=== PATIENT | male | born 1940 | race Caucasian/White ===

== ENCOUNTER → 2016-10-22 | Outpatient (CLI) | payer MEDICARE ==
[~2016-10-22] MED LIST: ACHD5005 PO; ALB0.5V IH; AMLO10TA4 PO; ASP81TEC PO; ASPI-983 PO; ASPI1TAB PO; ATOR40TA PO; ATR20T PO; CETI10TA20 PO; CHOL10003 PO; CLOP75TA PO; DRON400T2 PO; FLUT16SP22 NS; HCT25T PO; LEVE1U SQ; METF-380 PO; MUPI1OIN5 NS; NEBI20TA2 PO; NEBI5TAB8 PO; OLME1TAB25 PO; OMG1KC PO; POTA10TA21 PO; RIVA20TA PO; ROSU10TA12 PO; RT-ALBUINH IH; SITA1TBM7 PO; SITA50TA PO; TELM80TA3 PO; UMEC1BLS IH
--- NOTE | 2016-10-22 15:16 | Diagnostic Imaging Report ---
PROCEDURE: CT chest without contrast. TECHNIQUE: Multiple contiguous axial images were obtained through the chest without the use of intravenous contrast. INDICATION: Followup of bibasilar densities noted on previous CT angiography of 10/31/2015. FINDINGS: There is mild apical pleural scarring noted bilaterally. The lungs are well aerated. No parenchymal masses have developed. Densities noted within the lingula and right middle lobe anteriorly are unchanged, consistent with chronic scarring. There are no infiltrates. The mediastinum and hilum appear unchanged. The right paratracheal lymph node remains stable measuring 12 mm. No adenopathy has developed. Median sternotomy changes are noted with dense coronary calcification. No pleural effusions or pericardial effusions. The questionable fatty adrenal lesion on the left is again noted and is felt to most likely represent volume averaging. This has not changed in appearance. IMPRESSION: 1. Stable CT scan of the chest without contrast. Densities in the right middle lobe and lingula are unchanged and likely represent scarring. 2. Median sternotomy changes with dense coronary artery calcification again noted. 3. The questionable fatty lesion in the adrenal gland is stable. This is felt on today's exam to most likely represent volume averaging along the adrenal hilum. Dictated by: Dictated on workstation # [id number]
== END ==
LOC: RAD 11:11
PROVIDERS: ATTEND Internal Medicine Critical Care Medicine
DX: R06.00 Dyspnea, unspecified (principal); R05 Cough; R91.1 Solitary pulmonary nodule; I25.10 Atherosclerotic heart disease of native coronary artery without angina pectoris
CPT/HCPCS: 71250

== ENCOUNTER → 2017-11-15 | Outpatient (CLI) | payer MEDICARE ==
--- NOTE | 2017-11-15 16:41 | Diagnostic Imaging Report ---
INDICATION: Lung nodule. CT chest obtained without IV contrast. COMPARISON: 10/22/16 FINDINGS: Patient has had prior sternotomy. There are coronary artery calcifications with evidence of coronary bypass. The heart is enlarged. There are no enlarged mediastinal or hilar nodes. There are no enlarged axillary nodes or chest wall masses. There is no pleural or pericardial fluid. Visualized portions of the upper abdomen are stable. Lung parenchymal windows demonstrate some parenchymal scarring in the lingula of the left lung. There is some linear scarring in the right middle lobe as well. There is no discrete nodular lesion. IMPRESSION: Stable areas of likely scarring in the lingula and right middle lobe. Cardiomegaly and post sternotomy change with coronary artery calcifications. No new abnormality compared to the previous study. Dictated by: Dictated on workstation # [id number]
== END ==
LOC: RAD 15:36
PROVIDERS: ATTEND Nurse Practitioner Family
DX: R91.1 Solitary pulmonary nodule (principal); I51.7 Cardiomegaly; I25.10 Atherosclerotic heart disease of native coronary artery without angina pectoris; Z98.890 Other specified postprocedural states
CPT/HCPCS: 71250

== ENCOUNTER → 2018-07-17 | Outpatient (CLI) | payer MEDICARE | LOC: CARD 10:51 | PROVIDERS: ATTEND Internal Medicine Cardiovascular Disease | DX: I25.10 Atherosclerotic heart disease of native coronary artery without angina pectoris (principal); I77.9 Disorder of arteries and arterioles, unspecified; E11.9 Type 2 diabetes mellitus without complications; I10 Essential (primary) hypertension; I48.2 Chronic atrial fibrillation | CPT/HCPCS: 93306 ==

== ENCOUNTER → 2019-03-10 | Day surgery (SDC) | payer MEDICARE ==
[2019-03-10] VITALS (11 sets, daily range): BP systolic 154–190; BP diastolic 91–117
[~2019-03-10] VITALS: Ht 172.7 cm; Wt 92.3 kg
[~2019-03-10] MED LIST changes: +INSU100V6 SQ; +METF-398 PO; +MIDAZOLAM 2 MG/2 ML (VERSED) VIAL ONE; +NS IV 1000 ML 1,000 ML IV SCH; +NS IV 1000 ML 1,000 ML ONE; -RIVA20TA PO; +RIVA20TA2 PO; +proPOfol 200 MG/20 ML (DIPRIVAN) VIAL IV ONE
[2019-03-10 07:55] LABS: HEMOGLOBIN 15.2 G/DL (13.3-17.7); MEAN PLATELET VOLUME 10.8 FL (7.4-10.4); RED CELL DISTRIBUTION WIDTH 13.6 % (10.0-14.5); WHITE BLOOD COUNT 6.1 10^3/uL (4.3-11.0)
[2019-03-10 08:11] LABS: INR 2.5 (0.8-1.4); PROTHROMBIN TIME PATIENT 28.4 SEC (12.2-14.7)
[2019-03-10 08:16] LABS: ALBUMIN 3.9 GM/DL (3.2-4.5); BILIRUBIN,TOTAL 0.9 MG/DL (0.1-1.0); CALCIUM 8.8 MG/DL (8.5-10.1); CREATININE SERUM 1.22 MG/DL (0.60-1.30); POTASSIUM 3.6 MMOL/L (3.6-5.0); TOTAL PROTEIN 6.4 GM/DL (6.4-8.2)
--- NOTE | 2019-03-10 09:51 | NUR ---
Clare asked me to look at patients medications after she done the medication history. Called [facility] pharmacy and received a recently filled list. Xarelto 20mg HS 03/06/19 (QTY 90) Multaq 400mg BID 03/05/19 (QTY 90) Anora Ellipta 62.5-25mg Daily 02/27/19 Finasteride 5mg Daily 02/26/19 (QTY 90) Lantus 100units/ml 24 units Daily 01/30/19 Valsartan 40mg Daily 01/30/19 (QTY 90) Aspirin EC 81mg Daily 01/28/19 (QTY 90) Metoprolol Succ ER 50mg Daily 01/21/19 (QTY 90) Metformin HCL 850mg BID 12/08/18 (QTY 180) Atorvastatin 40mg Daily 10/06/18 (QTY 90)
--- NOTE | 2019-03-10 10:06 | Cardiac Procedure Note-CS/ASA ---
Pre-Procedure Note Pre-Op Procedure Note H&P Reviewed The H&P was reviewed, patient examined and no changes noted. Date H&P Reviewed: Mar 10, 2019 Time H&P Reviewed: 09:50 Conscious Sedation Pre-Proced Time 09:50 ASA Score 3 For ASA 3 and 4: Consider anesthesia and medical clearance. Also, for patients with a history of failed moderate sedation consider anesthesia. Airway Lungs Heart ASA score ASA 1: a normal healthy patient ASA 2: a patient with a mild systemic disease (mid diabetes, controlled hypertension, obesity ASA 3: a patient with a severe systemic disease that limits activity (angina, COPD, prior Myocardial infarction) ASA 4: a patient with an incapacitating disease that is a constant threat to life (CHF, renal failure) ASA 5: a moribund patient not expected to survive 24 hrs. (ruptured aneurysm) ASA 6: a declared brain- patient whose organs are being harvested. For emergent operations, add the letter E after the classification Mallampati Classification Grade 2 Sedation Plan Analgesia, Amnesia, Plan communicated to team members, Discussed options with patient/fam, Discussed risks with patient/fam The patient is an appropriate candidate to undergo the planned procedure, sedation, and anesthesia. The patient immediately re-assessed prior to indication. ROBERTO CARLSON MD FACP FAC CCDS Mar 10, 2019 10:06
--- NOTE | 2019-03-10 10:12 | Progress Note ---
Standard Progress Note Progress Notes/Assess & Plan Date Seen by a Provider: Mar 10, 2019 Time Seen by a Provider: 10:00 Progress/Assessment & Plan sedation for cardioversion. start time 1000 end [id number]. asa 3. 30mg propfol, and 2mg versed iv given. tolerated procedure well. SHENA SHARP CRNA Mar 10, 2019 10:12
--- NOTE | 2019-03-10 15:11 | OPERATIVE REPORT ---
DATE OF SERVICE: 03/10/2019 EXTERNAL ELECTRICAL CARDIOVERSION PREOPERATIVE DIAGNOSIS: Atrial fibrillation. POSTOPERATIVE DIAGNOSIS: Sinus rhythm. PROCEDURE PERFORMED: External electrical cardioversion. DESCRIPTION OF PROCEDURE: Informed consent was obtained prior to the procedure. He has been anticoagulated with rivaroxaban for several months without any interruption prior to today's electrical cardioversion. The nurse concession manager provided short acting anesthesia under which synchronized external biphasic shock was delivered through patches. We first used 120 joules, which converted atrial fibrillation to sinus rhythm only for a few seconds and he went back into atrial fibrillation. We then used 200 joules of synchronized biphasic shock, which restored sinus rhythm that he was maintaining until the time of this dictation. He tolerated the procedure well. Job ID: [id number] DocumentID: [id number] Dictated Date: 03/10/2019 10:26:37 Pasteurizer Helper Date: 03/10/2019 15:10:06 Dictated By: ROBERTO CARLSON MD, MA, FACP, FACC,
== END ==
LOC: SDC 07:01
PROVIDERS: ATTEND Internal Medicine Cardiovascular Disease
DX: I48.20 Chronic atrial fibrillation, unspecified (principal); I25.10 Atherosclerotic heart disease of native coronary artery without angina pectoris; E11.9 Type 2 diabetes mellitus without complications; E78.5 Hyperlipidemia, unspecified; G47.33 Obstructive sleep apnea (adult) (pediatric); I10 Essential (primary) hypertension; E66.9 Obesity, unspecified; Z68.30 Body mass index [BMI] 30.0-30.9, adult; Z79.4 Long term (current) use of insulin; Z79.899 Other long term (current) drug therapy; Z79.01 Long term (current) use of anticoagulants; Z79.82 Long term (current) use of aspirin; Z80.9 Family history of malignant neoplasm, unspecified
CPT/HCPCS: 36415; 80053; 80061; 85027; 85610; 85730; 87081; 92960; 93005

== ENCOUNTER → 2019-04-13 | Outpatient (CLI) | payer MEDICARE ==
[~2019-04-13] MED LIST changes: -MIDAZOLAM 2 MG/2 ML (VERSED) VIAL ONE; -NS IV 1000 ML 1,000 ML IV SCH; -NS IV 1000 ML 1,000 ML ONE; -proPOfol 200 MG/20 ML (DIPRIVAN) VIAL IV ONE
--- NOTE | 2019-04-13 14:37 | Diagnostic Imaging Report ---
INDICATION: Chronic cough. COMPARISON: 07/26/2015. FINDINGS: There is cardiomegaly. There has been previous median sternotomy and coronary artery bypass graft. There is no pleural effusion, pneumothorax, or pneumonia. The mediastinum is unremarkable. IMPRESSION: No acute cardiopulmonary abnormality. Cardiomegaly. Dictated by: Dictated on workstation # [id number]
== END ==
LOC: RAD 13:48
PROVIDERS: ATTEND Internal Medicine Critical Care Medicine
DX: I51.7 Cardiomegaly (principal); R05 Cough
CPT/HCPCS: 71046

== ENCOUNTER 2019-12-02 16:53 | Observation (INO) | payer MEDICARE ==
[~2019-12-02] VITALS: Ht 172.7 cm; Wt 96.2 kg
[~2019-12-02 16:53] MED LIST changes: -CETI10TA20 PO; +CETI10TA21 PO
[2019-12-02 17:27] LABS: BASOPHILS % (AUTO) 0 % (0-10); EOSINOPHILS # (AUTO) 0.1 10^3/uL (0.0-0.3); EOSINOPHILS % (AUTO) 2 % (0-10); HEMATOCRIT 45 % (40-54); HEMOGLOBIN 15.5 G/DL (13.3-17.7); LYMPHOCYTES # (AUTO) 2.4 X 10^3 (1.0-4.0); LYMPHOCYTES % (AUTO) 33 % (12-44); MEAN CORPUSCULAR HEMOGLOBIN 31 PG (25-34); MEAN CORPUSCULAR HGB CONC 34 G/DL (32-36); MEAN CORPUSCULAR VOLUME 90 FL (80-99); MEAN PLATELET VOLUME 11.3 FL (7.4-10.4); MONOCYTES # (AUTO) 0.8 X 10^3 (0.0-1.0); MONOCYTES % (AUTO) 10 % (0-12); NEUTROPHILS # (AUTO) 4.1 X 10^3 (1.8-7.8); NEUTROPHILS % (AUTO) 55 % (42-75); PLATELET COUNT 230 10^3/uL (130-400); RED CELL DISTRIBUTION WIDTH 13.5 % (10.0-14.5); WHITE BLOOD COUNT 7.5 10^3/uL (4.3-11.0)
--- NOTE | 2019-12-02 17:28 | ED Neurological Problem ---
General Chief Complaint: Neurological Problems Stated Complaint: DIZZY,WEAKNESS Source: patient Exam Limitations: no limitations (LAMONT SANCHES,) History of Present Illness Date Seen by Provider: Dec 02, 2019 Time Seen by Provider: 16:[address] Dorantes presents to the emergency department this afternoon with complaints of dizziness. He states the symptoms began 2 days ago. He describes the dizziness as unbalanced and unsteady on his feet. In addition to the dizziness Dr. Dorantes describes generalized weakness. He denies nausea, fever, blurred vision, headache, confusion, or other neurological symptoms. He is currently taking xarelto for a history of atrial fibrillation. He states his last blood pressure at home was 140s/80s but then his machine was unable to get a reading. Associated Symptoms: No confusion, No fever/chills, No nausea/vomiting, No slurred speech; trouble walking; No vision changes; weakness (generalized) (LAMONT SANCHES,) Allergies and Home Medications Allergies Coded Allergies: No Known Drug Allergies (Unverified , 01/12/11) Home Medications Albuterol Sulfate 18 Gm Hfa.aer.ad, 2 PUFF IH QID PRN for SHORTNESS OF BREATH, (Reported) Albuterol Sulfate 2.5 Mg/0.5 Ml Vial.neb, 2.5 MG IH Q6H PRN for SHORTNESS OF BREATH, (Reported) Aspirin 81 Mg Tablet.dr, 81 MG PO DAILY, (Reported) Atorvastatin Calcium 40 Mg Tablet, 40 MG PO HS, (Reported) Dronedarone HCl 400 Mg Tablet, 400 MG PO BID, (Reported) Fluticasone Propionate 16 Gm [place].susp, 1 SPRAY NS BID PRN for ALLERGIES, (Reported) Insulin Glargine,Hum.rec.anlog 100 Unit/1 Ml Vial, 30 UNIT SQ HS, (Reported) Metformin HCl 850 Mg Tablet, 850 MG PO DAILY, (Reported) Nebivolol HCl 5 Mg Tablet, 5 MG PO DAILY, (Reported) Rivaroxaban 20 Mg Tablet, 20 MG PO 1700, (Reported) Umeclidinium Brm/Vilanterol Tr 1 Each Blst.w.dev, 1 PUFF IH DAILY, (Reported) Patient Home Medication List Home Medication List Reviewed: Yes (LAMONT SANCHES,) Review of Systems Review of Systems Constitutional: dizziness; No fever; weakness Eyes: No Symptoms Reported Ears, Nose, Mouth, Throat: no symptoms reported Respiratory: no symptoms reported Cardiovascular: no symptoms reported Gastrointestinal: no symptoms reported Genitourinary: no symptoms reported Musculoskeletal: no symptoms reported Skin: no symptoms reported Psychiatric/Neurological: No Symptoms Reported (LAMONT SANCHES,) Past Tbhvfpz-Cvesoe-Zsdvzv Hx Past Med/Social Hx: Reviewed Nursing Past Med/Soc Hx (DARCIE IBARRA MD) Patient Social History Smoking Status: Former Smoker (40 Pack/year history. Quit nearly 30 years ago) Type Used: Cigarettes Former Smoker, Quit: May 15, 1995 2nd Hand Smoke Exposure: No Recent Foreign Travel: No Contact w/Someone Who Travel: No Recent Hopitalizations: Yes (HERNIA SURGERY, CARDIAC SURGERY) (LAMONT SANCHES,) Immunizations Up To Date Date of Pneumonia Vaccine: Apr 10, 2011 Date of Influenza Vaccine: Apr 25, 2016 (LAMONT SANCHES,) Past Medical History Surgeries: Yes Cardiac, Coronary Stent Respiratory: Yes Sleep Apnea, COPD Currently Using CPAP: No Currently Using BIPAP: No Cardiac: Yes Atrial Fibrillation, Coronary Artery Disease, Hypertension Neurological: No Genitourinary: No Prostate Problems Gastrointestinal: No Endocrine: Yes Diabetes, Insulin dep Cancer: Yes Skin Did You Recieve Any Treatments: No Blood Disorders: No Adverse Reaction/Blood Tranf: No (LAMONT SANCHES,) CABG Gastrointestinal: No Musculoskeletal: No (DARCIE IBARRA MD) Physical Exam Vital Signs Vital Signs - First Documented 12/02/19 16:55 Temp 37.1 Pulse 65 Resp 18 B/P (MAP) 214/101 (138) Pulse Ox 96 O2 Delivery Room Air (DARCIE IBARRA MD) Vital Signs Capillary Refill : (LAMONT SANCHES,) Height, Weight, BMI Height: 5'8.00" Weight: 215lbs. 0.0oz. 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 Heel to melgar and finger to nose were normal) Crainal Nerves: normal hearing, normal speech, PERRL Coordination/Gait: normal finger to nose Motor/Sensory: no motor deficit, no sensory deficit Skin: normal color, warm/dry (DARCIE IBARRA MD) Progress/Results/Core Measures Results/Orders Lab Results Laboratory Tests Test 12/02/19 17:14 12/02/19 17:20 12/02/19 18:41 Range/Units White Blood Count 7.5 4.3-11.0 10^3/uL Red Blood Count 5.03 4.35-5.85 10^6/uL Hemoglobin 15.5 13.3-17.7 G/DL Hematocrit 45 40-54 % Mean Corpuscular Volume 90 80-99 FL Mean Corpuscular Hemoglobin 31 25-34 PG Mean Corpuscular Hemoglobin Concent 34 32-36 G/DL Red Cell Distribution Width 13.5 10.0-14.5 % Platelet Count 230 130-400 10^3/uL Mean Platelet Volume 11.3 H 7.4-10.4 FL Neutrophils (%) (Auto) 55 42-75 % Lymphocytes (%) (Auto) 33 12-44 % Monocytes (%) (Auto) 10 0-12 % Eosinophils (%) (Auto) 2 0-10 % Basophils (%) (Auto) 0 0-10 % Neutrophils # (Auto) 4.1 1.8-7.8 X 10^3 Lymphocytes # (Auto) 2.4 1.0-4.0 X 10^3 Monocytes # (Auto) 0.8 0.0-1.0 X 10^3 Eosinophils # (Auto) 0.1 0.0-0.3 10^3/uL Basophils # (Auto) 0.0 0.0-0.1 10^3/uL Prothrombin Time 14.1 12.2-14.7 SEC INR Comment 1.0 0.8-1.4 Activated Partial Thromboplast Time 31 24-35 SEC Sodium Level 139 135-145 MMOL/L Potassium Level 3.9 3.6-5.0 MMOL/L Chloride Level 102 98-107 MMOL/L Carbon Dioxide Level 28 21-32 MMOL/L Anion Gap 9 5-14 MMOL/L Blood Urea Nitrogen 19 H 7-18 MG/DL Creatinine 1.23 0.60-1.30 MG/DL Estimat Glomerular Filtration Rate 57 BUN/Creatinine Ratio 15 Glucose Level 115 H 70-105 MG/DL Calcium Level 9.3 8.5-10.1 MG/DL Corrected Calcium 9.3 8.5-10.1 MG/DL Magnesium Level 2.0 1.6-2.4 MG/DL Total Bilirubin 0.8 0.1-1.0 MG/DL Aspartate Amino Transf (AST/SGOT) 15 5-34 U/L Alanine Aminotransferase (ALT/SGPT) 18 0-55 U/L Alkaline Phosphatase 59 40-136 U/L Myoglobin 50.8 10.0-92.0 NG/ML Troponin I < 0.028 <0.028 NG/ML Total Protein 6.7 6.4-8.2 GM/DL Albumin 4.0 3.2-4.5 GM/DL TSH [place] Testing 1.48 0.35-4.94 UIU/ML Glucometer 112 H 70-110 MG/DL Urine Color YELLOW Urine Clarity CLEAR Urine pH 6.5 5-9 Urine Specific [place] 1.020 1.016-1.022 Urine Protein TRACE H NEGATIVE Urine Glucose (UA) TRACE H NEGATIVE Urine Ketones NEGATIVE NEGATIVE Urine Nitrite NEGATIVE NEGATIVE Urine Bilirubin NEGATIVE NEGATIVE Urine Urobilinogen 1.0 < = 1.0 MG/DL Urine Leukocyte Esterase NEGATIVE NEGATIVE Urine RBC (Auto) NEGATIVE NEGATIVE Urine RBC 0-2 /HPF Urine WBC 0-2 /HPF Urine Crystals PRESENT H /LPF Urine Amorphous Sediment RARE JAISON URATES H /LPF Urine Bacteria TRACE /HPF Urine Casts NONE /LPF Urine Mucus SMALL H /LPF Urine Culture Indicated NO (DARCIE IBARRA MD) My Orders Orders - DARCIE IBARRA MD Cbc With Automated Diff (12/02/19 17:14) Magnesium (12/02/19 17:14) Chest 1 View, Ap/Pa Only (12/02/19 17:14) Ekg Tracing (12/02/19 17:14) Comprehensive Metabolic Panel (12/02/19 17:14) Myoglobin Serum (12/02/19 17:14) Protime With Inr (12/02/19 17:14) Partial Thromboplastin Time (12/02/19 17:14) O2 (12/02/19 17:14) Monitor-Rhythm Ecg Trace Only (12/02/19 17:14) Lipid Panel (12/03/19 06:00) Ed Iv/Invasive Line Start (12/02/19 17:14) Troponin I (12/02/19 17:14) Ct Head Wo-R/O Stroke (12/02/19 17:14) Ua Culture If Indicated (12/02/19 17:15) Accucheck Stat ONCE (12/02/19 17:17) Thyroid Analyzer (12/02/19 17:14) Ed Iv/Invasive Line Start (12/02/19 18:30) Ns Iv 1000 Ml (Sodium Chloride 0.9%) (12/02/19 18:30) Ct Angio Head/Neck (12/02/19 18:30) Iohexol Injection (Omnipaque 350 Mg/Ml 1 (12/02/19 19:45) Received Contrast (Hold Metformin- Contr (12/02/19 19:45) Rivaroxaban Tablet (Xarelto Tablet) (12/02/19 20:15) Valsartan Tablet (Diovan Tablet) (12/02/19 20:15) Metoprolol Succinate (Xl) Tab (Toprol Xl (12/02/19 20:15) (DARCIE IBARRA MD) Medications Given in ED Current Medications Medications Dose Ordered Sig/Rupal Route Start Time Stop Time Status Last Admin Dose Admin Iohexol 100 ml ONCE ONCE IV 12/02/19 19:45 12/02/19 19:46 DC 12/02/19 19:34 85 ML (DARCIE IBARRA MD) Vital Signs/I&O 12/02/19 16:55 Temp 37.1 Pulse 65 Resp 18 B/P (MAP) 214/101 (138) Pulse Ox 96 O2 Delivery Room Air (DARCIE IBARRA MD) Progress Progress Note #1: Time: 18:45 Progress Note Initial workup was unremarkable. CT of the head showed no acute findings. K[place]- Hallpike exam was negative bilaterally. Each [place]-Hallpike test was converted into an Antonina maneuver. It was noted the patient had a bit of disequilibrium or dizziness upon sitting after each maneuver. CT angiogram of the head and neck is pending. He is receiving a liter of IV fluid to prevent contrast nephropathy. Blood pressure has been improving with systolic blood pressures in the 160s without any particular treatment. Progress Note #2: Time: 20:19 Progress Note Workup was ultimately unremarkable. CT angiogram was negative for stenosis or occlusive disease. Patient was still having significant trouble with disequilibrium especially upon sitting from lying and standing from sitting. Orthostatic blood pressures were lying 194/169, sitting 216/119, standing 201/122. Though blood pressure was initially improving, it is now escalating again. Patient was not able to safely stand for prolonged period of time or ambulate on his own. I discussed the case with Dr. Ch. He recommends admitting for observation which I certainly agree with as well as giving an additional Toprol-XL 25 now and his regular evening dose of valsartan. Case was also discussed with Dr. Ch who is agreeable. (DARCIE IBARRA MD) Initial ECG Impression Date: Dec 02, 2019 Initial ECG Impression Time: 17:03 Initial ECG Rate: 62 Comment Sinus rhythm with frequent PVCs, possibly trigeminy. Prolonged MO interval of 224. No ST elevation or depression. (DARCIE IBARRA MD) Diagnostic Imaging Diagonstic Imaging: CT Plain Films/CT/US/NM/MRI: head Comments CT head viewed by me and report reviewed. See report below: NAME: ROBBY DORANTES [facility] REC#: [id number] PT STATUS: REG ER : 1940 PHYSICIAN: DARCIE IBARRA MD ADMIT DATE: 12/02/19/ER Draft Date of Exam:12/02/19 CT HEAD WO-R/O STROKE PROCEDURE: CT head without contrast. TECHNIQUE: Multiple contiguous axial images were obtained through the brain without the use of intravenous contrast. Auto Exposure Controls were utilized during the CT exam to meet ALARA standards for radiation dose reduction. DATE: December 02, 2019. COMPARISON: December 20, 2015. INDICATION: 79-year-old male, dizziness and weakness. Headache. FINDINGS: There is a focal area of CSF attenuation in the left periventricular white matter which may relate to a remote prior infarct. There are mild probable changes of chronic small vessel ischemic disease. The ventricles and cerebral spinal fluid spaces are of normal size and configuration for the patient's age. There is no mass effect or midline shift. There is no acute intracranial hemorrhage. There is no abnormal extra-axial fluid collection. There is a polypoid lesion in the left maxillary sinus most likely relating to a mucous retention cyst. IMPRESSION: 1. No identified acute intracranial abnormality. 2. 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 3. Probable changes of chronic small vessel ischemic disease. Dictated on workstation # [id number] Dict: 12/02/19 1802 Trans: 12/02/19 185 [facility] [id number] Interpreted by: ARTHUR GUZMÁN MD Diagonstic Imaging: Xray Plain Films/CT/US/NM/MRI: chest Comments Chest x-ray viewed by me and report reviewed. See report below: NAME: ROBBY DORANTES [facility] REC#: [id number] PT STATUS: REG ER : 1940 PHYSICIAN: DARCIE IBARRA MD ADMIT DATE: 12/02/19/ER Draft Date of Exam:12/02/19 CHEST 1 VIEW, AP/PA ONLY EXAMINATION: Chest radiograph, portable AP view. DATE: 12/02/2019 6:23 PM hours. INDICATION: 79-year-old male, dizziness and weakness. COMPARISON: April 13, 2019. FINDINGS: There are median sternotomy wires. Stable overall appearance of the cardiomediastinal silhouette. There is no identified pneumothorax. There is no large pleural effusion. There is no identified focal airspace consolidation. IMPRESSION: No identified acute cardiopulmonary abnormality. Dictated on workstation # [id number] Dict: 12/02/19 182 Trans: 12/02/19 183 [facility] [id number] Interpreted by: ARTHUR GUZMÁN MD Diagonstic Imaging: CT Plain Films/CT/US/NM/MRI: other (CT angiogram head and neck) Comments CT angiogram head and neck viewed by me and report reviewed. See report below: NAME: ROBBY DORANTES [facility] REC#: [id number] PT STATUS: REG ER : 1940 PHYSICIAN: DARCIE IBARRA MD ADMIT DATE: 12/02/19/ER Signed Date of Exam:12/02/19 CT ANGIO HEAD/NECK PROCEDURE: CT angiography of the head and CT angiography of the neck with and without contrast. TECHNIQUE: Contiguous noncontrast images were obtained from the skull base through the vertex. After intravenous contrast administration, helical CT angiography of the neck was performed. Source data was reformatted into 3D MIP projections. Delayed post contrast acquisition was also obtained. Auto Exposure Controls were utilized during the CT exam to meet ALARA standards for radiation dose reduction. DATE: December 02, 2019. INDICATION: 79-year-old male, dizziness, weakness, headache. COMPARISON: CT head without contrast December 02, 2019. December 20, 2015. FINDINGS: The left common carotid artery is patent. There is calcified plaque at the proximal aspect of the left internal carotid artery without high-grade stenosis. There is also calcified plaque involving the distal left internal carotid artery as well as at the cavernous segment of the left internal carotid artery. There is no high-grade left internal carotid artery stenosis. The left anterior cerebral artery is patent. The left middle cerebral artery is patent. There is a patent anterior communicating artery. The right anterior cerebral artery is patent. The right middle cerebral artery is patent. The right internal carotid artery is patent. There is mild calcified plaque at the level of the proximal right internal carotid artery. There is no right internal carotid artery stenosis. The right vertebral artery is patent. The basilar artery is patent. The right and left posterior inferior cerebellar arteries are patent. The right and left posterior cerebral arteries are patent. The left vertebral artery is patent and conventional in origin. There is no identified aneurysm or dissection. The visualized portions of the lungs are clear. There is a right superior mediastinal lymph node, measuring 10 mm in short axis of uncertain exact etiology. There are degenerative changes of the cervical spine. There is no abnormal intracranial enhancement. IMPRESSION: Patent arterial head and neck vasculature without high-grade stenosis, occlusion, aneurysm or dissection. Dictated by: Dictated on workstation # [id number] Dict: 12/02/191931 Trans: 12/02/191943 [facility] [id number] Interpreted by: ARTHUR GUZMÁN MD Electronically signed by: ARTHUR GUZMÁN MD 12/02/191943 (DARCIE IBARRA MD) Departure Communication (Admissions) Time/Spoke to Admitting Phy: 20:18 Dr. Deric Ch Time/Spoke to Consulting Phy: 20:06 Dr. Ch (DARCIE IBARRA MD) Impression Primary Impression: Disequilibrium Additional Impression: Severe hypertension Disposition: ADMITTED INPATIENT Condition: Unchanged Admissions Decision to Admit Reason: Admit from ER (General) Decision to Admit/Date: Dec 02, 2019 Time/Decision to Admit Time: 20:06 (DARCIE IBARRA MD) Departure-Patient Inst. Referrals: DERIC CH MD (PCP/Family) Primary Care Physician LAMONT SANCHES, Dec 02, 2019 17:28 DARCIE IBARRA MD Dec 02, 2019 17:47
--- NOTE | 2019-12-02 17:30 | NUR ---
ASSUMED CARE OF THIS PATIENT AT THIS TIME FROM JESSIKA RODRIGUES.
[2019-12-02 17:33] LABS: PROTHROMBIN TIME PATIENT 14.1 SEC (12.2-14.7)
[2019-12-02 17:37] LABS: POTASSIUM 3.9 MMOL/L (3.6-5.0)
[2019-12-02 17:38] LABS: CALCIUM 9.3 MG/DL (8.5-10.1)
[2019-12-02 17:40] LABS: TOTAL PROTEIN 6.7 GM/DL (6.4-8.2)
[2019-12-02 17:41] LABS: BILIRUBIN,TOTAL 0.8 MG/DL (0.1-1.0)
[2019-12-02 17:43] LABS: CREATININE SERUM 1.23 MG/DL (0.60-1.30)
[2019-12-02 18:26] LABS: TSH (THYROID ANALYZER) 1.48 UIU/ML (0.35-4.94)
--- NOTE | 2019-12-02 18:28 | Diagnostic Imaging Report ---
PROCEDURE: CT head without contrast. TECHNIQUE: Multiple contiguous axial images were obtained through the brain without the use of intravenous contrast. Auto Exposure Controls were utilized during the CT exam to meet ALARA standards for radiation dose reduction. DATE: December 02, 2019. COMPARISON: December 20, 2015. INDICATION: 79-year-old male, dizziness and weakness. Headache. FINDINGS: There is a focal area of CSF attenuation in the left periventricular white matter which may relate to a remote prior infarct. There are mild probable changes of chronic small vessel ischemic disease. The ventricles and cerebral spinal fluid spaces are of normal size and configuration for the patient's age. There is no mass effect or midline shift. There is no acute intracranial hemorrhage. There is no abnormal extra-axial fluid collection. There is a polypoid lesion in the left maxillary sinus most likely relating to a mucous retention cyst. IMPRESSION: 1. No identified acute intracranial abnormality. 2. 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 3. Probable changes of chronic small vessel ischemic disease. Dictated by: Dictated on workstation # [id number]
[2019-12-02] MEDS ORDERED: NS IV 1000 ML 1,000 ML IV SCH (18:30)
--- NOTE | 2019-12-02 18:34 | Diagnostic Imaging Report ---
EXAMINATION: Chest radiograph, portable AP view. DATE: 12/02/2019 6:23 PM hours. INDICATION: 79-year-old male, dizziness and weakness. COMPARISON: April 13, 2019. FINDINGS: There are median sternotomy wires. Stable overall appearance of the cardiomediastinal silhouette. There is no identified pneumothorax. There is no large pleural effusion. There is no identified focal airspace consolidation. IMPRESSION: No identified acute cardiopulmonary abnormality. Dictated by: Dictated on workstation # [id number]
[2019-12-02 18:53] LABS: BILIRUBIN,URINE NEGATIVE (NEGATIVE); CLARITY,URINE CLEAR; COLOR,URINE YELLOW; GLUCOSE, URINE (UA) TRACE (NEGATIVE); KETONES,URINE NEGATIVE (NEGATIVE); LEUKOCYTE ESTERASE ,URINE NEGATIVE (NEGATIVE); NITRITE,URINE NEGATIVE (NEGATIVE); PH,URINE 6.5 (5-9); PROTEIN,URINE TRACE (NEGATIVE)
[2019-12-02 19:06] LABS: AMORPHOUS SEDIMENT,UR RARE AMOR URATES /LPF; BACTERIA,URINE TRACE /HPF; RBC,URINE 0-2 /HPF; WBC,URINE 0-2 /HPF
[2019-12-02] MEDS ORDERED: IOHEXOL 350 MG/ML 100 ML (OMNIPAQUE 350) VIAL IV ONE (19:45)
[2019-12-02] MEDS ORDERED: HOLD METFORMIN - RECEIVED CONTRAST 20 ML VIAL IV SCH (19:45)
--- NOTE | 2019-12-02 19:45 | Diagnostic Imaging Report ---
PROCEDURE: CT angiography of the head and CT angiography of the neck with and without contrast. TECHNIQUE: Contiguous noncontrast images were obtained from the skull base through the vertex. After intravenous contrast administration, helical CT angiography of the neck was performed. Source data was reformatted into 3D MIP projections. Delayed post contrast acquisition was also obtained. Auto Exposure Controls were utilized during the CT exam to meet ALARA standards for radiation dose reduction. DATE: December 02, 2019. INDICATION: 79-year-old male, dizziness, weakness, headache. COMPARISON: CT head without contrast December 02, 2019. December 20, 2015. FINDINGS: The left common carotid artery is patent. There is calcified plaque at the proximal aspect of the left internal carotid artery without high-grade stenosis. There is also calcified plaque involving the distal left internal carotid artery as well as at the cavernous segment of the left internal carotid artery. There is no high-grade left internal carotid artery stenosis. The left anterior cerebral artery is patent. The left middle cerebral artery is patent. There is a patent anterior communicating artery. The right anterior cerebral artery is patent. The right middle cerebral artery is patent. The right internal carotid artery is patent. There is mild calcified plaque at the level of the proximal right internal carotid artery. There is no right internal carotid artery stenosis. The right vertebral artery is patent. The basilar artery is patent. The right and left posterior inferior cerebellar arteries are patent. The right and left posterior cerebral arteries are patent. The left vertebral artery is patent and conventional in origin. There is no identified aneurysm or dissection. The visualized portions of the lungs are clear. There is a right superior mediastinal lymph node, measuring 10 mm in short axis of uncertain exact etiology. There are degenerative changes of the cervical spine. There is no abnormal intracranial enhancement. IMPRESSION: Patent arterial head and neck vasculature without high-grade stenosis, occlusion, aneurysm or dissection. Dictated by: Dictated on workstation # [id number]
[2019-12-02] MEDS ORDERED: RIVAROXABAN 20 MG TABLET (XARELTO) PO ONE (20:15)
[2019-12-02] MEDS ORDERED: VALSARTAN 80 MG (DIOVAN) TAB PO ONE ×2 (20:15→22:45)
[2019-12-02 21:00] VITALS: BP 219/115
--- NOTE | 2019-12-02 21:15 | NUR ---
2115: B/P ON ADMIT IS 219/115 WITH A HR OF 63. DR. SETHI NOTIFIED; NEW ORDER RECEIVED FOR 10 MG PO NORVASC. 5: B/P NOW 178/98 WITH A HR OF 63, DR SETHI NOTIFIED. NEW ORDER RECEIVED FOR 80 MG PO VALSARTAN NOW AND 160 MG PO DAILY STARTING TOMORROW.
[2019-12-02] MEDS ORDERED: amLODIPine 10 MG (NORVASC) TAB ONE (21:24)
[2019-12-02 21:30] VITALS: BP 203/109
[2019-12-02] MEDS ORDERED: amLODIPine 10 MG (NORVASC) TAB PO ONE (21:30)
[2019-12-02 22:07] VITALS: BP 180/97
[2019-12-02 22:30] VITALS: BP 178/97
[2019-12-03] VITALS (9 sets, daily range): BP systolic 150–194; BP diastolic 81–102
[2019-12-03 03:34] LABS: BASOPHILS % (AUTO) 0 % (0-10); EOSINOPHILS # (AUTO) 0.2 10^3/uL (0.0-0.3); EOSINOPHILS % (AUTO) 2 % (0-10); HEMATOCRIT 43 % (40-54); HEMOGLOBIN 14.6 G/DL (13.3-17.7); LYMPHOCYTES # (AUTO) 2.6 X 10^3 (1.0-4.0); LYMPHOCYTES % (AUTO) 36 % (12-44); MEAN CORPUSCULAR HEMOGLOBIN 31 PG (25-34); MEAN CORPUSCULAR HGB CONC 34 G/DL (32-36); MEAN CORPUSCULAR VOLUME 90 FL (80-99); MEAN PLATELET VOLUME 11.1 FL (7.4-10.4); MONOCYTES # (AUTO) 0.7 X 10^3 (0.0-1.0); MONOCYTES % (AUTO) 10 % (0-12); NEUTROPHILS # (AUTO) 3.7 X 10^3 (1.8-7.8); NEUTROPHILS % (AUTO) 52 % (42-75); PLATELET COUNT 205 10^3/uL (130-400); RED CELL DISTRIBUTION WIDTH 13.4 % (10.0-14.5); WHITE BLOOD COUNT 7.2 10^3/uL (4.3-11.0)
[2019-12-03 03:45] LABS: CHLORIDE 104 MMOL/L (98-107); POTASSIUM 3.3 MMOL/L (3.6-5.0); SODIUM 139 MMOL/L (135-145)
[2019-12-03 03:47] LABS: GLUCOSE 161 MG/DL (70-105)
[2019-12-03 03:48] LABS: CARBON DIOXIDE 26 MMOL/L (21-32); TRIGLYCERIDES 127 MG/DL (<150); VLDL CHOLESTEROL 25 MG/DL (5-40)
[2019-12-03 03:51] LABS: BUN/CREATININE RATIO 14; CREATININE SERUM 1.13 MG/DL (0.60-1.30); GFR ESTIMATED > 60
[2019-12-03 03:53] LABS: CHOLESTEROL 126 MG/DL (< 200)
[2019-12-03 03:54] LABS: HDL CHOLESTEROL 43 MG/DL (40-60)
--- NOTE | 2019-12-03 07:34 | History & Physical ---
History of Present Illness History of Present Illness Reason for visit/HPI 79 yo M admitted for unsteadiness on feet x 4 days- position change from sitting to standing. Antonina maneuver in ER did not resolve or help. Denies headache, nausea, fever. He is on xarelto for afib. History of bypass for CAD. Also noted to have significantly elevated blood pressure. He also reports weakness. Imaging done in ER-- CT head Remote prior infarct involving the left periventricular white matter, microvascular changes, but no acute abnormalities. CTA head- There is calcified plaque at the proximal aspect of the left internal carotid artery without high-grade stenosis. There is also calcified plaque involving the distal left internal carotid artery as well as at the cavernous segment of the left internal carotid artery. Patent head/neck vasculature patent. Date of Admission Dec 02, 2019 at 20:18 Date Seen by a Provider: Dec 04, 2019 Time Seen by a Provider: 11:50 I consulted on this patient on 12/03/19 07:29 Attending Physician Allan Ch MD Admitting Physician Allan Ch MD Consult Dr. Mckeon Allergies and Home Medications Allergies Coded Allergies: No Known Drug Allergies (Unverified , 01/12/11) Home Medications Acetaminophen 500 Mg Tablet, 1,000 MG PO Q8H PRN for PAIN-MILD (1-4), (Reported) Albuterol Sulfate 1 Puff Puff, 2 PUFF PO Q6H PRN for SHORTNESS OF BREATH, (Reported) Aspirin 81 Mg Tablet.dr, 81 MG PO DAILY, (Reported) Finasteride 5 Mg Tablet, 5 MG PO DAILY, (Reported) FILLED 08-06-2019 #90/90 DAY SUPPLY Fluticasone Propion/Salmeterol 1 Each Blst.w.dev, 1 PUFF PO BID PRN for FAMILIA RTNESS OF BREATH, (Reported) Ibuprofen 200 Mg Tablet, 400 MG PO Q8H PRN for PAIN-MILD (1-4), (Reported) Insulin Glargine,Hum.rec.anlog 100 Unit/1 Ml Vial, 30 UNIT SQ DAILY, (Reported) Metformin HCl 850 Mg Tablet, 850 MG PO DAILY, (Reported) Rivaroxaban 20 Mg Tablet, 20 MG PO 1700, (Reported) Valsartan 40 Mg Tablet, 40 MG PO DAILY, (Reported) Patient Home Medication List Home Medication List Reviewed: Yes Past Pbnxrux-Tvkmma-Qetumb Hx Patient Social History Alcohol Use: Denies Use Recreational Drug Use: No Smoking Status: Former Smoker Former Smoker, Quit: May 15, 1995 Type Used: Cigarettes 2nd Hand Smoke Exposure: No Recent Foreign Travel: No Contact w/other who traveled: No Recent Hopitalizations: Yes (HERNIA SURGERY, CARDIAC SURGERY) Recent Infectious Disease Expo: No Immunizations Up To Date Date of Pneumonia Vaccine: Apr 10, 2019 Date of Influenza Vaccine: Apr 25, 2016 Surgeries Yes CABG Respiratory Yes Currently Using CPAP: No Currently Using BIPAP: No Cardiovascular Yes Atrial Fibrillation, Coronary Artery Disease, Hypertension Neurological No Genitourinary No Prostate Problems Gastrointestinal No Musculoskeletal No Endocrine History of Endocrine Disorders: Yes Endocrine Disorders: Diabetes, Insulin dep Cancer Yes Skin Did You Recieve Any Treatments: No Blood Transfusions History of Blood Disorders: No Adverse Reaction to a Blood Tr: No Review of Systems Review of Systems General: No Chills, No Night Sweats HEENT: No Head Aches Pulmonary: No Dyspnea, No Cough Cardiovascular: Palpitations; No: Chest Pain Gastrointestinal: No: Nausea, Vomiting, Abdominal Pain Genitourinary: No Dysuria Neurological: Weakness, Incoordination Physical Exam Vital Signs Vital Signs - First Documented 12/02/19 16:55 Temp 37.1 Pulse 65 Resp 18 B/P (MAP) 214/101 (138) Pulse Ox 96 O2 Delivery Room Air Capillary Refill : Less Than 3 Seconds Height, Weight, BMI Height: 5'8.00" Weight: 215lbs. 0.0oz. 97.414253rt; 30.47 BMI Method: General Appearance: Mild Distress HEENT: PERRL/EOMI Neck: Non Tender, Supple Respiratory: Chest Non Tender, Lungs Clear, Normal Breath Sounds Cardiovascular: Other (irregular rhythm (atrial fibrillation)) Gastrointestinal: Non Tender, Soft Rectal: Deferred Back: Normal Inspection, No CVA Tenderness Extremity: Non Tender, No Calf Tenderness Neurologic/Psychiatric: Alert, Oriented x3 Skin: Warm/Dry Assessment/Plan Assessment/Plan Admission Dx unsteady on feet dizziness/lightheadedness elevated hypertension Admission Status: Observation Reason for Inpatient Admission: admitted observation as etiology is not clear- he is high risk for falling due to his unsteadiness/weakness- added on to him being on xarelto he is at a higher risk for a brain bleed with a fall. 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 -ordering an MRI of head with/without contrast to further evaluate his unsteadiness on his feet and weakness. -potassium for low potassium -Pt in Afib. valsartan increased. amlodipine added (to start 12/04/19) to help with bringing blood pressure down. Dispo: etiology unclear- could be cardiac related- afib, bradycardic episodes, vs cranial issue (stroke, lesion, mass)- work up as above. Problems: (1) Disequilibrium (2) Severe hypertension (3) DMII (diabetes mellitus, type 2) Qualifiers: Assessment & Plan: Hga1c 8.0 (4) Hypokalemia Assessment & Plan: replacing (5) BPH w/o urinary obs/LUTS (6) CAD (coronary atherosclerotic disease) Clinical Quality Measures DVT/VTE Risk/Contraindication: Risk Factor Score Per Nursin RFS Level Per Nursing on Admit: 2=Moderate ALLAN CH MD Dec 03, 2019 07:34
--- NOTE | 2019-12-03 08:30 | Consultation-Cardiology ---
HPI-Cardiology Cardiology Consultation: Date of Consultation 12/03/19 Time Seen by a Provider: 08:40 Date of Admission 12-02-2019 Attending Physician Allan Magdaleno MD Admitting Physician Allan Magdaleno MD Consulting Physician Kevin Mckeon MD HPI: Chief Complaint: Dizziness Dr. Dorantes is a 79 yr old male admitted to [facility] from Dr. Allan Magdaleno. He reports for the last several days he has had profound dizziness and poor balance resulting in falls. No reported injury to head. He denies any CP or SOB. He reports occ palpitations which only last for a brief period of time and are i nfrequent. He denies any syncope or near syncope. He states he feels his dizziness is something more than vertigo. He has been compliant with his medications. He reports when he came to the hospital yesterday his BP was elevated at greater than 200 systolic. He denies any headache or vision changes. Review of Systems-Cardiology Review of Systems Constitutional: No chills, No fever; lightheadedness Eyes: No vision change Ears/Nose/Throat: No epistaxis, No recent hearing loss Respiratory: As described under HPI Cardiovascular: As described under HPI Gastrointestinal: No constipation, No diarrhea, No vomiting Genitourinary: No dysuria, No hematuria Musculoskeletal: no symptoms reported Skin: No rash on exposed areas, No ulcerations on exposed areas Psychiatric/Neurological: No anxiety, No depression, No seizure, No focal weakness, No syncope Hematologic: No bleeding abnormalities VQG-Ygrexc-Bpsbsd Hx Patient Social History Alcohol Use: Denies Use Recreational Drug Use: No Smoking Status: Former Smoker Type Used: Cigarettes 2nd Hand Smoke Exposure: No Recent Foreign Travel: No Recent Infectious Disease Expo: No Hospitalization with Isolation: Denies Immunizations Up To Date Date of Pneumonia Vaccine: Apr 10, 2019 Date of Influenza Vaccine: Apr 25, 2016 Past Medical History PMH As described under Assessment. Allergies and Home Medications Allergies Coded Allergies: No Known Drug Allergies (Unverified , 01/12/11) Home Medications Acetaminophen 500 Mg Tablet, 1,000 MG PO Q8H PRN for PAIN-MILD (1-4), (Reported) Albuterol Sulfate 1 Puff Puff, 2 PUFF PO Q6H PRN for SHORTNESS OF BREATH, (Reported) Aspirin 81 Mg Tablet.dr, 81 MG PO DAILY, (Reported) Finasteride 5 Mg Tablet, 5 MG PO DAILY, (Reported) FILLED 08-06-2019 #90/90 DAY SUPPLY Fluticasone Propion/Salmeterol 1 Each Blst.w.dev, 1 PUFF PO BID PRN for SHORTNESS OF BREATH, (Reported) Ibuprofen 200 Mg Tablet, 400 MG PO Q8H PRN for PAIN-MILD (1-4), (Reported) Insulin Glargine,Hum.rec.anlog 100 Unit/1 Ml Vial, 30 UNIT SQ DAILY, (Reported) Metformin HCl 850 Mg Tablet, 850 MG PO DAILY, (Reported) Rivaroxaban 20 Mg Tablet, 20 MG PO 1700, (Reported) Valsartan 40 Mg Tablet, 40 MG PO DAILY, (Reported) Physical Exam-Cardiology Physical Exam Vital Signs/I&O 12/03/19 12/03/19 12/03/19 12/03/19 04:00 04:00 04:00 06:47 Temp 37.0 Pulse 59 58 B/P (MAP) 165/91 (115) Pulse Ox 95 O2 Delivery Room Air Room Air 12/03/19 12/03/19 12/03/19 12/03/19 07:17 08:00 09:00 11:19 Temp 36.6 36.7 Pulse 69 63 Resp 18 16 B/P (MAP) 170/99 (122) 150/85 (106) Pulse Ox 95 95 95 O2 Delivery Room Air Room Air Room Air Room Air 12/03/19 12/03/19 12:00 12:37 Pulse 71 Pulse Ox 95 O2 Delivery Room Air 12/03/19 00:00 Intake Total 450 ml Balance 450 ml Capillary Refill : Less Than 3 Seconds Constitutional: AAO x 3, well-developed, well-nourished HEENT: PERRL, hearing is well preserved Neck: No carotid bruit; carotid pulses are 2 + bilaterally Respiratory: No accessory muscle use, No respiratory distress; chest expansion is symmetric, chest is bilaterally symmetric, lungs clear to auscultation Cardiovascular: irregularly irregular; No JVD; S1 and S2 Gastrointestinal: No tender; soft, round, audible bowel sounds Extremities: other (mild pedal edema, bilat) Neurologic/Psychiatric: grossly intact (moves all extremities) Skin: No rash on exposed areas, No ulcerations on exposed areas Data Review Labs Laboratory Tests 12/02/19 17:14: White Blood Count 7.5, Red Blood Count 5.03, Hemoglobin 15.5, Hematocrit 45, Mean Corpuscular Volume 90, Mean Corpuscular Hemoglobin 31, Mean Corpuscular Hemoglobin Concent 34, Red Cell Distribution Width 13.5, Platelet Count 230, Mean Platelet Volume 11.3H, Neutrophils (%) (Auto) 55, Lymphocytes (%) (Auto) 33, Monocytes (%) (Auto) 10, Eosinophils (%) (Auto) 2, Basophils (%) (Auto) 0, Neutrophils # (Auto) 4.1, Lymphocytes # (Auto) 2.4, Monocytes # (Auto) 0.8, Eosinophils # (Auto) 0.1, Basophils # (Auto) 0.0, Prothrombin Time 14.1, INR Comment 1.0, Activated Partial Thromboplast Time 31, Sodium Level 139, Potassium Level 3.9, Chloride Level 102, Carbon Dioxide Level 28, Anion Gap 9, Blood Urea Nitrogen 19H, Creatinine 1.23, Estimat Glomerular Filtration Rate 57, BUN/Creatinine Ratio 15, Glucose Level 115H, Calcium Level 9.3, Corrected C alcium 9.3, Magnesium Level 2.0, Total Bilirubin 0.8, Aspartate Amino Transf (AST/SGOT) 15, Alanine Aminotransferase (ALT/SGPT) 18, Alkaline Phosphatase 59, Myoglobin 50.8, Troponin I < 0.028, Total Protein 6.7, Albumin 4.0, TSH [place] Testing 1.48 12/02/19 17:20: Glucometer 112H 12/02/19 18:41: Urine Color YELLOW, Urine Clarity CLEAR, Urine pH 6.5, Urine Specific Goodman 1.020, Urine Protein TRACEH, Urine Glucose (UA) TRACEH, Urine Ketones NEGATIVE, Urine Nitrite NEGATIVE, Urine Bilirubin NEGATIVE, Urine Urobilinogen 1.0, Urine Leukocyte Esterase NEGATIVE, Urine RBC (Auto) NEGATIVE, Urine RBC 0-2, Urine WBC 0-2, Urine Crystals PRESENTH, Urine Amorphous Sediment RARE JAISON URATESH, Urine Bacteria TRACE, Urine Casts NONE, Urine Mucus SMALLH, Urine Culture Indicated NO 12/03/19 03:24: White Blood Count 7.2, Red Blood Count 4.78, Hemoglobin 14.6, Hematocrit 43, Mean Corpuscular Volume 90, Mean Corpuscular Hemoglobin 31, Mean Corpuscular Hemoglobin Concent 34, Red Cell Distribution Width 13.4, Platelet Count 205, Mean Platelet Volume 11.1H, Neutrophils (%) (Auto) 52, Lymphocytes (%) (Auto) 36, Monocytes (%) (Auto) 10, Eosinophils (%) (Auto) 2, Basophils (%) (Auto) 0, Neutrophils # (Auto) 3.7, Lymphocytes # (Auto) 2.6, Monocytes # (Auto) 0.7, Eosinophils # (Auto) 0.2, Basophils # (Auto) 0.0, Sodium Level 139, Potassium Level 3.3L, Chloride Level 104, Carbon Dioxide Level 26, Anion Gap 9, Blood Urea Nitrogen 16, Creatinine 1.13, Estimat Glomerular Filtration Rate > 60, BUN/Creatinine Ratio 14, Glucose Level 161H, Calcium Level 9.0, Triglycerides Level 127, Cholesterol Level 126, LDL Cholesterol Direct 67, VLDL Cholesterol 25, HDL Cholesterol 43 Radiology NAME: ROBBY DORANTES [facility] REC#: [id number] PT STATUS: REG ER : 1940 PHYSICIAN: DARCIE IBARRA MD ADMIT DATE: 12/02/19/ER Signed Date of Exam:12/02/19 CT HEAD WO-R/O STROKE PROCEDURE: CT head without contrast. TECHNIQUE: Multiple contiguous axial images were obtained through the brain without the use of intravenous contrast. Auto Exposure Controls were utilized during the CT exam to meet ALARA standards for radiation dose reduction. DATE: December 02, 2019. COMPARISON: December 20, 2015. INDICATION: 79-year-old male, dizziness and weakness. Headache. FINDINGS: There is a focal area of CSF attenuation in the left periventricular white matter which may relate to a remote prior infarct. There are mild probable changes of chronic small vessel ischemic disease. The ventricles and cerebral spinal fluid spaces are of normal size and configuration for the patient's age. There is no mass effect or midline shift. There is no acute intracranial hemorrhage. There is no abnormal extra-axial fluid collection. There is a polypoid lesion in the left maxillary sinus most likely relating to a mucous retention cyst. IMPRESSION: 1. No identified acute intracranial abnormality. 2. 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 3. Probable changes of chronic small vessel ischemic disease. Dictated by: Dictated on workstation # [id number] Dict: 12/02/191801 Trans: 12/02/191904 [facility] [id number] Interpreted by: ARTHUR GUZMÁN MD Electronically signed by: ARTHUR GUZMÁN MD 12/02/191904 NAME: ROBBY DORANTES [facility] REC#: [id number] PT STATUS: REG ER : 1940 PHYSICIAN: DARCIE IBARRA MD ADMIT DATE: 12/02/19/ER Signed Date of Exam:12/02/19 CT ANGIO HEAD/NECK PROCEDURE: CT angiography of the head and CT angiography of the neck with and without contrast. TECHNIQUE: Contiguous noncontrast images were obtained from the skull base through the vertex. After intravenous contrast administration, helical CT angiography of the neck was performed. Source data was reformatted into 3D MIP projections. Delayed post contrast acquisition was also obtained. Auto Exposure Controls were utilized during the CT exam to meet ALARA standards for radiation dose reduction. DATE: December 02, 2019. INDICATION: 79-year-old male, dizziness, weakness, headache. COMPARISON: CT head without contrast December 02, 2019. December 20, 2015. FINDINGS: The left common carotid artery is patent. There is calcified plaque at the proximal aspect of the left internal carotid artery without high-grade stenosis. There is also calcified plaque involving the distal left internal carotid artery as well as at the cavernous segment of the left internal carotid artery. There is no high-grade left internal carotid artery stenosis. The left anterior cerebral artery is patent. The left middle cerebral artery is patent. There is a patent anterior communicating artery. The right anterior cerebral artery is patent. The right middle cerebral artery is patent. The right internal carotid artery is patent. There is mild calcified plaque at the level of the proximal right internal carotid artery. There is no right internal carotid artery stenosis. The right vertebral artery is patent. The basilar artery is patent. The right and left posterior inferior cerebellar arteries are patent. The right and left posterior cerebral arteries are patent. The left vertebral artery is patent and conventional in origin. There is no identified aneurysm or dissection. The visualized portions of the lungs are clear. There is a right superior mediastinal lymph node, measuring 10 mm in short axis of uncertain exact etiology. There are degenerative changes of the cervical spine. There is no abnormal intracranial enhancement. IMPRESSION: Patent arterial head and neck vasculature without high-grade stenosis, occlusion, aneurysm or dissection. Dictated by: Dictated on workstation # [id number] Dict: 12/02/191931 Trans: 12/02/191943 [facility] [phone] Interpreted by: ARTHUR GUZMÁN MD Electronically signed by: ARTHUR GUZMÁN MD 12/02/191943 NAME: ROBBY DORANTES [facility] REC#: [id number] PT STATUS: REG ER : 1940 PHYSICIAN: DARCIE IBARRA MD ADMIT DATE: 12/02/19/ER Signed Date of Exam:12/02/19 CHEST 1 VIEW, AP/PA ONLY EXAMINATION: Chest radiograph, portable AP view. DATE: 12/02/2019 6:23 PM hours. INDICATION: 79-year-old male, dizziness and weakness. COMPARISON: April 13, 2019. FINDINGS: There are median sternotomy wires. Stable overall appearance of the cardiomediastinal silhouette. There is no identified pneumothorax. There is no large pleural effusion. There is no identified focal airspace consolidation. IMPRESSION: No identified acute cardiopulmonary abnormality. Dictated by: Dictated on workstation # [id number] Dict: 12/02/191823 Trans: 12/02/191904 [facility] [phone] Interpreted by: ARTHUR GUZMÁN MD Electronically signed by: ARTHUR GUZMÁN MD 12/02/191904 ECG Impression ECG Comment SR with PVC's A/P-Cardiology Assessment/Admission Diagnosis Uncontrolled hypertension Dizziness with frequent falls of undetermined etiology Paroxysmal atrial fib. He has had EP eval with Dr Bingham at [facility] and has been advised conservative therapy for a fib. Underwent elec CV on 03/10/19, per his request; since maintaining NSR ECG of 03/25/19: sinus chuy with repol abn and mild prolongation of QT CHADSVASc score 4. Chronic rivaroxaban therapy for stroke prophylaxis H/o hypokalemia due to diuretic therapy (HCTZ). HCTZ d/c'd on 02/05/18 CAD with a h/o stenting of mid LAD and mid RCA-PL in 1999 at and CABG in November 2008 in [place], [place], which consisted of MCGEE to LAD and SVG to a diag and SVG to distal RCA-PL. LVEF was 65% and LVEDP was mildly to moderately elevated at time of cath of November 2008 MPI of 12/03/17 did not show ischemia or infarction, and LVEF was 62%; he remained in A Fib with a controlled vent rate Echo of 07/17/18 shows LVEF 60-65%, mild LA enlargement, mild MR, PASP 35 mmHg Hyperlipidemia DM II Mild carotid arterial disease on carotid us of 06/26/18 No AAA on abd ao scan of 10/09/16 Abnormal ECG, chronic Mild restrictive lung disease and R lung nodule being followed by Dr Aguilar Elevated BMI of approx 32 Mild FABIAN per sleep studies on sleep study of 07/17/15, CPAP was recommended by Dr Aguirre, but Dr Dorantes has been noncompliant Chronic bilateral swelling, likely due to venous insuff and/or amlodipine. Amlodipine d/c'd on 02/05/18 and it resulted in improvement of swelling Symptoms of leg claudication in the past, but currently not describing any Discussion and Recomendations Uncontrolled hypertension - adjust anti-hypertensive regimen. Will increase ARB and add Norvasc and Cardura to the regimen Dizziness of undetermined etiology with frequent falls, can not r/o chuy-arrhyt hmia. Stop BB Continue OAC for stroke prophylaxis d/t h/o PAF Monitor lab closely Replace electrolytes Continue to monitor on tele for possible chuy - arrhythmia Further recs will be based on his hospital course We would like to thank medical services for this consult Clinical Quality Measures DVT/VTE Risk/Contraindication: Risk Factor Score Per Nursin RFS Level Per Nursing on Admit: 2=Moderate MIGUEL AVALOS Dec 03, 2019 08:30
[2019-12-03] MEDS ORDERED: KCL 20 MEQ TAB (K-DUR) PO ONE ×2 (09:15→11:43)
[2019-12-03] MEDS ORDERED: VALSARTAN 80 MG (DIOVAN) TAB PO ONE (09:15)
[2019-12-03] MEDS ORDERED: doxAzosin 4 MG (CARDURA) TAB PO PRN (09:15)
[2019-12-03] MEDS ORDERED: amLODIPine 10 MG (NORVASC) TAB PO ONE (09:15)
--- NOTE | 2019-12-03 10:01 | Consultation-Cardiology ---
HPI-Cardiology Cardiology Consultation: Date of Consultation 12/03/19 Time Seen by a Provider: 09:15 Date of Admission Attending Physician Allan Magdaleno MD Admitting Physician Allan Magdaleno MD Consulting Physician ROBERTO CARLSON MD, MA, FACP, FACC, FSCAI, CCDS HPI: Chief Complaint: CC: Dizziness HPI Dr. 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 Allan Magdaleno. He reports for the last several days he has had profound dizziness and poor balance resulting in falls. No reported injury to head. He denies any CP or SOB. He reports occ palpitations which only last for a brief period of time and are inf requent. He denies any syncope or near syncope. He states he feels his dizziness is something more than vertigo. He has been compliant with his medications. He reports when he came to the hospital yesterday his BP was elevated at greater than 200 systolic. He denies any headache or vision [place] es. Review of Systems-Cardiology Review of Systems Constitutional: No chills, No fever; lightheadedness Eyes: No vision change Ears/Nose/Throat: No epistaxis, No recent hearing loss Respiratory: As described under HPI Cardiovascular: As described under HPI Gastrointestinal: No constipation, No diarrhea, No vomiting Genitourinary: No dysuria, No hematuria Musculoskeletal: no symptoms reported Skin: No rash on exposed areas, No ulcerations on exposed areas Psychiatric/Neurological: No anxiety, No depression, No seizure, No focal weakness, No syncope Hematologic: No bleeding abnormalities MHO-Xznwbf-Jjqsha Hx Patient Social History Alcohol Use: Denies Use Recreational Drug Use: No Smoking Status: Former Smoker Type Used: Cigarettes 2nd Hand Smoke Exposure: No Recent Foreign Travel: No Recent Infectious Disease Expo: No Hospitalization with Isolation: Denies Immunizations Up To Date Date of Pneumonia Vaccine: Apr 10, 2019 Date of Influenza Vaccine: Apr 25, 2016 Past Medical History PMH As described under Assessment. Family Medical History Family Medical History: Does not report fam h/o early CAD Allergies and Home Medications Allergies Coded Allergies: No Known Drug Allergies (Unverified , 01/12/11) Home Medications Albuterol Sulfate 18 Gm Hfa.aer.ad, 2 PUFF IH QID PRN for SHORTNESS OF BREATH, (Reported) Albuterol Sulfate 2.5 Mg/0.5 Ml Vial.neb, 2.5 MG IH Q6H PRN for SHORTNESS OF BREATH, (Reported) Aspirin 81 Mg Tablet.dr, 81 MG PO DAILY, (Reported) Atorvastatin Calcium 40 Mg Tablet, 40 MG PO HS, (Reported) Dronedarone HCl 400 Mg Tablet, 400 MG PO BID, (Reported) Fluticasone Propionate 16 Gm [place].susp, 1 SPRAY NS BID PRN for ALLERGIES, (Reported) Insulin Glargine,Hum.rec.anlog 100 Unit/1 Ml Vial, 30 UNIT SQ HS, (Reported) Metformin HCl 850 Mg Tablet, 850 MG PO DAILY, (Reported) Nebivolol HCl 5 Mg Tablet, 5 MG PO DAILY, (Reported) Rivaroxaban 20 Mg Tablet, 20 MG PO 1700, (Reported) Umeclidinium Brm/Vilanterol Tr 1 Each Blst.w.dev, 1 PUFF IH DAILY, (Reported) Patient Home Medication List Home Medication List Reviewed: Yes Physical Exam-Cardiology Physical Exam Vital Signs/I&O 12/02/19 12/02/19 12/03/19 12/03/19 22:07 22:30 00:00 00:00 Temp 36.6 Pulse 63 61 63 B/P (MAP) 180/97 (124) 178/97 (124) 174/95 (121) Pulse Ox 96 O2 Delivery Room Air Room Air Room Air Room Air 12/03/19 12/03/19 12/03/19 12/03/19 01:00 01:00 02:00 03:00 Pulse 60 63 55 60 B/P (MAP) 187/81 (116) 194/102 (132) 168/95 (119) O2 Delivery Room Air Room Air Room Air 12/03/19 12/03/19 12/03/19 12/03/19 04:00 04:00 04:00 06:47 Temp 37.0 Pulse 59 58 B/P (MAP) 165/91 (115) Pulse Ox 95 O2 Delivery Room Air Room Air 12/03/19 07:17 Temp 36.6 Pulse 69 Resp 18 B/P (MAP) 170/99 (122) Pulse Ox 95 O2 Delivery Room Air 12/03/19 00:00 Intake Total 450 ml Balance 450 ml Capillary Refill : Less Than 3 Seconds Constitutional: AAO x 3, well-developed, well-nourished HEENT: PERRL, hearing is well preserved Neck: No carotid bruit; carotid pulses are 2 + bilaterally Respiratory: No accessory muscle use, No respiratory distress; chest expansion is symmetric, chest is bilaterally symmetric, lungs clear to auscultation Cardiovascular: irregularly irregular; No JVD; S1 and S2 Gastrointestinal: No tender; soft, round, audible bowel sounds Extremities: other (mild pedal edema, bilat) Neurologic/Psychiatric: grossly intact (moves all extremities) Skin: No rash on exposed areas, No ulcerations on exposed areas Data Review Labs Laboratory Tests 12/02/19 17:14: White Blood Count 7.5, Red Blood Count 5.03, Hemoglobin 15.5, Hematocrit 45, Mean Corpuscular Volume 90, Mean Corpuscular Hemoglobin 31, Mean Corpuscular Hemoglobin Concent 34, Red Cell Distribution Width 13.5, Platelet Count 230, Mean Platelet Volume 11.3H, Neutrophils (%) (Auto) 55, Lymphocytes (%) (Auto) 33, Monocytes (%) (Auto) 10, Eosinophils (%) (Auto) 2, Basophils (%) (Auto) 0, Neutrophils # (Auto) 4.1, Lymphocytes # (Auto) 2.4, Monocytes # (Auto) 0.8, Eosinophils # (Auto) 0.1, Basophils # (Auto) 0.0, Prothrombin Time 14.1, INR Comment 1.0, Activated Partial Thromboplast Time 31, Sodium Level 139, Potassium Level 3.9, Chloride Level 102, Carbon Dioxide Level 28, Anion Gap 9, Blood Urea Nitrogen 19H, Creatinine 1.23, Estimat Glomerular Filtration Rate 57, BUN/Creatinine Ratio 15, Glucose Level 115H, Calcium Level 9.3, Corrected Calcium 9.3, Magnesium Level 2.0, Total Bilirubin 0.8, Aspartate Amino Transf (AST/SGOT) 15, Alanine Aminotransferase (ALT/SGPT) 18, Alkaline Phosphatase 59, Myoglobin 50.8, Troponin I < 0.028, Total Protein 6.7, Albumin 4.0, TSH [place] Testing 1.48 12/02/19 17:20: Glucometer 112H 12/02/19 18:41: Urine Color YELLOW, Urine Clarity CLEAR, Urine pH 6.5, Urine Specific [place] 1.020, Urine Protein TRACEH, Urine Glucose (UA) TRACEH, Urine Ketones NEGATIVE, Urine Nitrite NEGATIVE, Urine Bilirubin NEGATIVE, Urine Urobilinogen 1.0, Urine Leukocyte Esterase NEGATIVE, Urine RBC (Auto) NEGATIVE, Urine RBC 0-2, Urine WBC 0-2, Urine Crystals PRESENTH, Urine Amorphous Sediment RARE JAISON URATESH, Urine Bacteria TRACE, Urine Casts NONE, Urine Mucus SMALLH, Urine Culture Indicated NO 12/03/19 03:24: White Blood Count 7.2, Red Blood Count 4.78, Hemoglobin 14.6, Hematocrit 43, Mean Corpuscular Volume 90, Mean Corpuscular Hemoglobin 31, Mean Corpuscular Hemoglobin Concent 34, Red Cell Distribution Width 13.4, Platelet Count 205, Daisy n Platelet Volume 11.1H, Neutrophils (%) (Auto) 52, Lymphocytes (%) (Auto) 36, Monocytes (%) (Auto) 10, Eosinophils (%) (Auto) 2, Basophils (%) (Auto) 0, Neutrophils # (Auto) 3.7, Lymphocytes # (Auto) 2.6, Monocytes # (Auto) 0.7, Eosinophils # (Auto) 0.2, Basophils # (Auto) 0.0, Sodium Level 139, Potassium Level 3.3L, Chloride Level 104, Carbon Dioxide Level 26, Anion Gap 9, Blood Urea Nitrogen 16, Creatinine 1.13, Estimat Glomerular Filtration Rate > 60, BUN/Creat inine Ratio 14, Glucose Level 161H, Calcium Level 9.0, Triglycerides Level 127, Cholesterol Level 126, LDL Cholesterol Direct 67, VLDL Cholesterol 25, HDL Cholesterol 43 Laboratory Tests 12/02/19 17:14 12/03/19 03:24 A/P-Cardiology Assessment/Admission Diagnosis Uncontrolled hypertension Dizziness with frequent falls of undetermined etiology. Bradycardia may be contributing to symptoms Paroxysmal atrial fib. He has had EP eval with Dr Bingham at [facility] and has been advised conservative therapy for a fib. Currently appears to be in A fib with a relatively slow vent response ECG of 03/25/19: sinus chuy with repol abn and mild prolongation of QT CHADSVASc score 4. Chronic rivaroxaban therapy for stroke prophylaxis H/o hypokalemia due to diuretic therapy (HCTZ). HCTZ d/c'd on 02/05/18 CAD with a h/o stenting of mid LAD and mid RCA-PL in 1999 at and CABG in November 2008 in [place], [place], which consisted of MCGEE to LAD and SVG to a diag and SVG to distal RCA-PL. LVEF was 65% and LVEDP was mildly to moderately elevated at time of cath of November 2008 MPI of 12/03/17 did not show ischemia or infarction, and LVEF was 62%; he remained in A Fib with a controlled vent rate Echo of 07/17/18 shows LVEF 60-65%, mild LA enlargement, mild MR, PASP 35 mmHg Hyperlipidemia DM II Mild carotid arterial disease on carotid us of 06/26/18 No AAA on abd ao scan of 10/09/16 Abnormal ECG, chronic Mild restrictive lung disease and R lung nodule being followed by Dr Aguilar Elevated BMI of approx 32 Mild FABIAN per sleep studies on sleep study of 07/17/15, CPAP was recommended by Dr Aguirre, but Dr Macdonald has been noncompliant Chronic bilateral swelling, likely due to venous insuff and/or amlodipine. Amlodipine d/c'd on 02/05/18 and it resulted in improvement of swelling Symptoms of leg claudication in the past, but currently not describing any Discussion and Recomendations Uncontrolled hypertension - adjust anti-hypertensive regimen. Will increase ARB and add Norvasc to the regimen. Cardura prn Dizziness of undetermined etiology with frequent falls, can not r/o chuy- arrhythmia. Stop BB Continue OAC for stroke prophylaxis d/t h/o PAF Monitor lab closely Replace electrolytes Continue to monitor on tele for possible chuy - arrhythmia Further recs will be based on his hospital course We would like to thank Medical Services for this consult Clinical Quality Measures DVT/VTE Risk/Contraindication: Risk Factor Score Per Nursin RFS Level Per Nursing on Admit: 2=Moderate ROBERTO CARLSON MD FACP FAC CCDS Dec 03, 2019 10:01
[2019-12-03] MEDS ORDERED: FINA5TAB6 PO (10:29)
[2019-12-03] MEDS ORDERED: RT-ALBUINH PO (10:29)
[2019-12-03] MEDS ORDERED: VALS40TA9 PO (10:29)
[2019-12-03] MEDS ORDERED: ACET-2267 PO (10:29)
[2019-12-03] MEDS ORDERED: FLUT1BLS12 PO (10:29)
[2019-12-03] MEDS ORDERED: IBUP-2473 PO (10:29)
--- NOTE | 2019-12-03 10:30 | NUR ---
SPOKE WITH THE PT AND WENT THRU THE EXT MED TO COMPLETE THE MED REC FINASTERIDE 5MG WAS FILLED ON 08-06-2019 #90/90DS- I DOCUMENTED THE PAST DUE FILL DATE ON THE MED REC METFORMIN 850MG: DIRECTIONS SHOW 1 TAB BID HOWEVER THE PT ONLY TAKES IT ONCE DAILY OTC MEDS: ASPIRIN 81 TYLENOL IBUPROFEN
--- NOTE | 2019-12-03 10:53 | NUR ---
RD ASSESSMENT PMHx: DM; afib; CAD; HTN; CA(skin) PT INTERACTION: Pt was awake and pleasant during nutrition assessment. Pt states current appetite is poor, and has been this way for 2days. Note no meals have been recorded, per chart review. Pt states following a regular diet at home, and has no issues with chewing/swallowing food. Pt states no recent issues with nausea, vomiting, constipation, or diarrhea, and that his last BM was 12/02. Note pt not currently on bowel regimen per chart review. Pt states no recent wt changes. Note unable to determine recent wt hx, per chart review. Pt states current DM management is "pretty good." Note unable to determine recent HbA1c, per chart review. ABNORMAL NUTRITION-RELATED LAB VALUES LOW: K 3.3 HIGH: glu 161 Est. kcal needs: 9200-7893 kcal | 15-20 kcal/kg Est. Pro needs: 73-91 g Pro | 0.8-1.0 g Pro/kg PES STATEMENT: Inadequate oral intake (NI-2.1) related to loss of appetite as evidenced by pt interview INTERVENTION: Continue with current diet order of CHO 60g/m 3snack diet. Pt may benefit from nutrition supplementation if PO intake declines. Offered diet education on DM management, but pt declined. Will attempt to offer again prior to discharge. Will continue to follow and reassess as pt needs, intake, and status change. MONITOR/EVALUATE: PO Intake; Plan of Care; Hydration Status; Weight Status; Lab Values Rosmery Mcclure, MS, RD, LD
[2019-12-03] MEDS ORDERED: amLODIPine 5 MG (NORVASC) TAB ONE (11:43)
[2019-12-03] MEDS ORDERED: amLODIPine 10 MG (NORVASC) TAB ONE (11:51)
[2019-12-03] MEDS: RIVAROXABAN 20 MG TABLET (XARELTO) PO SCH (18:12)
[2019-12-03] MEDS ORDERED: KCL 10 MEQ TAB (MICRO K) PO SCH (18:30)
[2019-12-03] MEDS ORDERED: VALSARTAN 80 MG (DIOVAN) TAB PO SCH ×2 (21:00)
[2019-12-03] MEDS: FINASTERIDE (PROSCAR) 5 MG TAB PO SCH (21:55)
[2019-12-04] VITALS (7 sets, daily range): BP systolic 126–161; BP diastolic 71–97
[2019-12-04 04:00] LABS: BUN/CREATININE RATIO 14; CALCIUM 8.8 MG/DL (8.5-10.1); CARBON DIOXIDE 22 MMOL/L (21-32); CHLORIDE 102 MMOL/L (98-107); CREATININE SERUM 1.06 MG/DL (0.60-1.30); GFR ESTIMATED > 60; GLUCOSE 133 MG/DL (70-105); MAGNESIUM 2.1 MG/DL (1.6-2.4); POTASSIUM 4.1 MMOL/L (3.6-5.0); SODIUM 136 MMOL/L (135-145)
--- NOTE | 2019-12-04 09:47 | Progress Note - Cardiology ---
Cardiology SOAP Progress Note Subjective: Still dizzy and with poor balance when upright and walking No cp or palp or syncope No focal weakness No n/v/d Objective: I&O/Vital Signs 12/04/19 12/04/19 12/04/19 12/04/19 00:00 00:00 01:00 04:00 Temp 37.2 36.9 Pulse 70 67 69 Resp 20 20 B/P (MAP) 150/84 (106) 137/84 (101) Pulse Ox 95 97 95 O2 Delivery Room Air Room Air Room Air 12/04/19 12/04/19 12/04/19 04:00 06:42 07:31 Temp 36.4 Pulse 65 76 Resp 18 B/P (MAP) 150/90 (110) Pulse Ox 95 94 O2 Delivery Room Air Room Air 12/04/19 00:00 Intake Total 875 ml Output Total 1250 ml Balance -375 ml Weight (Pounds): 215 Weight (Ounces): 0.0 Weight (Calculated Kilograms): 97.401812 Constitutional: AAO x 3, well-developed, well-nourished Respiratory: No accessory muscle use, No respiratory distress; chest expansion is symmetric, chest is bilaterally symmetric, lungs clear to auscultation Cardiovascular: irregularly irregular; No JVD; S1 and S2 Gastrointestional: No tender; soft, round, audible bowel sounds Extremities: other (mild pedal edema, bilat) Neurologic/Psychiatric: grossly intact (moves all extremities) Skin: No rash on exposed areas, No ulcerations on exposed areas Results/Procedures: Labs Laboratory Tests 12/03/19 20:20: Glucometer 241H 12/04/19 03:05: Sodium Level 136, Potassium Level 4.1, Chloride Level 102, Carbon Dioxide Level 22, Anion Gap 12, Blood Urea Nitrogen 15, Creatinine 1.06, Estimat Glomerular Filtration Rate > 60, BUN/Creatinine Ratio 14, Glucose Level 133H, Calcium Level 8.8, Magnesium Level 2.1 A/P: Assessment: Dizziness and poor balance of undetermined etiology. CT head of 12/02/19 showed probable, remote L periventricular white matter infarct Uncontrolled hypertension, improved with med changes Dizziness with frequent falls of undetermined etiology. Beta-chin discontinued during this admission under the suspicion that bradycardia may be contributing to symptoms Paroxysmal atrial fib. He has had EP eval with Dr Bingham at [facility] and has been advised conservative therapy for a fib CHADSVASc score 4. Chronic rivaroxaban therapy for stroke prophylaxis. He has intermittently been noncompliant H/o hypokalemia due to diuretic therapy (HCTZ). HCTZ d/c'd on 02/05/18 CAD with a h/o stenting of mid LAD and mid RCA-PL in 1999 at and CABG in November 2008 in [place], [place], which consisted of MCGEE to LAD and SVG to a diag and SVG to distal RCA-PL. LVEF was 65% and LVEDP was mildly to moderately elevated at time of cath of November 2008 MPI of 12/03/17 did not show ischemia or infarction, and LVEF was 62%; he remained in A Fib with a controlled vent rate Echo of 07/17/18 shows LVEF 60-65%, mild LA enlargement, mild MR, PASP 35 mmHg Hyperlipidemia DM II Mild carotid arterial disease on carotid us of 06/26/18 No AAA on abd ao scan of 10/09/16 Mild restrictive lung disease and R lung nodule being followed by Dr Aguilar Mild FABIAN per sleep studies on sleep study of 07/17/15, CPAP was recommended by Dr Aguirre, but Dr Macdonald has been noncompliant Chronic bilateral swelling, likely due to venous insuff and/or amlodipine. Currently tolerating amlodipine well Plan: * I had a long and detailed discussion with him and his regarding his CV issues yesterday. I discussed it with him again today * Symptoms do not appear to be of cardiac origin. BP is better controlled and there is no significant bradycardia, yet symptoms persist * Symptoms appear neurologic. [facility] * We recommend consideration of Inpt Rehab because he is unsteady on his feet * Continue current regimen * Monitor labs * Dr Ch covering Cardiology over the weekend ROBERTO CARLSON MD FACP [facility] CCDS Dec 04, 2019 09:47
[2019-12-04] MEDS: amLODIPine 5 MG (NORVASC) TAB PO SCH (09:59)
[2019-12-04] MEDS: VALSARTAN 80 MG (DIOVAN) TAB PO SCH (09:59)
--- NOTE | 2019-12-04 13:01 | Occupational Therapy Eval ---
OT Evaluation-General/PLF Medical Diagnosis Admission Date Dec 02, 2019 at 20:18 Medical Diagnosis: hypertension; disequillibrium Onset Date: Dec 04, 2019 Therapy Diagnosis Therapy Diagnosis: Decreased ADL status Height/Weight Height (Feet): 5 Height (Inches): 8.00 Weight (Pounds): 215 Weight (Ounces): 0.0 Precautions Precautions/Isolations: Fall Prevention, Standard Precautions Referral Physician: Allan Magdaleno MD Referral Reason: Activity Tolerance, Self Care, Evaluation/Treatment, Strengthening/ROM Medical History Pertinent Medical History: CABG, COPD, DM, HTN Additional Medical History CAD< a fib, CABG, HTN, skin Ca, COPD, coronary stent, ID DM. Current History Pt admits to ER with dizziness and weakness previous 2 days. Notes suggest pt was unsteady on feel for 4 days, elevated BP and CTA revealed calciied plque in L internal and L distal carotid arteries. Pt to undergo MRI this afternoon. Reviewed History: Yes Social History Home: Multilevel Current Living Status: Spouse Steps Inside Home: 18 Pt's bathroom and bedroom up the stairs; has bathroom and couch on first level. ADL-Prior Level of Function SCALE: Activities may be completed with or without assistive devices. 2-Dgyxtfgswb-vfutpbu completes the activity by him/herself with no assistance from a helper. 5-Set-up or Clean-up Assistance-helper sets up or cleans up; patient completes activity. [place] assists only prior to or following the activity. 4-Supervision or Touching Assistance-helper provides verbal cues and/or touching/steadying and/or contact guard assistance as patient completes activity. Assistance may be provided throughout the activity or intermittently. 3-Partial/Moderate Assistance-helper does LESS THAN HALF the effort. [place] lifts, holds or supports trunk or limbs, but provides less than half the effort. 2-Substantial/Maximal Assistance-helper does MORE THAN HALF the effort. [place] lifts or holds trunk or limbs and provides more than half the effort. 9-Fsoqihfbk-nrltcs does ALL the effort. Patient does none of the effort to complete the activity. Or, the assistance of 2 or more helpers is required for the patient to complete the activity. If activity was not attempted, code reason: 7-Patient Refused. 9-Not Applicable-not attempted and the patient did not perform the activity before the current illness, exacerbation or injury. 10-Not Attempted due to Environmental Limitations-(lack of equipment, weather restraints, etc.). 88-Not Attempted due to Medical Conditions or Safety Concerns. ADL PLOF Comments IND without use of AE 2 days prior to admission. Self Care: Independent Functional Cognition: Independent DME/Equipment: Shower Occupation: retired DO Drive Self: Yes OT Current Status Subjective Pt seen in bed. Pt oriented and alert. Pt denies pain, though states has been feeling, "Like (he's) going to fall," when standing. Pt agrees to OT eval, stat es MRI to be completed soon. present during session. Mental Status/Objective Patient Orientation: Normal For Age Current Glasses/Contacts: Yes Upper Extremity ROM WLF BUE Upper Extremity Coordination WLF BUE Upper Extremity Sensation WLF BUE Upper Extremity Strength WLF BUE based on clinical judgment ADL-Treatment Eating (QC): 6 (per pt report.) Oral Hygiene (QC): 6 (per pt report.) Shower/Bathe Self (QC): 3 (min A based on pt's fx EOB and clinical judgment- pt would require SBA while on sc ) Upper Body Dressing (QC): 4 (SBA EOB per clinical judgment. ) Lower Body Dressing (QC): 3 (min A per clinical judgement) On/Off Footwear (QC): 4 (CGA EOB- pt completes R LE sock) Other Treatments Pt seen supine in bed. OT role educated upon. Pt agrees to therapy, supine to sit with SBA, static sit EOB for ~5 min w/out LOB. Pt denies dizzy/ lightheaded, though states similar feeling of falling while sitting EOB but feeling passes over time. Pt and provide hx, pt IND prior to 2 days before admission with weakness and unsteadiness/ dizziness present. Pt states he feels as though he will fall down when in stance. Pt completes UE movement WFL and sock doff/ donning EOB. Pt returns to bed with SBA, all needs met, call light in reach. Pt accepted to IRF per notes. Education OT Patient Education: Correct positioning, Purpose of tx/functional activities, Safety issues Teaching Recipient: Patient, Significant Other Teaching Methods: Demonstration, Discussion Response to Teaching: Verbalize Understanding, Return Demonstration OT Alf Goals Rubber Thread Spooler Goals Time Frame: Dec 11, 2019 Eating (QC): 6 Oral Hygiene (QC): 6 Toileting Hygiene (QC): 6 Shower/Bathe Self (QC): 6 Upper Body Dressing (QC): 6 Lower Body Dressing (QC): 6 On/Off Footwear (QC): 6 Additional Goals: 1-Demonstrate ADL Tasks, 2-Verbalize Understanding, 3- ImproveStrength/[place] 1=Demonstrate adherence to instructed precautions during ADL tasks. 2=Patient will verbalize/demonstrate understanding of assistive devices/modifications for ADL. 3=Patient will improve strength/tolerance for activity to enable patient to perform ADL's. OT Education/Plan Problem List/Assessment Assessment: Decreased Activ Tolerance, Dependent Transfers, Impaired Funct Balance, Impaired I ADL's, Impaired Self-Care Skills Discharge Recommendations Plan/Recommendations: Continue POC Therapy Discharge Recommendati: Post Acute OT Equpiment Recommendations-D/C: Rails on Tub/Shower, Bath Chair, Cobbler Upper, Dressing Stick Treatment Plan/Plan of Care Treatment,Training & Education: Yes Patient would benefit from OT for education, treatment and training to promote independence in ADL's, mobility, safety and/or upper extremity function for ADL's. Plan of Care: ADL Retraining, Caregiver Training, Functional Mobility, Group Exercise/Act as Ind, UE Funct Exercise/Act Treatment Duration: Dec 11, 2019 Frequency: 5 times per week Estimated Hrs Per Day: .25 hour per day Agreement: Yes Rehab Potential: Guarded Time/GCodes Start Time: 12:31 Stop Time: 12:42 Total Time Billed (hr/min): 11 Billed Treatment Time BEA Elizondo (11) DONATO JOHNSON OTR Dec 04, 2019 13:01
[2019-12-04] MEDS ORDERED: GADOBUTROL 10 MMOL/10 ML (GADAVIST) VIAL IV ONE (13:15)
--- NOTE | 2019-12-04 13:17 | NUR ---
IRF Evaluation Order received to evaluate patient for the ARU. Chart review complete and findings discussed with Dr. Landeros - patient accepted. Anticipate admission, 12/04/19. Thank you for this referral.
--- NOTE | 2019-12-04 13:50 | Diagnostic Imaging Report ---
PROCEDURE: MR imaging of the brain with and without contrast. TECHNIQUE: Multiplanar, multisequence MR imaging of the brain was performed with and without contrast. INDICATION: CVA, weakness in legs. COMPARISON: There are no prior MRI brain examinations available for comparison. FINDINGS: The CTA head and neck exam of 12/02/2019 failed to show any sign of an acute intracranial abnormality. On the diffusion series of this exam, there is no abnormal signal arising from the brain to suggest an area of acute ischemia. There is no mass, shift to the midline or hemorrhage identified either. Furthermore there is no abnormal enhancement on the postcontrast series to indicate a neoplastic or infectious process. The ventricles are not abnormally dilated and stable in size when compared to the prior CT head exam. The FLAIR series does show focal and diffuse areas of increased signal in the periventricular white matter bilaterally. These findings are nonspecific but may be related to encephalomalacia from microvascular ischemia. There is also cortical atrophy present. The degree of atrophy is consistent with the patient's age. The sella is not enlarged and the suspected carotid flow voids are evident bilaterally. The orbits are symmetrical and within normal limits. The optic chiasm is undisturbed. The sinuses are generally clear. There is perhaps a small subcentimeter mucosal retention cyst along the medial wall of the left maxillary antrum. The 7th and 8th nerve complexes are unremarkable. IMPRESSION: 1. There is no evidence for an acute intracranial abnormality. In particular, there is no abnormal signal arising from the brain on the diffusion series to indicate an area of acute ischemia. 2. There is no abnormal enhancement to suggest neoplastic or infectious process. 3. There are senescent changes including cortical atrophy and periventricular encephalomalacia 4. These results were discussed with Dr. Allan Magdaleno.. Dictated by: Dictated on workstation # [id number]
--- NOTE | 2019-12-04 14:31 | Physical Therapy Evaluation ---
PT Evaluation-General Medical Diagnosis Admission Date Dec 02, 2019 at 20:18 Medical Diagnosis: hypertension; disequillibrium Onset Date: Dec 02, 2019 Therapy Diagnosis Therapy Diagnosis: impaired mobility, endurance, balance Height/Weight Height (Feet): 5 Height (Inches): 8.00 Weight (Pounds): 215 Weight (Ounces): 0.0 Precautions Precautions/Isolations: Fall Prevention, Standard Precautions Weight Bear Status Right Lower Extremity: Right Weight Bearing/Tolerated Left Lower Extremity: Left Weight Bearing/Tolerated Referral Physician: Allan Magdaleno MD Reason for Referral: Evaluation/Treatment Medical History Pertinent Medical History: CABG, COPD, DM, HTN Additional Medical History Past Zckjgbb-Bybmue-Pjoaqb Hx Patient Social History Alcohol Use: Denies Use Recreational Drug Use: No Smoking Status: Former Smoker Former Smoker, Quit: May 15, 1995 Type Used: Cigarettes 2nd Hand Smoke Exposure: No Recent Foreign Travel: No Contact w/other who traveled: No Recent Hopitalizations: Yes (HERNIA SURGERY, CARDIAC SURGERY) Recent Infectious Disease Expo: No Immunizations Up To Date Date of Pneumonia Vaccine: Apr 10, 2019 Date of Influenza Vaccine: Apr 25, 2016 Surgeries Yes CABG Respiratory Yes Currently Using CPAP: No Currently Using BIPAP: No Cardiovascular Yes Atrial Fibrillation, Coronary Artery Disease, Hypertension Neurological No Genitourinary No Prostate Problems Gastrointestinal No Musculoskeletal No Endocrine History of Endocrine Disorders: Yes Endocrine Disorders: Diabetes, Insulin dep Reviewed History: Yes Social History Home: Multilevel Current Living Status: Spouse Entry Into Home: Stairs Without Railing PT Steps Into Home: 3 PT Steps Inside Home: 18 Prior Prior Level of Function SCALE: Activities may be completed with or without assistive devices. 7-Lkgziglkyc-piugfrk completes the activity by him/herself with no assistance from a helper. 5-Set-up or Clean-up Assistance-helper sets up or cleans up; patient completes activity. Dousman assists only prior to or following the activity. 4-Supervision or Touching Assistance-helper provides verbal cues and/or touching/steadying and/or contact guard assistance as patient completes act ivity. Assistance may be provided throughout the activity or intermittently. 3-Partial/Moderate Assistance-helper does LESS THAN HALF the effort. Dousman lifts, holds or supports trunk or limbs, but provides less than half the effort. 2-Substantial/Maximal Assistance-helper does MORE THAN HALF the effort. Dousman lifts or holds trunk or limbs and provides more than half the effort. 1-Rsklaxodt-ssvwux does ALL the effort. Patient does none of the effort to complete the activity. Or, the assistance of 2 or more helpers is required for the patient to complete the activity. If activity was not attempted, code reason: 7-Patient Refused. 9-Not Applicable-not attempted and the patient did not perform the activity before the current illness, exacerbation or injury. 10-Not Attempted due to Environmental Limitations-(lack of equipment, weather restraints, etc.). 88-Not Attempted due to Medical Conditions or Safety Concerns. Bed Mobility: 6 Transfers (B,C,W/C): 6 Gait: 6 Stairs: 6 Indoor Mobility (Ambulation): Independent Stairs: Independent PT Evaluation-Current Subjective Patient in bed pre tx, agrees to PT, has no complaints of pain, states he just feels like his balance is off. Pt/Family Goals to be independent at home Objective Patient Orientation: Person, Confused, Place ROM/Strength ROM Lower Extremities WNL Strength Lower Extremities 5/5 gross BLE Neuromuscular (Tone, Coordination, Reflexes) Patient reports no recent changes in vision or hearing. Good peripheral vision and tracking, smile and eyebrows symmetrical, no numbness of face, negative babinski, no abnormal clonus in ankle Sensory Vision: Wears Glasses Hearing: Functional Sensation Right Lower Extremit: Intact Sensation Left Lower Extremity: Intact Transfers Roll Left to Right (QC): 6 Sit to Lying (QC): 6 Lying to Sitting/Side of Bed(Q: 6 Sit to Stand (QC): 4 Chair/Cwt-gk-Xbqql Xfer(QC): 4 Patient had to sit at the side of the bed for a few minutes he says he feels like his balance is off. Gait Does the Patient Walk?: Yes Mode of Locomotion: Walk Anticipated Mode of Locomotion: Walk Walk 10 feet (QC): 4 Walk 50 ft with 2 Turns(QC): 4 Distance: 100' Gait Assistive Device: FWW Comments/Gait Description Patient ambulated longterm using a rolling walker with CGA and half way with CONSTRUCTION FRAMER. Patient had one instance where he had to stop and regain his balance but he did not actually lose his balance. Patient ambulates slowly and carefully. Balance Sitting Static: Fair Sitting Dynamic: Fair Standing Static: Fair Standing Dynamic: Fair Treatment patient educated on the use of ankle pumps to prevent DVT's Assessment/Needs Patient has impaired mobility, endurance, balance. He need a walker or CONSTRUCTION FRAMER to ambulate at this time, may need to rest after supine to sit before standing. Rehab Potential: Fair PT Rn Security Goals Group Home Goals PT Rn Security Goals Time Frame: Dec 11, 2019 Roll Left & Right (QC): 6 Sit to Lying (QC): 6 Lying-Sitting on Side/Bed(QC): 6 Sit to Stand (QC): 6 Chair/Dgn-vr-Sbwhl Xfer(QC): 4 (SBA) Walk 10 feet (QC): 4 (SBA) Walk 50ft with 2 Turns (QC): 4 (SBA) Walk 150 ft (QC): 4 (SBA) PT Plan Problem List Problem List: Activity Tolerance, Functional Strength, Safety, Balance, Gait, Transfer Treatment/Plan Treatment Plan: Continue Plan of Care Treatment Plan: Education, Functional Activity Lester, Functional Strength, Gait, Safety, Therapeutic Exercise, Transfers Treatment Duration: Dec 11, 2019 Frequency: 6 times per week Estimated Hrs Per Day: .25 hour per day Patient and/or Family Agrees t: Yes Safety Risks/Education Patient Education: Gait Training, Transfer Techniques, Correct Positioning, Safety Issues Teaching Recipient: Patient Teaching Methods: Demonstration, Discussion Response to Teaching: Reinforcement Needed Discharge Recommendations Plan Patient will perform bed mobility and transfer training, balance and endurance training, functional strengthening, stair training, gait training, and education, to improve functional mobility and independence at home. Therapy Discharge Recommendati: Home & Family Time/GCodes Time In: 1402 Time Out: 1418 Total Billed Treatment Time: 16 Total Billed Treatment 1 visit DANIAL MCMAHAN PT Dec 04, 2019 14:31
[2019-12-04] MEDS: RIVAROXABAN 20 MG TABLET (XARELTO) PO SCH (16:33)
--- NOTE | 2019-12-04 18:10 | Progress Note ---
Subjective Subjective Date Seen by Provider: Dec 04, 2019 Time Seen by Provider: 17:10 No overnight events. Blood pressure is under better control. Still unsteady on his feet. Review of Systems General: No Chills, No Night Sweats HEENT: No Head Aches Pulmonary: No Dyspnea, No Cough Cardiovascular: Palpitations; No: Chest Pain Gastrointestinal: No: Nausea, Vomiting, Abdominal Pain Genitourinary: No Dysuria Neurological: Weakness, Incoordination Objective Exam Vital Signs Vital Signs Date Time Temp Pulse Resp B/P (MAP) Pulse Ox O2 Delivery O2 Flow Rate FiO2 12/04/19 16:00 36.7 67 20 126/82 (97) 95 Room Air 12/04/19 16:00 93 Room Air 12/04/19 12:45 79 12/04/19 12:00 95 Room Air 12/04/19 11:31 36.6 70 18 146/71 (96) 97 Room Air 12/04/19 09:00 Room Air 12/04/19 08:00 94 Room Air 12/04/19 07:31 36.4 76 18 150/90 (110) 94 Room Air 12/04/19 06:42 65 12/04/19 04:00 95 Room Air 12/04/19 04:00 36.9 69 20 137/84 (101) 95 Room Air 12/04/19 01:00 67 12/04/19 00:00 37.2 70 20 150/84 (106) 97 Room Air 12/04/19 00:00 95 Room Air 12/03/19 21:00 Room Air 12/03/19 20:00 95 Room Air 12/03/19 20:00 37.2 63 21 167/88 (114) 97 Room Air 12/03/19 19:00 60 I & O 12/04/19 07:00 Intake Total 1415 ml Output Total 1550 ml Balance -135 ml General Appearance: Mild Distress HEENT: PERRL/EOMI Neck: Non Tender, Supple Respiratory: Chest Non Tender, Lungs Clear, Normal Breath Sounds Cardiovascular: Other (irregular rhythm (atrial fibrillation)) Gastrointestinal: Non Tender, Soft Rectal: Deferred Back: Normal Inspection, No CVA Tenderness Extremity: Non Tender, No Calf Tenderness Neurologic/Psychiatric: Alert, Oriented x3 Skin: Warm/Dry Results Lab Laboratory Tests 12/03/19 20:20: Glucometer 241H 12/04/19 03:05: Sodium Level 136, Potassium Level 4.1, Chloride Level 102, Carbon Dioxide Level 22, Anion Gap 12, Blood Urea Nitrogen 15, Creatinine 1.06, Estimat Glomerular Filtration Rate > 60, BUN/Creatinine Ratio 14, Glucose Level 133H, Calcium Level 8.8, Magnesium Level 2.1 Assessment/Plan Assessment/Plan Admission Dx unsteady on feet dizziness/lightheadedness elevated hypertension Assessment and Plan admitted 12/02/19 12/03/19- permissive hypertension (220/110) for first 24 hours in case there is an ischemic area that CT 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 -ordering an MRI of head with/without contrast to further evaluate his unsteadiness on his feet and weakness. -potassium for low potassium -Pt in Afib. valsartan increased. amlodipine added (to start 12/04/19) to help with bringing blood pressure down. 12/04/19- blood pressure under better control. still unsteady. MRI of brain - no sign of stroke or mass/lesion- senile changes- otherwise unremarkable. Dispo: plan to transfer to IRF tomorrow for PT/OT rehab as this will increase his chances of a safe return home and decrease his fall risk. Problems: (1) Disequilibrium (2) Severe hypertension (3) DMII (diabetes mellitus, type 2) Qualifiers: Assessment & Plan: Hga1c 8.0 (4) Hypokalemia Assessment & Plan: replacing (5) BPH w/o urinary obs/LUTS (6) CAD (coronary atherosclerotic disease) Admission Dx unsteady on feet dizziness/lightheadedness elevated hypertension Clinical Quality Measures Admission Status Admission Dx unsteady on feet dizziness/lightheadedness elevated hypertension DVT/VTE Risk/Contraindication: Risk Factor Score Per Nursin RFS Level Per Nursing on Admit: 2=Moderate DERIC CH MD Dec 04, 2019 18:10
[2019-12-04] MEDS: FINASTERIDE (PROSCAR) 5 MG TAB PO SCH (20:11)
[2019-12-05 03:24] VITALS: BP 146/78
[2019-12-05 07:24] VITALS: BP 138/83
[2019-12-05] MEDS: amLODIPine 5 MG (NORVASC) TAB PO SCH (08:13)
[2019-12-05] MEDS: VALSARTAN 80 MG (DIOVAN) TAB PO SCH (08:14)
[2019-12-05] MEDS ORDERED: ASPIRIN E.C. 81 MG (ECOTRIN) TAB PO SCH (09:00)
[2019-12-05] MEDS ORDERED: AMLO5TAB9 PO (10:15)
[2019-12-05] MEDS ORDERED: VALS80TA PO (10:15)
--- NOTE | 2019-12-05 10:51 | Discharge Summary ---
Discharge Summary Hospital Course Was the Problem List Reviewed?: Yes Problems/Dx: (1) Disequilibrium Status: Acute (2) Severe hypertension Status: Acute (3) DMII (diabetes mellitus, type 2) Qualifiers: (4) Hypokalemia (5) BPH w/o urinary obs/LUTS (6) CAD (coronary atherosclerotic disease) Hospital Course Date of Admission: Dec 02, 2019 at 20:18 Admission Diagnosis : Family Physician/Provider: Allan Ch MD Date of Discharge: 12/05/19 Discharge Diagnosis: [ ] Hospital Course: [ ] Labs and Pending Lab Test: Laboratory Tests 12/04/19 20:08: Glucometer 174H 12/05/19 06:05: Glucometer 139H Home Meds Active Diovan (Valsartan) 80 Mg Tablet 320 Mg PO DAILY Amlodipine Besylate 5 Mg Tablet 10 Mg PO DAILY Reported Ibuprofen 200 Mg Tablet 400 Mg PO Q8H PRN Tylenol Extra Strength (Acetaminophen) 500 Mg Tablet 1,000 Mg PO Q8H PRN Finasteride 5 Mg Tablet 5 Mg PO DAILY FILLED 08-06-2019 #90/90 DAY SUPPLY Proair Hfa (Albuterol Sulfate) 1 Puff Puff 2 Puff PO Q6H PRN Fluticasone-Salmeterol 250-50 (Fluticasone Propion/Salmeterol) 1 Each Blst.w.dev 1 Puff PO BID PRN Metformin HCl 850 Mg Tablet 850 Mg PO DAILY Lantus (Insulin Glargine,Hum.rec.anlog) 100 Unit/1 Ml Vial 30 Unit SQ DAILY Xarelto Tablet (Rivaroxaban) 20 Mg Tablet 20 Mg PO 1700 Aspirin EC (Aspirin) 81 Mg Tablet.dr 81 Mg PO DAILY Assessment/Pt Instructions Transfer to IRF to work with PT/OT and work on balance training/strengthening to have a safer return home and reduce his fall risk. Discharge Planning: <30 minutes discharge planning Discharge Instructions Discharge Diet: ADA Diet Discharge Physical Examination Vital Signs Vital Signs Date Time Temp Pulse Resp B/P (MAP) Pulse Ox O2 Delivery O2 Flow Rate FiO2 12/05/19 09:10 12/05/19 09:00 Room Air 12/05/19 08:30 94 12/05/19 07:24 36.8 78 20 General Appearance: No Apparent Distress HEENT: PERRL/EOMI Respiratory: Chest Non Tender, Lungs Clear, Normal Breath Sounds, No Respiratory Distress Cardiovascular: Regular Rate, Rhythm, Other ( afib at times) Gastrointestinal: Non Tender, Soft Extremity: Non Tender Skin: Normal Color, Warm/Dry Neurologic/Psychiatric: Alert, Oriented x3 Allergies: Coded Allergies: No Known Drug Allergies (Unverified , 01/12/11) Discharge Summary Date of Admission Dec 02, 2019 at 20:18 Date of Discharge Dec 05, 2019 at 09:10 Discharge Date: Dec 05, 2019 Discharge Time: 909 Discharge Diagnosis (1) Disequilibrium Status: Acute (2) Severe hypertension Status: Acute (3) DMII (diabetes mellitus, type 2) Assessment & Plan: Hga1c 8.0 Qualifiers: (4) Hypokalemia Assessment & Plan: replacing (5) BPH w/o urinary obs/LUTS (6) CAD (coronary atherosclerotic disease) Clinical Quality Measures DVT/VTE Risk/Contraindication: Risk Factor Score Per Nursin RFS Level Per Nursing on Admit: 2=Moderate ALLAN CH MD Dec 05, 2019 10:51
== END 2019-12-05 09:10 | disposition designated cancer center or children's hospital (05) ==
LOC: EDUNIT# 16:53 → ER 16:55 → CSD 20:18
PROVIDERS: ADMIT Family Medicine; ATTEND Family Medicine
DX: E87.8 Other disorders of electrolyte and fluid balance, not elsewhere classified (principal); I10 Essential (primary) hypertension; E11.9 Type 2 diabetes mellitus without complications; E87.6 Hypokalemia; N40.0 Benign prostatic hyperplasia without lower urinary tract symptoms; I25.10 Atherosclerotic heart disease of native coronary artery without angina pectoris; Z79.02 Long term (current) use of antithrombotics/antiplatelets; Z79.82 Long term (current) use of aspirin; Z79.899 Other long term (current) drug therapy; Z79.891 Long term (current) use of opiate analgesic; Z79.01 Long term (current) use of anticoagulants; Z87.891 Personal history of nicotine dependence; I48.91 Unspecified atrial fibrillation; Z95.5 Presence of coronary angioplasty implant and graft; Z79.4 Long term (current) use of insulin
CPT/HCPCS: 36415; 70450; 70496; 70498; 70553; 71045; 80048; 80053; 80061; 81000; 82962; 83735; 83874; 84443; 84484; 85025; 85610; 85730; 93005; 93041

== ENCOUNTER 2019-12-05 00:03 | Inpatient (IN) | payer MEDICARE ==
[~2019-12-05] VITALS: Ht 172.7 cm; Wt 96.2 kg
[~2019-12-05 00:03] MED LIST changes: +ACET-2267 PO; +FINA5TAB6 PO; +FLUT1BLS12 PO; +IBUP-2473 PO; +RT-ALBUINH PO; +VALS40TA9 PO
[2019-12-05] MEDS ORDERED: ONDANSETRON 4 MG (ZOFRAN) ORAL DISSOLVE TAB PO PRN (08:30)
[2019-12-05] MEDS ORDERED: guaiFENesin/CODEINE (ROBITUSSIN AC) 10ML UDC PO PRN (08:30)
[2019-12-05] MEDS ORDERED: DOCUSATE SODIUM 100 MG (COLACE) CAP PO PRN (08:30)
[2019-12-05] MEDS ORDERED: BISACODYL 10 MG SUPP (DULCOLAX) PR PRN (08:30)
[2019-12-05] MEDS ORDERED: ACETAMINOPHEN 325 MG TABLET PO PRN (08:30)
[2019-12-05] MEDS ORDERED: CALCIUM CARBONATE 500 MG (TUMS) TAB.CHEW PO PRN (08:30)
[2019-12-05] MEDS ORDERED: ALPRAZolam 0.25 MG (XANAX) TAB PO PRN (08:30)
[2019-12-05] MEDS ORDERED: LACTULOSE SYRUP 10GM/15ML (ENULOSE) 30ML UDC PO PRN (08:30)
[2019-12-05] MEDS ORDERED: diphenhydrAMINE 25 MG TAB (BENADRYL) PO PRN (08:30)
[2019-12-05] MEDS ORDERED: LOPERAMIDE 2 MG (IMODIUM) TABLET PO PRN (08:30)
[2019-12-05] MEDS ORDERED: FLEET ENEMA ADULT 1 EA BTL PR PRN (08:30)
[2019-12-05] MEDS ORDERED: MELATONIN 3 MG TABLET PO PRN (08:30)
--- NOTE | 2019-12-05 09:32 | NUR ---
Admitted to room , with an admitting diagnosis of debility , on 12-05-2019 from cardiac step down via , accompanied by .ROBBY DORANTES introduced to surroundings, call light, bed controls, phone, TV, temperature control, lights, meal times, smoking policy, visitor policy, side rail policy, bathrooms and showers. Patient Rights given to patient in the handbook.ROBBY DORANTES verbalizes understanding that [facility] is not responsible for the loss or damage to any personal effects or valuables that are kept in the patients posession during their hospitalization. The following Patient Care Plans were discussed with the : Discharge Planning, ,, and . ROBBY ODRANTES verbalizes understanding of Interdisciplinary Patient Education. Patient and/or family were informed about the Rapid Response Team and its purpose. Patient received Patient Rights Booklet, which includes Privacy Act Statement and Data Collection Information Summary.
[2019-12-05] MEDS ORDERED: AMLO5TAB9 PO (10:15)
[2019-12-05] MEDS ORDERED: VALS80TA PO (10:15)
--- NOTE | 2019-12-05 10:34 | Occupational Therapy Eval ---
OT Evaluation-General/PLF Medical Diagnosis Admission Date Medical Diagnosis: CVA Onset Date: Dec 02, 2019 Therapy Diagnosis Therapy Diagnosis: Decreased ADL status Height/Weight Height (Feet): 5 Height (Inches): 8.00 Weight (Pounds): 215 Weight (Ounces): 0.0 Precautions Precautions/Isolations: Fall Prevention, Standard Precautions, Pressure Ulcer Referral Physician: Anjali Landeros DO Referral Reason: Activity Tolerance, Self Care, Evaluation/Treatment, Strengthening/ROM Medical History Additional Medical History CABG, COPD, DM, HTN, coronary stent, ID DM. Current History Pt admits after 2 days of feeling weak/ dizzy. H/o falls. pt admits from home w ith elevated BP/ CTA reveals calcified plaques in L internal and distal carotid arteries. Reviewed History: Yes Social History Home: Multilevel Current Living Status: Spouse Entry Into Home: Stairs Without Railing Steps Into Home: 4 Steps Inside Home: 18 18 steps inside with master bedroom / bath upstairs. 1 bath downstairs, no bedroom down. ADL-Prior Level of Function SCALE: Activities may be completed with or without assistive devices. 6-Vnrhljjkut-pgdfluk completes the activity by him/herself with no assistance from a helper. 5-Set-up or Clean-up Assistance-helper sets up or cleans up; patient completes activity. Damon assists only prior to or following the activity. 4-Supervision or Touching Assistance-helper provides verbal cues and/or touching/steadying and/or contact guard assistance as patient completes activity. Assistance may be provided throughout the activity or intermittently. 3-Partial/Moderate Assistance-helper does LESS THAN HALF the effort. Damon lifts, holds or supports trunk or limbs, but provides less than half the effort. 2-Substantial/Maximal Assistance-helper does MORE THAN HALF the effort. Damon lifts or holds trunk or limbs and provides more than half the effort. 8-Pzavmihhw-ccuzyr does ALL the effort. Patient does none of the effort to complete the activity. Or, the assistance of 2 or more helpers is required for the patient to complete the activity. If activity was not attempted, code reason: 7-Patient Refused. 9-Not Applicable-not attempted and the patient did not perform the activity before the current illness, exacerbation or injury. 10-Not Attempted due to Environmental Limitations-(lack of equipment, weather restraints, etc.). 88-Not Attempted due to Medical Conditions or Safety Concerns. ADL PLOF Comments Pt was IND without use of AD. Self Care: Independent Functional Cognition: Independent DME/Equipment: Shower DME/Equipment Comments no walker/ sc/ gbs. 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 at bedside. Pt alert/ oriented, though slow to speak. Pt denies pain, states feels okay, was up with PT and stated felt "better with walker." Pt denies any dizziness while sitting in bed. Mental Status/Objective Patient Orientation: Normal For Age Current Glasses/Contacts: Yes Hand Dominance: Right Upper Extremity ROM WFL BUE Upper Extremity Coordination WFL BUE Upper Extremity Sensation WFL BUE Upper Extremity Strength WFL BUE ADL-Treatment Eating (QC): 6 Oral Hygiene (QC): 6 Shower/Bathe Self (QC): 7 Upper Body Dressing (QC): 7 Lower Body Dressing (QC): 7 On/Off Footwear (QC): 4 Toileting Hygiene (QC): 7 Other Treatments [id number]: (10)Pt seen in bed, present. Pt eating apples. Pt educated on ARU standards/ expectations. Pt educated on eval/ treat this am. Pt denies showering, stating will complete later in day/ tomorrow. Pt educated on benefits of sitting in recliner, pt states he has been feeling dizzy/ weak while up in chair. Pt educated on continuation of sitting upright for core activation and lung benefits. DO converses with pt at this time. [id number]: (20) Pt educated on HEP to be completed over the weekend. Pt return- demonstrates with min cues, left with HEP. Pt denies ADLs, all needs met, call light in reach. Pt remains in bed, states she will encourage him to sit in chair later this morning. Education OT Patient Education: Correct positioning, Exercise program, Home exercise pr ogram, Progress toward Goal/Update tx plan, Purpose of tx/functional activities, Rehab process Teaching Recipient: Patient, Significant Other Teaching Methods: Demonstration, Handout, Discussion Response to Teaching: Verbalize Understanding, Return Demonstration, Reinforcement Needed OT Short Term Goals Short Term Goals Time Frame: Dec 12, 2019 Shower/bathe self: 3 Upper body dressin Lower body dressin Putting on/taking off footwear: 5 OT Cartographic Designer Goals Prison Goals Time Frame: Dec 19, 2019 Eating (QC): 6 Oral Hygiene (QC): 6 Toileting Hygiene (QC): 6 Shower/Bathe Self (QC): 6 Upper Body Dressing (QC): 6 Lower Body Dressing (QC): 6 On/Off Footwear (QC): 6 Additional Goals: 1-Demonstrate ADL Tasks, 2-Verbalize Understanding, 3- ImproveStrength/Lester 1=Demonstrate adherence to instructed precautions during ADL tasks. 2=Patient will verbalize/demonstrate understanding of assistive devices/modifications for ADL. 3=Patient will improve strength/tolerance for activity to enable patient to perform ADL's. OT Education/Plan Problem List/Assessment Assessment: Decreased Activ Tolerance, Dependent Transfers, Impaired Bed Mobility, Impaired Funct Balance, Impaired I ADL's, Impaired Self-Care Skills Discharge Recommendations Plan/Recommendations: Continue POC Therapy Discharge Recommendati: Home & Family Equpiment Recommendations-D/C: Rails on Tub/Shower, Bath Chair Treatment Plan/Plan of Care Treatment,Training & Education: Yes Patient would benefit from OT for education, treatment and training to promote independence in ADL's, mobility, safety and/or upper extremity function for ADL's. Plan of Care: ADL Retraining, Caregiver Training, Functional Mobility, Group Exercise/Act as Ind, UE Funct Exercise/Act Treatment Duration: Dec 19, 2019 Frequency: At least 5 of 7 days/Wk (IRF) Estimated Hrs Per Day: 1.5 hours per day Agreement: Yes Rehab Potential: Guarded Time/GCodes Start Time: 10:15 (1035) Stop Time: 10:25 (1055) Total Time Billed (hr/min): 30 Billed Treatment Time 1, EVM (10) 1, EX (20) total: 30 DONATO JOHNSON OTR Dec 05, 2019 10:34
--- NOTE | 2019-12-05 10:51 | Physical Therapy Evaluation ---
PT Evaluation-General Medical Diagnosis Admission Date Medical Diagnosis: CVA Onset Date: Dec 02, 2019 Therapy Diagnosis Therapy Diagnosis: decreased mobility Height/Weight Height (Feet): 5 Height (Inches): 8.00 Weight (Pounds): 215 Weight (Ounces): 0.0 Precautions Precautions/Isolations: Fall Prevention, Standard Precautions, Pressure Ulcer Weight Bear Status Right Lower Extremity: Right Full Weight Bearing Left Lower Extremity: Left Full Weight Bearing Referral Physician: Anjali Landeros DO Reason for Referral: Evaluation/Treatment Medical History Pertinent Medical History: Atrial Fib, CAD, COPD, DM, HTN Current History Presented to ER with dizziness, unsteadiness. Reviewed History: Yes Social History Home: Multilevel Current Living Status: Spouse Entry Into Home: Stairs With Railing PT Steps Into Home: 4 PT Steps Inside Home: 18 Prior Prior Level of Function SCALE: Activities may be completed with or without assistive devices. 6-Feywhsevpu-hrjfhcu completes the activity by him/herself with no assistance from a helper. 5-Set-up or Clean-up Assistance-helper sets up or cleans up; patient completes activity. Kellogg assists only prior to or following the activity. 4-Supervision or Touching Assistance-helper provides verbal cues and/or touching/steadying and/or contact guard assistance as patient completes activity. Assistance may be provided throughout the activity or intermittently. 3-Partial/Moderate Assistance-helper does LESS THAN HALF the effort. Kellogg lifts, holds or supports trunk or limbs, but provides less than half the effort. 2-Substantial/Maximal Assistance-helper does MORE THAN HALF the effort. Kellogg lifts or holds trunk or limbs and provides more than half the effort. 0-Nvoiactbg-apskmb does ALL the effort. Patient does none of the effort to complete the activity. Or, the assistance of 2 or more helpers is required for the patient to complete the activity. If activity was not attempted, code reason: 7-Patient Refused. 9-Not Applicable-not attempted and the patient did not perform the activity before the current illness, exacerbation or injury. 10-Not Attempted due to Environmental Limitations-(lack of equipment, weather restraints, etc.). 88-Not Attempted due to Medical Conditions or Safety Concerns. Bed Mobility: 6 Transfers (B,C,W/C): 6 Gait: 6 Stairs: 6 Indoor Mobility (Ambulation): Independent Stairs: Independent Prior Devices Use: None PT Evaluation-Current Subjective Pt. says he has "aches" but denies any pain. Pt/Family Goals home with spouse Objective Patient Orientation: Person, Place, Time, Situation ROM/Strength ROM Upper Extremities See OT ROM Lower Extremities WNL Strength Upper Extremities See OT Strength Lower Extremities Grossly 4/5 Integumentary/Posture Integumentary grossly intact Bowel Incontinence: No Bladder Incontinence: No Posture upright Neuromuscular (Tone, Coordination, Reflexes) unremarkable Sensory Vision: Functional Hearing: Functional Hand Dominance: Right Sensation Right Upper Extremit: Intact Sensation Left Upper Extremity: Intact Sensation Right Lower Extremit: Intact Sensation Left Lower Extremity: Intact Transfers Roll Left to Right (QC): 6 Sit to Lying (QC): 6 Lying to Sitting/Side of Bed(Q: 6 Sit to Stand (QC): 4 Chair/Dsp-ba-Chplk Xfer(QC): 4 Toilet Transfer (QC): 4 Car Transfer (QC): 4 Gait Does the Patient Walk?: Yes Mode of Locomotion: Walk Anticipated Mode of Locomotion: Walk Walk 10 feet (QC): 4 Walk 50 ft with 2 Turns(QC): 4 Walk 150 ft (QC): 4 Walking 10ft/uneven surface-QC: 4 Distance: 200 ft Gait Assistive Device: FWW Comments/Gait Description cues to stay close to walker Wheelchair Training Does the Pt Use a Wheelchair?: No Wheel 50 ft with 2 turns (QC): 9 Wheel 150 ft (QC): 9 Stairs #of Steps: 4 1 Step (curb) (QC): 4 4 Steps (QC): 4 12 Steps (QC): 4 Balance Sitting Static: Good Sitting Dynamic: Good Standing Static: Fair Standing Dynamic: Fair Picking up an Object (QC): 4 Assessment/Needs Pt. is a 79 y.o. male with decreased mobility and gait steadiness. He currently needs CGA and use of FWW for ambulation. Pt. would benefit from skilled PT to restore safe mobility and (I) for return home at prior level. Rehab Potential: Good PT Spring Setter Goals Skilled Nursing Goals PT Spring Setter Goals Time Frame: Dec 19, 2019 Roll Left & Right (QC): 6 Sit to Lying (QC): 6 Lying-Sitting on Side/Bed(QC): 6 Sit to Stand (QC): 6 Chair/Ige-ws-Vtazy Xfer(QC): 6 Toilet Transfer (QC): 6 Car Transfer (QC): 6 Does the Patient Walk: Yes Walk 10 feet (QC): 6 Walk 50ft with 2 Turns (QC): 6 Walk 150 ft (QC): 6 Walking 10ft on Uneven Surface: 6 1 Step (curb) (QC): 6 4 Steps (QC): 6 12 Steps (QC): 6 Picking up an Object (QC): 6 Wheel 50 feet with 2 turns (QC: 9 Wheel 150 feet: 9 PT Plan Problem List Problem List: Activity Tolerance, Functional Strength, Safety, Balance, Gait, Transfer, Bed Mobility, ROM Treatment/Plan Treatment Plan: Continue Plan of Care Treatment Plan: Bed Mobility, Education, Functional Activity Lester, Functional Strength, Group Therapy, Gait, Safety, Therapeutic Exercise, Transfers Treatment Duration: Dec 19, 2019 Frequency: 6 times per week Estimated Hrs Per Day: 1.5 hours per day Patient and/or Family Agrees t: Yes Time/GCodes Time In: 0900 Time Out: 09 Total Billed Treatment Time: 25 Total Billed Treatment 1, SANDRA 15', FA 10' VINCENZO ESTRELLA PT Dec 05, 2019 10:51
[2019-12-05 11:10] VITALS: BP 129/78
--- NOTE | 2019-12-05 12:22 | PM&R Post Admission Assessment ---
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 He ambulates without difficulty at home without assistive devices and is independent in all ADL's PLOF. Patient is having normal BM's and is currently denying pain. is at bedside during interview and exam. I reviewed MRI and entire w/u and will inquire with Cardiology whether or not we can DC Tely. 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) Alcohol Use: Denies Use Recreational Drug Use: No Smoking Status: Never a Smoker Former Smoker, Quit: May 15, 1995 Type Used: Cigarettes 2nd Hand Smoke Exposure: No Physical Abuse Screen: No Sexual Abuse: No Recent Foreign Travel: No Contact w/other who traveled: No Recent Hopitalizations: Yes (HERNIA SURGERY, CARDIAC SURGERY) Recent Infectious Disease Expo: No Immunizations Up To Date Pediatric: Yes Date of Pneumonia Vaccine: Apr 10, 2019 Date of Influenza Vaccine: Apr 25, 2016 Seasonal Allergies Seasonal Allergies: No Past Medical History Surgeries: CABG Currently Using CPAP: No Currently Using BIPAP: No Cardiac: Atrial Fibrillation, Coronary Artery Disease, Hypertension Sexually Transmitted Disease: No HIV/AIDS: No Genitourinary: Benign Prostatic Hyperpl, Prostate Problems Gastrointestinal: Abdominal Hernia Endocrine: Diabetes, Insulin dep Cancer: Skin Did You Recieve Any Treatments: No History of Blood Disorders: No Adverse Reaction to Blood Soto: No Family History Fathr of internal bleeding, mother had breast cancer, sister had cancer and at 21 year old, brother of heart disease Prior Level of Function Bed Mobility: 6 Transfers: 6 Gait: 6 Stairs: 6 Indoor Mobility (Ambulation): Independent Stairs: Independent Prior Devices Use: None Self Care: Independent Functional Cognition: Independent 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 Drive Self: Yes Current Level of Fuctioning Roll Left to Right: 6 Sit to Lyin Lying to Sitting/Side of Bed: 6 Sit to Stand: 4 Chair/Ywg-mm-Veysg Xfer: 4 Car Transfer: 4 Does the Patient Walk: Yes Mode of Locomotion: Walk Anticipated Mode of Locomotion: Walk Walk 10 feet: 4 Walk 50 ft with 2 Turns: 4 Walk 150 ft: 4 Walking 10ft on uneven surface: 4 Gait Assistive Device: FWW Does the Pt Use a Wheelchair: No Wheel 50 ft with 2 turns: 9 Wheel 150 ft: 9 #of Steps: 4 1 Step (curb): 4 4 Steps: 4 12 Steps: 4 Picking up an Object: 4 Eatin Oral Hygiene: 6 Shower/Bathe Self: 7 Upper Body Dressin Lower Body Dressin On/Off Footwear: 4 Toileting Hygiene: 7 PM&R Allergy/Meds/Data Review Allergies Coded Allergies: No Known Drug Allergies (Unverified , 01/12/11) Home Medications Scheduled Amlodipine Besylate (Amlodipine Besylate), 10 MG PO DAILY Aspirin (Aspirin EC), 81 MG PO DAILY, (Reported) Finasteride (Finasteride), 5 MG PO DAILY, (Reported) Insulin Glargine,Hum.rec.anlog (Lantus), 30 UNIT SQ DAILY, (Reported) Metformin HCl (Metformin HCl), 850 MG PO DAILY, (Reported) Rivaroxaban (Xarelto Tablet), 20 MG PO 1700, (Reported) Valsartan (Diovan), 320 MG PO DAILY Scheduled PRN Acetaminophen (Tylenol Extra Strength), 1,000 MG PO Q8H PRN for PAIN-MILD (1-4), (Reported) Albuterol Sulfate (Proair Hfa), 2 PUFF PO Q6H PRN for SHORTNESS OF BREATH, (Reported) Fluticasone Propion/Salmeterol (Fluticasone-Salmeterol 250-50), 1 PUFF PO BID PRN for SHORTNESS OF BREATH, (Reported) Ibuprofen (Ibuprofen), 400 MG PO Q8H PRN for PAIN-MILD (1-4), (Reported) Discontinued Medications Albuterol Sulfate (Ventolin Hfa), 2 PUFF IH QID PRN for SHORTNESS OF BREATH, (Reported) Discontinued Reason: Duplicate Order Albuterol Sulfate (Albuterol Sulfate), 2.5 MG IH Q6H PRN for SHORTNESS OF BREATH, (Reported) Discontinued Reason: No Longer Taking Atorvastatin Calcium (Lipitor), 40 MG PO HS, (Reported) Discontinued Reason: No Longer Taking Dronedarone HCl (Multaq), 400 MG PO BID, (Reported) Discontinued Reason: No Longer Taking Fluticasone Propionate (Fluticasone Propionate), 1 SPRAY NS BID PRN for ALLERGIES, (Reported) Discontinued Reason: No Longer Taking Nebivolol HCl (Bystolic), 5 MG PO DAILY, (Reported) Discontinued Reason: No Longer Taking Umeclidinium Brm/Vilanterol Tr (Anoro Ellipta 62.5-25 Mcg INH), 1 PUFF IH DAILY, (Reported) Discontinued Reason: No Longer Taking Valsartan (Valsartan), 40 MG PO DAILY, (Reported) Discontinued Reason: Provider Change Current Medications Current Medications Reviewed Review of Systems Constitutional: see HPI, dizziness, malaise, weakness EENTM: no symptoms reported Cardiovascular: no symptoms reported Gastrointestinal: no symptoms reported Genitourinary: no symptoms reported Musculoskeletal: no symptoms reported Skin: no symptoms reported Psychiatric/Neurological: Depressed All Other Systems Reviewed Negative Unless Noted: Yes Physical Exam Physical Exam Vital Signs Vital Signs - First Documented 12/05/19 11:10 Temp 36.8 Pulse 80 Resp 18 B/P (MAP) 129/78 O2 Delivery Room Air Capillary Refill : Height, Weight, BMI Height: 5'8.00" Weight: 215lbs. 0.0oz. 97.224493dw; 32.25 BMI Method: General Appearance: No Apparent Distress, WD/WN, Chronically ill, Obese Eyes: Bilateral Eye Normal Inspection, Bilateral Eye PERRL HEENT: PERRL/EOMI, Normal ENT Inspection, Pharynx Normal Neck: Full Range of Motion, Normal Inspection, Non Tender, Supple, Carotid Bruit Respiratory: Chest Non Tender, Lungs Clear, Normal Breath Sounds, No Accessory Muscle Use, No Respiratory Distress Cardiovascular: Regular Rate, Rhythm, No Edema, No Gallop, No JVD, No Murmur, Normal Peripheral Pulses Gastrointestinal: Normal Bowel Sounds, No Organomegaly, No Pulsatile Mass, Non Tender, Soft Back: Normal Inspection, No CVA Tenderness, No Vertebral Tenderness Extremity: Normal Capillary Refill, Normal Inspection, Normal Range of Motion, Non Tender, No Calf Tenderness, No Pedal Edema Neurologic/Psychiatric: Alert, Oriented x3, No Motor/Sensory Deficits, Normal Mood/Affect, Abnormal Gait (major fall risk while 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 with 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), Motor Weakness (generalized all extremities) Skin: Normal Color, Warm/Dry Lymphatic: No Adenopathy PM&R Medical Assessment & Plan REHAB/MEDICAL ASSESSMENT AND PLAN: REHAB IMPAIRMENT GROUP: Disequilibrium ETIOLOGIC DIAGNOSIS: Disequilibrium The comorbidities that impact the patients function and/or functional outcome by: DM OOC, OAC for AF risk for bleed, CAD previous CABG at risk for cardiac related issues REHAB PLAN: The patient is being admitted to our comprehensive inpatient rehabilitation facility and can tolerate the intensity of service consisting of at least: 180 minutes of therapy a day, 5 out of 7 days a week Rehab treatment will consist of: PT OT will help patient regain ambulation with fall risk prevention while helping assist in Antonina maneuvers in order to increase independence and use assistive devices until issue is resolved The patient/family has a good understanding of our discharge process and will benefit from an interdisciplinary inpatient rehabilitation program. The patient has potential to make improvement and is in need of at least two of the following multidisciplinary therapies including but not limited to physical, oc cupational, speech, and prosthetics and orthotics. Additionally the patient will need services from respiratory, nutritional services, wound care, psychology, etc. (Customize this to each patient). Given the patients complex condition and risk of further medical complications, rehabilitation services cannot be safely or effectively provided at a lower level of care such as a [facility] facility. BARRIERS TO DISCHARGE: Advanced age with severe co-morbidities ESTIMATED LOS: 7 days DISPOSITION: Home RELEVANT CHANGES SINCE PREADMISSION SCREENING: I have compared the patients medical and functional status at the time of the preadmission screening and there are: no changes PROGNOSIS: Good REHABILITATION GOALS: 1. PT OT will help patient regain ambulation with fall risk prevention while helping assist in Antonina maneuvers in order to increase independence and use assistive devices until issue is resolved All the above goals were reviewed with the patient and he/she is in agreement. By signing this document, I acknowledge that I have personally performed a full physical examination on this patient within 24 hours of admission to this inpatient rehabilitation facility and have determined the patient to be able to tolerate the above course of treatment at an intensive level for a reasonable period of time. I will be completing a detailed individualized Plan of Care for this patient by day #4 of the patients stay based upon the Preadmission Screen, the Post-Admission Evaluation, and the therapy evaluations. Admission Dx/Comorbidities: (1) Disequilibrium Status: Acute ICD Codes: R42 - Dizziness and giddiness (2) Severe hypertension Status: Acute ICD Codes: I10 - Essential (primary) hypertension (3) CAD (coronary atherosclerotic disease) ICD Codes: I25.10 - Atherosclerotic heart disease of [place] coronary artery without angina pectoris (4) DMII (diabetes mellitus, type 2) ICD Codes: E11.9 - Type 2 diabetes mellitus without complications (5) BPH w/o urinary obs/LUTS ICD Codes: N40.0 - Benign prostatic hyperplasia without lower urinary tract symptoms (6) Hypokalemia ICD Codes: E87.6 - Hypokalemia (7) Afib ICD Codes: I48.91 - Unspecified atrial fibrillation Assessment/Plan Assessment and Plan Assess & Plan/Chief Complaint Assessment per Dr Mckeon with my modifications: Dizziness and poor balance of undetermined etiology. CT head of 12/02/19 showed probable, remote L periventricular white matter infarct, MRI negative for acute or subacute CVA Uncontrolled hypertension, improved with med changes Dizziness with frequent falls of undetermined etiology. Beta-chin discontinued during this admission under the suspicion that bradycardia may be contributing to symptoms Paroxysmal atrial fib. He has had EP eval with Dr Bingham at [facility] and has been advised conservative therapy for a fib CHADSVASc score 4. Chronic rivaroxaban therapy for stroke prophylaxis. He has intermittently been noncompliant H/o hypokalemia due to diuretic therapy (HCTZ). HCTZ d/c'd on 02/05/18 CAD with a h/o stenting of mid LAD and mid RCA-PL in 1999 at and CABG in November 2008 in [place], [place], which consisted of MCGEE to LAD and SVG to a diag and SVG to distal RCA-PL. LVEF was 65% and LVEDP was mildly to moderately elevated at time of cath of November 2008 MPI of 12/03/17 did not show ischemia or infarction, and LVEF was 62%; he remained in A Fib with a controlled vent rate Echo of 07/17/18 shows LVEF 60-65%, mild LA enlargement, mild MR, PASP 35 mmHg Hyperlipidemia DM II Mild carotid arterial disease on carotid us of 06/26/18 No AAA on abd on scan of 10/09/16 Mild restrictive lung disease and R lung nodule being followed by Dr Aguilar Mild FABIAN per sleep studies on sleep study of 07/17/15, CPAP was recommended by Dr Aguirre, but Dr Macdonald has been noncompliant Chronic bilateral swelling, likely due to venous insuff and/or amlodipine. Currently tolerating amlodipine well Plan: Fall risk IRF protocol DM management Insulin BP monitoring RADHA GARBER DO Dec 05, 2019 12:22
--- OUTSIDE RECORDS SUMMARY | 2019-12-05 12:23 | XMS REPORT | Clinical Summary ---
Author Author [facility] Organization [facility] Address Unknown Phone Unavailable Care Team Providers Care Dry Transfer Man Name Role Phone Unknown, Unknown Md PCP Unavailable Source Comments Some departments are not documenting in the electronic medical record. If you d o not see the information that you expected, contact Release of Information in [facility] [employer] Information Management department at [phone] for further assistan ce in locating additional records.[facility] Allergies No Known Allergies Medications End Date Status Medication Sig Dispensed Refills Start Date Active fluticasone-vilanterol Inhale 1 Puff 0 (BREO ELLIPTA) 100-25 by mouth into mcg/dose dsdv the lungs as Needed. Active fluticasone (FLONASE) 50 Apply 1 [place] 0 mcg/actuation nasal spray to each nostril as directed as Needed. Shake bottle gently before using. Active sitaGLIPtin-metformin Take 1 Tab by 0 (JANUMET XR) 100-1,000 mg mouth at TM24 bedtime daily. Active rivaroxaban (XARELTO) 20 Take 20 mg by 0 mg tablet mouth at bedtime daily. Take with food. Active aspirin EC 81 mg tablet Take 81 mg by 0 mouth daily. Take with food. Active naproxen sodium (ALEVE) Take 1 Tab by 0 220 mg capsule mouth every 8 hours as needed. Take with food. Active nebivolol (BYSTOLIC) 10 Take 10 mg by 0 mg tablet mouth daily. Active valsartan (DIOVAN) 40 mg Take 40 mg by 0 tablet mouth daily. Active Problems Problem Noted Date PAF (paroxysmal atrial fibrillation) 04/30/2016 Overview: 11/16/14 - AF initially documented on EKG during stress testing. Started toprol XL 100mg, Xarelto 20mg. 03/15/16 - Echo: EF 60%. Trivial to mild MR and TR. PAP 30mmHg. 03/15/16 - Holter: AF with controlled VR . Rare isolated PVC. 04/30/16 - referred to Dr Bingham. Coronary artery disease 04/30/2016 Overview: 2008 - CABG x 4 - EF 65% November 2011- negative nuclear stress test November 2014 - negative nuclear stress netta t Hypertension 04/30/2016 Diabetes type 2, controlled 04/30/2016 Hyperlipidemia 04/30/2016 Carotid artery disease 04/30/2016 Overview: November 2014 - Ultrasound - shows mild car otid disease. Restrictive lung disease 04/30/2016 Overview: Mild. Right lung nodule monitored by Dr Aguilar. Mild obstructive sleep apnea 04/30/2016 Overview: July 2015 - sleep study shows mild FABIAN. Advised to start CPAP- Is noncompliant with use. Family History Medical History Relation Name Comments Heart Disease Brother Heart problem Brother Cancer-Breast Mother Cancer-Ovarian Sister Relation Name Status Comments Brother heart problem, hear t disease (Age 60) Father cirrhosis of the li nemo (Age 58) Maternal Grandfather Maternal Grandmother Mother (Age 55) Paternal Grandfather Paternal Grandmother Sister (Age 21) Social History Date Tobacco Use Types Packs/Day Years Used Quit: 06/10/1997 Former Smoker Smokeless Tobacco: Never Used Sex Assigned at Date Recorded Not on file Industry Job Start Date Occupation Not on file Not on file Not on file Travel End Travel History Travel Start No recent travel history available. 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 Pulse - - Temperature - - Respiratory Rate - - Oxygen Saturation - - Inhaled Oxygen Concentration 94.3 kg (208 lb) 04/30/2016 8:20 AM PROGRAM ARRANGER Weight 172.7 cm (5' 8") 04/30/2016 8:20 AM PROGRAM ARRANGER Height 31.63 04/30/2016 8:20 AM PROGRAM ARRANGER Body Mass Index Plan of Treatment Health Maintenance Due Date Last Done Comments MEDICARE ANNUAL WELLNESS 1941 VISIT DILATED EYE EXAM 1959 DTAP/TDAP VACCINES (1 - 1959 Tdap) FOOT EXAM 1959 HBA1C 1959 HEPATITIS C SCREENING 1959 MICROALBUMIN 1959 PHYSICAL (COMPREHENSIVE) 1959 EXAM SHINGLES RECOMBINANT 1991 VACCINE (1 of 2) PNEUMONIA (PPSV23) 2006 VACCINE (1 of 1 - PPSV23) INFLUENZA VACCINE 03/10/2020 Results Not on filefrom Last 3 Months Insurance Type Payer Benefit Subscriber ID Effective Phone Address Plan / Dates Group Medicare MEDICARE MEDICARE xxxxxxxxxx 2006-P PART A AND resent B Medicare [facility] xxxxxxxxxxxx 2015-P SUPPLEMENT resent [id number] 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
--- OUTSIDE RECORDS SUMMARY | 2019-12-05 12:23 | XMS REPORT ---
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 [employer] Address [address] [address] Care Team Providers Care Regional Service Manager Name Role Phone NARESH WYMAN Unavailable OANH LONGORIA DO Unavailable Unavailable ROBERTO CARLSON MD, FACC, FACP CCDS Unavailable UnavailROBERTO Smith MD, FACC, FACP CCDS Unavailable UnavailOANH Chowdhury DO Unavailable Unavailable Unavailable Unavailable Unavailable Unavailable Allergies Normalized Allergy Reported Date of Reaction(s) Care Provider Facility Allergy Type classification allergen Allergy Onset DA (10 Unclassified No Known Drug 01-12-2011 - no information ROBERTO CARLSON , Not Available sources.) Allergies [facility] [place] (12296) Medications No Information Problems Active Problems Problem Normalized Date Last Normalized Normalized Provider Fa cility Classification Problem(s) Recorded Problem Problem Sta tus Duration Coronary Atheroscleroti Chronic Active ROBERTO CARLSON , Not Available atherosclerosi c heart MD [place] (06719) s and other disease of heart disease [place] (18 sources.) coronary artery without angina pectoris Other Body mass Chronic Active ALI ROBYN , [facility] nutritional; index (BMI) MD [place] [facility] endocrine; and 30.0-30.9, Hospital - metabolic adult [place] disorders (3 ([address]180) sources.) Other and Cardiomegaly Chronic Active OANH LONGORIA [facility] ill-defined DO [facility] - (7 sources.) [place] ([address]) Other lower Cough Episodic Active OANH LONGORIA , Not Av ailable respiratory DO (20507) disease (3 sources.) Other Disorder of Chronic Active ALI ROBYN , Not Isa ilable circulatory arteries and MD [place] (12383) disease (2 arterioles, sources.) unspecified Essential Essential Chronic Active ALI ROBYN , Not Avail able hypertension (primary) [place] (49514) (12 sources.) hypertension Residual Family history Episodic Active ALI ROBYN , [facility] Via codes; of malignant MD DONY Wilkinson unclassified neoplasm, Hospital - (3 sources.) unspecified [place] ([address]) Disorders of Hyperlipidemia Chronic Active ALI ROBYN , N ot Available lipid , unspecified [facility] [place] () metabolism (10 sources.) Other halfway Episodic Active ALI ROBYN , Not Avail able aftercare (7 (current) use [facility] [place] (42164) sources.) of anticoagulants Other halfway Episodic Active ALI ROBYN , [facility] Via aftercare (3 (current) use MD DONY Wilkinson sources.) of aspirin [facility] () 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 ALI ROBYN , [facility] Via aftercare (3 (current) use MD DONY Wilkinson sources.) of insulin [facility] () Other Obesity, Chronic Active ALI ROBYN , [facility] Via nutritional; unspecified MD DONY Wilkinson endocrine; and Hospital - metabolic [place] disorders (3 (46864) sources.) Residual Obstructive Chronic Active ALI ROBYN , [facility] Via codes; sleep apnea MD DONY Wilkinson unclassified (adult) Hospital - (6 sources.) (pediatric) [place] () Other Other long Episodic Active ALI ROBYN , Not Avai lable aftercare (7 term (current) [facility] [place] () sources.) drug therapy Cardiac Paroxysmal Chronic Active ALI ROBYN , Not Avai lable dysrhythmias atrial MD [place] () (9 sources.) fibrillation Translations: [ CHRONIC ATRIAL FIBRILLATION] Other lower Solitary Episodic Active OANH VON , Not Av ailable respiratory pulmonary DO (64121) disease (6 nodule sources.) Diabetes Type 2 Chronic Active ALI ROBYN , Not Availa ble mellitus diabetes [facility] [place] () without mellitus complication without (12 sources.) complications Past or Other Problems Problem Normalized Date Last Normalized Normalized Provider Fa cility Classification Problem(s) Recorded Problem Problem Sta tus Duration Unclassified CHRONIC ATRIAL no information no information ALI H AMMAD , [facility] Via (3 sources.) FIBRILLATION, MD DONY Wilkinson UNSPECIFIED [facility] ([address]39) Other lower Dyspnea, Episodic Completed OANH VON , Not Av ailable respiratory unspecified DO (61160) disease (2 sources.) Unclassified Other no information no information no name no information (5 sources.) specified postprocedural states Procedures No Information Immunizations No Information Results No Information Vital Signs No Information Interventions No Information Plan of Treatment No Information Goals No Information Social History The data below is from unstructured sources History Response Recorde d Date/Time Hx Family Cancer Y MOTHER, SISTER 01/12/11 3:37pm Hx Family Breast Cancer Y 01/12/11 3:37pm Hx Family Cardiac Disorders N 01/12/11 3:37pm History Response Recorde d Date/Time Hx Family Cancer Y MOTHER, SISTER 01/12/11 3:37pm Hx Family Breast Cancer Y 01/12/11 3:37pm History Response Recorde d Date/Time Hx Family Cancer Y MOTHER, SISTER 01/12/11 3:37pm Hx Family Breast Cancer Y 01/12/11 3:37pm Functional Status No Information Mental Status No Information Encounters Encounter Normalized Encounter Encounter Diagnosis Care Provi nando Organization Date Type 12-03-2017 Patient encounter no information no name no or ganization name 11-15-2017 Patient encounter no information no name no or ganization name 04-13-2019 Patient encounter no information no name no or ganization name procedure 03-10-2019 Patient encounter no information no name no or ganization name procedure 03-10-2019 Patient encounter no information no name no or ganization name procedure 07-17-2018 Patient encounter no information no name no or ganization name procedure 10-22-2016 Patient encounter no information no name no or ganization name procedure 05-15-2016 Patient encounter no information no name no or ganization name - procedure 05-15-2016 Medical Equipment No Information Payers The data below is from unstructured sources Payer Name Policy Number Subscriber Name Relationship [facility] [id number] Ronen Dorantes 01 Self / Same As Patient s Medicare [id number] Ronen Dorantes Self / Same As Patient Advance Directives Directive Response Recor ded Date Advance Directives N 8:14am Health Care Power of Pompom Maker N 11/27/12 8:14am Organ Donor Y 11/27/12 8 :14am Directive Response Recor ded Date Advance Directives N 2:59pm Health Care Power of Pompom Maker N 11/21/12 2:59pm Organ Donor Y 11/21/12 2 :59pm Additional Source Comments This clinical document has been generated using [employer] software that has been certified by the Office of the National Coordinator for Health Information Technology (ONC 15.99.04.3023.Diam.[id number]) and the National Committee for [employer]ce [employer] (NCQA, as an eMeasure certified technology). FOR RECORDS PERTAINING TO PATIENTS WHO ARE OR HAVE BEEN ENROLLED IN A CHEMICAL D EPENDENCY/SUBSTANCE ABUSE PROGRAM, SOME INFORMATION MAY BE OMITTED. This clinica l summary was aggregated from multiple sources. Caution should be exercised in using it in the provision of clinical care. This summary normalizes information from multiple sources, and as a consequence, information in this document may ma terially change the coding, format and clinical context of patient data. In catrachita tion, data may be omitted in some cases. CLINICAL DECISIONS SHOULD BE BASED ON T HE PRIMARY CLINICAL RECORDS. [employer] provides no warranty or guara ntee of the accuracy or completeness of information in this document.The followi ng information is based on time limited clinical information
--- OUTSIDE RECORDS SUMMARY | 2019-12-05 12:24 | XMS REPORT | Continuity of Care Document ---
Author Organization Unknown Address Unknown Phone Unavailable Allergies Active Description Code Type Severity Reaction Onset Reported/Identified Relationship to Patient Clinical Status Yes No Known Drug Allergies [id number] Drug Allergy Unknown N/A 01/12/2011 Medications There is no data. Problems Date Dx Coded Attending Type Code Diagnosis Diagnosed By 04/07/2009 Ot 250.00 04/07/2009 Ot 311 04/07/2009 Ot 401.9 04/07/2009 Ot 715.90 04/07/2009 Ot 722.52 04/07/2009 Ot V45.81 04/07/2009 Ot V57.1 04/10/2009 Ot V45.81 04/10/2009 Ot V57.89 05/11/2009 Ot V45.81 05/11/2009 Ot V57.89 01/15/2011 Ot 550.90 UNI LAT INGUINAL HERNIA 01/15/2011 Ot V64.3 NO P DINORA FOR REASONS NEC 01/17/2011 Ot 550.90 UNI LAT INGUINAL HERNIA 01/17/2011 Ot V58.69 OTH MED,LT,CURRENT USE 11/24/2012 OLAMIDE GONZALEZ MD Ot 250.00 DIAB MIGUELITO WO COMPL, TYPE II OR UNSPEC TY 11/24/2012 OLAMIDE GONZALEZ MD Ot 401.9 HYPERTENSION NOS 11/24/2012 OLAMIDE GONZALEZ MD Ot 414.01 CORONARY ATHEROSCLEROSIS OF [place] CORON 11/24/2012 OLAMIDE GONZALEZ MD Ot 562.10 DIVERTICULOSIS COLON (W/O MENT OF HEMORR 11/24/2012 OLAMIDE GONZALEZ MD Ot V58.69 OTH MED,LT,CURRENT USE 11/24/2012 OLAMIDE GONZALEZ MD Ot V76.51 SCREEN MAL NEOP-COLON 11/27/2012 OLAMIDE GONZALEZ MD Ot 550.91 RECUR UNILAT INGUIN KATY 08/31/2014 Ot 368.2 08/31/2014 Ot 374.30 08/31/2014 Ot 550.90 08/31/2014 Ot V72.63 08/31/2014 Ot V72.81 08/31/2014 Ot V74.8 08/31/2014 Ot 414.00 08/31/2014 Ot V45.81 08/31/2014 Ot 721.2 08/31/2014 Ot 724.02 08/31/2014 CARLOS TANG, OLAMIDE M Ot V72.84 08/31/2014 CARLOS TANG, OLAMIDE M Ot 550.91 08/31/2014 CARLOS TANG, OLAMIDE M Ot V72.63 08/31/2014 CARLOS TANG, OLAMIDE M Ot V72.81 08/31/2014 CARLOS TANG, OLAMIDE M Ot V74.8 10/01/2014 Ot 368.2 10/01/2014 Ot 374.30 10/01/2014 Ot 550.90 10/01/2014 Ot V72.63 10/01/2014 Ot V72.81 10/01/2014 Ot V74.8 10/01/2014 Ot 414.00 10/01/2014 Ot V45.81 10/01/2014 Ot 721.2 10/01/2014 Ot 724.02 10/01/2014 CARLOS TANG, OLAMIDE M Ot V72.84 10/01/2014 CARLOS TANG, OLAMIDE M Ot 550.91 10/01/2014 CARLOS TANG, OLAMIDE M Ot V72.63 10/01/2014 CARLOS TANG, OLAMIDE M Ot V72.81 10/01/2014 CARLOS TANG, OLAMIDE Osullivan Ot V74.8 10/12/2014 Ot 368.2 10/12/2014 Ot 374.30 10/12/2014 Ot 550.90 10/12/2014 Ot V72.63 10/12/2014 Ot V72.81 10/12/2014 Ot V74.8 10/12/2014 Ot 414.00 10/12/2014 Ot V45.81 10/12/2014 Ot 721.2 10/12/2014 Ot 724.02 10/12/2014 CARLOS TANG, OLAMIDE M Ot V72.84 10/12/2014 CARLOS TANG, OLAMIDE M Ot 550.91 10/12/2014 CARLOS TANG, OLAMIDE M Ot V72.63 10/12/2014 CARLOS TANG, OLAMIDE M Ot V72.81 10/12/2014 CARLOS TANG, OLAMIDE M Ot V74.8 11/06/2014 JAYNA TANG, ROBBY Delgado Ot 786.0 5 11/06/2014 JAYNA TANG, ROBBY Delgado Ot 786.2 11/16/2014 Ot 368.2 11/16/2014 Ot 374.30 11/16/2014 Ot 550.90 11/16/2014 Ot V72.63 11/16/2014 Ot V72.81 11/16/2014 Ot V74.8 11/16/2014 Ot 414.00 11/16/2014 Ot V45.81 11/16/2014 Ot 721.2 11/16/2014 Ot 724.02 11/16/2014 CARLOS TANG, OLAMIDE M Ot V72.84 11/16/2014 CARLOS TANG, OLAMIDE M Ot 550.91 11/16/2014 CARLOS TANG, OLAMIDE M Ot V72.63 11/16/2014 CARLOS TANG, OLAMIDE M Ot V72.81 11/16/2014 CARLOS TANG, OLAMIDE M Ot V74.8 11/16/2014 OANH LONGORIA DO Ot 786. 09 11/16/2014 JAYNA TANG, ROBBY Delgado Ot 786.0 5 11/16/2014 JAYNA TANG, ROBBY Delgado Ot 786.2 11/26/2014 JAYNA TANG, ROBBY Delgado Ot 786.0 5 11/26/2014 JAYNA TANG, ROBBY Delgado Ot 786.2 12/06/2014 ROBYN TANG FAC, ALI FACP CCDS Ot 250.00 12/06/2014 ROBYN TANG FAC, ALI FACP CCDS Ot 272.4 12/06/2014 ROBYN TANG FAC, ALI FACP CCDS Ot 401.9 12/06/2014 ROBYN TANG FAC, ALI FACP CCDS Ot 414.00 12/08/2014 JAYNA TANG, ROBBY Delgado Ot 786.0 5 12/08/2014 JAYNA TANG, ROBBY Delgado Ot 786.2 12/16/2014 ROBYN TANG FACC, ALI FACP CCDS Ot 250.00 12/16/2014 ROBYN TANG FACC, ALI FACP CCDS Ot 272.4 12/16/2014 ROBYN TANG FACC, ALI FACP CCDS Ot 401.9 12/16/2014 ROBYN TANG FACC, ALI FACP CCDS Ot 414.00 01/13/2015 OANH LONGORIA DO Ot 786. 09 01/27/2015 OANH LONGORIA DO Ot 786. 09 02/04/2015 OANH LONGORIA DO Ot 793. 11 02/10/2015 OANH LONGORIA DO Ot 793. 11 06/02/2015 OANH LONGORIA DO Ot R91. 1 06/14/2015 OANH LONGORIA DO Ot R91. 1 07/17/2015 OANH LONGORIA DO Ot G47. 33 OBSTRUCTIVE SLEEP APNEA (ADULT) (PEDIATR 07/17/2015 OANH LONGORIA DO Ot I10 ESSENTIAL (PRIMARY) HYPERTENSION 07/17/2015 OANH LONGORIA DO Ot I48. 91 UNSPECIFIED ATRIAL FIBRILLATION 08/22/2015 JAYNA TANG, ROBBY Delgado Ot R05 09/12/2015 JAYNA TANG, ROBBY Delgado Ot R05 11/01/2015 VON DUTTA OANH Osullivan Ot R05 COUGH 11/01/2015 VON DUTTA OANH Osullivan Ot R06. 00 DYSPNEA, UNSPECIFIED 11/01/2015 VON DUTTA OANH Osullivan Ot R59. 0 LOCALIZED ENLARGED LYMPH NODES 11/01/2015 MIGUEL AVALOS INFORMATICS EDUCATOR Ot R06.00 DYSPNEA, UNSPECIFIED 11/28/2015 VON DO OANH Osullivan Ot R05 COUGH 11/28/2015 VON DUTTA OANH Osullivan Ot R06. 00 DYSPNEA, UNSPECIFIED 11/28/2015 VON DUTTA OANH Osullivan Ot R59. 0 LOCALIZED ENLARGED LYMPH NODES 11/28/2015 MIGUEL AVALOS INFORMATICS EDUCATOR Ot R06.00 DYSPNEA, UNSPECIFIED 12/03/2015 VON DUTTA OANH Osullivan Ot R05 COUGH 12/03/2015 VON OANH Osullivan Ot R06. 00 DYSPNEA, UNSPECIFIED 12/03/2015 VON DUTTA OANH Osullivan Ot R59. 0 LOCALIZED ENLARGED LYMPH NODES 12/20/2015 RON TANG, ERIC Delgado Ot 784. 0 12/21/2015 RON TANG, ERIC Delgado Ot 784. 0 12/21/2015 RON TANG, ERIC Delgado Ot 784. 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 09 RESPIRATORY ABNORM NEC 03/16/2016 JAYNA TANG, ROBBY Delgado Ot 786.0 5 SHORTNESS OF BREATH 03/16/2016 JAYNA TANG, ROBBY Delgado Ot 786.2 COUGH 03/16/2016 ROBYN TANG FACC, ROBERTO FACP CCDS Ot 250.00 DIAB MIGUELITO WO COMPL, TYPE II OR UNSPEC TY 03/16/2016 ROBYN TANG FACC, ALI FACP CCDS Ot 272.4 HYPERLIPIDEMIA NEC/NOS 03/16/2016 ROBYN TANG FACC, ROBERTO FACP CCDS Ot 401.9 HYPERTENSION NOS 03/16/2016 ROBYN TANG FACC, ALI FACP CCDS Ot 414.00 CORON ATHEROSCLER NOS TYPE VESSEL, NATIV 03/16/2016 OANH LONGROIA DO Ot 793. 11 SOLITARY PULMONARY NODULE 03/16/2016 OANH LONGORIA DO Ot R91. 1 SOLITARY PULMONARY NODULE 03/16/2016 JAYNA TANG, ROBBY Delgado Ot R05 COUGH 03/16/2016 OANH LONGORIA DO Ot R05 COUGH 03/16/2016 VON DUTTA OANH M Ot R06. 00 DYSPNEA, UNSPECIFIED 03/16/2016 OANH LONGORIA DO M Ot R59. 0 LOCALIZED ENLARGED LYMPH NODES 03/16/2016 MIGUEL AVALOS Ot R06.00 DYSPNEA, UNSPECIFIED 03/16/2016 ERIC VELASQUEZ MD Ot R51 HEADACHE 03/16/2016 ROBYN TANG FACC, ALI FACP CCDS Ot I48.0 PAROXYSMAL ATRIAL FIBRILLATION 03/16/2016 ROBYN TANG FACC, ALI FACP CCDS Ot E11.9 TYPE 2 DIABETES MELLITUS WITHOUT COMPLIC 03/16/2016 ROBYN TANG FACC, ALI FACP CCDS Ot E78.4 OTHER HYPERLIPIDEMIA 03/16/2016 ROBYN TANG FACC, ALI FACP CCDS Ot G47.33 OBSTRUCTIVE SLEEP APNEA (ADULT) (PEDIATR 03/16/2016 ROBYN TANG FACC, ALI FACP CCDS Ot I10 ESSENTIAL (PRIMARY) HYPERTENSION 03/16/2016 ROBYN TANG FACC, ALI FACP CCDS Ot I25.10 ATHSCL HEART DISEASE OF [place] CORONARY 03/16/2016 ROBYN TANG FACC, ALI FACP CCDS Ot I48.0 PAROXYSMAL ATRIAL FIBRILLATION 03/16/2016 ROBYN TANG FACC, ALI FACP CCDS Ot I65.23 OCCLUSION AND STENOSIS OF BILATERAL SAEED 03/16/2016 ROBYN LEIJAC, ALI FACP CCDS Ot I48.0 PAROXYSMAL ATRIAL FIBRILLATION 03/16/2016 ROBYN LEIJAC, ALI FACP CCDS Ot E11.9 TYPE 2 DIABETES MELLITUS WITHOUT COMPLIC 03/16/2016 ROBYN LEIJAC, ALI FACP CCDS Ot E78.4 OTHER HYPERLIPIDEMIA 03/16/2016 ROBYN TANG FACC, ALI FACP CCDS Ot G47.33 OBSTRUCTIVE SLEEP APNEA (ADULT) (PEDIATR 03/16/2016 ROBYN TANG FACC, ALI FACP CCDS Ot I10 ESSENTIAL (PRIMARY) HYPERTENSION 03/16/2016 ROBYN TANG FACC, ALI FACP CCDS Ot I25.10 ATHSCL HEART DISEASE OF [place] CORONARY 03/16/2016 ROBYN TANG FACC, ALI FACP CCDS Ot I48.0 PAROXYSMAL ATRIAL FIBRILLATION 03/16/2016 ROBYN TANG FACC, ALI FACP CCDS Ot I65.23 OCCLUSION AND STENOSIS OF BILATERAL SAEED 03/21/2016 ROBYN MD FACC, ALI FACP CCDS Ot E11.9 TYPE 2 DIABETES MELLITUS WITHOUT COMPLIC 03/21/2016 ROBYN TANG FACC, ALI FACP CCDS Ot E78.4 OTHER HYPERLIPIDEMIA 03/21/2016 ROBYN TANG FACC, ALI FACP CCDS Ot G47.33 OBSTRUCTIVE SLEEP APNEA (ADULT) (PEDIATR 03/21/2016 ROBYN TANG FACC, ALI FACP CCDS Ot I10 ESSENTIAL (PRIMARY) HYPERTENSION 03/21/2016 ROBYN TANG FACC, ALI FACP CCDS Ot I25.10 ATHSCL HEART DISEASE OF [place] CORONARY 03/21/2016 ROBYN TANG FACC, ALI FACP CCDS Ot I48.0 PAROXYSMAL ATRIAL FIBRILLATION 03/21/2016 ROBYN TANG FACC, ALI FACP CCDS Ot I65.23 OCCLUSION AND STENOSIS OF BILATERAL [place] 04/04/2016 ROBYN TANG FACC, ALI FACP CCDS Ot E11.9 TYPE 2 DIABETES MELLITUS WITHOUT COMPLIC 04/04/2016 ROBYN TANG FACC, ALI FACP CCDS Ot E78.4 OTHER HYPERLIPIDEMIA 04/04/2016 ROBYN TANG FACC, ALI FACP CCDS Ot G47.33 OBSTRUCTIVE SLEEP APNEA (ADULT) (PEDIATR 04/04/2016 ROBYN TANG FACC, ALI FACP CCDS Ot I10 ESSENTIAL (PRIMARY) HYPERTENSION 04/04/2016 ROBYN TANG FACC, ALI FACP CCDS Ot I25.10 ATHSCL HEART DISEASE OF [place] CORONARY 04/04/2016 ROBYN TANG FACC, ALI FACP CCDS Ot I48.0 PAROXYSMAL ATRIAL FIBRILLATION 04/04/2016 ROBYN TANG FACC, ALI FACP CCDS Ot I65.23 OCCLUSION AND STENOSIS OF BILATERAL SAE[place] 04/05/2016 ROBYN TANG FACC, ALI FACP CCDS Ot E11.9 TYPE 2 DIABETES MELLITUS WITHOUT COMPLIC 04/05/2016 ROBYN TANG FACC, ALI FACP CCDS Ot E78.4 OTHER HYPERLIPIDEMIA 04/05/2016 ROBYN TANG FACC, ALI FACP CCDS Ot G47.33 OBSTRUCTIVE SLEEP APNEA (ADULT) (PEDIATR 04/05/2016 ROBYN TANG FACC, ALI FACP CCDS Ot I10 ESSENTIAL (PRIMARY) HYPERTENSION 04/05/2016 ROBYN TANG FACC, ALI FACP CCDS Ot I25.10 ATHSCL HEART DISEASE OF [place] CORONARY 04/05/2016 ROBYN TANG FACC, ALI FACP CCDS Ot I48.0 PAROXYSMAL ATRIAL FIBRILLATION 04/05/2016 ROBYN TANG FACC, ALI FACP CCDS Ot I65.23 OCCLUSION AND STENOSIS OF BILATERAL SAE[place] 04/11/2016 ROBYN TANG FACC, ALI FACP CCDS Ot E11.9 TYPE 2 DIABETES MELLITUS WITHOUT COMPLIC 04/11/2016 ROBYN TANG FACC, ALI FACP CCDS Ot E78.4 OTHER HYPERLIPIDEMIA 04/11/2016 ROBYN TANG FACC, ALI FACP CCDS Ot G47.33 OBSTRUCTIVE SLEEP APNEA (ADULT) (PEDIATR 04/11/2016 ROBYN TANG FACC, ALI FACP CCDS Ot I10 ESSENTIAL (PRIMARY) HYPERTENSION 04/11/2016 ROBYN TANG FACC, ALI FACP CCDS Ot I25.10 ATHSCL HEART DISEASE OF [place] CORONARY 04/11/2016 ROBYN TANG FACC, ALI FACP CCDS Ot I48.0 PAROXYSMAL ATRIAL FIBRILLATION 04/11/2016 ROBYN TANG FACC, ALI FACP CCDS Ot I65.23 OCCLUSION AND STENOSIS OF BILATERAL SAE[place] 05/15/2016 Ot 550.90 UNI LAT INGUINAL HERNIA 05/15/2016 Ot V72.63 PRE -PROCEDURAL LABORATORY EXAMINATION 05/15/2016 Ot V72.81 GYXX-GRM-EWUTESLLT CARDIOVASCULAR 05/15/2016 Ot V74.8 SCRE EN-BACTERIAL DIS NEC 05/15/2016 Ot 414.00 COR ON ATHEROSCLER NOS TYPE VESSEL, NATIV 05/15/2016 Ot V45.81 AOR TOCORONARY BYPASS 05/15/2016 Ot 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 09 RESPIRATORY ABNORM NEC 05/15/2016 JAYNA TANG, ROBBY Delgado Ot 786.0 5 SHORTNESS OF BREATH 05/15/2016 JAYNA TANG, ROBBY Delgado Ot 786.2 COUGH 05/15/2016 ROBYN TANG FACC, ROBERTO FACP CCDS Ot 250.00 DIAB MIGUELITO WO COMPL, TYPE II OR UNSPEC TY 05/15/2016 ROBYN TANG FACC, ALI FACP CCDS Ot 272.4 HYPERLIPIDEMIA NEC/NOS 05/15/2016 ROBYN TANG FACC, ALI FACP CCDS Ot 401.9 HYPERTENSION NOS 05/15/2016 ROBYN TANG FACC, ALI FACP CCDS Ot 414.00 CORON ATHEROSCLER NOS TYPE VESSEL, NATIV 05/15/2016 OANH LONGORIA DO Ot 793. 11 SOLITARY PULMONARY NODULE 05/15/2016 OANH LONGORIA DO Ot R91. 1 SOLITARY PULMONARY NODULE 05/15/2016 ROBBY DORANTES MD Ot R05 COUGH 05/15/2016 OANH LONGORIA DO Ot R05 COUGH 05/15/2016 OANH LONGORIA DO Ot R06. 00 DYSPNEA, UNSPECIFIED 05/15/2016 OANH LONGORIA DO Ot R59. 0 LOCALIZED ENLARGED LYMPH NODES 05/15/2016 MIGUEL AVALOS Ot R06.00 DYSPNEA, UNSPECIFIED 05/15/2016 ERIC VELASQUEZ MD Ot R51 HEADACHE 05/15/2016 ROBYN TANG FACC, ROBERTO FACP CCDS Ot E11.9 TYPE 2 DIABETES MELLITUS WITHOUT COMPLIC 05/15/2016 ROBYN TANG FACC, ROBERTO FACP CCDS Ot E78.4 OTHER HYPERLIPIDEMIA 05/15/2016 ROBYN TANG FACC, ROBERTO FACP CCDS Ot G47.33 OBSTRUCTIVE SLEEP APNEA (ADULT) (PEDIATR 05/15/2016 ROBYN TANG FACC, ROBERTO FACP CCDS Ot I10 ESSENTIAL (PRIMARY) HYPERTENSION 05/15/2016 ROBYN TANG FACC, ROBERTO FACP CCDS Ot I25.10 ATHSCL HEART DISEASE OF [place] CORONARY 05/15/2016 ROBYN TANG FACC, ROBERTO FACP CCDS Ot I48.0 PAROXYSMAL ATRIAL FIBRILLATION 05/15/2016 ROBYN TANG FACC, ROBERTO FACP CCDS Ot I65.23 OCCLUSION AND STENOSIS OF BILATERAL SAEED 05/15/2016 ROBYN TANG FACC, ROBERTO FACP CCDS Ot E11.9 TYPE 2 DIABETES MELLITUS WITHOUT COMPLIC 05/15/2016 ROBYN MD FACC, ALI FACP CCDS Ot E78.4 OTHER HYPERLIPIDEMIA 05/15/2016 ROBYN LEIJAC, ALI FACP CCDS Ot G47.33 OBSTRUCTIVE SLEEP APNEA (ADULT) (PEDIATR 05/15/2016 ROBYN TANG FACC, ALI FACP CCDS Ot I10 ESSENTIAL (PRIMARY) HYPERTENSION 05/15/2016 ROBYN TANG FACC, ALI FACP CCDS Ot I25.10 ATHSCL HEART DISEASE OF [place] CORONARY 05/15/2016 ROBYN LEIJAC, ALI FACP CCDS Ot I48.0 PAROXYSMAL ATRIAL FIBRILLATION 05/15/2016 ROBYN LEIJAC, ALI FACP CCDS Ot I65.23 OCCLUSION AND STENOSIS OF BILATERAL SAEED 05/15/2016 ROBYN TANG FACC, ALI FACP CCDS Ot E11.9 TYPE 2 DIABETES MELLITUS WITHOUT COMPLIC 05/15/2016 ROBYN TANG FACC, ALI FACP CCDS Ot E78.5 HYPERLIPIDEMIA, UNSPECIFIED 05/15/2016 ROBYN LEIJAC, ALI FACP CCDS Ot I10 ESSENTIAL (PRIMARY) HYPERTENSION 05/15/2016 ROBYN TANG FACC, ALI FACP CCDS Ot I25.10 ATHSCL HEART DISEASE OF [place] CORONARY 05/15/2016 ROBYN TANG FACC, ALI FACP CCDS Ot I48.0 PAROXYSMAL ATRIAL FIBRILLATION 05/15/2016 ROBYN TANG FACC, ALI FACP CCDS Ot Z79.01 PENITENTIARY (CURRENT) USE OF ANTICOAGULANT 05/15/2016 ROBYN TANG FACC, ALI FACP CCDS Ot Z79.899 OTHER CASH APPLICATIONS COORDINATOR (CURRENT) DRUG THERAPY 06/19/2016 ROBYN ATNG FACC, ROBERTO FACP CCDS Ot E11.9 TYPE 2 DIABETES MELLITUS WITHOUT COMPLIC 06/19/2016 ROBYN TANG FACC, ALI FACP CCDS Ot E78.5 HYPERLIPIDEMIA, UNSPECIFIED 06/19/2016 ROBYN TANG FACC, ALI FACP CCDS Ot I10 ESSENTIAL (PRIMARY) HYPERTENSION 06/19/2016 ROBYN TANG FACC, ALI FACP CCDS Ot I25.10 ATHSCL HEART DISEASE OF [place] CORONARY 06/19/2016 ROBYN TANG FACC, ALI FACP CCDS Ot I48.0 PAROXYSMAL ATRIAL FIBRILLATION 06/19/2016 ROBYN TANG FACC, ALI FACP CCDS Ot Z79.01 CASH APPLICATIONS COORDINATOR (CURRENT) USE OF ANTICOAGULANT 06/19/2016 ROBYN TANG FACC, ALI FACP CCDS Ot Z79.899 OTHER CASH APPLICATIONS COORDINATOR (CURRENT) DRUG THERAPY 09/01/2016 ROBYN TANG FACC, ROBERTO FACP CCDS Ot E11.9 TYPE 2 DIABETES MELLITUS WITHOUT COMPLIC 09/01/2016 ROBYN TANG FACC, ALI FACP CCDS Ot E78.5 HYPERLIPIDEMIA, UNSPECIFIED 09/01/2016 ROBYN LEIJA, ALI FACP CCDS Ot I10 ESSENTIAL (PRIMARY) HYPERTENSION 09/01/2016 ROBYN TANG FACC, ALI FACP CCDS Ot I25.10 ATHSCL HEART DISEASE OF [place] CORONARY 09/01/2016 ROBYN TANG FACC, ROBERTO FACP CCDS Ot I48.0 PAROXYSMAL ATRIAL FIBRILLATION 09/01/2016 ROBYN TANG FACC, ROBERTO FACP CCDS Ot Z79.01 PENITENTIARY (CURRENT) USE OF ANTICOAGULANT 09/01/2016 ROBYN TANG FACC, ALI FACP CCDS Ot Z79.899 OTHER CASH APPLICATIONS COORDINATOR (CURRENT) DRUG THERAPY 10/22/2016 OANH LONGORIA DO M Ot R06. 00 DYSPNEA, UNSPECIFIED 10/22/2016 VONSUNIL LUO DOSON M Ot R06. 00 DYSPNEA, UNSPECIFIED 11/19/2016 VONSUNIL LUO DOSON M Ot I25. 10 ATHSCL HEART DISEASE OF [place] CORONARY 11/19/2016 VONSUNIL LUO DOSON M Ot R05 COUGH 11/19/2016 VONSUNIL LUO DOSON M Ot R06. 00 DYSPNEA, UNSPECIFIED 11/19/2016 VONSUNIL LUO DOSON M Ot R91. 1 SOLITARY PULMONARY NODULE 11/21/2016 SUNIL LONGORIA DOSON M Ot I25. 10 ATHSCL HEART DISEASE OF [place] CORONARY 11/21/2016 SUNIL LONGORIA DOSON M Ot R05 COUGH 11/21/2016 VONSUNIL LUO DOSON M Ot R06. 00 DYSPNEA, UNSPECIFIED 11/21/2016 SUNIL LONGORIA DOSON M Ot R91. 1 SOLITARY PULMONARY NODULE 11/18/2017 MICK GILBERT APRN Ot I25.10 ATHSCL HEART DISEASE OF [place] CORONARY 11/18/2017 MICK GILBERT APRN Ot I51.7 CARDIOMEGALY 11/18/2017 MICK GILBERT APRN Ot R91.1 SOLITARY PULMONARY NODULE 11/18/2017 MICK GILBERT APRN Ot Z98.890 OTHER SPECIFIED POSTPROCEDURAL STATES 11/19/2017 MICK GILBERT MANAGER REGIONAL Ot I25.10 ATHSCL HEART DISEASE OF [place] CORONARY 11/19/2017 REX GILBERTINE E MANAGER REGIONAL Ot I51.7 CARDIOMEGALY 11/19/2017 REX GILBERTINE Vicki MANAGER REGIONAL Ot R91.1 SOLITARY PULMONARY NODULE 11/19/2017 REX GILBERTINE E MANAGER REGIONAL Ot Z98.890 OTHER SPECIFIED POSTPROCEDURAL STATES 11/21/2017 MICK GILBERT MANAGER REGIONAL Ot I25.10 ATHSCL HEART DISEASE OF [place] CORONARY 11/21/2017 MICK GILBERT MANAGER REGIONAL Ot I51.7 CARDIOMEGALY 11/21/2017 MICK GILBERT MANAGER REGIONAL Ot R91.1 SOLITARY PULMONARY NODULE 11/21/2017 MICK GILBERT MANAGER REGIONAL Ot Z98.890 OTHER SPECIFIED POSTPROCEDURAL STATES 12/04/2017 ROBYN TANG FACC, ALI FACP CCDS Ot E11.9 TYPE 2 DIABETES MELLITUS WITHOUT COMPLIC 12/04/2017 ROBYN TANG FACC, ALI FACP CCDS Ot E78.5 HYPERLIPIDEMIA, UNSPECIFIED 12/04/2017 ROBYN TANG FACC, ALI FACP CCDS Ot G47.33 OBSTRUCTIVE SLEEP APNEA (ADULT) (PEDIATR 12/04/2017 ROBYN TANG FACC, ALI FACP CCDS Ot I10 ESSENTIAL (PRIMARY) HYPERTENSION 12/04/2017 ROBYN TANG FACC, ALI FACP CCDS Ot I25.10 ATHSCL HEART DISEASE OF [place] CORONARY 12/04/2017 ROBYN TANG FACC, ALI FACP CCDS Ot I48.0 PAROXYSMAL ATRIAL FIBRILLATION 12/05/2017 MICK GILBERT MANAGER REGIONAL Ot I25.10 ATHSCL HEART DISEASE OF [place] CORONARY 12/05/2017 MICK GILBERT MANAGER REGIONAL Ot I51.7 CARDIOMEGALY 12/05/2017 MICK GILBERT MANAGER REGIONAL Ot R91.1 SOLITARY PULMONARY NODULE 12/05/2017 MICK GILBERT MANAGER REGIONAL Ot Z98.890 OTHER SPECIFIED POSTPROCEDURAL STATES 12/10/2017 MICK GILBERT MANAGER REGIONAL Ot I25.10 ATHSCL HEART DISEASE OF [place] CORONARY 12/10/2017 REX GILBERTINE E MANAGER REGIONAL Ot I51.7 CARDIOMEGALY 12/10/2017 MICK GILBERT APRN Ot R91.1 SOLITARY PULMONARY NODULE 12/10/2017 MICK GILBERT APRN Ot Z98.890 OTHER SPECIFIED POSTPROCEDURAL STATES 12/24/2017 ROBYN TANG FACC, ALI FACP CCDS Ot E11.9 TYPE 2 DIABETES MELLITUS WITHOUT COMPLIC 12/24/2017 ROBYN LEIJAC, ALI FACP CCDS Ot E78.5 HYPERLIPIDEMIA, UNSPECIFIED 12/24/2017 ROBYN TANG FACC, ALI FACP CCDS Ot G47.33 OBSTRUCTIVE SLEEP APNEA (ADULT) (PEDIATR 12/24/2017 ROBYN LEIJAC, ALI FACP CCDS Ot I10 ESSENTIAL (PRIMARY) HYPERTENSION 12/24/2017 ROBYN TANG FACC, ALI FACP CCDS Ot I25.10 ATHSCL HEART DISEASE OF [place] CORONARY 12/24/2017 ROBYN TANG FACC, ALI FACP CCDS Ot I48.0 PAROXYSMAL ATRIAL FIBRILLATION 01/01/2018 ROBYN TANG FACC, ALI FACP CCDS Ot E11.9 TYPE 2 DIABETES MELLITUS WITHOUT COMPLIC 01/01/2018 ROBYN TANG FACC, ALI FACP CCDS Ot E78.5 HYPERLIPIDEMIA, UNSPECIFIED 01/01/2018 ROBYN TANG FACC, ALI FACP CCDS Ot G47.33 OBSTRUCTIVE SLEEP APNEA (ADULT) (PEDIATR 01/01/2018 ROBYN TANG FACC, ALI FACP CCDS Ot I10 ESSENTIAL (PRIMARY) HYPERTENSION 01/01/2018 ROBYN TANG FACC, ALI FACP CCDS Ot I25.10 ATHSCL HEART DISEASE OF [place] CORONARY 01/01/2018 ROBYN TANG FACC, ROBERTO FACP CCDS Ot I48.0 PAROXYSMAL ATRIAL FIBRILLATION 08/06/2018 ROBYN TANG FACC, ALI FACP CCDS Ot E11.9 TYPE 2 DIABETES MELLITUS WITHOUT COMPLIC 08/06/2018 ROBYN TANG FACC, ALI FACP CCDS Ot I10 ESSENTIAL (PRIMARY) HYPERTENSION 08/06/2018 ROBYN TANG FACC, ALI FACP CCDS Ot I25.10 ATHSCL HEART DISEASE OF [place] CORONARY 08/06/2018 ROBYN TANG FACC, ALI FACP CCDS Ot I48.2 CHRONIC ATRIAL FIBRILLATION 08/06/2018 ROBYN TANG FACC, ROBERTO FACP CCDS Ot I77.9 DISORDER OF ARTERIES AND ARTERIOLES, UNS 08/11/2018 ROBYN TANG FACC, ALI FACP CCDS Ot E11.9 TYPE 2 DIABETES MELLITUS WITHOUT COMPLIC 08/11/2018 ROBYN TANG FACC, ALI FACP CCDS Ot I10 ESSENTIAL (PRIMARY) HYPERTENSION 08/11/2018 ROBYN TANG FACC, ALI FACP CCDS Ot I25.10 ATHSCL HEART DISEASE OF [place] CORONARY 08/11/2018 ROBYN TANG FACC, ALI FACP CCDS Ot I48.2 CHRONIC ATRIAL FIBRILLATION 08/11/2018 ROBYN TANG FACC, ALI FACP CCDS Ot I77.9 DISORDER OF ARTERIES AND ARTERIOLES, UNS 03/18/2019 ROBYN TANG FACC, ALI FACP CCDS Ot E11.9 TYPE 2 DIABETES MELLITUS WITHOUT COMPLIC 03/18/2019 ROBYN TANG FACC, ALI FACP CCDS Ot E66.9 OBESITY, UNSPECIFIED 03/18/2019 ROBYN TANG FACC, ALI FACP CCDS Ot E78.5 HYPERLIPIDEMIA, UNSPECIFIED 03/18/2019 ORBYN TANG FACC, ALI FACP CCDS Ot G47.33 OBSTRUCTIVE SLEEP APNEA (ADULT) (PEDIATR 03/18/2019 ROBYN TANG FACC, ALI FACP CCDS Ot I10 ESSENTIAL (PRIMARY) HYPERTENSION 03/18/2019 ROBYN TANG FACC, ALI FACP CCDS Ot I25.10 ATHSCL HEART DISEASE OF [place] CORONARY 03/18/2019 ROBYN TANG FACC, ROBERTO FACP CCDS Ot I48.20 CHRONIC ATRIAL FIBRILLATION, UNSPECIFIED 03/18/2019 ROBYN TANG FACC, ALI FACP CCDS Ot Z68.30 BODY MASS INDEX (BMI) 30.0-30.9, ADULT 03/18/2019 ROBYN TANG FACC, ALI FACP CCDS Ot Z79.01 CASH APPLICATIONS COORDINATOR (CURRENT) USE OF ANTICOAGULANT 03/18/2019 ROBYN TANG FACC, ALI FACP CCDS Ot Z79.4 PENITENTIARY (CURRENT) USE OF INSULIN 03/18/2019 ROBYN TANG FACC, ROBERTO FACP CCDS Ot Z79.82 PENITENTIARY (CURRENT) USE OF ASPIRIN 03/18/2019 ROBYN TANG FACC, ALI FACP CCDS Ot Z79.899 OTHER CASH APPLICATIONS COORDINATOR (CURRENT) DRUG THERAPY 03/18/2019 ROBYN TANG FACC, ROBERTO FACP CCDS Ot Z80.9 FAMILY HISTORY OF MALIGNANT NEOPLASM, UN 03/18/2019 ROBYN TANG FACC, ROBERTO FACP CCDS Ot E11.9 TYPE 2 DIABETES MELLITUS WITHOUT COMPLIC 03/18/2019 ROBYN TANG FACC, ALI FACP CCDS Ot E66.9 OBESITY, UNSPECIFIED 03/18/2019 ROBYN TANG FACC, ALI FACP CCDS Ot E78.5 HYPERLIPIDEMIA, UNSPECIFIED 03/18/2019 ROBYN TANG FACC, ALI FACP CCDS Ot G47.33 OBSTRUCTIVE SLEEP APNEA (ADULT) (PEDIATR 03/18/2019 ROBYN TANG FACC, ALI FACP CCDS Ot I10 ESSENTIAL (PRIMARY) HYPERTENSION 03/18/2019 ROBYN TANG FACC, ALI FACP CCDS Ot I25.10 ATHSCL HEART DISEASE OF [place] CORONARY 03/18/2019 ROBYN TANG FACC, ROBERTO FACP CCDS Ot I48.20 CHRONIC ATRIAL FIBRILLATION, UNSPECIFIED 03/18/2019 ROBYN TANG FACC, ALI FACP CCDS Ot Z68.30 BODY MASS INDEX (BMI) 30.0-30.9, ADULT 03/18/2019 ROBYN TANG FACC, ALI FACP CCDS Ot Z79.01 CASH APPLICATIONS COORDINATOR (CURRENT) USE OF ANTICOAGULANT 03/18/2019 ROBYN TANG FACC, ROBERTO FACP CCDS Ot Z79.4 PENITENTIARY (CURRENT) USE OF INSULIN 03/18/2019 ROBYN TANG FACC, ROBERTO FACP CCDS Ot Z79.82 CASH APPLICATIONS COORDINATOR (CURRENT) USE OF ASPIRIN 03/18/2019 ROBYN TANG FACC, ALI FACP CCDS Ot Z79.899 OTHER PENITENTIARY (CURRENT) DRUG THERAPY 03/18/2019 ROBYN TANG FACC, ALI FACP CCDS Ot Z80.9 FAMILY HISTORY OF MALIGNANT NEOPLASM, UN 04/06/2019 ROBYN TANG FACC, ALI FACP CCDS Ot E11.9 TYPE 2 DIABETES MELLITUS WITHOUT COMPLIC 04/06/2019 ROBYN TANG FACC, ALI FACP CCDS Ot E66.9 OBESITY, UNSPECIFIED 04/06/2019 ROBYN TANG FACC, ALI FACP CCDS Ot E78.5 HYPERLIPIDEMIA, UNSPECIFIED 04/06/2019 ROBYN TANG FACC, ALI FACP CCDS Ot G47.33 OBSTRUCTIVE SLEEP APNEA (ADULT) (PEDIATR 04/06/2019 ROBYN TANG FACC, ALI FACP CCDS Ot I10 ESSENTIAL (PRIMARY) HYPERTENSION 04/06/2019 ROBYN TANG FACC, ALI FACP CCDS Ot I25.10 ATHSCL HEART DISEASE OF [place] CORONARY 04/06/2019 ROBYN TANG FACC, ROBERTO FACP CCDS Ot I48.20 CHRONIC ATRIAL FIBRILLATION, UNSPECIFIED 04/06/2019 ROBYN TANG FACC, ALI FACP CCDS Ot Z68.30 BODY MASS INDEX (BMI) 30.0-30.9, ADULT 04/06/2019 ROBYN TANG FACC, ROBERTO FACP CCDS Ot Z79.01 CASH APPLICATIONS COORDINATOR (CURRENT) USE OF ANTICOAGULANT 04/06/2019 ROBYN TANG FACC, ROBERTO FACP CCDS Ot Z79.4 CASH APPLICATIONS COORDINATOR (CURRENT) USE OF INSULIN 04/06/2019 ROBYN TANG FACC, ROBERTO FACP CCDS Ot Z79.82 PENITENTIARY (CURRENT) USE OF ASPIRIN 04/06/2019 ROBYN TANG FACC, ROBERTO FACP CCDS Ot Z79.899 OTHER CASH APPLICATIONS COORDINATOR (CURRENT) DRUG THERAPY 04/06/2019 ROBYN TANG FACC, ROBERTO FACP CCDS Ot Z80.9 FAMILY HISTORY OF MALIGNANT NEOPLASM, UN 04/15/2019 OANH LONGORIA DO Ot I51. 7 CARDIOMEGALY 04/15/2019 OANH LONGORIA DO Ot R05 COUGH 05/05/2019 OANH LONGORIA DO Ot I51. 7 CARDIOMEGALY 05/05/2019 OANH LONGORIA DO Ot R05 COUGH 12/02/2019 OANH LONGORIA DO Ot 786. 09 RESPIRATORY ABNORM NEC 12/02/2019 JAYNA TANG, ROBBY Delgado Ot 786.0 5 SHORTNESS OF BREATH 12/02/2019 JAYNA TANG, ROBBY Delgado Ot 786.2 COUGH 12/02/2019 ROBYN TANG FACC, ALI FACP CCDS Ot 250.00 DIAB MIGUELITO WO COMPL, TYPE II OR UNSPEC TY 12/02/2019 ROBYN TANG FACC, ALI FACP CCDS Ot 272.4 HYPERLIPIDEMIA NEC/NOS 12/02/2019 ROBYN TANG FACC, ALI FACP CCDS Ot 401.9 HYPERTENSION NOS 12/02/2019 ROBYN TANG FACC, ALI FACP CCDS Ot 414.00 CORON ATHEROSCLER NOS TYPE VESSEL, NATIV 12/02/2019 OANH LONGORIA DO Ot 793. 11 SOLITARY PULMONARY NODULE 12/02/2019 OANH LONGORIA DO Ot R91. 1 SOLITARY PULMONARY NODULE 12/02/2019 JAYNA TANG, ROBBY Delgado Ot R05 COUGH 12/02/2019 VON DO, OANH M Ot R05 COUGH 12/02/2019 VON DO, OANH M Ot R06. 00 DYSPNEA, UNSPECIFIED 12/02/2019 VON DO, OANH M Ot R59. 0 LOCALIZED ENLARGED LYMPH NODES 12/02/2019 MIGUEL AVALOS INFORMATICS EDUCATOR Ot R06.00 DYSPNEA, UNSPECIFIED 12/02/2019 VON DO, OANH M Ot I25. 10 ATHSCL HEART DISEASE OF [place] CORONARY 12/02/2019 VON DO, OANH M Ot R05 COUGH 12/02/2019 VON DO, OANH M Ot R06. 00 DYSPNEA, UNSPECIFIED 12/02/2019 VON DO, OANH M Ot R91. 1 SOLITARY PULMONARY NODULE 12/02/2019 RON TANG, ERIC Delgado Ot R51 HEADACHE 12/02/2019 ROBYN TANG FACC, ALI FACP CCDS Ot E11.9 TYPE 2 DIABETES MELLITUS WITHOUT COMPLIC 12/02/2019 ROBYN TANG FACC, ALI FACP CCDS Ot E78.4 OTHER HYPERLIPIDEMIA 12/02/[address] [facility]S Ot G47.33 OBSTRUCTIVE SLEEP APNEA (ADULT) (PEDIATR 12/02/2019 ROBYN TANG FACC, ALI FACP CCDS Ot I10 ESSENTIAL (PRIMARY) HYPERTENSION 12/02/2019 ROBYN TANG [facility], ALI FACP CCDS Ot I25.10 ATHSCL HEART DISEASE OF [place] CORONARY 12/02/2019 ROBYN TANG FACC, ALI FACP CCDS Ot I48.0 PAROXYSMAL ATRIAL FIBRILLATION 12/02/2019 ROBYN TANG [facility], ALI FACP CCDS Ot I65.23 OCCLUSION AND STENOSIS OF BILATERAL SAEED 12/02/2019 ROBYN TANG [facility], ALI FACP CCDS Ot E11.9 TYPE 2 DIABETES MELLITUS WITHOUT COMPLIC 12/02/2019 ROBYN TANG FACC, ALI FACP CCDS Ot E78.4 OTHER HYPERLIPIDEMIA 12/02/2019 ROBYN TANG FAC, ALI FACP CCDS Ot G47.33 OBSTRUCTIVE SLEEP APNEA (ADULT) (PEDIATR 12/02/2019 ROBYN TANG FACC, ALI FACP CCDS Ot I10 ESSENTIAL (PRIMARY) HYPERTENSION 12/02/2019 ROBYN TANG FACC, ALI FACP CCDS Ot I25.10 ATHSCL HEART DISEASE OF [place] CORONARY 12/02/2019 ROBYN TANG FACC, ROBERTO FACP CCDS Ot I48.0 PAROXYSMAL ATRIAL FIBRILLATION 12/02/2019 ROBYN TANG FACC, ALI FACP CCDS Ot I65.23 OCCLUSION AND STENOSIS OF BILATERAL SAEED 12/02/2019 MICK GILBERT MANAGER REGIONAL Ot I25.10 ATHSCL HEART DISEASE OF [place] CORONARY 12/02/2019 MICK GILBERT MANAGER REGIONAL Ot I51.7 CARDIOMEGALY 12/02/2019 MICK GILBERT MANAGER REGIONAL Ot R91.1 SOLITARY PULMONARY NODULE 12/02/2019 MICK GILBERT MANAGER REGIONAL Ot Z98.890 OTHER SPECIFIED POSTPROCEDURAL STATES 12/02/2019 ROBYN TANG FACC, ROBERTO FACP CCDS Ot E11.9 TYPE 2 DIABETES MELLITUS WITHOUT COMPLIC 12/02/2019 ROBYN TANG FACC, ALI FACP CCDS Ot E78.5 HYPERLIPIDEMIA, UNSPECIFIED 12/02/2019 ROBYN TANG FACC, ALI FACP CCDS Ot G47.33 OBSTRUCTIVE SLEEP APNEA (ADULT) (PEDIATR 12/02/2019 ROBYN LEIJA, ALI FACP CCDS Ot I10 ESSENTIAL (PRIMARY) HYPERTENSION 12/02/2019 ROBYN LEIJA, ALI FACP CCDS Ot I25.10 ATHSCL HEART DISEASE OF [place] CORONARY 12/02/2019 ORBYN TANG FACC, ROBERTO FACP CCDS Ot I48.0 PAROXYSMAL ATRIAL FIBRILLATION 12/02/2019 ROBYN TANG FACC, ALI FACP CCDS Ot E11.9 TYPE 2 DIABETES MELLITUS WITHOUT COMPLIC 12/02/2019 ROBYN TANG FACC, ALI FACP CCDS Ot I10 ESSENTIAL (PRIMARY) HYPERTENSION 12/02/2019 ROBYN LEIJA, ALI FACP CCDS Ot I25.10 ATHSCL HEART DISEASE OF [place] CORONARY 12/02/2019 ROBYN TANG FACC, ALI FACP CCDS Ot I48.2 CHRONIC ATRIAL FIBRILLATION 12/02/2019 ROBYN TANG FACC, ALI FACP CCDS Ot I77.9 DISORDER OF ARTERIES AND ARTERIOLES, UNS 12/02/2019 ROBYN TANG FACC, ALI FACP CCDS Ot E11.9 TYPE 2 DIABETES MELLITUS WITHOUT COMPLIC 12/02/2019 ROBYN TANG FACC, ALI FACP CCDS Ot E66.9 OBESITY, UNSPECIFIED 12/02/2019 ROBYN TANG FACC, ALI FACP CCDS Ot E78.5 HYPERLIPIDEMIA, UNSPECIFIED 12/02/2019 ROBYN LEIJA, ALI FACP CCDS Ot G47.33 OBSTRUCTIVE SLEEP APNEA (ADULT) (PEDIATR 12/02/2019 ROBYN TANG [facility], ALI FACP CCDS Ot I10 ESSENTIAL (PRIMARY) HYPERTENSION 12/02/2019 ROBYN TANG [facility], ALI FACP CCDS Ot I25.10 ATHSCL HEART DISEASE OF [place] CORONARY 12/02/2019 ROBYN LEIJA, ALI FACP CCDS Ot I48.20 CHRONIC ATRIAL FIBRILLATION, UNSPECIFIED 12/02/2019 ROBYN TANG [facility], ALI FACP CCDS Ot Z68.30 BODY MASS INDEX (BMI) 30.0-30.9, ADULT 12/02/2019 ROBYN LEIJA, ALI FACP CCDS Ot Z79.01 CASH APPLICATIONS COORDINATOR (CURRENT) USE OF ANTICOAGULANT 12/02/2019 ROBYN TANG FACC, ALI FACP CCDS Ot Z79.4 PENITENTIARY (CURRENT) USE OF INSULIN 12/02/2019 ROBYN LEIJA, ALI FACP CCDS Ot Z79.82 PENITENTIARY (CURRENT) USE OF ASPIRIN 12/02/2019 ROBYN TANG [facility], ALI FACP CCDS Ot Z79.899 OTHER CASH APPLICATIONS COORDINATOR (CURRENT) DRUG THERAPY 12/02/2019 ROBYN TANG [facility], ALI FACP CCDS Ot Z80.9 FAMILY HISTORY OF MALIGNANT NEOPLASM, UN 12/02/2019 OANH LONGORIA DO Ot I51. 7 CARDIOMEGALY 12/02/2019 OANH LONGORIA DO Ot R05 COUGH 12/04/2019 OANH LONGORIA DO Ot 786. 09 RESPIRATORY ABNORM NEC 12/04/2019 ROBBY DORANTES MD Ot 786.0 5 SHORTNESS OF BREATH 12/04/2019 ROBBY DORANTES MD Ot 786.2 COUGH 12/04/2019 ROBYN TANG FACC, ALI FACP CCDS Ot 250.00 DIAB MIGUELITO WO COMPL, TYPE II OR UNSPEC TY 12/04/2019 ROBYN TANG FACC, ALI FACP CCDS Ot 272.4 HYPERLIPIDEMIA NEC/NOS 12/04/2019 ROBYN LEIJA, ALI FACP CCDS Ot 401.9 HYPERTENSION NOS 12/04/2019 ROBYN LEIJA, ALI FACP CCDS Ot 414.00 CORON ATHEROSCLER NOS TYPE VESSEL, NATIV 12/04/2019 VON DO, OANH Osullivan Ot 793. 11 SOLITARY PULMONARY NODULE 12/04/2019 VON DO, OANH M Ot R91. 1 SOLITARY PULMONARY NODULE 12/04/2019 ROBBY DORANTES MD Ot R05 COUGH 12/04/2019 VON DO, OANH Osullivan Ot R05 COUGH 12/04/2019 VON DO, OANH M Ot R06. 00 DYSPNEA, UNSPECIFIED 12/04/2019 VON DO, OANH M Ot R59. 0 LOCALIZED ENLARGED LYMPH NODES 12/04/2019 MIGUEL AVALOS Ot R06.00 DYSPNEA, UNSPECIFIED 12/04/2019 VON DO, OANH M Ot I25. 10 ATHSCL HEART DISEASE OF [place] CORONARY 12/04/2019 VON DO, OANH Osullivan Ot R05 COUGH 12/04/2019 VON DO, OANH Osullivan Ot R06. 00 DYSPNEA, UNSPECIFIED 12/04/2019 VON DO, OANH M Ot R91. 1 SOLITARY PULMONARY NODULE 12/04/2019 ERIC VELASQUEZ MD Ot R51 HEADACHE 12/04/2019 ROBYN TANG [facility], ALI FACP CCDS Ot E11.9 TYPE 2 DIABETES MELLITUS WITHOUT COMPLIC 12/04/2019 ROBYN TANG FAC, ALI FACP CCDS Ot E78.4 OTHER HYPERLIPIDEMIA 12/04/2019 ROBYN TANG FACC, ALI FACP CCDS Ot G47.33 OBSTRUCTIVE SLEEP APNEA (ADULT) (PEDIATR 12/04/2019 ROBYN TANG FACC, ALI FACP CCDS Ot I10 ESSENTIAL (PRIMARY) HYPERTENSION 12/04/[address] [facility] CCDS Ot I25.10 ATHSCL HEART DISEASE OF [place] CORONARY 12/04/2019 ROBYN TANG FAC, ALI FACP CCDS Ot I48.0 PAROXYSMAL ATRIAL FIBRILLATION 12/04/2019 ROYBN TANG FACC, ALI FACP CCDS Ot I65.23 OCCLUSION AND STENOSIS OF BILATERAL SAE[place] 12/04/2019 [place] [facility], [place]I FACP CCDS Ot E11.9 TYPE 2 DIABETES MELLITUS WITHOUT COMPLIC 12/04/2019 [place] [facility], [place]I FACP CCDS Ot E78.4 OTHER HYPERLIPIDEMIA 12/04/2019 ROBYN TANG FACC, ALI FACP CCDS Ot G47.33 OBSTRUCTIVE SLEEP APNEA (ADULT) (PEDIATR 12/04/[address] [facility], [facility]I FACP CCDS Ot I10 ESSENTIAL (PRIMARY) HYPERTENSION 12/04/2019 ROBYN TANG [facility], ALI FACP CCDS Ot I25.10 ATHSCL HEART DISEASE OF [place] CORONARY 12/04/[address] [facility], ALI FACP CCDS Ot I48.0 PAROXYSMAL ATRIAL FIBRILLATION 12/04/[address] [facility], ALI FACP CCDS Ot I65.23 OCCLUSION AND STENOSIS OF BILATERAL SAEED 12/04/2019 MICK GILBERT MANAGER REGIONAL Ot I25.10 ATHSCL HEART DISEASE OF [place] CORONARY 12/04/2019 MICK GILBERT MANAGER REGIONAL Ot I51.7 CARDIOMEGALY 12/04/2019 MICK GILBERT APRN Ot R91.1 SOLITARY PULMONARY NODULE 12/04/2019 MICK GILBERT MANAGER REGIONAL Ot Z98.890 OTHER SPECIFIED POSTPROCEDURAL STATES 12/04/[address] [facility], ALI FACP CCDS Ot E11.9 TYPE 2 DIABETES MELLITUS WITHOUT COMPLIC 12/04/2019 ROBYN TANG [facility], ALI FACP CCDS Ot E78.5 HYPERLIPIDEMIA, UNSPECIFIED 12/04/2019 ROBYN TANG [facility], ALI FACP CCDS Ot G47.33 OBSTRUCTIVE SLEEP APNEA (ADULT) (PEDIATR 12/04/2019 ROBYN TANG [facility], ALI FACP CCDS Ot I10 ESSENTIAL (PRIMARY) HYPERTENSION 12/04/2019 ROBYN MD [facility], ALI FACP CCDS Ot I25.10 ATHSCL HEART DISEASE OF [place] CORONARY 12/04/2019 ROBYN TANG [facility], ALI FACP CCDS Ot I48.0 PAROXYSMAL ATRIAL FIBRILLATION 12/04/2019 ROBYN TANG [facility], ALI FACP CCDS Ot E11.9 TYPE 2 DIABETES MELLITUS WITHOUT COMPLIC 12/04/2019 ROBYN TANG [facility], ALI FACP CCDS Ot I10 ESSENTIAL (PRIMARY) HYPERTENSION 12/04/2019 ROBYN TANG [facility], ALI FACP CCDS Ot I25.10 ATHSCL HEART DISEASE OF [place] CORONARY 12/04/2019 ROBYN TANG [facility], ALI FACP CCDS Ot I48.2 CHRONIC ATRIAL FIBRILLATION 12/04/2019 ROBYN TANG FACC, ALI FACP CCDS Ot I77.9 DISORDER OF ARTERIES AND ARTERIOLES, UNS 12/04/2019 ROBYN TANG FACC, ALI FACP CCDS Ot E11.9 TYPE 2 DIABETES MELLITUS WITHOUT COMPLIC 12/04/2019 ROBYN TANG [facility], ALI FACP CCDS Ot E66.9 OBESITY, UNSPECIFIED 12/04/2019 ROBYN LEIJA, ALI FACP CCDS Ot E78.5 HYPERLIPIDEMIA, UNSPECIFIED 12/04/2019 ROBYN TANG [facility], ALI FACP CCDS Ot G47.33 OBSTRUCTIVE SLEEP APNEA (ADULT) (PEDIATR 12/04/2019 ROBYN TANG [facility], ALI FACP CCDS Ot I10 ESSENTIAL (PRIMARY) HYPERTENSION 12/04/2019 ROBYN TANG [facility], ALI FACP CCDS Ot I25.10 ATHSCL HEART DISEASE OF [place] CORONARY 12/04/2019 ROBYN LEIJA, ALI FACP CCDS Ot I48.20 CHRONIC ATRIAL FIBRILLATION, UNSPECIFIED 12/04/2019 ROBYN TANG [facility], ALI FACP CCDS Ot Z68.30 BODY MASS INDEX (BMI) 30.0-30.9, ADULT 12/04/2019 ROBYN TANG [facility], ALI FACP CCDS Ot Z79.01 PENITENTIARY (CURRENT) USE OF ANTICOAGULANT 12/04/2019 ROBYN TANG [facility], ALI FACP CCDS Ot Z79.4 CASH APPLICATIONS COORDINATOR (CURRENT) USE OF INSULIN 12/04/2019 ROBYN TANG [facility], ALI FACP CCDS Ot Z79.82 PENITENTIARY (CURRENT) USE OF ASPIRIN 12/04/2019 ROBYN TANG [facility], ALI FACP CCDS Ot Z79.899 OTHER CASH APPLICATIONS COORDINATOR (CURRENT) DRUG THERAPY 12/04/2019 ROBYN TANG [facility], ALI FACP CCDS Ot Z80.9 FAMILY HISTORY OF MALIGNANT NEOPLASM, UN 12/04/2019 OANH LONGORIA DO Ot I51. 7 CARDIOMEGALY 12/04/2019 OANH LONGORIA DO Ot R05 COUGH 12/05/2019 OANH LONGORIA DO Ot 786. 09 RESPIRATORY ABNORM NEC 12/05/2019 ROBBY DORANTES MD Ot 786.0 5 SHORTNESS OF BREATH 12/05/2019 ROBBY DORANTES MD Ot 786.2 COUGH 12/05/2019 ROBYN LEIJA, ALI FACP CCDS Ot 250.00 DIAB MIGUELITO WO COMPL, TYPE II OR UNSPEC TY 12/05/2019 ROBYN LEIJA, ALI FACP CCDS Ot 272.4 HYPERLIPIDEMIA NEC/NOS 12/05/2019 ROBYN TANG FACC, ROBERTO FACP CCDS Ot 401.9 HYPERTENSION NOS 12/05/2019 ROBYN TANG FACC, ALI FACP CCDS Ot 414.00 CORON ATHEROSCLER NOS TYPE VESSEL, NATIV 12/05/2019 VON DUTTA, OANH Osullivan Ot 793. 11 SOLITARY PULMONARY NODULE 12/05/2019 VON DO, OANH M Ot R91. 1 SOLITARY PULMONARY NODULE 12/05/2019 ROBBY DORANTES MD Ot R05 COUGH 12/05/2019 VON DO, OANH Osullivan Ot R05 COUGH 12/05/2019 VON DO, OANH M Ot R06. 00 DYSPNEA, UNSPECIFIED 12/05/2019 VON DO, OANH M Ot R59. 0 LOCALIZED ENLARGED LYMPH NODES 12/05/2019 MIGUEL AVALOS Ot R06.00 DYSPNEA, UNSPECIFIED 12/05/2019 VON DO, OANH M Ot I25. 10 ATHSCL HEART DISEASE OF [place] CORONARY 12/05/2019 VON DUTTA, OANH Osullivan Ot R05 COUGH 12/05/2019 VON DO, OANH Osullivan Ot R06. 00 DYSPNEA, UNSPECIFIED 12/05/2019 VON DUTTA, OANH M Ot R91. 1 SOLITARY PULMONARY NODULE 12/05/2019 RON TANG, ERIC Delgado Ot R51 HEADACHE 12/05/2019 ROBYN LEIJA, ALI FACP CCDS Ot E11.9 TYPE 2 DIABETES MELLITUS WITHOUT COMPLIC 12/05/2019 ROBYN TANG FACC, ALI FACP CCDS Ot E78.4 OTHER HYPERLIPIDEMIA 12/05/2019 ROBYN TANG FACC, ALI FACP CCDS Ot G47.33 OBSTRUCTIVE SLEEP APNEA (ADULT) (PEDIATR 12/05/2019 ROBYN TANG FAC, ALI FACP CCDS Ot I10 ESSENTIAL (PRIMARY) HYPERTENSION 12/05/2019 ROBYN LEIJA, ALI FACP CCDS Ot I25.10 ATHSCL HEART DISEASE OF [place] CORONARY 12/05/2019 ROBYN TANG FACC, ALI FACP CCDS Ot I48.0 PAROXYSMAL ATRIAL FIBRILLATION 12/05/2019 ROBYN TANG FACC, ALI FACP CCDS Ot I65.23 OCCLUSION AND STENOSIS OF BILATERAL SAEED 12/05/2019 ROBYN TANG FACC, ALI FACP CCDS Ot E11.9 TYPE 2 DIABETES MELLITUS WITHOUT COMPLIC 12/05/2019 ROBYN MD FACC, ALI FACP CCDS Ot E78.4 OTHER HYPERLIPIDEMIA 12/05/[address] [facility] FACP CCDS Ot G47.33 OBSTRUCTIVE SLEEP APNEA (ADULT) (PEDIATR 12/05/2019 ROBYN TANG [facility], ALI FACP CCDS Ot I10 ESSENTIAL (PRIMARY) HYPERTENSION 12/05/2019 ROBYN TANG [facility], ALI FACP CCDS Ot I25.10 ATHSCL HEART DISEASE OF [place] CORONARY 12/05/2019 ROBYN TANG [facility], ALI FACP CCDS Ot I48.0 PAROXYSMAL ATRIAL FIBRILLATION 12/05/2019 RBOYN TANG [facility], ALI FACP CCDS Ot I65.23 OCCLUSION AND STENOSIS OF BILATERAL SAEED 12/05/2019 MICK GILBERT APRN Ot I25.10 ATHSCL HEART DISEASE OF [place] CORONARY 12/05/2019 MICK GILBERT APRN Ot I51.7 CARDIOMEGALY 12/05/2019 MICK GILBERT APRN Ot R91.1 SOLITARY PULMONARY NODULE 12/05/2019 MICK GILBERT MANAGER REGIONAL Ot Z98.890 OTHER SPECIFIED POSTPROCEDURAL STATES 12/05/2019 ROBYN TANG [facility], ALI FACP CCDS Ot E11.9 TYPE 2 DIABETES MELLITUS WITHOUT COMPLIC 12/05/2019 ROBYN TANG [facility], ALI FACP CCDS Ot E78.5 HYPERLIPIDEMIA, UNSPECIFIED 12/05/2019 ROBYN TANG [facility], ALI FACP CCDS Ot G47.33 OBSTRUCTIVE SLEEP APNEA (ADULT) (PEDIATR 12/05/2019 ROBYN TANG [facility], ALI FACP CCDS Ot I10 ESSENTIAL (PRIMARY) HYPERTENSION 12/05/2019 ROBYN TANG [facility], ALI FACP CCDS Ot I25.10 ATHSCL HEART DISEASE OF [place] CORONARY 12/05/2019 ROBYN TANG [facility], ALI FACP CCDS Ot I48.0 PAROXYSMAL ATRIAL FIBRILLATION 12/05/2019 ROBYN TANG [facility], ALI FACP CCDS Ot E11.9 TYPE 2 DIABETES MELLITUS WITHOUT COMPLIC 12/05/2019 ROBYN TANG [facility], ALI FACP CCDS Ot I10 ESSENTIAL (PRIMARY) HYPERTENSION 12/05/2019 ROBYN TANG [facility], ALI FACP CCDS Ot I25.10 ATHSCL HEART DISEASE OF [place] CORONARY 12/05/2019 ROBYN TANG [facility], ALI FACP CCDS Ot I48.2 CHRONIC ATRIAL FIBRILLATION 12/05/2019 ROBYN TANG [facility], ALI FACP CCDS Ot I77.9 DISORDER OF ARTERIES AND ARTERIOLES, UNS 12/05/2019 ROBYN TANG [facility], ALI FACP CCDS Ot E11.9 TYPE 2 DIABETES MELLITUS WITHOUT COMPLIC 12/05/2019 ROBYN TANG [facility], ALI FACP CCDS Ot E66.9 OBESITY, UNSPECIFIED 12/05/2019 ROBYN TANG [facility], ALI FACP CCDS Ot E78.5 HYPERLIPIDEMIA, UNSPECIFIED 12/05/2019 ROBYN TANG [facility], ALI FACP CCDS Ot G47.33 OBSTRUCTIVE SLEEP APNEA (ADULT) (PEDIATR 12/05/2019 ROBYN TANG [facility], ALI FACP CCDS Ot I10 ESSENTIAL (PRIMARY) HYPERTENSION 12/05/2019 ROBYN TANG [facility], ALI FACP CCDS Ot I25.10 ATHSCL HEART DISEASE OF [place] CORONARY 12/05/2019 ROBYN TANG [facility], ALI FACP CCDS Ot I48.20 CHRONIC ATRIAL FIBRILLATION, UNSPECIFIED 12/05/2019 ROBYN TANG [facility], ALI FACP CCDS Ot Z68.30 BODY MASS INDEX (BMI) 30.0-30.9, ADULT 12/05/2019 ROBYN TANG [facility], ALI FACP CCDS Ot Z79.01 CASH APPLICATIONS COORDINATOR (CURRENT) USE OF ANTICOAGULANT 12/05/2019 ROBYN TANG [facility], ALI FACP CCDS Ot Z79.4 CASH APPLICATIONS COORDINATOR (CURRENT) USE OF INSULIN 12/05/2019 ROBYN TANG [facility], ALI FACP CCDS Ot Z79.82 CASH APPLICATIONS COORDINATOR (CURRENT) USE OF ASPIRIN 12/05/2019 ROBYN TANG [facility], ALI FACP CCDS Ot Z79.899 OTHER CASH APPLICATIONS COORDINATOR (CURRENT) DRUG THERAPY 12/05/2019 ROBYN TANG [facility], ALI FACP CCDS Ot Z80.9 FAMILY HISTORY OF MALIGNANT NEOPLASM, UN 12/05/2019 OANH LONGORIA DO Ot I51. 7 CARDIOMEGALY 12/05/2019 OANH LONGORIA DO Ot R05 COUGH Procedures There is no data. Results Test Result Range Automated blood complete blood count (he mogram) panel - 05/15/16 07:30 Blood leukocytes automated count (number/volume) 10.8 10*3/uL 4.3-11.0 Blood erythrocytes automated count (number/volume) 5.30 10*6/uL 4.35-5.85 Venous blood hemoglobin measurement (mass/volume) 16.3 g/dL 13.3-17.7 Blood hematocrit (volume fraction) 48 % 40-54 Automated erythrocyte mean corpuscular volume 90 [ foz_us] 80-99 Automated erythrocyte mean corpuscular h emoglobin (mass per erythrocyte) 31 pg 25-34 Automated erythrocyte mean corpuscular h emoglobin concentration measurement (mass/volume) 34 g/dL 32-36 Automated erythrocyte distribution width ratio 13. 1 % 10.0- 14.5 Automated blood platelet count (count/volume) 252 10*3/uL 130-400 Automated blood platelet mean volume measurement 10.8 [foz_us] 7.4-10.4 PT panel in platelet poor plasma by coag ulation assay - 05/15/16 07:30 Prothrombin time (PT) in platelet poor plasma by coagu lation assay 13.9 s 12.2-14.7 INR in platelet poor plasma or blood by coagulation as say 1.1 0.8-1.4 Activated partial thromboplastin time (a PTT) in platelet poor plasma bycoagulation assay - 05/15/16 07:30 Activated partial thromboplastin time (a PTT) in platelet poor plasma bycoagulation assay 31 s 24-35 Comprehensive metabolic panel - 05/15/16 07:30 Serum or plasma sodium measurement (moles/volume) 139 mmol/L 135-145 Serum or plasma potassium measurement (moles/volume) 3.6 mmol/L 3.6-5.0 Serum or plasma chloride measurement (moles/volume) 101 mmol/L 98-107 Carbon dioxide 28 mmol/L 21-32 Serum or plasma anion gap determination (moles/volume) 10 mmol/L 5-14 Serum or plasma urea nitrogen measurement (mass/volume ) 21 mg/dL 7-18 Serum or plasma creatinine measurement (mass/volume) 1.03 mg/dL 0.60-1.30 Serum or plasma urea nitrogen/creatinine mass ratio 20 NRG Serum or plasma creatinine measurement w ith calculation of estimated glomerular filtration rate > NRG Serum or plasma glucose measurement (mass/volume) 211 mg/dL 70-105 Serum or plasma calcium measurement (mass/volume) 9.7 mg/dL 8.5-10.1 Serum or plasma total bilirubin measurement (mass/volu me) 1.3 mg/dL 0.1-1.0 Serum or plasma alkaline phosphatase jessy surement (enzymatic activity/volume) 60 U/L 40-136 Serum or plasma aspartate aminotransfera se measurement (enzymatic activity/volume) 18 U/L 5-34 Serum or plasma alanine aminotransferase measurement (enzymatic activity/volume) 31 U/L 0-55 Serum or plasma protein measurement (mass/volume) 7.0 g/dL 6.4-8.2 Serum or plasma albumin measurement (mass/volume) 4.5 g/dL 3.2-4.5 Lipid 1996 panel - 05/15/16 07:30 Serum or plasma triglyceride measurement (mass/volume) 135 mg/dL <150 Serum or plasma cholesterol measurement (mass/volume) 128 mg/dL < 200 Serum or plasma cholesterol in HDL measurement (mass/v olume) 47 mg/dL 40-60 Cholesterol in LDL [mass/volume] in serum or plasma by direct assay 62 mg/dL 1-129 Serum or plasma cholesterol in VLDL measurement (mass/ volume) 27 mg/dL 5-40 Methicillin resistant Staphylococcus aur eus (MRSA) screening culture - 05/15/16 07:30 Methicillin resistant Staphylococcus aureus (MRSA) scr eening culture NEG NRG Automated blood complete blood count (he mogram) panel - 03/10/19 07:40 Blood leukocytes automated count (number/volume) 6.1 10*3/uL 4.3-11.0 Blood erythrocytes automated count (number/volume) 4.89 10*6/uL 4.35-5.85 Venous blood hemoglobin measurement (mass/volume) 15.2 g/dL 13.3-17.7 Blood hematocrit (volume fraction) 44 % 40-54 Automated erythrocyte mean corpuscular volume 90 [ foz_us] 80-99 Automated erythrocyte mean corpuscular h emoglobin (mass per erythrocyte) 31 pg 25-34 Automated erythrocyte mean corpuscular h emoglobin concentration measurement (mass/volume) 34 g/dL 32-36 Automated erythrocyte distribution width ratio 13. 6 % 10.0- 14.5 Automated blood platelet count (count/volume) 229 10*3/uL 130-400 Automated blood platelet mean volume measurement 10.8 [foz_us] 7.4-10.4 PT panel in platelet poor plasma by coag ulation assay - 03/10/19 07:40 Prothrombin time (PT) in platelet poor plasma by coagu lation assay 28.4 s 12.2-14.7 INR in platelet poor plasma or blood by coagulation as say 2.5 0.8-1.4 Activated partial thromboplastin time (a PTT) in platelet poor plasma bycoagulation assay - 03/10/19 07:40 Activated partial thromboplastin time (a PTT) in platelet poor plasma bycoagulation assay 44 s 24-35 Comprehensive metabolic panel - 03/10/19 07:40 Serum or plasma sodium measurement (moles/volume) 140 mmol/L 135-145 Serum or plasma potassium measurement (moles/volume) 3.6 mmol/L 3.6-5.0 Serum or plasma chloride measurement (moles/volume) 103 mmol/L 98-107 Carbon dioxide 30 mmol/L 21-32 Serum or plasma anion gap determination (moles/volume) 7 mmol/L 5-14 Serum or plasma urea nitrogen measurement (mass/volume ) 16 mg/dL 7-18 Serum or plasma creatinine measurement (mass/volume) 1.22 mg/dL 0.60-1.30 Serum or plasma urea nitrogen/creatinine mass ratio 13 NRG Serum or plasma creatinine measurement w ith calculation of estimated glomerular filtration rate 57 NRG Serum or plasma glucose measurement (mass/volume) 161 mg/dL 70-105 Serum or plasma calcium measurement (mass/volume) 8.8 mg/dL 8.5-10.1 Serum or plasma total bilirubin measurement (mass/volu me) 0.9 mg/dL 0.1-1.0 Serum or plasma alkaline phosphatase jessy surement (enzymatic activity/volume) 50 U/L 40-136 Serum or plasma aspartate aminotransfera se measurement (enzymatic activity/volume) 16 U/L 5-34 Serum or plasma alanine aminotransferase measurement (enzymatic activity/volume) 18 U/L 0-55 Serum or plasma protein measurement (mass/volume) 6.4 g/dL 6.4-8.2 Serum or plasma albumin measurement (mass/volume) 3.9 g/dL 3.2-4.5 CALCIUM CORRECTED 8.9 mg/dL 8.5-10.1 Lipid 1996 panel - 03/10/19 07:40 Serum or plasma triglyceride measurement (mass/volume) 145 mg/dL <150 Serum or plasma cholesterol measurement (mass/volume) 121 mg/dL < 200 Serum or plasma cholesterol in HDL measurement (mass/v olume) 45 mg/dL 40-60 Cholesterol in LDL [mass/volume] in serum or plasma by direct assay 56 mg/dL 1-129 Serum or plasma cholesterol in VLDL measurement (mass/ volume) 29 mg/dL 5-40 Methicillin resistant Staphylococcus aur eus (MRSA) screening culture - 03/10/19 07:40 Methicillin resistant Staphylococcus aureus (MRSA) scr eening culture NEG NRG Complete blood count (CBC) with automate d white blood cell (WBC) differential - 12/02/19 17:14 Blood leukocytes automated count (number/volume) 7.5 10*3/uL 4.3-11.0 Blood erythrocytes automated count (number/volume) 5.03 10*6/uL 4.35-5.85 Venous blood hemoglobin measurement (mass/volume) 15.5 g/dL 13.3-17.7 Blood hematocrit (volume fraction) 45 % 40-54 Automated erythrocyte mean corpuscular volume 90 [ foz_us] 80-99 Automated erythrocyte mean corpuscular h emoglobin (mass per erythrocyte) 31 pg 25-34 Automated erythrocyte mean corpuscular h emoglobin concentration measurement (mass/volume) 34 g/dL 32-36 Automated erythrocyte distribution width ratio 13. 5 % 10.0- 14.5 Automated blood platelet count (count/volume) 230 10*3/uL 130-400 Automated blood platelet mean volume measurement 11.3 [foz_us] 7.4-10.4 Automated blood neutrophils/100 leukocytes 55 % 42-75 Automated blood lymphocytes/100 leukocytes 33 % 12-44 Blood monocytes/100 leukocytes 10 % 0-12 Automated blood eosinophils/100 leukocytes 2 % 0-10 Automated blood basophils/100 leukocytes 0 % 0-10 Blood neutrophils automated count (number/volume) 4.1 10*3 1.8-7.8 Blood lymphocytes automated count (number/volume) 2.4 10*3 1.0-4.0 Blood monocytes automated count (number/volume) 0. 8 10*3 0.0-1.0 Automated eosinophil count 0.1 10*3/uL 0 .0-0.3 Automated blood basophil count (count/volume) 0.0 10*3/uL 0.0-0.1 PT panel in platelet poor plasma by coag ulation assay - 12/02/19 17:14 Prothrombin time (PT) in platelet poor plasma by coagu lation assay 14.1 s 12.2-14.7 INR in platelet poor plasma or blood by coagulation as say 1.0 0.8-1.4 Activated partial thromboplastin time (a PTT) in platelet poor plasma bycoagulation assay - 12/02/19 17:14 Activated partial thromboplastin time (a PTT) in platelet poor plasma bycoagulation assay 31 s 24-35 Comprehensive metabolic panel - 12/02/19 17:14 Serum or plasma sodium measurement (moles/volume) 139 mmol/L 135-145 Serum or plasma potassium measurement (moles/volume) 3.9 mmol/L 3.6-5.0 Serum or plasma chloride measurement (moles/volume) 102 mmol/L 98-107 Carbon dioxide 28 mmol/L 21-32 Serum or plasma anion gap determination (moles/volume) 9 mmol/L 5-14 Serum or plasma urea nitrogen measurement (mass/volume ) 19 mg/dL 7-18 Serum or plasma creatinine measurement (mass/volume) 1.23 mg/dL 0.60-1.30 Serum or plasma urea nitrogen/creatinine mass ratio 15 NRG Serum or plasma creatinine measurement w ith calculation of estimated glomerular filtration rate 57 NRG Serum or plasma glucose measurement (mass/volume) 115 mg/dL 70-105 Serum or plasma calcium measurement (mass/volume) 9.3 mg/dL 8.5-10.1 Serum or plasma total bilirubin measurement (mass/volu me) 0.8 mg/dL 0.1-1.0 Serum or plasma alkaline phosphatase jessy surement (enzymatic activity/volume) 59 U/L 40-136 Serum or plasma aspartate aminotransfera se measurement (enzymatic activity/volume) 15 U/L 5-34 Serum or plasma alanine aminotransferase measurement (enzymatic activity/volume) 18 U/L 0-55 Serum or plasma protein measurement (mass/volume) 6.7 g/dL 6.4-8.2 Serum or plasma albumin measurement (mass/volume) 4.0 g/dL 3.2-4.5 CALCIUM CORRECTED 9.3 mg/dL 8.5-10.1 Magnesium - 12/02/19 17:14 Magnesium 2.0 mg/dL 1.6-2.4 Myoglobin, serum - 12/02/19 17:14 Myoglobin, serum 50.8 ng/mL 10.0-92.0 Serum or plasma troponin i.cardiac measu rement (mass/volume) - 12/02/19 17:14 Serum or plasma troponin i.cardiac measurement (mass/v olume) < ng/mL <0.028 Serum or plasma thyrotropin measurement by detection limit <=0.05 miu/l (units/volume) - 12/02/19 17:14 Serum or plasma thyrotropin measurement by detection limit <=0.05 miu/l (units/volume) 1.48 u[iU]/mL 0.35-4.94 Capillary blood glucose measurement by g lucometer (mass/volume) - 12/02/19 17:20 Capillary blood glucose measurement by glucometer (mas s/volume) 112 mg/dL 70-110 Complete urinalysis with reflex to cultu re - 12/02/19 18:41 Urine color determination YELLOW NRG Urine clarity determination CLEAR NR G Urine pH measurement by test strip 6.5 5-9 Specific gravity of urine by test strip 1.020 1.016-1.022 Urine protein assay by test strip, semi-quantitative TRACE NEGATIVE Urine glucose detection by automated test strip TR JOSIAH NEGATIVE Erythrocytes detection in urine sediment by light micr oscopy NEGATIVE NEGATIVE Urine ketones detection by automated test strip NE GATIVE NEGATIVE Urine nitrite detection by test strip NEGATIVE NEGATIVE Urine total bilirubin detection by test strip NEGA TIVE NEGATIVE Urine urobilinogen measurement by automated test strip (mass/volume) 1.0 mg/dL < = 1.0 Urine leukocyte esterase detection by dipstick NEG ATIVE NEGATIVE Automated urine sediment erythrocyte cou nt by microscopy (number/high power field) [HPF] NRG Automated urine sediment leukocyte count by microscopy (number/high power field) [HPF] NRG Bacteria detection in urine sediment by light microsco py TRACE NRG Crystals detection in urine sediment by light microsco py PRESENT NRG Casts detection in urine sediment by light microscopy NONE NRG Mucus detection in urine sediment by light microscopy SMALL NRG Complete urinalysis with reflex to culture NO NRG Amorphous sediment detection in urine sediment by ligh t microscopy RARE JAISON URATES NRG Complete blood count (CBC) with automate d white blood cell (WBC) differential - 06/25/20 03:24 Blood leukocytes automated count (number/volume) 7.2 10*3/uL 4.3-11.0 Blood erythrocytes automated count (number/volume) 4.78 10*6/uL 4.35-5.85 Venous blood hemoglobin measurement (mass/volume) 14.6 g/dL 13.3-17.7 Blood hematocrit (volume fraction) 43 % 40-54 Automated erythrocyte mean corpuscular volume 90 [ foz_us] 80-99 Automated erythrocyte mean corpuscular h emoglobin (mass per erythrocyte) 31 pg 25-34 Automated erythrocyte mean corpuscular h emoglobin concentration measurement (mass/volume) 34 g/dL 32-36 Automated erythrocyte distribution width ratio 13. 4 % 10.0- 14.5 Automated blood platelet count (count/volume) 205 10*3/uL 130-400 Automated blood platelet mean volume measurement 11.1 [foz_us] 7.4-10.4 Automated blood neutrophils/100 leukocytes 52 % 42-75 Automated blood lymphocytes/100 leukocytes 36 % 12-44 Blood monocytes/100 leukocytes 10 % 0-12 Automated blood eosinophils/100 leukocytes 2 % 0-10 Automated blood basophils/100 leukocytes 0 % 0-10 Blood neutrophils automated count (number/volume) 3.7 10*3 1.8-7.8 Blood lymphocytes automated count (number/volume) 2.6 10*3 1.0-4.0 Blood monocytes automated count (number/volume) 0. 7 10*3 0.0-1.0 Automated eosinophil count 0.2 10*3/uL 0 .0-0.3 Automated blood basophil count (count/volume) 0.0 10*3/uL 0.0-0.1 Whole blood basic metabolic panel - 11/09 10/27 03:24 Serum or plasma sodium measurement (moles/volume) 139 mmol/L 135-145 Serum or plasma potassium measurement (moles/volume) 3.3 mmol/L 3.6-5.0 Serum or plasma chloride measurement (moles/volume) 104 mmol/L 98-107 Carbon dioxide 26 mmol/L 21-32 Serum or plasma anion gap determination (moles/volume) 9 mmol/L 5-14 Serum or plasma urea nitrogen measurement (mass/volume ) 16 mg/dL 7-18 Serum or plasma creatinine measurement (mass/volume) 1.13 mg/dL 0.60-1.30 Serum or plasma urea nitrogen/creatinine mass ratio 14 NRG Serum or plasma creatinine measurement w ith calculation of estimated glomerular filtration rate > NRG Serum or plasma glucose measurement (mass/volume) 161 mg/dL 70-105 Serum or plasma calcium measurement (mass/volume) 9.0 mg/dL 8.5-10.1 Lipid 1996 panel - 12/03/19 03:24 Serum or plasma triglyceride measurement (mass/volume) 127 mg/dL <150 Serum or plasma cholesterol measurement (mass/volume) 126 mg/dL < 200 Serum or plasma cholesterol in HDL measurement (mass/v olume) 43 mg/dL 40-60 Cholesterol in LDL [mass/volume] in serum or plasma by direct assay 67 mg/dL 1-129 Serum or plasma cholesterol in VLDL measurement (mass/ volume) 25 mg/dL 5-40 Capillary blood glucose measurement by g lucometer (mass/volume) - 12/03/19 20:20 Capillary blood glucose measurement by glucometer (mas s/volume) 241 mg/dL 70-110 Whole blood basic metabolic panel - 11/09 11/27 03:05 Serum or plasma sodium measurement (moles/volume) 136 mmol/L 135-145 Serum or plasma potassium measurement (moles/volume) 4.1 mmol/L 3.6-5.0 Serum or plasma chloride measurement (moles/volume) 102 mmol/L 98-107 Carbon dioxide 22 mmol/L 21-32 Serum or plasma anion gap determination (moles/volume) 12 mmol/L 5-14 Serum or plasma urea nitrogen measurement (mass/volume ) 15 mg/dL 7-18 Serum or plasma creatinine measurement (mass/volume) 1.06 mg/dL 0.60-1.30 Serum or plasma urea nitrogen/creatinine mass ratio 14 NRG Serum or plasma creatinine measurement w ith calculation of estimated glomerular filtration rate > NRG Serum or plasma glucose measurement (mass/volume) 133 mg/dL 70-105 Serum or plasma calcium measurement (mass/volume) 8.8 mg/dL 8.5-10.1 Magnesium - 12/04/19 03:05 Magnesium 2.1 mg/dL 1.6-2.4 Capillary blood glucose measurement by g lucometer (mass/volume) - 12/04/19 20:08 Capillary blood glucose measurement by glucometer (mas s/volume) 174 mg/dL 70-110 Encounters ACCT No. Visit Date/Time Discharge Status Pt. Type Provider Facility Loc./Unit Complaint [id number] 04/13/2019 13:48:00 23:59:59 CLS Outpatient OANH LONGORIA DO [facility] RAD DYSPNEA [id number] 03/10/2019 07:01:00 23:59:59 CLS Outpatient ROBYN TANG FACC, ALI FACP CC DS [facility] CATH AFIB [id number] 07/17/2018 10:51:00 23:59:59 CLS Outpatient ROBYN TANG FACC, ALI FACP CC DS [facility] CARD CAD [id number] 12/03/2017 11:01:00 23:59:59 CLS Outpatient ROBYN TANG FACC, ALI FACP CC DS [facility] CARD CAD,PAF [id number] 11/15/2017 15:36:00 23:59:59 CLS Outpatient MICK GILBERT APRN [facility] RAD LUNG NODULE [id number] 10/22/2016 11:11:00 23:59:59 CLS Outpatient OANH LONGORIA DO [facility] RAD R06.00,R05,R91.1,I25.10 [id number] 05/15/2016 07:00:00 11:55:00 DIS Outpatient ROBYN TANG FACC, ALI FACP CC DS [facility] PAF,FABIAN,HTN ,HL,DM [id number] 03/15/2016 11:09:00 23:59:59 CLS Outpatient ROBYN TANG FACC, ALI FACP CC DS [facility] CARD PAF,FABIAN,CAD [id number] 03/13/2016 07:53:00 23:59:59 CLS Outpatient ROBYN TANG FACC, ALI FACP CC DS [facility] LAB HTN,CAD,DM II,PAF, FABIAN, HYPERLIPIDEMIA [id number] 12/20/2015 15:14:00 23:59:59 CLS Outpatient ERIC VELASQUEZ MD [facility] RAD BASE OF SKULL PAIN [id number] 10/31/2015 08:31:00 23:59:59 CLS Outpatient MIGUEL AVALOS [facility] LAB DYSPNEA [id number] 10/31/2015 08:24:00 23:59:59 CLS Outpatient OANH LONGORIA DO [facility] RAD COUGH,DYSPNEA [id number] 07/26/2015 11:31:00 23:59:59 CLS Outpatient ROBBY DORANTES MD [facility] RAD CHRONIC COUGH [id number] 07/16/2015 20:06:00 05:00:00 DIS Outpatient OANH LONGORIA DO [facility] SLEEP SNORING,EXCESSIVED DAYT KASH SLEEPINESS [id number] 05/13/2015 08:59:00 23:59:59 CLS Outpatient OANH LONGORIA DO [facility] RAD LUNG NODULE [id number] 01/11/2015 09:59:00 23:59:59 CLS Outpatient OANH LONGORIA DO [facility] RAD LUNG NODULE [id number] 11/16/2014 07:43:00 23:59:59 CLS Outpatient ROBYN TANG FACC, ROBERTO GAMA CC DS [facility] CARD CAD [id number] 10/13/2014 07:37:00 23:59:59 CLS Outpatient ROBBY DORANTES MD [facility] RAD PERSISTENT COUGH, SOB [id number] 10/13/2014 07:27:00 23:59:59 CLS Outpatient OANH LONGORIA DO [facility] RT PERSISTENT SOB COUGH [id number] 11/27/2012 06:07:00 013 13:05:00 DIS Outpatient OLAMIDE GONZALEZ MD [facility] RIGHT INGUINAL HERNIA [id number] 11/24/2012 06:00:00 09:20:00 DIS Outpatient OLAMIDE GONZALEZ MD [facility] HX POLYPS,FAMILY HX [id number] 11/21/2012 14:40:00 23:59:59 CLS Outpatient OLAMIDE GONZALEZ MD [facility] PREOP RIGHT INGUINAL HERNIA [id number] 11/20/2012 10:03:00 23:59:59 CLS Outpatient OLAMIDE GONZALEZ MD [facility] PREOP HX POLYPS; FAMILY HX C OLON CANCER [id number] 12/05/2019 13:28:00 P EN Preadmit SHIRLENE DUTTA, RADHA CV A [id number] 12/02/2019 20:18:[address] Inpatient DERIC CH MD [facility] [id number] 08/31/2014 11:38:00 Document Registration [id number] 08/31/2014 11:38:00 Document Registration [id number] 08/31/2014 11:38:00 Document Registration [id number] 09/19/2012 13:52:00 Document Registration [id number] 11/14/2011 07:02:00 Document Registration [id number] 01/17/2011 06:54:00 Document Registration [id number] 01/15/2011 05:58:00 Document Registration [id number] 01/12/2011 15:26:00 Document Registration [id number] 06/06/2009 13:05:00 Document Registration [id number] 05/11/2009 11:00:00 Document Registration [id number] 04/08/2009 11:00:00 Document Registration [id number] 03/17/2009 14:05:00 Document Registration
[2019-12-05] MEDS ORDERED: IBUPROFEN TABLET 200 MG TAB PO PRN (13:00)
[2019-12-05] MEDS ORDERED: RT-ALBUTEROL SULF 2.5 MG/3 ML PRE-MIX VIAL IH PRN (13:00)
[2019-12-05] MEDS ORDERED: ACETAMINOPHEN 500 MG TAB (TYLENOL) PO PRN (13:00)
[2019-12-05] MEDS: DOCUSATE SODIUM 100 MG (COLACE) CAP PO SCH ×2 (15:40→20:25)
[2019-12-05] MEDS: SENNA W/DOCUSATE (SENOKOT S) TABLET PO SCH ×2 (15:41→20:25)
[2019-12-05] MEDS: polyethylene glycoL POWDER 17 GM (MIRALAX) PACK PO SCH ×2 (15:41→20:25)
[2019-12-05] MEDS: RIVAROXABAN 20 MG TABLET (XARELTO) PO SCH (17:48)
[2019-12-05 17:55] VITALS: BP 131/84
[2019-12-05] MEDS ORDERED: ADVAIR HFA 115/21 MCG INHALER 8 GM IH PRN (20:00)
--- NOTE | 2019-12-05 22:05 | Cardiology Progress Note ---
Cardiology SOAP Progress Note Subjective: Denies any cardiac complaints. Objective: I&O/Vital Signs 12/06/19 12/06/19 05:01 08:00 Temp 36.9 Pulse 79 Resp 18 B/P (MAP) 132/79 (96) Pulse Ox 95 96 O2 Delivery Room Air Room Air 12/06/19 00:00 Intake Total 1210 ml Output Total 2 ml Balance 1208 ml Weight (Pounds): 215 Weight (Ounces): 0.0 Weight (Calculated Kilograms): 97.447244 Constitutional: No appears stated age; AAO x 3; No apparent distress, No PERRL, No well-developed, No well-nourished, No other Respiratory: chest is bilaterally symmetric, lungs clear to auscultation Cardiovascular: regular rate-rhythm, S1 and S2; No diastolic murmur, No systolic murmur Gastrointestional: soft, audible bowel sounds Extremities: normal inspection, no lower extremity edema bilateral Neurologic/Psychiatric: no motor/sensory deficits, alert, normal mood/affect, oriented x 3 Skin: normal color, warm/dry Results/Procedures: Labs Laboratory Tests 12/05/19 20:14: Glucometer 160H 12/06/19 04:53: Glucometer 157H 12/06/19 07:00: White Blood Count 6.1, Red Blood Count 5.03, Hemoglobin 15.5, Hematocrit 45, Mean Corpuscular Volume 90, Mean Corpuscular Hemoglobin 31, Mean Corpuscular Hemoglobin Concent 34, Red Cell Distribution Width 13.4, Platelet Count 200, Mean Platelet Volume 11.4H, Neutrophils (%) (Auto) 56, Lymphocytes (%) (Auto) 33, Monocytes (%) (Auto) 9, Eosinophils (%) (Auto) 2, Basophils (%) (Auto) 1, Neutrophils # (Auto) 3.4, Lymphocytes # (Auto) 2.0, Monocytes # (Auto) 0.5, Eosinophils # (Auto) 0.1, Basophils # (Auto) 0.0, Sodium Level 138, Potassium Level 3.9, Chloride Level 102, Carbon Dioxide Level 26, Anion Gap 10, Blood Urea Nitrogen 18, Creatinine 1.11, Estimat Glomerular Filtration Rate > 60, BUN/Creatinine Ratio 16, Glucose Level 174H, Calcium Level 9.0, Corrected Calcium 9.0, Total Bilirubin 0.9, Aspartate Amino Transf (AST/SGOT) 14, Alanine Aminotransferase (ALT/SGPT) 16, Alkaline Phosphatase 57, Total Protein 6.7, Albumin 4.0 12/06/19 10:46: Glucometer 156H 12/06/19 15:07: Glucometer 166H A/P: Assessment/Dx: Uncontrolled hypertension Dizziness with frequent falls of undetermined etiology. Bradycardia may be contributing to symptoms Paroxysmal atrial fib. He has had EP eval with Dr Bingham at [facility] and has been advised conservative therapy for a fib. Currently appears to be in A fib with a relatively slow vent response ECG of 03/25/19: sinus chuy with repol abn and mild prolongation of QT CHADSVASc score 4. Chronic rivaroxaban therapy for stroke prophylaxis H/o hypokalemia due to diuretic therapy (HCTZ). HCTZ d/c'd on 02/05/18 CAD with a h/o stenting of mid LAD and mid RCA-PL in 1999 at and CABG in November 2008 in [place], [place], which consisted of MCGEE to LAD and SVG to a diag and SVG to distal RCA-PL. LVEF was 65% and LVEDP was mildly to moderately elevated at time of cath of November 2008 MPI of 12/03/17 did not show ischemia or infarction, and LVEF was 62%; he remained in A Fib with a controlled vent rate Echo of 07/17/18 shows LVEF 60-65%, mild LA enlargement, mild MR, PASP 35 mmHg Hyperlipidemia DM II Mild carotid arterial disease on carotid us of 06/26/18 No AAA on abd ao scan of 10/09/16 Abnormal ECG, chronic Mild restrictive lung disease and R lung nodule being followed by Dr Aguilar Elevated BMI of approx 32 Mild FABIAN per sleep studies on sleep study of 07/17/15, CPAP was recommended by Dr Aguirre, but Dr Macdonald has been noncompliant Chronic bilateral swelling, likely due to venous insuff and/or amlodipine. Amlodipine d/c'd on 02/05/18 and it resulted in improvement of swelling Symptoms of leg claudication in the past, but currently not describing any Plan: Continue adjusting antihypertensive regimen. Dizziness of undetermined etiology with frequent falls, can not r/o chuy- arrhythmia. Beta blockers held. Continue OAC for stroke prophylaxis d/t h/o PAF Monitor lab closely Replace electrolytes Continues to be in sinus rhythm. Thank you for your consultation. Please call me if you have any questions. Elmer Ch MD, FACP, FACC, FSCAI, FHRS, CCDS Interventional Cardiology Cardiac Electrophysiology Vascular Medicine and Endovascular Interventions Abran CH MD Dec 05, 2019 22:05
[2019-12-06 05:01] VITALS: BP 132/79
[2019-12-06 07:16] LABS: BASOPHILS % (AUTO) 1 % (0-10); EOSINOPHILS # (AUTO) 0.1 10^3/uL (0.0-0.3); EOSINOPHILS % (AUTO) 2 % (0-10); HEMATOCRIT 45 % (40-54); HEMOGLOBIN 15.5 G/DL (13.3-17.7); LYMPHOCYTES % (AUTO) 33 % (12-44); MEAN CORPUSCULAR HEMOGLOBIN 31 PG (25-34); MEAN CORPUSCULAR HGB CONC 34 G/DL (32-36); MEAN CORPUSCULAR VOLUME 90 FL (80-99); MEAN PLATELET VOLUME 11.4 FL (7.4-10.4); MONOCYTES # (AUTO) 0.5 X 10^3 (0.0-1.0); MONOCYTES % (AUTO) 9 % (0-12); NEUTROPHILS # (AUTO) 3.4 X 10^3 (1.8-7.8); NEUTROPHILS % (AUTO) 56 % (42-75); PLATELET COUNT 200 10^3/uL (130-400); RED CELL DISTRIBUTION WIDTH 13.4 % (10.0-14.5); WHITE BLOOD COUNT 6.1 10^3/uL (4.3-11.0)
[2019-12-06 07:30] LABS: CHLORIDE 102 MMOL/L (98-107); POTASSIUM 3.9 MMOL/L (3.6-5.0); SODIUM 138 MMOL/L (135-145)
[2019-12-06 07:32] LABS: GLUCOSE 174 MG/DL (70-105); TOTAL PROTEIN 6.7 GM/DL (6.4-8.2)
[2019-12-06 07:33] LABS: CARBON DIOXIDE 26 MMOL/L (21-32)
[2019-12-06 07:34] LABS: BILIRUBIN,TOTAL 0.9 MG/DL (0.1-1.0)
[2019-12-06 07:35] LABS: ALKALINE PHOSPHATASE 57 U/L (40-136)
[2019-12-06 07:36] LABS: CREATININE SERUM 1.11 MG/DL (0.60-1.30); GFR ESTIMATED > 60
[2019-12-06 07:37] LABS: BUN/CREATININE RATIO 16
[2019-12-06 07:39] LABS: ALANINE AMINOTRANSFERASE 16 U/L (0-55)
[2019-12-06] MEDS: ASPIRIN E.C. 81 MG (ECOTRIN) TAB PO SCH (08:38)
[2019-12-06] MEDS: FINASTERIDE (PROSCAR) 5 MG TAB PO SCH (08:38)
[2019-12-06] MEDS: amLODIPine 5 MG (NORVASC) TAB PO SCH (08:38)
[2019-12-06] MEDS: VALSARTAN 80 MG (DIOVAN) TAB PO SCH (08:40)
[2019-12-06] MEDS: metFORMIN 850 MG (GLUCOPHAGE) TAB PO SCH (08:40)
[2019-12-06] MEDS: DOCUSATE SODIUM 100 MG (COLACE) CAP PO SCH ×2 (09:13→20:19)
[2019-12-06] MEDS: polyethylene glycoL POWDER 17 GM (MIRALAX) PACK PO SCH ×2 (09:13→20:19)
[2019-12-06] MEDS: SENNA W/DOCUSATE (SENOKOT S) TABLET PO SCH ×2 (09:14→20:19)
--- NOTE | 2019-12-06 10:36 | PM&R Progress Note ---
Subjective HPI/CC On Admission Date Seen by Provider: Dec 06, 2019 Time Seen by Provider: 12:30 Subjective/Events-last exam Patient seems to be feeling better Less dizzy Talked to his about the possible etiology of vertigo and dizziness No pain reported BM+ Sugars improved Walker with stand by assist now Improving overall Checked meds and labs Reviewed therapy notes Conferred with button maker of Systems General: Fatigue Neurological: Weakness, Incoordination Objective Exam Vital Signs Vital Signs Date Time Temp Pulse Resp B/P (MAP) Pulse Ox O2 Delivery O2 Flow Rate FiO2 12/06/19 17:45 36.7 89 18 143/66 (91) 95 Room Air Capillary Refill : Less Than 3 Seconds General Appearance: No Apparent Distress, WD/WN, Chronically ill, Obese HEENT: PERRL/EOMI, Normal ENT Inspection, Pharynx Normal Neck: Full Range of Motion, Normal Inspection, Non Tender, Supple, Carotid Bruit Respiratory: Chest Non Tender, Lungs Clear, Normal Breath Sounds, No Accessory Muscle Use, No Respiratory Distress Cardiovascular: Regular Rate, Rhythm, No Edema, No Gallop, No JVD, No Murmur, Normal Peripheral Pulses Gastrointestinal: Normal Bowel Sounds, No Organomegaly, No Pulsatile Mass, Non Tender, Soft Back: Normal Inspection, No CVA Tenderness, No Vertebral Tenderness Extremity: Normal Capillary Refill, Normal Inspection, Normal Range of Motion, Non Tender, No Calf Tenderness, No Pedal Edema Neurologic/Psychiatric: Alert, Oriented x3, No Motor/Sensory Deficits, Normal Mood/Affect, Abnormal Gait (major fall risk while walking with walker and fire assistant), Motor Weakness (generalized all extremities) Skin: Normal Color, Warm/Dry Lymphatic: No Adenopathy Results/Procedures Lab Laboratory Tests 12/06/19 07:00 Patient resulted labs reviewed. FIM Transfers Therapy Code Descriptions/Definitions Functional [place] Measure: 0=Not Assessed/NA 4=Minimal Assistance 1=Total Assistance 5=Supervision or Setup 2=Maximal Assistance 6=Modified [place] 3=Moderate Assistance 7=Complete IndependenceSCALE: Activities may be completed with or without assistive devices. 2-Yfnxojftwl-lzvnuiy completes the activity by him/herself with no assistance from a helper. 5-Set-up or Clean-up Assistance-helper sets up or cleans up; patient completes activity. [place] assists only prior to or following the activity. 4-Supervision or Touching Assistance-helper provides verbal cues and/or touching/steadying and/or contact guard assistance as patient completes activity. Assistance may be provided throughout the activity or intermittently. 3-Partial/Moderate Assistance-helper does LESS THAN HALF the effort. [place] lifts, holds or supports trunk or limbs, but provides less than half the effort. 2-Substantial/Maximal Assistance-helper does MORE THAN HALF the effort. [place] lifts or holds trunk or limbs and provides more than half the effort. 5-Qihoyislf-kasbdm does ALL the effort. Patient does none of the effort to complete the activity. Or, the assistance of 2 or more helpers is required for the patient to complete the activity. If activity was not attempted, code reason: 7-Patient Refused. 9-Not Applicable-not attempted and the patient did not perform the activity before the current illness, exacerbation or injury. 10-Not Attempted due to Environmental Limitations-(lack of equipment, weather restraints, etc.). 88-Not Attempted due to Medical Conditions or Safety Concerns. Roll Left to Right (QC): 6 Sit to Lying (QC): 6 Sit to Stand (QC): 4 Chair/Ugu-aw-Rnkvc Xfer(QC): 4 Car Transfer (QC): 4 Gait Training Does the Patient Walk?: Yes Walk 10 feet (QC): 4 Walk 50 ft with 2 Turns(QC): 4 Walk 150 ft (QC): 4 Walking 10ft/uneven surface-QC: 4 Gait Assistive Device: FWW Wheelchair Training Does the Pt Use a Wheelchair?: No Wheel 50 ft with 2 turns (QC): 9 Wheel 150 ft (QC): 9 Stair Training #of Steps: 4 1 Step (curb) (QC): 4 4 Steps (QC): 4 12 Steps (QC): 4 Balance Picking up an Object (QC): 4 ADL-Treatment Eating (QC): 6 Oral Hygiene (QC): 6 Shower/Bathe Self (QC): 7 Upper Body Dressing (QC): 7 Lower Body Dressing (QC): 7 On/Off Footwear (QC): 4 Toileting Hygiene (QC): 7 Assessment/Plan Assessment and Plan Assess & Plan/Chief Complaint Assessment per Dr Mckeon with my modifications: Dizziness and poor balance of undetermined etiology. CT head of 12/02/19 showed probable, remote L periventricular white matter infarct, MRI negative for acute or subacute CVA Uncontrolled hypertension, improved with med changes Dizziness with frequent falls of undetermined etiology. Beta-chin disc ontinued during this admission under the suspicion that bradycardia may be contributing to symptoms Paroxysmal atrial fib. He has had EP eval with Dr Bingham at [facility] and has been advised conservative therapy for a fib CHADSVASc score 4. Chronic rivaroxaban therapy for stroke prophylaxis. He has intermittently been noncompliant H/o hypokalemia due to diuretic therapy (HCTZ). HCTZ d/c'd on 02/05/18 CAD with a h/o stenting of mid LAD and mid RCA-PL in 1999 at and CABG in November 2008 in [place], [place], which consisted of MCGEE to LAD and SVG to a diag and SVG to distal RCA-PL. LVEF was 65% and LVEDP was mildly to moderately elevated at time of cath of November 2008 MPI of 12/03/17 did not show ischemia or infarction, and LVEF was 62%; he remained in A Fib with a controlled vent rate Echo of 07/17/18 shows LVEF 60-65%, mild LA enlargement, mild MR, PASP 35 mmHg Hyperlipidemia DM II Mild carotid arterial disease on carotid us of 06/26/18 No AAA on abd on scan of 10/09/16 Mild restrictive lung disease and R lung nodule being followed by Dr Aguilar Mild FABIAN per sleep studies on sleep study of 07/17/15, CPAP was recommended by Dr Aguirre, but Dr Macdonald has been noncompliant Chronic bilateral swelling, likely due to venous insuff and/or amlodipine. Currently tolerating amlodipine well Plan: Fall risk IRF protocol DM management Insulin BP monitoring (1) Disequilibrium Status: Acute (2) Severe hypertension Status: Acute (3) CAD (coronary atherosclerotic disease) (4) DMII (diabetes mellitus, type 2) (5) BPH w/o urinary obs/LUTS (6) Hypokalemia (7) AfRADHA Torres DO Dec 06, 2019 10:36
--- NOTE | 2019-12-06 16:59 | Cardiology Progress Note ---
Cardiology SOAP Progress Note Subjective: Denies any cardiac complaints. Lying comfortably in the bed. at the bedside. No chest pain or shortness of breath. Objective: I&O/Vital Signs 12/06/19 12/06/19 05:01 08:00 Temp 36.9 Pulse 79 Resp 18 B/P (MAP) 132/79 (96) Pulse Ox 95 96 O2 Delivery Room Air Room Air 12/06/19 00:00 Intake Total 1210 ml Output Total 2 ml Balance 1208 ml Weight (Pounds): 215 Weight (Ounces): 0.0 Weight (Calculated Kilograms): 97.557537 Constitutional: No appears stated age; AAO x 3; No apparent distress, No PERRL, No well-developed, No well-nourished, No other Respiratory: chest is bilaterally symmetric, lungs clear to auscultation Cardiovascular: regular rate-rhythm, S1 and S2; No diastolic murmur, No systolic murmur Gastrointestional: soft, audible bowel sounds Extremities: normal inspection, no lower extremity edema bilateral Neurologic/Psychiatric: no motor/sensory deficits, alert, normal mood/affect, oriented x 3 Skin: normal color, warm/dry Results/Procedures: Labs Laboratory Tests 12/05/19 20:14: Glucometer 160H 12/06/19 04:53: Glucometer 157H 12/06/19 07:00: White Blood Count 6.1, Red Blood Count 5.03, Hemoglobin 15.5, Hematocrit 45, Mean Corpuscular Volume 90, Mean Corpuscular Hemoglobin 31, Mean Corpuscular Hemoglobin Concent 34, Red Cell Distribution Width 13.4, Platelet Count 200, Mean Platelet Volume 11.4H, Neutrophils (%) (Auto) 56, Lymphocytes (%) (Auto) 33, Monocytes (%) (Auto) 9, Eosinophils (%) (Auto) 2, Basophils (%) (Auto) 1, Neutrophils # (Auto) 3.4, Lymphocytes # (Auto) 2.0, Monocytes # (Auto) 0.5, Eosinophils # (Auto) 0.1, Basophils # (Auto) 0.0, Sodium Level 138, Potassium Level 3.9, Chloride Level 102, Carbon Dioxide Level 26, Anion Gap 10, Blood Urea Nitrogen 18, Creatinine 1.11, Estimat Glomerular Filtration Rate > 60, BUN/Creatinine Ratio 16, Glucose Level 174H, Calcium Level 9.0, Corrected Calcium 9.0, Total Bilirubin 0.9, Aspartate Amino Transf (AST/SGOT) 14, Alanine Aminotransferase (ALT/SGPT) 16, Alkaline Phosphatase 57, Total Protein 6.7, [place]bu min 4.0 12/06/19 10:46: Glucometer 156H 12/06/19 15:07: Glucometer 166H A/P: Assessment/Dx: Uncontrolled hypertension Dizziness with frequent falls of undetermined etiology. Bradycardia may be contributing to symptoms Paroxysmal atrial fib. He has had EP eval with Dr Bingham at [facility] and has been advised conservative therapy for a fib. Currently appears to be in A fib with a relatively slow vent response ECG of 03/25/19: sinus chuy with repol abn and mild prolongation of QT CHADSVASc score 4. Chronic rivaroxaban therapy for stroke prophylaxis H/o hypokalemia due to diuretic therapy (HCTZ). HCTZ d/c'd on 02/05/18 CAD with a h/o stenting of mid LAD and mid RCA-PL in 1999 at and CABG in November 2008 in [place], [place], which consisted of MCGEE to LAD and SVG to a diag and SVG to distal RCA-PL. LVEF was 65% and LVEDP was mildly to moderately elevated at time of cath of November 2008 MPI of 12/03/17 did not show ischemia or infarction, and LVEF was 62%; he remained in A Fib with a controlled vent rate Echo of 07/17/18 shows LVEF 60-65%, mild LA enlargement, mild MR, PASP 35 mmHg Hyperlipidemia DM II Mild carotid arterial disease on carotid us of 06/26/18 No AAA on abd ao scan of 10/09/16 Abnormal ECG, chronic Mild restrictive lung disease and R lung nodule being followed by Dr Aguilar Elevated BMI of approx 32 Mild FABIAN per sleep studies on sleep study of 07/17/15, CPAP was recommended by Dr Aguirre, but Dr Macdonald has been noncompliant Chronic bilateral swelling, likely due to venous insuff and/or amlodipine. A mlodipine d/c'd on 02/05/18 and it resulted in improvement of swelling Symptoms of leg claudication in the past, but currently not describing any Plan: Continue adjusting antihypertensive regimen. Dizziness of undetermined etiology with frequent falls, can not r/o chuy- arrhythmia. Beta blockers held. Continue OAC for stroke prophylaxis d/t h/o PAF Monitor lab closely Replace electrolytes Continues to be in sinus rhythm. Thank you for your consultation. Please call me if you have any questions. Elmer Ch MD, FACP, FACC, FSCAI, FHRS, CCDS Interventional Cardiology Cardiac Electrophysiology Vascular Medicine and Endovascular Interventions Abran CH MD Dec 06, 2019 16:59
[2019-12-06] MEDS: RIVAROXABAN 20 MG TABLET (XARELTO) PO SCH (17:19)
[2019-12-06 17:45] VITALS: BP 143/66
[2019-12-07 05:15] VITALS: BP 136/78
--- NOTE | 2019-12-07 08:57 | Physical Therapy Daily Note ---
PT Daily Note-Current Subjective Patient in bed pre tx, agrees to PT, has no complaints of pain. Appearance Patient in bed post tx with nurse call, phone, tray, all needs met. has OT right after PT Mental Status Patient Orientation: Person, Place, Situation Transfers SCALE: Activities may be completed with or without assistive devices. 3-Osijmacjjz-rwdyrfw completes the activity by him/herself with no assistance from a helper. 5-Set-up or Clean-up Assistance-helper sets up or cleans up; patient completes activity. [place] assists only prior to or following the activity. 4-Supervision or Touching Assistance-helper provides verbal cues and/or touching/steadying and/or contact guard assistance as patient completes activity. Assistance may be provided throughout the activity or intermittently. 3-Partial/Moderate Assistance-helper does LESS THAN HALF the effort. [place] lifts, holds or supports trunk or limbs, but provides less than half the effort. 2-Substantial/Maximal Assistance-helper does MORE THAN HALF the effort. [place] lifts or holds trunk or limbs and provides more than half the effort. 7-Jrfhykfvy-orlbzz does ALL the effort. Patient does none of the effort to complete the activity. Or, the assistance of 2 or more helpers is required for the patient to complete the activity. If activity was not attempted, code reason: 7-Patient Refused. 9-Not Applicable-not attempted and the patient did not perform the activity before the current illness, exacerbation or injury. 10-Not Attempted due to Environmental Limitations-(lack of equipment, weather restraints, etc.). 88-Not Attempted due to Medical Conditions or Safety Concerns. Roll Left & Right (QC): 6 Sit to Lying (QC): 6 Lying to Sitting/Side of Bed(Q: 6 Sit to Stand (QC): 4 Chair/Fco-ex-Frpou Xfer(QC): 4 SBA with sit to stand and transfers, patient has intermittent moments of dizziness Weight Bearing Right Lower Extremity: Right Full Weight Bearing Left Lower Extremity: Left Full Weight Bearing Gait Training Distance: 400'x2 Walk 10 feet (QC): 4 Walk 50 ft with 2 Turns(QC): 4 Walk 150 ft (QC): 4 Gait Persons Needed: 1 Gait Assistive Device: FWW SBA, slow but steady ambulation, patient is very careful about standing straight and keeping walker from getting too far out in front of him, has intermittent moments of dizziness Exercises Standing: Heel/toe raises, Mini squats Standing Reps: 20 LAQ alternating for 5 min with 2# ankle weights NuStep Minutes: 15 NuStep Workload: 4 Treatments bed mobility and transfers, ambulation, functional strengthening, patient was also toileted twice, once for urination and another for a BM, he was SBA for both Assessment Current Status: Fair Progress still has intermittent dizziness but it passes quickly, patient knows when it happens and will stand still to let it pass 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 Crew Goals Long-Term Goals PT Long-Term Goals Time Frame: Dec 19, 2019 Roll Left & Right (QC): 6 Sit to Lying (QC): 6 Lying-Sitting on Side/Bed(QC): 6 Sit to Stand (QC): 6 Chair/Ugk-my-Xlxcu Xfer(QC): 6 Toilet Transfer (QC): 6 Car Transfer (QC): 6 Does the Patient Walk: Yes Walk 10 feet (QC): 6 Walk 50ft with 2 Turns (QC): 6 Walk 150 ft (QC): 6 Walking 10ft on Uneven Surface: 6 1 Step (curb) (QC): 6 4 Steps (QC): 6 12 Steps (QC): 6 Picking up an Object (QC): 6 Wheel 50 feet with 2 turns (QC: 9 Wheel 150 feet: 9 PT Plan Problem List Problem List: Activity Tolerance, Functional Strength, Safety, Balance, Gait, Transfer Treatment/Plan Treatment Plan: Continue Plan of Care Treatment Plan: Bed Mobility, Education, Functional Activity Lester, Functional Strength, Group Therapy, Gait, Safety, Therapeutic Exercise, Transfers Treatment Duration: Dec 19, 2019 Frequency: 6 times per week Estimated Hrs Per Day: 1.5 hours per day Patient and/or Family Agrees t: Yes Safety Risks/Education Patient Education: Gait Training, Transfer Techniques, Correct Positioning, Safety Issues Teaching Recipient: Patient Teaching Methods: Demonstration, Discussion Response to Teaching: Reinforcement Needed Time/GCodes Time In: 0800 Time Out: 0900 Total Billed Treatment Time: 60 Total Billed Treatment 1 visit GT 20' FA 10' EX 30' DANIAL RIGGS PT Dec 07, 2019 08:57
[2019-12-07 09:00] VITALS: BP 146/83
[2019-12-07] MEDS: metFORMIN 850 MG (GLUCOPHAGE) TAB PO SCH (09:27)
[2019-12-07] MEDS: amLODIPine 5 MG (NORVASC) TAB PO SCH (09:27)
[2019-12-07] MEDS: ASPIRIN E.C. 81 MG (ECOTRIN) TAB PO SCH (09:27)
[2019-12-07] MEDS: VALSARTAN 80 MG (DIOVAN) TAB PO SCH (09:27)
[2019-12-07] MEDS: FINASTERIDE (PROSCAR) 5 MG TAB PO SCH (09:27)
[2019-12-07] MEDS: polyethylene glycoL POWDER 17 GM (MIRALAX) PACK PO SCH ×2 (09:28→20:04)
[2019-12-07] MEDS: DOCUSATE SODIUM 100 MG (COLACE) CAP PO SCH ×2 (09:28→20:03)
[2019-12-07] MEDS: SENNA W/DOCUSATE (SENOKOT S) TABLET PO SCH ×2 (09:28→20:04)
--- NOTE | 2019-12-07 10:11 | PM&R Progress Note ---
Subjective HPI/CC On Admission Date Seen by Provider: Dec 07, 2019 Time Seen by Provider: 10:30 Subjective/Events-last exam Bowels moved yesterday, declined any laxatives Sugars noted to be stable No falls Doesn't feel as strong as yesterday but I told him to be patient and allow for therapy to work with him Checked meds and labs Reviewed therapy notes Conferred with sales service executive of Systems General: Fatigue Neurological: Weakness Objective Exam Vital Signs Vital Signs Date Time Temp Pulse Resp B/P (MAP) Pulse Ox O2 Delivery O2 Flow Rate FiO2 12/07/19 18:14 92 Room Air 12/07/19 16:00 36.6 80 16 125/77 (93) Capillary Refill : Less Than 3 Seconds General Appearance: No Apparent Distress, WD/WN, Chronically ill, Obese HEENT: PERRL/EOMI, Normal ENT Inspection, Pharynx Normal Neck: Full Range of Motion, Normal Inspection, Non Tender, Supple, Carotid Bruit Respiratory: Chest Non Tender, Lungs Clear, Normal Breath Sounds, No Accessory Muscle Use, No Respiratory Distress Cardiovascular: Regular Rate, Rhythm, No Edema, No Gallop, No JVD, No Murmur, Normal Peripheral Pulses Gastrointestinal: Normal Bowel Sounds, No Organomegaly, No Pulsatile Mass, Non Tender, Soft Back: Normal Inspection, No CVA Tenderness, No Vertebral Tenderness Extremity: Normal Capillary Refill, Normal Inspection, Normal Range of Motion, Non Tender, No Calf Tenderness, No Pedal Edema Neurologic/Psychiatric: Alert, Oriented x3, No Motor/Sensory Deficits, Normal Mood/Affect, Abnormal Gait (major fall risk while walking with walker and judicial assistant), Motor Weakness (generalized all extremities) Skin: Normal Color, Warm/Dry Lymphatic: No Adenopathy Results/Procedures Lab Patient resulted labs reviewed. FIM Transfers Therapy Code Descriptions/Definitions Functional [place] Measure: 0=Not Assessed/NA 4=Minimal Assistance 1=Total Assistance 5=Supervision or Setup 2=Maximal Assistance 6=Modified [place] 3=Moderate Assistance 7=Complete IndependenceSCALE: Activities may be completed with or without assistive devices. 0-Rhtcyuwvwu-cybpewi completes the activity by him/herself with no assistance from a helper. 5-Set-up or Clean-up Assistance-helper sets up or cleans up; patient completes activity. [place] assists only prior to or following the activity. 4-Supervision or Touching Assistance-helper provides verbal cues and/or touching/steadying and/or contact guard assistance as patient completes activity. Assistance may be provided throughout the activity or intermittently. 3-Partial/Moderate Assistance-helper does LESS THAN HALF the effort. [place] lifts, holds or supports trunk or limbs, but provides less than half the effort. 2-Substantial/Maximal Assistance-helper does MORE THAN HALF the effort. [place] lifts or holds trunk or limbs and provides more than half the effort. 1-Cjdbhlzxg-ioakym does ALL the effort. Patient does none of the effort to complete the activity. Or, the assistance of 2 or more helpers is required for the patient to complete the activity. If activity was not attempted, code reason: 7-Patient Refused. 9-Not Applicable-not attempted and the patient did not perform the activity before the current illness, exacerbation or injury. 10-Not Attempted due to Environmental Limitations-(lack of equipment, weather restraints, etc.). 88-Not Attempted due to Medical Conditions or Safety Concerns. Roll Left to Right (QC): 6 Sit to Lying (QC): 6 Sit to Stand (QC): 4 Chair/Oyf-et-Cmgoe Xfer(QC): 4 Car Transfer (QC): 4 Gait Training Does the Patient Walk?: Yes Distance: 400'x2 Walk 10 feet (QC): 4 Walk 50 ft with 2 Turns(QC): 4 Walk 150 ft (QC): 4 Walking 10ft/uneven surface-QC: 4 Gait Persons Needed: 1 Gait Assistive Device: FWW Wheelchair Training Does the Pt Use a Wheelchair?: No Wheel 50 ft with 2 turns (QC): 9 Wheel 150 ft (QC): 9 Stair Training #of Steps: 4 1 Step (curb) (QC): 4 4 Steps (QC): 4 12 Steps (QC): 4 Balance Picking up an Object (QC): 4 ADL-Treatment Eating (QC): 6 Oral Hygiene (QC): 6 Shower/Bathe Self (QC): 7 Upper Body Dressing (QC): 7 Lower Body Dressing (QC): 7 On/Off Footwear (QC): 4 Toileting Hygiene (QC): 7 Assessment/Plan Assessment and Plan Assess & Plan/Chief Complaint Assessment per Dr Mckeon with my modifications: Dizziness and poor balance of undetermined etiology. CT head of 12/02/19 showed probable, remote L periventricular white matter infarct, MRI negative for acute or subacute CVA Uncontrolled hypertension, improved with med changes Dizziness with frequent falls of undetermined etiology. Beta-chin discontinued during this admission under the suspicion that bradycardia may be contributing to symptoms Paroxysmal atrial fib. He has had EP eval with Dr Bingham at [facility] and has been advised conservative therapy for a fib CHADSVASc score 4. Chronic rivaroxaban therapy for stroke prophylaxis. He has intermittently been noncompliant H/o hypokalemia due to diuretic therapy (HCTZ). HCTZ d/c'd on 02/05/18 CAD with a h/o stenting of mid LAD and mid RCA-PL in 1999 at and CABG in November 2008 in [place], [place], which consisted of MCGEE to LAD and SVG to a diag and SVG to distal RCA-PL. LVEF was 65% and LVEDP was mildly to moderately elevated at time of cath of November 2008 MPI of 12/03/17 did not show ischemia or infarction, and LVEF was 62%; he remained in A Fib with a controlled vent rate Echo of 07/17/18 shows LVEF 60-65%, mild LA enlargement, mild MR, PASP 35 mmHg Hyperlipidemia DM II Mild carotid arterial disease on carotid us of 06/26/18 No AAA on abd on scan of 10/09/16 Mild restrictive lung disease and R lung nodule being followed by Dr Aguilar Mild FABIAN per sleep studies on sleep study of 07/17/15, CPAP was recommended by Dr Aguirre, but Dr Macdonald has been noncompliant Chronic bilateral swelling, likely due to venous insuff and/or amlodipine. C urrently tolerating amlodipine well Plan: Fall risk IRF protocol DM management Insulin BP monitoring (1) Disequilibrium Status: Acute (2) Severe hypertension Status: Acute (3) CAD (coronary atherosclerotic disease) (4) DMII (diabetes mellitus, type 2) (5) BPH w/o urinary obs/LUTS (6) Hypokalemia (7) Afib RADHA GARBER DO Dec 07, 2019 10:11
--- NOTE | 2019-12-07 10:12 | Occupational Ther Daily Note ---
OT Current Status-Daily Note Subjective Pt alert, lying in bed. Pt agrees to therapy. No c/o pain. C/o unsteadiness. Mental Status/Objective Patient Orientation: Person, Place, Time, Situation Attachments: IV ADL-Treatment Pt agrees to shower. Pt requires set up for shower. Pt stated that he had just gone to toilet. Per clinical judgement, close SBA for transfer to toilet and close SBA to manipulate clothing and hygiene. Verbal cues to keep FWW with pt while transferring into shower. Verbal cues for sitting to complete shower and when threading feet into pant legs. Pt able to complete shower using grabbars, shower bench and hand held shower with SBA for safety when standing to cleanse buttocks. After set up, pt able to don/doff shirt by self. Pt able to thread pants over feet and pull up legs, SBA for safety to hike pants over hips. Pt donned/doffed socks by self after set up. Standing at sink pt completed oral care with SBA. After session, pt lying in bed with call light/phone in reach. All needs met in room. Therapy Code Descriptions/Definitions Functional [place] Measure: 0=Not Assessed/NA 4=Minimal Assistance 1=Total Assistance 5=Supervision or Setup 2=Maximal Assistance 6=Modified [place] 3=Moderate Assistance 7=Complete IndependenceSCALE: Activities may be completed with or without assistive devices. 4-Ylddqvvkke-ftgwjcd completes the activity by him/herself with no assistance from a helper. 5-Set-up or Clean-up Assistance-helper sets up or cleans up; patient completes activity. [place] assists only prior to or following the activity. 4-Supervision or Touching Assistance-helper provides verbal cues and/or touching/steadying and/or contact guard assistance as patient completes activity. Assistance may be provided throughout the activity or intermittently. 3-Partial/Moderate Assistance-helper does LESS THAN HALF the effort. [place] lifts, holds or supports trunk or limbs, but provides less than half the effort. 2-Substantial/Maximal Assistance-helper does MORE THAN HALF the effort. [place] lifts or holds trunk or limbs and provides more than half the effort. 2-Eedtdmkzy-semkkm does ALL the effort. Patient does none of the effort to complete the activity. Or, the assistance of 2 or more helpers is required for the patient to complete the activity. If activity was not attempted, code reason: 7-Patient Refused. 9-Not Applicable-not attempted and the patient did not perform the activity before the current illness, exacerbation or injury. 10-Not Attempted due to Environmental Limitations-(lack of equipment, weather restraints, etc.). 88-Not Attempted due to Medical Conditions or Safety Concerns. Eating (QC): 6 (Per clinical judgment, pt able to set up own meal and use regular utensils.) Oral Hygiene (QC): 4 Bathing Location: L Arm, R Arm, L Upper Leg, R Upper Leg, L Lower Leg (including foot), R Lower Leg (including foot), Chest, Abdomen, Buttocks, Perineal Area Shower/Bathe Self (QC): 4 Upper Body Dressing (QC): 5 Lower Body Dressing (QC): 4 On/Off Footwear: 5 Toileting Hygiene (QC): 4 Toilet Transfer (QC): 4 OT Short Term Goals Short Term Goals Time Frame: Dec 12, 2019 Shower/bathe self: 3 Upper body dressin Lower body dressin Putting on/taking off footwear: 5 OT [facility]ci Goals [employer] Goals Time Frame: Dec 19, 2019 Eating (QC): 6 Oral Hygiene (QC): 6 Toileting Hygiene (QC): 6 Shower/Bathe Self (QC): 6 Upper Body Dressing (QC): 6 Lower Body Dressing (QC): 6 On/Off Footwear (QC): 6 Additional Goals: 1-Demonstrate ADL Tasks, 2-Verbalize Understanding, 3-ImproveStrength/Lester 1=Demonstrate adherence to instructed precautions during ADL tasks. 2=Patient will verbalize/demonstrate understanding of assistive devices/modifications for ADL. 3=Patient will improve strength/tolerance for activity to enable patient to perform ADL's. OT Education/Plan Problem List/Assessment Assessment: Decreased Activ Tolerance, Decreased Safety Aware, Impaired Coordination, Impaired Funct Balance, Impaired Self-Care Skills Discharge Recommendations Plan/Recommendations: Continue POC Treatment Plan/Plan of Care Patient would benefit from OT for education, treatment and training to promote independence in ADL's, mobility, safety and/or upper extremity function for ADL's. Plan of Care: ADL Retraining, Caregiver Training, Functional Mobility, Group Exercise/Act as Ind, UE Funct Exercise/Act Treatment Duration: Dec 19, 2019 Frequency: At least 5 of 7 days/Wk (IRF) Estimated Hrs Per Day: 1.5 hours per day Agreement: Yes Rehab Potential: Good Time/GCodes Start Time: 09:00 Stop Time: 10:00 Total Time Billed (hr/min): 60 Billed Treatment Time 1 visit-ADL 4 (60 min) LARRY CRUZ Dec 07, 2019 10:12
--- NOTE | 2019-12-07 11:53 | NUR ---
Pt is [employer]. Data Entry Technician provided prayer and Communion.
--- NOTE | 2019-12-07 13:46 | Occupational Ther Daily Note ---
OT Current Status-Daily Note Subjective Pt lying in bed, alert. present during session. Pt agrees to therapy. Mental Status/Objective Patient Orientation: Person, Place, Time, Situation Attachments: IV ADL-Treatment Therapy Code Descriptions/Definitions Functional [place] Measure: 0=Not Assessed/NA 4=Minimal Assistance 1=Total Assistance 5=Supervision or Setup 2=Maximal Assistance 6=Modified [place] 3=Moderate Assistance 7=Complete IndependenceSCALE: Activities may be completed with or without assistive devices. 3-Qsvjqyloqa-cutcjwk completes the activity by him/herself with no assistance from a helper. 5-Set-up or Clean-up Assistance-helper sets up or cleans up; patient completes activity. [place] assists only prior to or following the activity. 4-Supervision or Touching Assistance-helper provides verbal cues and/or touching/steadying and/or contact guard assistance as patient completes activity. Assistance may be provided throughout the activity or intermittently. 3-Partial/Moderate Assistance-helper does LESS THAN HALF the effort. [place] lifts, holds or supports trunk or limbs, but provides less than half the effort. 2-Substantial/Maximal Assistance-helper does MORE THAN HALF the effort. [place] lifts or holds trunk or limbs and provides more than half the effort. 9-Cpubqsnke-pdiryj does ALL the effort. Patient does none of the effort to complete the activity. Or, the assistance of 2 or more helpers is required for the patient to complete the activity. If activity was not attempted, code reason: 7-Patient Refused. 9-Not Applicable-not attempted and the patient did not perform the activity before the current illness, exacerbation or injury. 10-Not Attempted due to Environmental Limitations-(lack of equipment, weather restraints, etc.). 88-Not Attempted due to Medical Conditions or Safety Concerns. Other Treatment Supine <--> sitting, independent. Ambulated using FWW with close SBA to therapy gym. Completed UE strengthening and activity tolerance exercises for daily functional tasks. Arm bike 25 [place] resistance for 15 min. Color coded clothespins to increase pinch audit associate strength and problem solving. After session, pt left in care of PT. All needs met in room. OT Short Term Goals Short Term Goals Time Frame: Dec 12, 2019 Shower/bathe self: 3 Upper body dressin Lower body dressin Putting on/taking off footwear: 5 OT Fci Goals Fci Goals Time Frame: Dec 19, 2019 Eating (QC): 6 Oral Hygiene (QC): 6 Toileting Hygiene (QC): 6 Shower/Bathe Self (QC): 6 Upper Body Dressing (QC): 6 Lower Body Dressing (QC): 6 On/Off Footwear (QC): 6 Additional Goals: 1-Demonstrate ADL Tasks, 2-Verbalize Understanding, 3- ImproveStrength/L[place] 1=Demonstrate adherence to instructed precautions during ADL tasks. 2=Patient will verbalize/demonstrate understanding of assistive devices/modifications for ADL. 3=Patient will improve strength/tolerance for activity to enable patient to perform ADL's. OT Education/Plan Problem List/Assessment Assessment: Decreased UE Strength, Impaired Funct Balance Discharge Recommendations Plan/Recommendations: Continue POC Treatment Plan/Plan of Care Patient would benefit from OT for education, treatment and training to promote independence in ADL's, mobility, safety and/or upper extremity function for ADL's. Plan of Care: ADL Retraining, Caregiver Training, Functional Mobility, Group Exercise/Act as Ind, UE Funct Exercise/Act Treatment Duration: Dec 19, 2019 Frequency: At least 5 of 7 days/Wk (IRF) Estimated Hrs Per Day: 1.5 hours per day Agreement: Yes Rehab Potential: Good Time/GCodes Start Time: 13:00 Stop Time: 13:30 Total Time Billed (hr/min): 30 Billed Treatment Time 1 visit-EX 2 (30 min) LARRY CRUZ Dec 07, 2019 13:46
--- NOTE | 2019-12-07 13:47 | NUR ---
CM/SS ADMISSION Patient was admitted to ARU from AV 12/05/19 for CVA. Other comorbidities are, in part, disequilibrium, severe HTN, CAD, DMII, Afib. Patient resides at home with his spouse, Griselda Macdonald, who is at bedside and participating in interview. He was not using any DME at home prior to acute onset and presentation to inpatient, he describes furniture surfing at times. Patient and spouse plan for him to return home when discharged from ARU. PCP: Dr. Allan Magdaleno MD PHARMACY: [facility] INSURANCE: Medicare, [employer] [facility] Supplement DME: Has none, will need FWW. Patient describes feeling more secure using the walker here during PT sessions. Griselda is looking into getting a shower chair and they understand it is a private pay item. Bottle Capping Machine Operator will follow patient progress with therapy for their recommendations regarding home assistive devices. BARRIERS TO DISCHARGE PLANNING: None noted. Patient has a family network for assistance and seems covered well financially for supplies/resources. CONTACTS: Griselda Macdonald, Spouse [address] [place] [address] Ezra Macdonald, Son same address [phone] ADVANCED DIRECTIVE: Patient indicates he does not have a document in place at this time. Patient and spouse understand the purpose and process of the weekly patient care conference and that his first review will be Saturday, December 09, 2019. Spouse is hopeful patient can return home some time this week.
--- NOTE | 2019-12-07 13:56 | Physical Therapy Daily Note ---
PT Daily Note-Current Subjective Patient in therapy gym pre tx, agrees to PT, has no complaints of pain. Appearance Patient in bed post tx with nurse call, phone, tray, all needs met, in room with patient. Mental Status Patient Orientation: Person, Place, Situation Transfers SCALE: Activities may be completed with or without assistive devices. 1-Zcvwkrlspn-awpzsaz completes the activity by him/herself with no assistance from a helper. 5-Set-up or Clean-up Assistance-helper sets up or cleans up; patient completes activity. [place] assists only prior to or following the activity. 4-Supervision or Touching Assistance-helper provides verbal cues and/or touching/steadying and/or contact guard assistance as patient completes activity. Assistance may be provided throughout the activity or intermittently. 3-Partial/Moderate Assistance-helper does LESS THAN HALF the effort. [place] lifts, holds or supports trunk or limbs, but provides less than half the effort. 2-Substantial/Maximal Assistance-helper does MORE THAN HALF the effort. [place] lifts or holds trunk or limbs and provides more than half the effort. 2-Wkzeksdpv-dhkaxo does ALL the effort. Patient does none of the effort to complete the activity. Or, the assistance of 2 or more helpers is required for the patient to complete the activity. If activity was not attempted, code reason: 7-Patient Refused. 9-Not Applicable-not attempted and the patient did not perform the activity before the current illness, exacerbation or injury. 10-Not Attempted due to Environmental Limitations-(lack of equipment, weather restraints, etc.). 88-Not Attempted due to Medical Conditions or Safety Concerns. Roll Left & Right (QC): 6 Sit to Lying (QC): 6 Lying to Sitting/Side of Bed(Q: 6 Sit to Stand (QC): 6 Chair/Plz-ph-Hqxzx Xfer(QC): 5 Weight Bearing Right Lower Extremity: Right Full Weight Bearing Left Lower Extremity: Left Full Weight Bearing Gait Training Distance: 600' Walk 10 feet (QC): 4 Walk 50 ft with 2 Turns(QC): 4 Walk 150 ft (QC): 4 Gait Persons Needed: 1 Gait Assistive Device: FWW slow but steady ambulation, patient is good at reminding himself to keep walker close Neuromuscular balance training in airex, 1 min x2 Treatments bed mobility and transfers, ambulation, balance training Assessment Current Status: Fair Progress unsteady on uneven surface but no mani LOB. Patient needed a few rest breaks due to fatigue. PT Meter Setter Goals Mcc Goals PT Mcc Goals Time Frame: Dec 19, 2019 Roll Left & Right (QC): 6 Sit to Lying (QC): 6 Lying-Sitting on Side/Bed(QC): 6 Sit to Stand (QC): 6 Chair/Zzv-eh-Bmwdl Xfer(QC): 6 Toilet Transfer (QC): 6 Car Transfer (QC): 6 Does the Patient Walk: Yes Walk 10 feet (QC): 6 Walk 50ft with 2 Turns (QC): 6 Walk 150 ft (QC): 6 Walking 10ft on Uneven Surface: 6 1 Step (curb) (QC): 6 4 Steps (QC): 6 12 Steps (QC): 6 Picking up an Object (QC): 6 Wheel 50 feet with 2 turns (QC: 9 Wheel 150 feet: 9 PT Plan Problem List Problem List: Activity Tolerance, Functional Strength, Safety, Balance, Gait, Transfer Treatment/Plan Treatment Plan: Continue Plan of Care Treatment Plan: Bed Mobility, Education, Functional Activity Lester, Functional Strength, Group Therapy, Gait, Safety, Therapeutic Exercise, Transfers Treatment Duration: Dec 19, 2019 Frequency: 6 times per week Estimated Hrs Per Day: 1.5 hours per day Patient and/or Family Agrees t: Yes Safety Risks/Education Patient Education: Gait Training, Transfer Techniques, Correct Positioning, Safety Issues Teaching Recipient: Patient Teaching Methods: Demonstration, Discussion Response to Teaching: Reinforcement Needed Time/GCodes Time In: 1330 Time Out: 1400 Total Billed Treatment Time: 30 Total Billed Treatment 1 visit FA 30' DANIAL RIGGS PT Dec 07, 2019 13:56
--- NOTE | 2019-12-07 14:07 | ST Cognitive Linguistic Eval ---
Speech Evaluation-General Medical Diagnosis CVA Onset Date: Dec 02, 2019 Therapy Diagnosis Therapy Diagnosis: Cognitive-communication Referral Referring Physician: Dr. Landeros Medical History Pertinent Medical History: Atrial Fib, CAD, COPD, DM, HTN Reviewed History: Yes Social History Current Living Status: Spouse Speech PLF-Current Status Prior Level of Function Patient lived with his in their home. Patient was independent for much of his daily needs. Subjective Patient was pleasant and cooperative with the cognitive assessment. Language Eval: Auditory Comprehends Simple Yes/No Ques: Functional Indent/Objects Multiple Adames: Functional Ident/Pics in Multiple Adames: Functional Follows 1-Step Commands: Functional Follows Complex Directions: Functional Follows General Conversations: Functional Language Eval: Verbal Language Completes Spontaneous Greeting: Functional Produces Auto, Serial Info: Functional Imitates Simple Words/Phrases: Functional Word Finding: Functional Requests Basic Needs: Functional States Basic Personal Info: Functional Expresses Complex Ideas: Functional Objective Cognitive Domain Attention: WNL Memory: Mild Problem Solving: Functional Executive Functions: WNL Visuospatial Skills: Moderate Composite Severity Rating: WNL Clock Drawing Severity Rating: WNL Objective Formal/Standardized Tests [facility] Mental Status ([facility]) Results 28/30, within normal limits Oral Motor/Speech Production Within Normal Limits Impression Patient is a pleasant 79 y/o male admitted to the ARU due to debility. Patient lives in his home with his . Patient completed the SLUMS at bedside with a score of 28/30. This score is within normal range of function and does not require further ST services at this time. Speech Patient Assess Expression of Ideas/Wants: Expression (4) Understanding Verbal Content: Understands (4) Brief Interview-Mental Status: Yes Repetition of Three Words: Three (3) Temporal Orientation: Year: Correct (3) Temporal Orientation: Month: Accurate within 5 days(2) Temporal Orientation: Day: Correct (1) Recall : Wear to say "Sock": Yes,after cueing (1) Recall : Color: Yes, after cueing (1) Recall : Bed: Yes,after cueing (1) Memory/Recall Ability: Current season, Location of own room, That he or she is in a hsp/hsp unit Speech-Plan Patient/Family Goals Patient/Family Goals: Patient plans on returning to his home with his upon discharge. Treatment Plan Speech Therapy Treatment Plan: Discontinue ST Treatment Duration: Dec 07, 2019 Frequency: 1 time per week Estimated Hrs Per Day: .25 hour per day Rehab Potential: Good Barriers to Learning: None identified Pt/Family Agrees to Plan: Yes Safety Risks/Education Teaching Recipient: Patient, Significant Other Teaching Methods: Discussion Response to Teaching: Verbalize Understanding Education Topics Provided: Safety within his room and communication of wants/needs Time Speech Therapy Time In: 10:15 Speech Therapy Time Out: 10:30 Total Billed Time: 15 Billed Treatment Time 1, SPSNDCOMP ELVIRA Smith Dec 07, 2019 14:07
[2019-12-07 16:00] VITALS: BP 125/77
[2019-12-07] MEDS: RIVAROXABAN 20 MG TABLET (XARELTO) PO SCH (17:40)
--- NOTE | 2019-12-07 21:18 | Individualized Plan of Care ---
Individualized Plan of Care Rehab Nursing IPOC Order Admission Date Dec 05, 2019 at 09:00 Current Orders Orders Admission Order(Inpt,Obs,Sdc) (12/05/19 08:24) Vital Signs: Per Unit Policy ( 08,16,00 (12/05/19 08:24) Christopher Keith 09,21 (12/05/19 08:24) Sequential Compression Device Q4H (12/05/19 08:24) Physics Faculty Member-Inpt Rehab Con (12/05/19 08:24) Rehab Nursing Orders-Ipoc (12/05/19 08:24) Physical Therapy Rehab Orders (12/05/19 08:24) Occupational Therapy Rehab Ord (12/05/19 08:24) Speech Therapy Rehab Orders (12/05/19 08:24) Cbc With Automated Diff (12/06/19 06:00) Comprehensive Metabolic Panel (12/06/19 06:00) Intake & Output 06,14,22 (12/05/19 08:24) Precautions (Aru) (12/05/19 08:24) Weekly Weight WEEK (12/05/19 08:24) Rehab-Intensity Of Therapy (12/05/19 08:24) Cho 60g/M 3snack (16-2000 Saurabh) (12/05/19 Lunch) Initiate Admission Nursing Pro .admission (12/05/19 08:24) Alprazolam Tablet (Xanax Tablet) (12/05/19 08:30) Calcium Carbonate Chew Tablet (Antacid C (12/05/19 08:30) Diphenhydramine Tablet (Benadryl Tablet) (12/05/19 08:30) Docusate Sodium Capsule (Colace Capsule) (12/05/19 09:00) Docusate Sodium Capsule (Colace Capsule) (12/05/19 08:30) Bisacodyl Suppository (Dulcolax Supposit (12/05/19 08:30) Lactulose Oral Solution (Enulose Oral So (12/05/19 08:30) Na Phos/Na Biphos Enema (Fleet Enema Maicol (12/05/19 08:30) Guaifenesin/Codeine Syrup (Robitussin Ac (12/05/19 08:30) Loperamide Tablet (Imodium Tablet) (12/05/19 08:30) Melatonin Tablet (Melatonin Tablet) (12/05/19 08:30) Polyethylene Glycol Powder Pkt (Miralax (12/05/19 09:00) Ondansetron Oral Dissolve Tab (Zofran (12/05/19 08:30) Senna S Tablet (Senokot S Tablet) (12/05/19 09:00) Initiate Admission Nursing Pro .admission (12/05/19 08:24) Patient Visit (12/05/19 ) Pt Eval Low Complexity (12/05/19 ) Functional Activities, Ea 15 (12/05/19 ) Acetaminophen Tablet (Tylenol Tablet) (12/05/19 13:00) Albuterol Pre-Mix Nebs (Rt) (Proventil (12/05/19 13:00) Amlodipine Tablet (Norvasc Tablet) (12/06/19 09:00) Aspirin Enteric Coated Tablet (Ecotrin T (12/06/19 09:00) Finasteride Tablet (Proscar Tablet) (12/06/19 09:00) Ibuprofen Tablet (Motrin Tablet) (12/05/19 13:00) Metformin Tablet (Glucophage Tablet) (12/06/19 09:00) Rivaroxaban Tablet (Xarelto Tablet) (12/05/19 17:00) Valsartan Tablet (Diovan Tablet) (12/06/19 09:00) Fluticasone/Salmeterol 115/21 (Advair Hf (12/05/19 20:00) Insulin Determir (Per Unit) (Levemir (Pe (12/06/19 09:00) Hemoglobin A1c (12/06/19 18:04) Patient Visit (12/07/19 ) Speech Sound Lang Comp (12/07/19 ) Patient Visit (12/07/19 ) Exercise Therap, Ea 15 Min (12/07/19 ) Gait Training, Ea 15 Min (12/07/19 ) Functional Activities, Ea 15 (12/07/19 ) Rehab Nursing Orders: Ongoing Assess. of Function Status, Fluid/Electrolyte/Nutrition Mgmt, Infection Prevention, Management of Risks & Complications, Management of Skin Intergrity, Nutrition Management, Pain Management, Patient/Family Support, Safety Management Intensity of Therapy to be met Patient to be seen: Min.3h per day/5 of 7d PT IPOC Problem List: Activity Tolerance, Functional Strength, Safety, Balance, Gait, Transfer Treatment Plan: Continue Plan of Care Bed Mobility, Education, Functional Activity Lester, Functional Strength, Group Therapy, Gait, Safety, Therapeutic Exercise, Transfers Treatment Duration: Dec 19, 2019 Frequency: 6 times per week Estimated Hrs Per Day: 1.5 hours per day OT IPOC Problems: Decreased UE Strength, Impaired Funct Balance OT Treatment, Training and Edu: Yes Plan of Care: ADL Retraining, Caregiver Training, Functional Mobility, Group Exercise/Act as Ind, UE Funct Exercise/Act Treatment Duration: Dec 19, 2019 Frequency: At least 5 of 7 days/Wk (IRF) Estimated Hrs Per Day: 1.[address] IPOC Speech Therapy Treatment Plan: Discontinue ST Treatment Duration: Dec 07, 2019 Frequency: 1 time per week Estimated Hrs Per Day: .25 hour per day Physics Faculty Member/Case Mgmt Physics Faculty Member/Case Managemen: Discharge Planning Dietitian/Automatic Nailing Machine Operator Dietitian/Automatic Nailing Machine Operator to monitor nutritional status and make changes and/or recommendations as needed and work with speech pathology on dietary upgrades as the occur. Physician IPOC Medical Issues being managed closely and that require the 24 hour availability of a physician: Recent severe vertigo with fall risk and risk factors for cardiac source along with DM OOC will be at high risk for decompensation Medical Issues: Bowel/Bladder Function, DVT Prophylaxis, Falls Precautions, Fluid/Electrolyte/Nutrition Balance, Infection Protection, Pain Management Brief Synthesis of Preadmission Screen, Post-Admission Evaluation, and Therapy Evaluations: PT OT will use expertise to help resolve the vertigo symptoms and help patient prevent falls and strengthen overall Medical Prognosis: Good Anticipated Length of Stay: 7 days RADHA GARBER DO Dec 07, 2019 21:18
[2019-12-08 05:42] VITALS: BP 136/84
--- NOTE | 2019-12-08 09:04 | Occupational Ther Daily Note ---
OT Current Status-Daily Note Subjective Pt alert, in bathroom. Pt agrees to therapy. No c/o pain. Mental Status/Objective Patient Orientation: Person, Place, Time, Situation Attachments: IV ADL-Treatment Pt declined shower or changing clothing. Standing at sink with SBA, pt able to complete oral care by self. Pt completed toilet transfer, SBA. SBA for toilet hygiene and clothing hygiene. Therapy Code Descriptions/Definitions Functional [place] Measure: 0=Not Assessed/NA 4=Minimal Assistance 1=Total Assistance 5=Supervision or Setup 2=Maximal Assistance 6=Modified [place] 3=Moderate Assistance 7=Complete IndependenceSCALE: Activities may be completed with or without assistive devices. 5-Ewwtbnsssw-lgssxcj completes the activity by him/herself with no assistance from a helper. 5-Set-up or Clean-up Assistance-helper sets up or cleans up; patient completes activity. [place] assists only prior to or following the activity. 4-Supervision or Touching Assistance-helper provides verbal cues and/or touching/steadying and/or contact guard assistance as patient completes activity. Assistance may be provided throughout the activity or intermittently. 3-Partial/Moderate Assistance-helper does LESS THAN HALF the effort. [place] lifts, holds or supports trunk or limbs, but provides less than half the effort. 2-Substantial/Maximal Assistance-helper does MORE THAN HALF the effort. [place] lifts or holds trunk or limbs and provides more than half the effort. 1-Mixfmitvg-pwqekr does ALL the effort. Patient does none of the effort to complete the activity. Or, the assistance of 2 or more helpers is required for the patient to complete the activity. If activity was not attempted, code reason: 7-Patient Refused. 9-Not Applicable-not attempted and the patient did not perform the activity before the current illness, exacerbation or injury. 10-Not Attempted due to Environmental Limitations-(lack of equipment, weather restraints, etc.). 88-Not Attempted due to Medical Conditions or Safety Concerns. Oral Hygiene (QC): 4 Toileting Hygiene (QC): 4 Toilet Transfer (QC): 4 Other Treatment Pt ambulated around ARU to get to gym using FWW. Pt completed UE strengthening tasks in standing to increase strength, activity tolerance and dynamic standing balance for daily functional tasks. Arm bike at 25 [place] resistance for 15 min in standing without breaks. Resistive clothespins in standing with each hand, break between switching hands. Pt then ambulated to laundry room to retrieve clothing from dryer. Pt folded clothing then transported to room to hang in closet. Pt sat in recliner to complete med resistance theraband 1 set 10 reps. Skilled instruction required for correct technique and positioning. After therapy, pt lying in bed with call light/phone in reach. All needs met in room. OT Short Term Goals Short Term Goals Time Frame: Dec 12, 2019 Shower/bathe self: 3 Upper body dressin Lower body dressin Putting on/taking off footwear: 5 OT Senior Living Goals Senior Living Goals Time Frame: Dec 19, 2019 Eating (QC): 6 Oral Hygiene (QC): 6 Toileting Hygiene (QC): 6 Shower/Bathe Self (QC): 6 Upper Body Dressing (QC): 6 Lower Body Dressing (QC): 6 On/Off Footwear (QC): 6 Additional Goals: 1-Demonstrate ADL Tasks, 2-Verbalize Understanding, 3-ImproveStrength/Lester 1=Demonstrate adherence to instructed precautions during ADL tasks. 2=Patient will verbalize/demonstrate understanding of assistive devices/modifications for ADL. 3=Patient will improve strength/tolerance for activity to enable patient to perform ADL's. OT Education/Plan Problem List/Assessment Assessment: Decreased Activ Tolerance, Decreased UE Strength, Impaired Funct Balance, Impaired Self-Care Skills Discharge Recommendations Plan/Recommendations: Continue POC Treatment Plan/Plan of Care Patient would benefit from OT for education, treatment and training to promote independence in ADL's, mobility, safety and/or upper extremity function for ADL's. Plan of Care: ADL Retraining, Caregiver Training, Functional Mobility, Group Exercise/Act as Ind, UE Funct Exercise/Act Treatment Duration: Dec 19, 2019 Frequency: At least 5 of 7 days/Wk (IRF) Estimated Hrs Per Day: 1.5 hours per day Agreement: Yes Rehab Potential: Good Time/GCodes Start Time: 07:30 Stop Time: 09:00 Total Time Billed (hr/min): 90 Billed Treatment Time 1 visit-ADL 1 (20 min) FA 2 (25 min) EX 3 (45 min) LARRY CRUZ Dec 08, 2019 09:04
[2019-12-08] MEDS: metFORMIN 850 MG (GLUCOPHAGE) TAB PO SCH (09:12)
[2019-12-08] MEDS: VALSARTAN 80 MG (DIOVAN) TAB PO SCH (09:12)
[2019-12-08] MEDS: FINASTERIDE (PROSCAR) 5 MG TAB PO SCH (09:12)
[2019-12-08] MEDS: ASPIRIN E.C. 81 MG (ECOTRIN) TAB PO SCH (09:12)
[2019-12-08] MEDS: amLODIPine 5 MG (NORVASC) TAB PO SCH (09:12)
[2019-12-08] MEDS: SENNA W/DOCUSATE (SENOKOT S) TABLET PO SCH ×2 (09:16→19:59)
[2019-12-08] MEDS: polyethylene glycoL POWDER 17 GM (MIRALAX) PACK PO SCH ×2 (09:16→19:58)
[2019-12-08] MEDS: DOCUSATE SODIUM 100 MG (COLACE) CAP PO SCH ×2 (09:16→19:58)
--- NOTE | 2019-12-08 10:27 | NUR ---
provided prayer and Communion.
--- NOTE | 2019-12-08 11:13 | Physical Therapy Daily Note ---
PT Daily Note-Current Subjective Patient in bed pre tx, agrees to PT, has no complaints of pain but states he feels "stiff" Appearance Patient in bed post tx with nurse call, phone, tray, in room. Mental Status Patient Orientation: Person, Place, Situation Transfers SCALE: Activities may be completed with or without assistive devices. 1-Mzfximxbcq-pwtrxpf completes the activity by him/herself with no assistance from a helper. 5-Set-up or Clean-up Assistance-helper sets up or cleans up; patient completes activity. [place] assists only prior to or following the activity. 4-Supervision or Touching Assistance-helper provides verbal cues and/or touching/steadying and/or contact guard assistance as patient completes activity. Assistance may be provided throughout the activity or intermittently. 3-Partial/Moderate Assistance-helper does LESS THAN HALF the effort. [place] lifts, holds or supports trunk or limbs, but provides less than half the effort. 2-Substantial/Maximal Assistance-helper does MORE THAN HALF the effort. [place] lifts or holds trunk or limbs and provides more than half the effort. 8-Xsjcndkxu-rlxexq does ALL the effort. Patient does none of the effort to complete the activity. Or, the assistance of 2 or more helpers is required for the patient to complete the activity. If activity was not attempted, code reason: 7-Patient Refused. 9-Not Applicable-not attempted and the patient did not perform the activity before the current illness, exacerbation or injury. 10-Not Attempted due to Environmental Limitations-(lack of equipment, weather restraints, etc.). 88-Not Attempted due to Medical Conditions or Safety Concerns. Roll Left & Right (QC): 6 Sit to Lying (QC): 6 Lying to Sitting/Side of Bed(Q: 6 Sit to Stand (QC): 6 Chair/Xok-nl-Zdbas Xfer(QC): 4 Weight Bearing Right Lower Extremity: Right Full Weight Bearing Left Lower Extremity: Left Full Weight Bearing Gait Training Distance: 600', 120' Walk 10 feet (QC): 4 Walk 50 ft with 2 Turns(QC): 4 Walk 150 ft (QC): 4 Gait Assistive Device: FWW SBA, slow but steady ambulation, occasional standing rest break, occasional cue for direction Exercises Supine Ex: Ankle pumps, Quad Set, Glut sets, Heel Slides, Short Arc Quads, Straight leg raise, Hip abd/add Supine Reps: 20 NuStep Minutes: 15 NuStep Workload: 4 Treatments ambulation, bed mobility and transfers, functional strengthening Assessment Current Status: Fair Progress improving endurance, better gait speed PT Chcf Goals Performance Improvement Analyst Goals PT Chcf Goals Time Frame: Dec 19, 2019 Roll Left & Right (QC): 6 Sit to Lying (QC): 6 Lying-Sitting on Side/Bed(QC): 6 Sit to Stand (QC): 6 Chair/Bzw-pp-Vxyep Xfer(QC): 6 Toilet Transfer (QC): 6 Car Transfer (QC): 6 Does the Patient Walk: Yes Walk 10 feet (QC): 6 Walk 50ft with 2 Turns (QC): 6 Walk 150 ft (QC): 6 Walking 10ft on Uneven Surface: 6 1 Step (curb) (QC): 6 4 Steps (QC): 6 12 Steps (QC): 6 Picking up an Object (QC): 6 Wheel 50 feet with 2 turns (QC: 9 Wheel 150 feet: 9 PT Plan Problem List Problem List: Activity Tolerance, Functional Strength, Safety, Balance, Gait, Transfer Treatment/Plan Treatment Plan: Continue Plan of Care Treatment Plan: Bed Mobility, Education, Functional Activity Lester, Functional Strength, Group Therapy, Gait, Safety, Therapeutic Exercise, Transfers Treatment Duration: Dec 19, 2019 Frequency: 6 times per week Estimated Hrs Per Day: 1.5 hours per day Patient and/or Family Agrees t: Yes Safety Risks/Education Patient Education: Gait Training, Transfer Techniques, Correct Positioning, Safety Issues Teaching Recipient: Patient Teaching Methods: Demonstration, Discussion Response to Teaching: Reinforcement Needed Time/GCodes Time In: 1015 Time Out: 1115 Total Billed Treatment Time: 60 Total Billed Treatment 1 visit EX 30' GT 30' DANIAL RIGGS PT Dec 08, 2019 11:13
--- NOTE | 2019-12-08 11:35 | PM&R Progress Note ---
Subjective HPI/CC On Admission Date Seen by Provider: Dec 08, 2019 Time Seen by Provider: 11:15 Subjective/Events-last exam Pt is dependent on the walker which he dislikes Feels pretty good overall Had a BM today Wants to go home tomorrow May very well need a four-wheeled walker so I ordered that Checked meds and labs Reviewed therapy notes Conferred with outlet manager of Systems General: Fatigue, Malaise Neurological: Weakness Objective Exam Vital Signs Vital Signs Date Time Temp Pulse Resp B/P (MAP) Pulse Ox O2 Delivery O2 Flow Rate FiO2 12/08/19 16:00 36.8 74 16 125/81 (96) 94 Room Air Capillary Refill : Less Than 3 Seconds General Appearance: No Apparent Distress, WD/WN, Chronically ill, Obese HEENT: PERRL/EOMI, Normal ENT Inspection, Pharynx Normal Neck: Full Range of Motion, Normal Inspection, Non Tender, Supple, Carotid Bruit Respiratory: Chest Non Tender, Lungs Clear, Normal Breath Sounds, No Accessory Muscle Use, No Respiratory Distress Cardiovascular: Regular Rate, Rhythm, No Edema, No Gallop, No JVD, No Murmur, Normal Peripheral Pulses Gastrointestinal: Normal Bowel Sounds, No Organomegaly, No Pulsatile Mass, Non Tender, Soft Back: Normal Inspection, No CVA Tenderness, No Vertebral Tenderness Extremity: Normal Capillary Refill, Normal Inspection, Normal Range of Motion, Non Tender, No Calf Tenderness, No Pedal Edema Neurologic/Psychiatric: Alert, Oriented x3, No Motor/Sensory Deficits, Normal Mood/Affect, Abnormal Gait (major fall risk while walking with walker and marketing assistant), Motor Weakness (generalized all extremities) Skin: Normal Color, Warm/Dry Lymphatic: No Adenopathy Results/Procedures Lab Patient resulted labs reviewed. FIM Transfers Therapy Code Descriptions/Definitions Functional [place] Measure: 0=Not Assessed/NA 4=Minimal Assistance 1=Total Assistance 5=Supervision or Setup 2=Maximal Assistance 6=Modified [place] 3=Moderate Assistance 7=Complete IndependenceSCALE: Activities may be completed with or without assistive devices. 6-Dsbdxbkeln-xecdklp completes the activity by him/herself with no assistance from a helper. 5-Set-up or Clean-up Assistance-helper sets up or cleans up; patient completes activity. [place] assists only prior to or following the activity. 4-Supervision or Touching Assistance-helper provides verbal cues and/or touching/steadying and/or contact guard assistance as patient completes activity. Assistance may be provided throughout the activity or intermittently. 3-Partial/Moderate Assistance-helper does LESS THAN HALF the effort. [place] lifts, holds or supports trunk or limbs, but provides less than half the effort. 2-Substantial/Maximal Assistance-helper does MORE THAN HALF the effort. [place] lifts or holds trunk or limbs and provides more than half the effort. 5-Apcsikusq-lofpib does ALL the effort. Patient does none of the effort to complete the activity. Or, the assistance of 2 or more helpers is required for the patient to complete the activity. If activity was not attempted, code reason: 7-Patient Refused. 9-Not Applicable-not attempted and the patient did not perform the activity before the current illness, exacerbation or injury. 10-Not Attempted due to Environmental Limitations-(lack of equipment, weather restraints, etc.). 88-Not Attempted due to Medical Conditions or Safety Concerns. Roll Left to Right (QC): 6 Sit to Lying (QC): 6 Sit to Stand (QC): 6 Chair/Wyy-tg-Wlibo Xfer(QC): 4 Car Transfer (QC): 4 Gait Training Does the Patient Walk?: Yes Distance: 600', 120' Walk 10 feet (QC): 4 Walk 50 ft with 2 Turns(QC): 4 Walk 150 ft (QC): 4 Walking 10ft/uneven surface-QC: 4 Gait Persons Needed: 1 Gait Assistive Device: FWW Wheelchair Training Does the Pt Use a Wheelchair?: No Wheel 50 ft with 2 turns (QC): 9 Wheel 150 ft (QC): 9 Stair Training #of Steps: 4 1 Step (curb) (QC): 4 4 Steps (QC): 4 12 Steps (QC): 4 Balance Picking up an Object (QC): 4 ADL-Treatment Eating (QC): 6 (Per clinical judgment, pt able to set up own meal and use regular utensils.) Oral Hygiene (QC): 4 Bathing Location: L Arm, R Arm, L Upper Leg, R Upper Leg, L Lower Leg (including foot), R Lower Leg (including foot), Chest, Abdomen, Buttocks, Perineal Area Shower/Bathe Self (QC): 4 Upper Body Dressing (QC): 5 Lower Body Dressing (QC): 4 On/Off Footwear (QC): 5 Toileting Hygiene (QC): 4 Toilet Transfer (QC): 4 Assessment/Plan Assessment and Plan Assess & Plan/Chief Complaint Assessment per Dr Mckeon with my modifications: Dizziness and poor balance of undetermined etiology. CT head of 12/02/19 showed probable, remote L periventricular white matter infarct, MRI negative for acute or subacute CVA Uncontrolled hypertension, improved with med changes Dizziness with frequent falls of undetermined etiology. Beta-chin discontinued during this admission under the suspicion that bradycardia may be contributing to symptoms Paroxysmal atrial fib. He has had EP eval with Dr Bingham at [facility] and has been advised conservative therapy for a fib CHADSVASc score 4. Chronic rivaroxaban therapy for stroke prophylaxis. He has intermittently been noncompliant H/o hypokalemia due to diuretic therapy (HCTZ). HCTZ d/c'd on 02/05/18 CAD with a h/o stenting of mid LAD and mid RCA-PL in 1999 at and CABG in November 2008 in [place], [place], which consisted of MCGEE to LAD and SVG to a diag and SVG to distal RCA-PL. LVEF was 65% and LVEDP was mildly to moderately elevated at time of cath of November 2008 MPI of 12/03/17 did not show ischemia or infarction, and LVEF was 62%; he remained in A Fib with a controlled vent rate Echo of 07/17/18 shows LVEF 60-65%, mild LA enlargement, mild MR, PASP 35 mmHg Hyperlipidemia DM II Mild carotid arterial disease on carotid us of 06/26/18 No AAA on abd on scan of 10/09/16 Mild restrictive lung disease and R lung nodule being followed by Dr Aguilar Mild FABIAN per sleep studies on sleep study of 07/17/15, CPAP was recommended by Dr Aguirre, but Dr Macdonald has been noncompliant Chronic bilateral swelling, likely due to venous insuff and/or amlodipine. Currently tolerating amlodipine well Plan: Fall risk IRF protocol DM management Insulin BP monitoring DC Saturday? (1) Disequilibrium Status: Acute (2) Severe hypertension Status: Acute (3) CAD (coronary atherosclerotic disease) (4) DMII (diabetes mellitus, type 2) (5) BPH w/o urinary obs/LUTS (6) Hypokalemia (7) Afib RADHA GARBER DO Dec 08, 2019 11:34
--- NOTE | 2019-12-08 12:34 | NUR ---
CM/SS CONCURRENT DOCUMENTATION Observed patient participating with PT and OT. He describes feeling better and with improved equilibrium. Spouse present and following along during different therapy sessions, supportive.
--- NOTE | 2019-12-08 13:56 | Physical Therapy Daily Note ---
PT Daily Note-Current Subjective Pt presents supine in bed upon arrival to room, agreeable to work with therapy at this time. Pt has no complaints of pain Appearance Following therapy, pt sitting up in chair with call light within reach and present in room. No other needs at this time. Mental Status Patient Orientation: Person, Place, Time, Situation Transfers SCALE: Activities may be completed with or without assistive devices. 3-Bvzfeovbxm-xekvrwr completes the activity by him/herself with no assistance f rom a helper. 5-Set-up or Clean-up Assistance-helper sets up or cleans up; patient completes activity. [place] assists only prior to or following the activity. 4-Supervision or Touching Assistance-helper provides verbal cues and/or touching/steadying and/or contact guard assistance as patient completes activity. Assistance may be provided throughout the activity or intermittently. 3-Partial/Moderate Assistance-helper does LESS THAN HALF the effort. [place] lifts, holds or supports trunk or limbs, but provides less than half the effort. 2-Substantial/Maximal Assistance-helper does MORE THAN HALF the effort. [place] lifts or holds trunk or limbs and provides more than half the effort. 1-Kyiaotjfb-czgisx does ALL the effort. Patient does none of the effort to complete the activity. Or, the assistance of 2 or more helpers is required for the patient to complete the activity. If activity was not attempted, code reason: 7-Patient Refused. 9-Not Applicable-not attempted and the patient did not perform the activity before the current illness, exacerbation or injury. 10-Not Attempted due to Environmental Limitations-(lack of equipment, weather restraints, etc.). 88-Not Attempted due to Medical Conditions or Safety Concerns. Roll Left & Right (QC): 6 Sit to Lying (QC): 6 Lying to Sitting/Side of Bed(Q: 6 Sit to Stand (QC): 6 Chair/Qjb-oz-Hmtej Xfer(QC): 6 Toilet Transfer (QC): 6 Car Transfer (QC): 6 Weight Bearing Right Lower Extremity: Right Full Weight Bearing Left Lower Extremity: Left Full Weight Bearing Gait Training Does the Patient Walk?: Yes Distance: 400', 600' Walk 10 feet (QC): 5 Walk 50 ft with 2 Turns(QC): 5 Walk 150 ft (QC): 5 Walking 10ft/uneven surface-QC: 5 Gait Assistive Device: FWW Trialed short distances without use of a FWW, pt demonstrated minor LOB but was able to catch himself. SBA for safety without use of AD. Pt more steady with use of FWW and educated to continue use of FWW upon return home. Stair Training Stair Training: Handrails/: 2 handrails #of Steps: 12 1 Step (curb) (QC): 6 4 Steps (QC): 6 12 Steps (QC): 6 Stairs: Pattern: Reciprocal Pt uses bilateral handrails to ambulate stairs, especially on descent. Balance Picking up an Object (QC): 6 Exercises NuStep Minutes: 10 NuStep Workload: 4 Treatments Upon arrival to room, pt requests to use restroom before ambulating to gym. Then pt completed 10 minutes on NuStep L4, ambulated stairs x12, then returned to [facility]. Pt states he has no further needs following session Assessment Current Status: Good Progress Pt continues to have balance problems without use of FWW. Pt has increased activity tolerance and strength, will continue to progress treatment as pt tolerates. PT [facility] Goals Photographic Spotter Goals PT [facility] Goals Time Frame: Dec 19, 2019 Roll Left & Right (QC): 6 Sit to Lying (QC): 6 Lying-Sitting on Side/Bed(QC): 6 Sit to Stand (QC): 6 Chair/Drv-vt-Hzphc Xfer(QC): 6 Toilet Transfer (QC): 6 Car Transfer (QC): 6 Does the Patient Walk: Yes Walk 10 feet (QC): 6 Walk 50ft with 2 Turns (QC): 6 Walk 150 ft (QC): 6 Walking 10ft on Uneven Surface: 6 1 Step (curb) (QC): 6 4 Steps (QC): 6 12 Steps (QC): 6 Picking up an Object (QC): 6 Wheel 50 feet with 2 turns (QC: 9 Wheel 150 feet: 9 PT Plan Problem List Problem List: Activity Tolerance, Functional Strength, Safety, Balance, Gait, Transfer Treatment/Plan Treatment Plan: Continue Plan of Care Treatment Plan: Bed Mobility, Education, Functional Activity Lester, Functional Strength, Group Therapy, Gait, Safety, Therapeutic Exercise, Transfers Treatment Duration: Dec 19, 2019 Frequency: 6 times per week Estimated Hrs Per Day: 1.5 hours per day Patient and/or Family Agrees t: Yes Safety Risks/Education Patient Education: Gait Training Teaching Recipient: Patient Teaching Methods: Discussion Time/GCodes Time In: 1310 Time Out: 1345 Total Billed Treatment Time: 35 Total Billed Treatment 1 visit 1 Gt x 15 min 1 Ex x 15 min FAROOQ KNIGHT PT Dec 08, 2019 13:56
--- NOTE | 2019-12-08 15:35 | NUR ---
"RD ASSESSMENT PMHx: DM; afib; CAD; HTN; CA(skin) PT INTERACTION: Pt was awake and pleasant during nutrition follow-up. Pt states he has been eating well since last assessment. Note avg PO intake 80% x3d, per chart review. Pt states no issues with nausea, vomiting, constipation, or diarrhea since last assessment. Note last BM was 12/06, and pt currently on bowel regimen of colace BID; senna BID; and miralax BID, per chart review. ABNORMAL NUTRITION-RELATED LAB VALUES LOW: HIGH: glu 174 Est. kcal needs: 1621-4941 kcal | 15-20 kcal/kg Est. Pro needs: 77-96 g Pro | 0.8-1.0 g Pro/kg PES STATEMENT: Given current appetite and PO intake, no nutrition diagnosis at this time (NO-1.1) INTERVENTION: Continue with current diet order of CHO 60g/m 3snack diet. Will continue to follow and reassess as pt needs, intake, and status change. MONITOR/EVALUATE: PO Intake; Plan of Care; Hydration Status; Weight Status; Lab Values Rosmery Mcclure, MS, RD, LD"
[2019-12-08 16:00] VITALS: BP 125/81
[2019-12-08] MEDS: RIVAROXABAN 20 MG TABLET (XARELTO) PO SCH (16:48)
[2019-12-09 05:58] VITALS: BP 141/84
[2019-12-09] MEDS: ASPIRIN E.C. 81 MG (ECOTRIN) TAB PO SCH (09:05)
[2019-12-09] MEDS: DOCUSATE SODIUM 100 MG (COLACE) CAP PO SCH (09:06)
[2019-12-09] MEDS: SENNA W/DOCUSATE (SENOKOT S) TABLET PO SCH (09:06)
[2019-12-09] MEDS: metFORMIN 850 MG (GLUCOPHAGE) TAB PO SCH (09:06)
[2019-12-09] MEDS: VALSARTAN 80 MG (DIOVAN) TAB PO SCH (09:06)
[2019-12-09] MEDS: amLODIPine 5 MG (NORVASC) TAB PO SCH (09:06)
[2019-12-09] MEDS: FINASTERIDE (PROSCAR) 5 MG TAB PO SCH (09:06)
[2019-12-09] MEDS: polyethylene glycoL POWDER 17 GM (MIRALAX) PACK PO SCH (09:10)
--- NOTE | 2019-12-09 10:02 | Occupational Ther Daily Note ---
OT Current Status-Daily Note Subjective Pt alert, sitting EOB. Pt agrees to therapy. No c/o pain. Mental Status/Objective Patient Orientation: Person, Place, Time, Situation Attachments: IV ADL-Treatment Pt agrees to shower. Pt has demonstrated ability to pick items off of floor and place/retrieve items from closet. Pt ambulated using FWW to bathroom. Mod I for toilet transfer. Mod I for toilet hygiene. Mod I for transfer into shower. Pt able to complete shower using shower bench, grabbars and hand held shower to complete shower mod I. Pt able to rinse and dry self. Pt able to complete upper, lower and footwear dressing by self. Pt stood at sink to complete oral care and grooming mod I. Therapy Code Descriptions/Definitions Functional [place] Measure: 0=Not Assessed/NA 4=Minimal Assistance 1=Total Assistance 5=Supervision or Setup 2=Maximal Assistance 6=Modified [place] 3=Moderate Assistance 7=Complete IndependenceSCALE: Activities may be completed with or without assistive devices. 7-Fnrbyramcg-dnfynzz completes the activity by him/herself with no assistance from a helper. 5-Set-up or Clean-up Assistance-helper sets up or cleans up; patient completes activity. [place] assists only prior to or following the activity. 4-Supervision or Touching Assistance-helper provides verbal cues and/or touching/steadying and/or contact guard assistance as patient completes activity. Assistance may be provided throughout the activity or intermittently. 3-Partial/Moderate Assistance-helper does LESS THAN HALF the effort. [place] lifts, holds or supports trunk or limbs, but provides less than half the effort. 2-Substantial/Maximal Assistance-helper does MORE THAN HALF the effort. [place] lifts or holds trunk or limbs and provides more than half the effort. 8-Hzinsijpw-iieqoi does ALL the effort. Patient does none of the effort to complete the activity. Or, the assistance of 2 or more helpers is required for the patient to complete the activity. If activity was not attempted, code reason: 7-Patient Refused. 9-Not Applicable-not attempted and the patient did not perform the activity before the current illness, exacerbation or injury. 10-Not Attempted due to Environmental Limitations-(lack of equipment, weather restraints, etc.). 88-Not Attempted due to Medical Conditions or Safety Concerns. Eating (QC): 6 (Pt has demonstrated ability to set up meal and use regular utensils to eat.) Oral Hygiene (QC): 6 Bathing Location: L Arm, R Arm, L Upper Leg, R Upper Leg, L Lower Leg (inclu ding foot), R Lower Leg (including foot), Chest, Abdomen, Buttocks, Perineal Area Shower/Bathe Self (QC): 6 Upper Body Dressing (QC): 6 Lower Body Dressing (QC): 6 On/Off Footwear: 6 Toileting Hygiene (QC): 6 Toilet Transfer (QC): 6 Other Treatment Using HEP instructions and minimal verbal cues, pt able to complete B UE medium resistance theraband exercises. 1 set 10 reps. After session, pt lying in bed with call light/phone in reach. All needs met in room. OT Short Term Goals Short Term Goals Time Frame: Dec 12, 2019 Shower/bathe self: 3 Upper body dressin Lower body dressin Putting on/taking off footwear: 5 OT Assisted Goals Health Professional Goals Time Frame: Dec 19, 2019 Eating (QC): 6 Oral Hygiene (QC): 6 Toileting Hygiene (QC): 6 Shower/Bathe Self (QC): 6 Upper Body Dressing (QC): 6 Lower Body Dressing (QC): 6 On/Off Footwear (QC): 6 Additional Goals: 1-Demonstrate ADL Tasks, 2-Verbalize Understanding, 3- ImproveStrength/[place] 1=Demonstrate adherence to instructed precautions during ADL tasks. 2=Patient will verbalize/demonstrate understanding of assistive devices/modifications for ADL. 3=Patient will improve strength/tolerance for activity to enable patient to perform ADL's. OT Education/Plan Problem List/Assessment Assessment: Decreased UE Strength, Impaired Funct Balance Discharge Recommendations Plan/Recommendations: Continue POC Treatment Plan/Plan of Care Patient would benefit from OT for education, treatment and training to promote independence in ADL's, mobility, safety and/or upper extremity function for ADL's. Plan of Care: ADL Retraining, Caregiver Training, Functional Mobility, Group Exercise/Act as Ind, UE Funct Exercise/Act Treatment Duration: Dec 19, 2019 Frequency: At least 5 of 7 days/Wk (IRF) Estimated Hrs Per Day: 1.5 hours per day Agreement: Yes Rehab Potential: Good Time/GCodes Start Time: 07:30 Stop Time: 08:30 Total Time Billed (hr/min): 60 Billed Treatment Time 1 visit-ADL 1 (50 min) EX 1 (10 min) LARRY CRUZ Dec 09, 2019 10:02
--- NOTE | 2019-12-09 10:23 | Physical Therapy Daily Note ---
PT Daily Note-Current Subjective Pt is in bed upon arrival with in room. Pt states he does occasionally still have symptoms of dizziness. Pt describes these not as spinning but as a poor awareness of where he is in space. Pain Location: No Pain Reported Mental Status Patient Orientation: Person, Place, Time, Situation, Normal For Age Transfers SCALE: Activities may be completed with or without assistive devices. 0-Fvplsnkmsd-mtehtfj completes the activity by him/herself with no assistance from a helper. 5-Set-up or Clean-up Assistance-helper sets up or cleans up; patient completes activity. [place] assists only prior to or following the activity. 4-Supervision or Touching Assistance-helper provides verbal cues and/or touching/steadying and/or contact guard assistance as patient completes activity. Assistance may be provided throughout the activity or intermittently. 3-Partial/Moderate Assistance-helper does LESS THAN HALF the effort. [place] lifts, holds or supports trunk or limbs, but provides less than half the effort. 2-Substantial/Maximal Assistance-helper does MORE THAN HALF the effort. [place] lifts or holds trunk or limbs and provides more than half the effort. 4-Cnyxvfswl-qnxdbb does ALL the effort. Patient does none of the effort to complete the activity. Or, the assistance of 2 or more helpers is required for the patient to complete the activity. If activity was not attempted, code reason: 7-Patient Refused. 9-Not Applicable-not attempted and the patient did not perform the activity before the current illness, exacerbation or injury. 10-Not Attempted due to Environmental Limitations-(lack of equipment, weather restraints, etc.). 88-Not Attempted due to Medical Conditions or Safety Concerns. Roll Left & Right (QC): 6 Sit to Lying (QC): 6 Lying to Sitting/Side of Bed(Q: 6 Sit to Stand (QC): 6 Chair/Oek-ny-Meqkv Xfer(QC): 6 Toilet Transfer (QC): 6 Car Transfer (QC): 6 Weight Bearing Right Lower Extremity: Right Full Weight Bearing Left Lower Extremity: Left Full Weight Bearing Gait Training Does the Patient Walk?: Yes Distance: 150 Walk 10 feet (QC): 6 Walk 50 ft with 2 Turns(QC): 6 Walk 150 ft (QC): 6 Walking 10ft/uneven surface-QC: 6 Gait Persons Needed: 0 Gait Assistive Device: FWW Pt has slow, careful gait and states he feels much more stable with a FWW. Wheelchair Training Does the Pt Use a Wheelchair?: No Stair Training Stair Training: Handrails/: 1 handrail #of Steps: 12 1 Step (curb) (QC): 6 4 Steps (QC): 6 12 Steps (QC): 6 Stairs: Pattern: Reciprocal Exercises Supine Ex: Bridging, Rolling, Lower trunk rotation, Scooting, Straight leg raise, Hip abd/add Supine Reps: 5 Neuromuscular Balance challenges derived from Gannon test: Pt did first 7 test of Gannon, scored 4 on all except standing with eyes closed, where he needed supervision only. Treatments Pt amb to gym and performs supine exercises. Pt performs tall kneel with balance challenges, performs quadruped and rolling. Pt demonstrates transfer from floor with demonstration and instruction from the mat on the floor to a chair. Pt laid on mat on floor, got in quadruped, crawled to nearest steady seat, and got himself up onto the chair. Pt required no assistance for this activity. present and assist pt at home as needed. Life Alert was discussed and pt and expressed it is too expensive. Pt carries cell phone with him. Pt tested with Gannon only first 7 challenges. Of those pt scored 4 on all but standing with eyes closed. Pt amb back into room and left in bed with all needs met. Assessment Current Status: Excellent Progress Pt is I with all transfers and mobilities. Pt's strength has increased and balance with gait has improved with use of FWW. PT Gas Roller Operator Goals [facility] Goals PT Gas Roller Operator Goals Time Frame: Dec 19, 2019 Roll Left & Right (QC): 6 Sit to Lying (QC): 6 Lying-Sitting on Side/Bed(QC): 6 Sit to Stand (QC): 6 Chair/Jiz-tm-Uheba Xfer(QC): 6 Toilet Transfer (QC): 6 Car Transfer (QC): 6 Does the Patient Walk: Yes Walk 10 feet (QC): 6 Walk 50ft with 2 Turns (QC): 6 Walk 150 ft (QC): 6 Walking 10ft on Uneven Surface: 6 1 Step (curb) (QC): 6 4 Steps (QC): 6 12 Steps (QC): 6 Picking up an Object (QC): 6 Wheel 50 feet with 2 turns (QC: 9 Wheel 150 feet: 9 PT Plan Treatment/Plan Treatment Plan: Continue Plan of Care Treatment Plan: Bed Mobility, Education, Functional Activity Lester, Functional Strength, Group Therapy, Gait, Safety, Therapeutic Exercise, Transfers Treatment Duration: Dec 19, 2019 Frequency: 6 times per week Estimated Hrs Per Day: 1.5 hours per day Patient and/or Family Agrees t: Yes Safety Risks/Education Patient Education: Gait Training, Transfer Techniques, Steps, Correct Positioning, Safety Issues Teaching Recipient: Patient, Family Teaching Methods: Demonstration, Discussion Response to Teaching: Verbalize Understanding, Return Demonstration Time/GCodes Time In: 915 Time Out: 1015 Total Billed Treatment Time: 60 Total Billed Treatment 1, FA x2 (30m), GT (15m), NM (15m) ABENA MINER OFFICE MACHINES SALES REPRESENTATIVE Dec 09, 2019 10:23
--- NOTE | 2019-12-09 10:40 | Discharge Summary ---
Diagnosis/Chief Complaint Date of Admission Dec 05, 2019 at 09:00 Date of Discharge Discharge Date: Dec 09, 2019 Discharge Diagnosis Assessment per Dr Mckeon with my modifications: Dizziness and poor balance of undetermined etiology. CT head of 12/02/19 showed probable, remote L periventricular white matter infarct, MRI negative for acute or subacute CVA Uncontrolled hypertension, improved with med changes Dizziness with frequent falls of undetermined etiology. Beta-chin discontinued during this admission under the suspicion that bradycardia may be contributing to symptoms Paroxysmal atrial fib. He has had EP eval with Dr Bingham at [facility] and has been a dvised conservative therapy for a fib CHADSVASc score 4. Chronic rivaroxaban therapy for stroke prophylaxis. He has intermittently been noncompliant H/o hypokalemia due to diuretic therapy (HCTZ). HCTZ d/c'd on 02/05/18 CAD with a h/o stenting of mid LAD and mid RCA-PL in 1999 at and CABG in November 2008 in [place], [place], which consisted of MCGEE to LAD and SVG to a diag and SVG to distal RCA-PL. LVEF was 65% and LVEDP was mildly to moderately elevated at time of cath of November 2008 MPI of 12/03/17 did not show ischemia or infarction, and LVEF was 62%; he remained in A Fib with a controlled vent rate Echo of 07/17/18 shows LVEF 60-65%, mild LA enlargement, mild MR, PASP 35 mmHg Hyperlipidemia DM II Mild carotid arterial disease on carotid us of 06/26/18 No AAA on abd on scan of 10/09/16 Mild restrictive lung disease and R lung nodule being followed by Dr Aguilar Mild FABIAN per sleep studies on sleep study of 07/17/15, CPAP was recommended by Dr Aguirre, but Dr Macdonald has been noncompliant Chronic bilateral swelling, likely due to venous insuff and/or amlodipine. Currently tolerating amlodipine well Plan: Fall risk IRF protocol DM management Insulin BP monitoring DC Saturday? (1) Disequilibrium Status: Acute (2) Severe hypertension Status: Acute (3) CAD (coronary atherosclerotic disease) (4) DMII (diabetes mellitus, type 2) (5) BPH w/o urinary obs/LUTS (6) Hypokalemia (7) Afib Discharge Summary Discharge Physical Examination Allergies: Coded Allergies: No Known Drug Allergies (Unverified , 01/12/11) Vitals & I&Os Vital Signs Date Time Temp Pulse Resp B/P (MAP) Pulse Ox O2 Delivery O2 Flow Rate FiO2 12/09/19 09:00 Room Air 12/09/19 05:58 36.4 80 16 141/84 (103) 96 General Appearance: Alert, Oriented X3, Cooperative Respiratory: Clear to Auscultation Cardiovascular: Regular Rate Neuro: Normal Gait, Normal Speech, Strength at 5/5 X4 Ext Hospital Course Was the Problem List Reviewed?: Yes Hospital Course: Pt had a short hospital course for five days after he was admitted for severe disequilibrium. He did have a stroke workup that was negative upstairs including MRI, carotid ultrasound, and cardiology evaluation by his primary fire engine operator Dr. Mckeon. Blood sugars returned back to within normal limits on insulin regimen. He was maintained on his normal BP medication. No significant medication changes made. He did use a four wheel walker and I did order that and he will do outpatient PT. Labs (last 24 hrs) Laboratory Tests 12/05/19 20:14: Glucometer 160H 12/06/19 04:53: Glucometer 157H 12/06/19 07:00: White Blood Count 6.1, Red Blood Count 5.03, Hemoglobin 15.5, Hematocrit 45, Mean Corpuscular Volume 90, Mean Corpuscular Hemoglobin 31, Mean Corpuscular Hemoglobin Concent 34, Red Cell Distribution Width 13.4, Platelet Count 200, Mean Platelet Volume 11.4H, Neutrophils (%) (Auto) 56, Lymphocytes (%) (Auto) 33, Monocytes (%) (Auto) 9, Eosinophils (%) (Auto) 2, Basophils (%) (Auto) 1, Neutrophils # (Auto) 3.4, Lymphocytes # (Auto) 2.0, Monocytes # (Auto) 0.5, Eosinophils # (Auto) 0.1, Basophils # (Auto) 0.0, Sodium Level 138, Potassium Level 3.9, Chloride Level 102, Carbon Dioxide Level 26, Anion Gap 10, Blood Urea Nitrogen 18, Creatinine 1.11, Estimat Glomerular Filtration Rate > 60, BUN/Creatinine Ratio 16, Glucose Level 174H, Mean Blood Glucose 160H, Hemoglobin A1c 7.2H, Calcium Level 9.0, Corrected Calcium 9.0, Total Bilirubin 0.9, Aspartate Amino Transf (AST/SGOT) 14, Alanine Aminotransferase (ALT/SGPT) 16, Alkaline Phosphatase 57, Total Protein 6.7, Albumin 4.0 12/06/19 10:46: Glucometer 156H 12/06/19 15:07: Glucometer 166H 12/06/19 20:15: Glucometer 157H 12/07/19 05:13: Glucometer 111H 12/07/19 11:50: Glucometer 202H 12/07/19 16:00: Glucometer 127H 12/07/19 20:13: Glucometer 221H 12/08/19 05:15: Glucometer 132H 12/08/19 11:28: Glucometer 151H 12/08/19 15:32: Glucometer 160H 12/08/19 20:09: Glucometer 155H 12/09/19 05:48: Glucometer 123H 12/09/19 10:56: Glucometer 144H Pending Labs Laboratory Tests 12/05/19 20:14: Glucometer 160 12/06/19 04:53: Glucometer 157 12/06/19 07:00: White Blood Count 6.1, Red Blood Count 5.03, Hemoglobin 15.5, Hematocrit 45, Mean Corpuscular Volume 90, Mean Corpuscular Hemoglobin 31, Mean Corpuscular Hemoglobin Concent 34, Red Cell Distribution Width 13.4, Platelet Count 200, Mean Platelet Volume 11.4, Neutrophils (%) (Auto) 56, Lymphocytes (%) (Auto) 33, Monocytes (%) (Auto) 9, Eosinophils (%) (Auto) 2, Basophils (%) (Auto) 1, Neutrophils # (Auto) 3.4, Lymphocytes # (Auto) 2.0, Monocytes # (Auto) 0.5, Eosinophils # (Auto) 0.1, Basophils # (Auto) 0.0, Sodium Level 138, Potassium Level 3.9, Chloride Level 102, Carbon Dioxide Level 26, Anion Gap 10, Blood Urea Nitrogen 18, Creatinine 1.11, Estimat Glomerular Filtration Rate > 60, BUN/Creatinine Ratio 16, Glucose Level 174, Mean Blood Glucose 160, Hemoglobin A1c 7.2, Calcium Level 9.0, Corrected Calcium 9.0, Total Bilirubin 0.9, Aspartate Amino Transf (AST/SGOT) 14, Alanine Aminotransferase (ALT/SGPT) 16, Alkaline Phosphatase 57, Total Protein 6.7, Albumin 4.0 12/06/19 10:46: Glucometer 156 12/06/19 15:07: Glucometer 166 12/06/19 20:15: Glucometer 157 12/07/19 05:13: Glucometer 111 12/07/19 11:50: Glucometer 202 12/07/19 16:00: Glucometer 127 12/07/19 20:13: Glucometer 221 12/08/19 05:15: Glucometer 132 12/08/19 11:28: Glucometer 151 12/08/19 15:32: Glucometer 160 12/08/19 20:09: Glucometer 155 12/09/19 05:48: Glucometer 123 12/09/19 10:56: Glucometer 144 Discharge Home Medications: Active Scripts Active Diovan (Valsartan) 80 Mg Tablet 320 Mg PO DAILY Amlodipine Besylate 5 Mg Tablet 10 Mg PO DAILY Reported Ibuprofen 200 Mg Tablet 400 Mg PO Q8H PRN Tylenol Extra Strength (Acetaminophen) 500 Mg Tablet 1,000 Mg PO Q8H PRN Finasteride 5 Mg Tablet 5 Mg PO DAILY FILLED 08-06-2019 #90/90 DAY SUPPLY Proair Hfa (Albuterol Sulfate) 1 Puff Puff 2 Puff PO Q6H PRN Fluticasone-Salmeterol 250-50 (Fluticasone Propion/Salmeterol) 1 Each Blst.w.dev 1 Puff PO BID PRN Metformin HCl 850 Mg Tablet 850 Mg PO DAILY Lantus (Insulin Glargine,Hum.rec.anlog) 100 Unit/1 Ml Vial 30 Unit SQ DAILY Xarelto Tablet (Rivaroxaban) 20 Mg Tablet 20 Mg PO 1700 Aspirin EC (Aspirin) 81 Mg Tablet.dr 81 Mg PO DAILY Instructions to patient/family Please see electronic discharge instructions given to patient. Diagnosis/Problems Diagnosis/Problems (1) Disequilibrium Status: Acute (2) Severe hypertension Status: Acute (3) CAD (coronary atherosclerotic disease) (4) DMII (diabetes mellitus, type 2) (5) BPH w/o urinary obs/LUTS (6) Hypokalemia (7) Afib Clinical Quality Measures DVT/VTE Risk/Contraindication: Risk Factor Score Per Nursin RFS Level Per Nursing on Admit: 4+=Very High RADHA GARBER DO Dec 09, 2019 10:39
--- NOTE | 2019-12-09 11:06 | NUR ---
provided prayer and Communion.
--- NOTE | 2019-12-09 11:30 | Therapy Team Discharge Summary ---
Therapy Discharge Summary Discharge Recommendations Date of Discharge 12/09/2019 Therapy D/C Recommendations: Physical Therapy Outpatient Physical Therapy This patient admitted to ARU post acute stay due to a CVA. Prior to admission, pt was indep with all functional mobility. At evaluation, pt was SBA with transfers and gait, walking 200 ft with FWW. He was indep with bed mobility. Treatment included functional strength and balance training to progress his bed mobility, transfers and gait. At discharge, he is indep with bed mobility and transfers and mod indep with gait. He has made excellent progress and all goals have been met. DC PT this date. Occupational Therapy Decreased UE Strength, Impaired Funct Balance PT Inspector And Unloader Goals Inspector And Unloader Goals PT Snf Goals Time Frame: Dec 19, 2019 Roll Left to Right (QC): 6 (met) Sit to Lying (QC): 6 (met) Lying-Sitting on Side/Bed(QC): 6 (met) Sit to Stand (QC): 6 (met) Chair/Fbz-tt-Etnff Xfer(QC): 6 (met) Car Transfer (QC): 6 (met) Does the Patient Walk: Yes Walk 10 feet (QC): 6 (met) Walk 10ft-Uneven Surface(QC): 6 (met) Walk 50ft with 2 Turns (QC): 6 (met) Walk 150 ft (QC): 6 (met) Wheel 50 feet with 2 turns (QC: 9 1 Step (curb) (QC): 6 (met) 4 Steps (QC): 6 (met) 12 Steps (QC): 6 (met) Picking up an Object (QC): 6 OT Inspector And Unloader Goals Inspector And Unloader Goals Time Frame: Dec 19, 2019 Eating (QC): 6 Oral Hygiene (QC): 6 Shower/Bathe Self (QC): 6 Upper Body Dressing (QC): 6 Lower Body Dressing (QC): 6 On/Off Footwear (QC): 6 Toileting Hygiene (QC): 6 Toilet/Commode Transfer (QC): 6 Additional Goals: 1-Demonstrate ADL Tasks, 2-Verbalize Understanding, 3- ImproveStrength/Lester 1=Demonstrate adherence to instructed precautions during ADL tasks. 2=Patient will verbalize/demonstrate understanding of assistive devices/modifications for ADL. 3=Patient will improve strength/tolerance for activity to enable patient to perform ADL's. LARRY OROZCO PT Dec 09, 2019 11:30
--- NOTE | 2019-12-09 12:52 | NUR ---
CM/SS DISCHARGE Patient requested to return home, physician and team consulted and approved. Spouse here and in agreement. OP PT: Coordinated with patient/spouse preferred agency, [facility]. First appointment this Saturday, December 11, 2019, 12:45. Patient/spouse understand to contact Rehab directly if they are unable to make the appointment unexpectedly. DME: FWW ordered through [facility] per patient/spouse request. Agency understands to deliver to patient hospital room. Patient in good spirits and verbalized he is ready to return home. IMM2 presented, reviewed, signed, charted. Unit RN updated.
--- NOTE | 2019-12-09 14:30 | NUR ---
ROBBY DORANTES demonstrates understanding of discharge instructions and accurately returns instructions upon questioning. Copy of Post-Discharge Instructions given to patient. ROBBY DORANTES is able to manage continuing needs after discharge. Patients belongings returned to patient. Patient discharged from 230-1 on 12/08 at 1430. ROBBY DORANTES left floor via wc, accompanied by staff and .
--- NOTE | 2019-12-10 10:50 | Therapy Team Discharge Summary ---
Therapy Discharge Summary Discharge Recommendations Date of Discharge Dec 09, 2019 at 14:30 Therapy D/C Recommendations: Physical Therapy Outpatient Occupational Therapy Pt admits with CVA dx with SBA all ADLs excluding s/u for UB/ footwear dressing and IND with eating. OT and pt work towards higher fx IND through ADL retraining, safety training, and ther ex. Pt meets all LTGs and d/c's at Mod I level with all ADLs (use of walker/ grab bars/ sc, etc). Pt d/c's home with . D/c ARU OT at this time. Decreased UE Strength, Impaired Funct Balance PT Chcf Goals Chcf Goals PT Chcf Goals Time Frame: Dec 19, 2019 Roll Left to Right (QC): 6 (met) Sit to Lying (QC): 6 (met) Lying-Sitting on Side/Bed(QC): 6 (met) Sit to Stand (QC): 6 (met) Chair/Dpm-jq-Ggdlf Xfer(QC): 6 (met) Car Transfer (QC): 6 (met) Does the Patient Walk: Yes Walk 10 feet (QC): 6 (met) Walk 10ft-Uneven Surface(QC): 6 (met) Walk 50ft with 2 Turns (QC): 6 (met) Walk 150 ft (QC): 6 (met) Wheel 50 feet with 2 turns (QC: 9 1 Step (curb) (QC): 6 (met) 4 Steps (QC): 6 (met) 12 Steps (QC): 6 (met) Picking up an Object (QC): 6 OT Chcf Goals Chcf Goals Time Frame: Dec 19, 2019 Eating (QC): 6 Oral Hygiene (QC): 6 Shower/Bathe Self (QC): 6 Upper Body Dressing (QC): 6 Lower Body Dressing (QC): 6 On/Off Footwear (QC): 6 Toileting Hygiene (QC): 6 Toilet/Commode Transfer (QC): 6 Additional Goals: 1-Demonstrate ADL Tasks, 2-Verbalize Understanding, 3-Imp roveStrength/Lester 1=Demonstrate adherence to instructed precautions during ADL tasks. 2=Patient will verbalize/demonstrate understanding of assistive devices/modifications for ADL. 3=Patient will improve strength/tolerance for activity to enable patient to perform ADL's. DONATO JOHNSON OTR Dec 10, 2019 10:50
== END 2019-12-09 14:30 | disposition home or self-care (01) | DRG 149 ==
PROVIDERS: ADMIT Internal Medicine; ATTEND Internal Medicine
DX: R42 Dizziness and giddiness (principal); R26.89 Other abnormalities of gait and mobility; Z91.81 History of falling; I48.0 Paroxysmal atrial fibrillation; I10 Essential (primary) hypertension; I25.10 Atherosclerotic heart disease of native coronary artery without angina pectoris; I34.0 Nonrheumatic mitral (valve) insufficiency; E11.65 Type 2 diabetes mellitus with hyperglycemia; N40.0 Benign prostatic hyperplasia without lower urinary tract symptoms; E78.5 Hyperlipidemia, unspecified; G47.33 Obstructive sleep apnea (adult) (pediatric); R91.1 Solitary pulmonary nodule; M79.89 Other specified soft tissue disorders; Z79.01 Long term (current) use of anticoagulants; Z79.4 Long term (current) use of insulin; Z95.1 Presence of aortocoronary bypass graft; Z95.5 Presence of coronary angioplasty implant and graft
CPT/HCPCS: 36415; 80053; 82962; 83036; 85025; 94760

== ENCOUNTER 2020-01-12 13:00 | Outpatient (RCR) | payer MEDICARE ==
[~2020-01-12 13:00] MED LIST changes: +AMLO5TAB9 PO; +VALS80TA PO
== END 2020-01-12 14:10 | disposition home or self-care (01) ==
PROVIDERS: ATTEND Family Medicine
DX: I63.9 Cerebral infarction, unspecified (principal); I10 Essential (primary) hypertension; E11.9 Type 2 diabetes mellitus without complications

== ENCOUNTER → 2020-01-26 | Outpatient (CLI) | payer MEDICARE | LOC: LABNPT 09:19 | PROVIDERS: ATTEND Emergency Medicine | DX: Z20.828 Contact with and (suspected) exposure to other viral communicable diseases (principal) | CPT/HCPCS: 87635 ==

== ENCOUNTER → 2020-12-07 | Outpatient (CLI) | payer MEDICARE ==
[~2020-12-07] MED LIST changes: +AMLO-250 PO; -AMLO5TAB9 PO; +ASPI-1238 PO; -ASPI-983 PO; -CETI10TA21 PO; +CETI10TA49 PO; -DRON400T2 PO; +DRON400T6 PO
--- NOTE | 2020-12-07 14:26 | Diagnostic Imaging Report ---
INDICATION: Left breast swelling. COMPARISON: No prior studies are available for comparison. TECHNIQUE: Unilateral left 2D and 3D diagnostic mammography was performed with CAD. FINDINGS: There is some fibroglandular tissue in the retroareolar left breast suggestive of gynecomastia. No mass or malignant appearing microcalcifications are seen. The axilla is unremarkable. IMPRESSION: Probable gynecomastia in the retroareolar left breast. Further evaluation with ultrasound is recommended and will be performed today. ACR BI-RADS Category 0: Incomplete. (Needs additional imaging evaluation). Result letter will be mailed to the patient. Note: At least 10% of breast cancer is not imaged by mammography. Dictated by: Dictated on workstation # [id number]
--- NOTE | 2020-12-07 14:36 | Diagnostic Imaging Report ---
Indication: Left breast swelling. Correlation is made with diagnostic mammogram earlier same day. Sonographic interrogation of the retroareolar left breast was performed. There is ill-defined hypoechogenicity at this location suggestive of gynecomastia. This corresponds to the area of density noted mammographically. No mass is identified. No fluid collection is detected. IMPRESSION: BI-RADS Category 2 Sonographic features consistent with gynecomastia. No masses identified. ACR BI-RADS Category 2: Benign findings. Dictated by: Dictated on workstation # [id number]
== END ==
LOC: RAD 13:45
PROVIDERS: ATTEND Family Medicine
DX: N64.4 Mastodynia (principal); N63.0 Unspecified lump in unspecified breast
CPT/HCPCS: 76642; 77065; G0279

== ENCOUNTER → 2022-03-06 | Outpatient (CLI) | payer MEDICARE ==
--- NOTE | 2022-03-06 18:14 | Diagnostic Imaging Report ---
INDICATION: Lung nodule, pneumonia COMPARISON: 12/02/2019 TECHNIQUE: Frontal and lateral radiographs of the chest dated 03/06/2022 FINDINGS: Posterior changes of a CABG. The cardiac silhouette is mildly enlarged, though stable. No significant pulmonary vascular congestion. The lungs are hyperexpanded with flattening of the diaphragm. The lungs however are clear of focal pulmonary opacity. No pleural effusion. No pneumothorax. Scattered osseous degenerative changes without acute osseous abnormality. IMPRESSION: Background chronic obstructive pulmonary disease and additional postsurgical changes without superimposed acute cardiopulmonary abnormality. Dictated by: Dictated on workstation # [id number]
== END ==
LOC: RAD 10:32
PROVIDERS: ATTEND Family Medicine
DX: J44.9 Chronic obstructive pulmonary disease, unspecified (principal); J18.9 Pneumonia, unspecified organism; R91.1 Solitary pulmonary nodule
CPT/HCPCS: 71046

== ENCOUNTER 2022-07-26 04:23 | Emergency (ER) | payer MEDICARE ==
[~2022-07-26] VITALS: Ht 172.7 cm; Wt 90.7 kg
[~2022-07-26 04:23] MED LIST changes: +ALBU8.5H6 PO; -RT-ALBUINH PO
--- NOTE | 2022-07-26 04:45 | ED Cough/URI ---
General Chief Complaint: Cough/Cold/Flu Symptoms Stated Complaint: SEVERE COUGH,COPD Nursing Triage Note: PATIENT REPORTS COUGH X2 WEEKS, STATES INCREASED SHORTNESS OF BREATH. REPORTS COUGH IS PRODUCTIVE "YELLOW" History of Present Illness Date Seen by Provider: Jul 26, 2022 Time Seen by Provider: 04:35 Allergies and Home Medications Allergies Coded Allergies: No Known Drug Allergies (Unverified , 01/12/11) Patient Home Medication List Home Medication List Reviewed: Yes Acetaminophen (Tylenol Extra Strength) 500 Mg Tablet, 1,000 MG PO Q8H PRN for PAIN-MILD (1-4), (Reported) Entered as Reported by: PANCHO MEYERS on 12/03/19 1029 Albuterol Sulfate (Ventolin Hfa) 1 Puff Puff, 2 PUFF PO Q6H PRN for SHORTNESS OF BREATH, (Reported) Entered as Reported by: PANCHO MEYERS on 12/03/19 1029 Amlodipine Besylate (Amlodipine Besylate) 5 Mg Tablet, 10 MG PO DAILY Prescribed by: REBECCA CARRERA on 12/05/19 1015 Aspirin (Aspirin EC) 81 Mg Tablet.dr, 81 MG PO DAILY, (Reported) Entered as Reported by: JOSE MIGUEL GUTIERREZ on 05/15/16 0958 Azithromycin (Azithromycin) 250 Mg Tablet, 250 MG PO UD Prescribed by: SONAL REBOLLAR on 07/26/22 0521 Benzonatate (Tessalon Perles) 100 Mg Capsule, 100 MG PO TID PRN for COUGH Prescribed by: SONAL REBOLLAR on 07/26/22 0521 Finasteride (Finasteride) 5 Mg Tablet, 5 MG PO DAILY, (Reported) Entered as Reported by: PANCHO MEYERS on 12/03/19 1029 Fluticasone Propion/Salmeterol (Fluticasone-Salmeterol 250-50) 1 Each Blst.w.dev, 1 PUFF PO BID PRN for SHORTNESS OF BREATH, (Reported) Entered as Reported by: PANCHO MEYERS on 12/03/19 1029 Ibuprofen (Ibuprofen) 200 Mg Tablet, 400 MG PO Q8H PRN for PAIN-MILD (1-4), (Reported) Entered as Reported by: PANCHO MEYERS on 12/03/19 1029 Insulin Glargine,Hum.rec.anlog (Lantus) 100 Unit/1 Ml Vial, 30 UNIT SQ DAILY, (Reported) Entered as Reported by: MIGUEL SARMIENTO on 03/10/19 0800 Metformin HCl (Metformin HCl) 850 Mg Tablet, 850 MG PO DAILY, (Reported) Entered as Reported by: MIGUEL SARMIENTO on 03/10/19 0802 Prednisone (Prednisone) 20 Mg Tab, 40 MG PO DAILY Prescribed by: SONAL REBOLLAR on 07/26/22 0521 Rivaroxaban (Xarelto Tablet) 20 Mg Tablet, 20 MG PO 1700, (Reported) Entered as Reported by: JOSE MIGUEL GUTIERREZ on 05/15/16 0958 Valsartan (Diovan) 80 Mg Tablet, 320 MG PO DAILY Prescribed by: REBECCA CARRERA on 12/05/19 1015 Review of Systems Review of Systems Constitutional: No chills, No fever Respiratory: cough, short of breath, wheezing Cardiovascular: No chest pain Gastrointestinal: No abdominal pain, No nausea, No vomiting Genitourinary: no symptoms reported Musculoskeletal: no symptoms reported Skin: no symptoms reported Past Igatjrq-Ymddeu-Sdzxvt Hx Patient Social History Tobacco Use?: Yes Tobacco type used: Cigarettes Smoking Status: Former Smoker Immunizations Up To Date PED Vaccines UTD: Yes Influenza Vaccine Up-to-Date: Yes; Up-to-Date First/Initial COVID19 Vaccinat: 2020 Second COVID19 Vaccination Aris: 2020 Third COVID19 Vaccination Date: 2020 Seasonal Allergies Seasonal Allergies: No Past Medical History Surgery/Hospitalization HX: DIABETES, COPD, CAD Surgeries: Yes CABG Respiratory: Yes Sleep Apnea, COPD Currently Using CPAP: No Currently Using BIPAP: No Cardiac: Yes Atrial Fibrillation, Coronary Artery Disease, Hypertension Neurological: No Sexually Transmitted Disease: No HIV/AIDS: No Genitourinary: No Benign Prostatic Hyperpl, Prostate Problems Gastrointestinal: No Abdominal Hernia Musculoskeletal: No Endocrine: Yes Diabetes, Insulin dep HEENT: No Cancer: Yes Skin Did You Recieve Any Treatments: No Psychosocial: No Integumentary: No Blood Disorders: No Adverse Reaction/Blood Tranf: No Family Medical History Fathr of internal bleeding, mother had breast cancer, sister had cancer and at 21 year old, brother of heart disease Physical Exam Vital Signs - First Documented 07/26/22 04:30 Temp 36.5 Pulse 84 Resp 18 B/P (MAP) 162/107 (125) Pulse Ox 95 O2 Delivery Room Air Capillary Refill : Less Than 3 Seconds Height: 5'8.00" Weight: 215lbs. 0.0oz. 97.378308lv; 30.00 BMI Method: General Appearance: WD/WN, no apparent distress Respiratory: no respiratory distress, no accessory muscle use, decreased breath sounds; No wheezing Cardiovascular: normal peripheral pulses, regular rate, rhythm Extremities: normal range of motion Neurologic/Psychiatric: alert, normal mood/affect, oriented x 3 Skin: normal color, warm/dry Progress/Results/Core Measures Suspected Sepsis SIRS Temperature: Pulse: 84 Respiratory Rate: 18 Blood Pressure 162 /107 Mean: 125 Results/Orders Lab Results Laboratory Tests Test 07/26/22 04:49 Range/Units Influenza Type A (RT-PCR) Not Detected Not Detecte Influenza Type B (RT-PCR) Not Detected Not Detecte SARS-CoV-2 RNA (RT-PCR) Not Detected Not Detecte My Orders Orders - SONAL REBOLLAR DO Influenza A And B By Pcr (07/26/22 04:42) Covid 19 Inhouse Test (07/26/22 04:42) Albuterol/Ipra Inhalation Soln (Duoneb I (07/26/22 04:45) Methylprednisolone Sod Succ (Solu-Medrol (07/26/22 04:42) Svn Small Volume Nebulizer (07/26/22 04:42) Benzonatate Capsule (Tessalon Perles) (07/26/22 04:45) Methylprednisolone Sod Succ (Solu-Medrol (07/26/22 05:00) Medications Given in ED Current Medications Medications Dose Ordered Sig/Rupal Route Start Time Stop Time Status Last Admin Dose Admin Albuterol/ Ipratropium 3 ml ONCE ONCE INH 07/26/22 04:45 07/26/22 04:46 DC 07/26/22 04:52 3 ML Benzonatate 100 mg ONCE ONCE PO 07/26/22 04:45 07/26/22 04:46 DC 07/26/22 05:01 100 MG Methylprednisolone Sodium Succinate 125 mg ONCE ONCE IM 07/26/22 05:00 07/26/22 05:01 DC 07/26/22 05:01 125 MG Vital Signs/I&O 07/26/22 07/26/22 07/26/22 2/16/23 04:30 04:39 04:52 05:24 Temp 36.5 36.5 Pulse 84 84 Resp 18 18 B/P (MAP) 162/107 (125) 162/107 Pulse Ox 95 97 97 O2 Delivery Room Air Room Air Room Air Room Air Capillary Refill : Less Than 3 Seconds Blood Pressure Mean: 125 Progress Note : Progress Note Patient's labs were reviewed. At this time I did not feel a chest x-ray was warranted as it would not change agent. Patient does have a history of bronchitis. He was negative for COVID and influenza. He did have improvement following a DuoNeb. He likely has a mild COPD exacerbation. Patient was given prednisone in the ER along with the Tessalon Perle which helped relieve his cough somewhat. Patient was requesting antibiotic. I discussed with him that likely would not change his symptoms however I will give him azithromycin prescription since that will cover for atypicals and help with some lung inflammation. Patient was given a couple days of prednisone along with some Tessalon Perles. He should follow-up with his primary care provider if symptoms have not improved in the next week. He was stable and discharged home. Departure Impression Primary Impression: Bronchitis Disposition: 01 HOME, SELF-CARE Condition: Stable Departure-Patient Inst. Referrals: DERIC CH MD (PCP) Primary Care Physician Patient Instructions: Acute Bronchitis, Adult (DC) Scripts Benzonatate (TESSALON PERLES) 100 Mg Capsule 100 MG PO TID PRN for COUGH, #15 CAP Prov: SONAL REBOLLAR DO 07/26/22 Prednisone (Prednisone) 20 Mg Tab 40 MG PO DAILY, #6 TAB 0 Refills Prov: SONAL REBOLLAR DO 07/26/22 Azithromycin (Azithromycin) 250 Mg Tablet 250 MG PO UD, #6 TAB TAKE 2 TABLETS ON DAY ONE THEN TAKE 1 TABLET DAILY FOR FOUR MORE DAYS Prov: SONAL REBOLLAR DO 07/26/22 SONAL REBOLLAR DO Jul 26, 2022 04:45
[2022-07-26] MEDS: RT-ALBUTEROL/IPRATROPIUM 3 ML (DUONEB) VIAL INH ONE (04:52)
[2022-07-26] MEDS: BENZONATATE 100 MG (TESSALON) CAPSULE PO ONE (05:01)
[2022-07-26] MEDS: methylPREDNISolone 125 MG (Solu-MEDROL) VIAL IM ONE (05:01)
[2022-07-26] MEDS: methylPREDNISolone 125 MG (Solu-MEDROL) VIAL IV STA (05:12)
[2022-07-26] MEDS ORDERED: PRD20T PO (05:21)
[2022-07-26] MEDS ORDERED: AZIT250T12 PO (05:21)
[2022-07-26] MEDS ORDERED: BENZ100C18 PO (05:21)
[2022-07-26 05:24] VITALS: BP 162/107
== END 2022-07-26 05:24 | disposition home or self-care (01) ==
LOC: EDUNIT# 04:23 → ER 04:26
DX: J44.9 Chronic obstructive pulmonary disease, unspecified (principal); E11.9 Type 2 diabetes mellitus without complications; Z79.4 Long term (current) use of insulin; Z87.891 Personal history of nicotine dependence; Z20.822 Contact with and (suspected) exposure to COVID-19
CPT/HCPCS: 87636; 94640

== ENCOUNTER → 2022-09-13 | Outpatient (CLI) | payer MEDICARE ==
[~2022-09-13] MED LIST changes: +AZIT250T12 PO; +BENZ100C18 PO; +PRD20T PO
== END ==
LOC: CARD 09:15
PROVIDERS: ATTEND Internal Medicine Cardiovascular Disease
DX: I08.0 Rheumatic disorders of both mitral and aortic valves (principal); I25.10 Atherosclerotic heart disease of native coronary artery without angina pectoris
CPT/HCPCS: 93306

== ENCOUNTER → 2022-10-02 | Outpatient (CLI) | payer MEDICARE ==
[~2022-10-02] MED LIST changes: +REGADENOSON 0.4 MG/5 ML SYR (LEXISCAN) IV ONE
[2022-10-02] MEDS: CATHETER FLUSH 10 ML SYR IVP PRN ×2 (11:27→13:18)
[2022-10-02 12:59] VITALS: BP 154/95
--- NOTE | 2022-10-04 09:08 | STRESS TEST ---
DATE OF SERVICE: 10/02/2022 RESTING AND POST REGADENOSON TECHNETIUM-99M TETROFOSMIN SPECT CT IMAGING ORDERING PHYSICIAN: Clare Lambert APRN. PRIMARY PHYSICIAN: Allan Magdaleno. CLINICAL DIAGNOSIS: Coronary artery disease. Baseline images were carried out after injection of 10.29 mCi technetium-99m tetrofosmin. The electrocardiogram showed sinus rhythm with a controlled ventricular response throughout the study. The patient tolerated the procedure well. Review of images at rest and following stress does not indicate any distinct perfusion defects consistent with significant myocardial ischemia or infarction. Gated images show normal global left ventricular systolic function with normal regional wall motion. Left ventricular ejection fraction is calculated to be 56%. CONCLUSIONS: 1. No evidence of significant myocardial ischemia or infarction on this study. 2. Normal regional wall motion. 3. Normal global left ventricular systolic function with a calculated ejection fraction of 56%. Job ID: [id number] DocumentID: [id number] Dictated Date: 10/04/2022 08:19:49 Auditing Control Clerk Date: 10/04/2022 09:05:00 Dictated By: ROBERTO CARLSON MD; MORIAH; FACP; FACC;
== END ==
LOC: CARD 11:12
PROVIDERS: ATTEND Nurse Practitioner Family
DX: I25.10 Atherosclerotic heart disease of native coronary artery without angina pectoris (principal)
CPT/HCPCS: 78452; 93017; A9502

== ENCOUNTER 2023-02-20 05:46 | Outpatient (CLI) | payer MEDICARE ==
[~2023-02-20] VITALS: Ht 172.7 cm; Wt 96.6 kg
[~2023-02-20 05:46] MED LIST changes: -REGADENOSON 0.4 MG/5 ML SYR (LEXISCAN) IV ONE
[2023-02-21] MEDS ORDERED: SILD20TA14 PO (13:46)
[2023-02-21] MEDS ORDERED: RIVA20TA PO (13:46)
[2023-02-21] MEDS ORDERED: METO50TA7 PO (13:46)
[2023-02-21] MEDS ORDERED: POTA10CA84 PO (13:46)
[2023-02-21] MEDS ORDERED: UMEC1BLS IH (13:46)
== END 2023-02-21 13:58 | disposition home or self-care (01) ==
LOC: PREOP 05:46
PROVIDERS: ATTEND Surgery
DX: Z01.818 Encounter for other preprocedural examination (principal)

== ENCOUNTER 2023-03-10 02:06 | Inpatient (IN) | payer MEDICARE ==
[~2023-03-10] VITALS: Ht 172 cm; Wt 95.2 kg
[~2023-03-10 02:06] MED LIST changes: +METO50TA7 PO; +POTA10CA84 PO; +RIVA20TA PO; +SILD20TA14 PO
[2023-03-10] MEDS ORDERED: NS IV 1000 ML 1,000 ML IV STA (02:28)
[2023-03-10 02:31] LABS: BASOPHILS # (AUTO) 0.1 10^3/uL (0.0-0.1); BASOPHILS % (AUTO) 1 % (0-10); EOSINOPHILS # (AUTO) 0.1 10^3/uL (0.0-0.3); EOSINOPHILS % (AUTO) 1 % (0-10); HEMATOCRIT 41 % (40-54); HEMOGLOBIN 13.7 g/dL (13.3-17.7); LYMPHOCYTES # (AUTO) 2.8 10^3/uL (1.0-4.0); LYMPHOCYTES % (AUTO) 29 % (12-44); MEAN CORPUSCULAR HEMOGLOBIN 30 pg (25-34); MEAN CORPUSCULAR HGB CONC 33 g/dL (32-36); MEAN CORPUSCULAR VOLUME 91 fL (80-99); MEAN PLATELET VOLUME 10.6 fL (9.0-12.2); MONOCYTES # (AUTO) 0.8 10^3/uL (0.0-1.0); MONOCYTES % (AUTO) 8 % (0-12); NEUTROPHILS # (AUTO) 5.9 10^3/uL (1.8-7.8); NEUTROPHILS % (AUTO) 61 % (42-75); PLATELET COUNT 279 10^3/uL (130-400); WHITE BLOOD COUNT 9.7 10^3/uL (4.3-11.0)
[2023-03-10] MEDS ORDERED: HUMAN PROTHROMBIN COMPLX(PCC) 500 UNIT (KCENTRA) IV ONE (02:45)
[2023-03-10] MEDS ORDERED: NS IV 500 ML 500 ML IV SCH (02:45)
[2023-03-10] MEDS ORDERED: ONDANSETRON INJECTION 4 MG/2 ML (SDV) ONE (02:46)
[2023-03-10 02:50] VITALS: BP 124/83
[2023-03-10 02:55] VITALS: BP 132/75
[2023-03-10 03:05] VITALS: BP 132/93
[2023-03-10 03:09] LABS: POTASSIUM 3.4 MMOL/L (3.6-5.0)
[2023-03-10 03:10] LABS: CALCIUM 9.1 MG/DL (8.5-10.1)
--- NOTE | 2023-03-10 03:10 | ED GI ---
General Chief Complaint: Rect Problems Stated Complaint: 5 BLOODY STOOLS TONIGHT Source of Information: Patient Exam Limitations: No Limitations History of Present Illness Date Seen by Provider: Mar 10, 2023 Time Seen by Provider: 02:08 Initial Comments 83-year-old male with A-fib on Xarelto who presents for bloody stools. Symptoms started this evening and he states he has had 5 large bloody stools with clots. Notably he had a colonoscopy with polypectomy x2 on 03/05. He restarted his Xarelto on Saturday. He had been doing well until this evening. On arrival he is hypotensive in the 90s systolic and quickly drops to the 70s and into the 50s systolic he is diaphoretic and listless during this time. He did have 2 large bloody bowel movements with clots while in the emergency department. All other systems reviewed and negative except documented per HPI. Voice recognition software was used to help create this chart Allergies and Home Medications Allergies Coded Allergies: No Known Drug Allergies (Unverified , 01/12/11) Patient Home Medication List Home Medication List Reviewed: Yes Acetaminophen (Tylenol Extra Strength) 500 Mg Tablet, 1,000 MG PO Q8H PRN for PAIN-MILD (1-4), (Reported) Entered as Reported by: PANCHO MEYERS on 12/03/19 1029 Albuterol Sulfate (Ventolin Hfa) 1 Puff Puff, 2 PUFF PO Q6H PRN for SHORTNESS OF BREATH, (Reported) Entered as Reported by: PANCHO MEYERS on 12/03/19 1029 Amlodipine Besylate (Amlodipine Besylate) 5 Mg Tablet, 10 MG PO DAILY Prescribed by: REBECCA CARRERA on 12/05/19 1015 Aspirin (Aspirin EC) 81 Mg Tablet.dr, 81 MG PO DAILY, (Reported) Entered as Reported by: JOSE MIGUEL GUTIERREZ on 05/15/16 0958 Finasteride (Finasteride) 5 Mg Tablet, 5 MG PO DAILY, (Reported) Entered as Reported by: PANCHO MEYERS on 12/03/19 1029 Fluticasone Propion/Salmeterol (Fluticasone-Salmeterol 250-50) 1 Each Blst.w.d ev, 1 PUFF PO BID PRN for SHORTNESS OF BREATH, (Reported) Entered as Reported by: PANCHO MEYERS on 12/03/19 1029 Insulin Glargine,Hum.rec.anlog (Lantus) 100 Unit/1 Ml Vial, 30 UNIT SQ DAILY, (Reported) Entered as Reported by: MIGUEL SARMIENTO on 03/10/19 0800 Metoprolol Succinate (Metoprolol Succinate) 50 Mg Tab.er.24h, 50 MG PO DAILY, (Reported) Entered as Reported by: RONALDO MENDOZA on 02/21/23 1346 Potassium Chloride (Potassium Chloride) 10 Meq Capsule.er, 10 MEQ PO DAILY, (Reported) Entered as Reported by: RONALDO MENDOZA on 02/21/23 1346 Rivaroxaban (Xarelto Tablet) 20 Mg Tablet, 20 MG PO 1700, (Reported) Entered as Reported by: JOSE MIGUEL GUTIERREZ on 05/15/16 0958 Sildenafil Citrate (Sildenafil) 20 Mg Tablet, 20 MG PO DAILY, (Reported) Entered as Reported by: RONALDO MENDOZA on 02/21/23 1346 Umeclidinium Brm/Vilanterol Tr (Anoro Ellipta 62.5-25 Mcg INH) 62.5 Mcg-25 Mcg/Actuation Blst.w.dev, 1 EACH IH DAILY, (Reported) Entered as Reported by: RONALDO MENDOZA on 02/21/23 1346 Valsartan (Diovan) 80 Mg Tablet, 320 MG PO DAILY Prescribed by: REBECCA CARRERA on 12/05/19 1015 Review of Systems Review of Systems Constitutional: see HPI Past Zqqxalo-Pcayyc-Nxfthb Hx Patient Social History Tobacco Use?: No Use of E-Cig and/or Vaping dev: No Substance use?: No Alcohol Use?: No Immunizations Up To Date PED Vaccines UTD: Yes First/Initial COVID19 Vaccinat: 2020 Second COVID19 Vaccination Aris: 2020 Third COVID19 Vaccination Date: 2020 Seasonal Allergies Seasonal Allergies: No Past Medical History Surgery/Hospitalization HX: DIABETES, COPD, CAD Surgeries: Yes (HERNIA/REMOVAL OF SKIN CA) CABG Respiratory: Yes Sleep Apnea, COPD Currently Using CPAP: No Currently Using BIPAP: No Cardiac: Yes Atrial Fibrillation, Coronary Artery Disease, Hypertension Neurological: No Sexually Transmitted Disease: No HIV/AIDS: No Genitourinary: Yes Benign Prostatic Hyperpl, Prostate Problems Gastrointestinal: No Abdominal Hernia Musculoskeletal: Yes Arthritis Endocrine: Yes Diabetes, Insulin dep HEENT: No Cancer: Yes Skin Did You Recieve Any Treatments: No Psychosocial: No Integumentary: No Blood Disorders: No Adverse Reaction/Blood Tranf: No Family Medical History Fathr of internal bleeding, mother had breast cancer, sister had cancer and at 21 year old, brother of heart disease Physical Exam Vital Signs Capillary Refill : Height/Weight/BMI Height: 5'8.00" Weight: 215lbs. 0.0oz. 97.507054tv; 32.38 BMI Method: General Appearance: moderate distress HEENT: other (Dry mucous membranes) Respiratory: lungs clear, normal breath sounds Cardiovascular: regular rate, rhythm, no murmur Gastrointestinal: non tender, soft Extremities: other (Delayed capillary refill, diaphoresis) Skin: other (Patient is pale, diaphoretic and skin is mottled) Progress/Results/Core Measures Results/Orders Lab Results Laboratory Tests Test 03/10/23 02:24 Range/Units White Blood Count 9.7 4.3-11.0 10^3/uL Red Blood Count 4.56 4.30-5.52 10^6/uL Hemoglobin 13.7 13.3-17.7 g/dL Hematocrit 41 40-54 % Mean Corpuscular Volume 91 80-99 fL Mean Corpuscular Hemoglobin 30 25-34 pg Mean Corpuscular Hemoglobin Concent 33 32-36 g/dL Red Cell Distribution Width 13.3 10.0-14.5 % Platelet Count 279 130-400 10^3/uL Mean Platelet Volume 10.6 9.0-12.2 fL Immature Granulocyte % (Auto) 0 % Neutrophils (%) (Auto) 61 42-75 % Lymphocytes (%) (Auto) 29 12-44 % Monocytes (%) (Auto) 8 0-12 % Eosinophils (%) (Auto) 1 0-10 % Basophils (%) (Auto) 1 0-10 % Neutrophils # (Auto) 5.9 1.8-7.8 10^3/uL Lymphocytes # (Auto) 2.8 1.0-4.0 10^3/uL Monocytes # (Auto) 0.8 0.0-1.0 10^3/uL Eosinophils # (Auto) 0.1 0.0-0.3 10^3/uL Basophils # (Auto) 0.1 0.0-0.1 10^3/uL Immature Granulocyte # (Auto) 0.0 0.0-0.1 10^3/uL Sodium Level 139 135-145 MMOL/L Potassium Level 3.4 L 3.6-5.0 MMOL/L Chloride Level 99 98-107 MMOL/L Glucose Level 226 H 70-105 MG/DL Calcium Level 9.1 8.5-10.1 MG/DL My Orders Orders - ADDISON RICHARDS DO Type And Screen (03/10/23 02:20) Cbc And Automated Diff (03/10/23 02:20) Ns Iv 1000 Ml (Ns Iv 1000 Ml) (03/10/23 02:28) Human Prothrombin Complx(Pcc) (Kcentra K (03/10/23 02:45) Vital Signs: Special (Order) (03/10/23 02:32) Consent-Obtain Consent For (03/10/23 02:32) Monitor S/S Transfusion Reacti (03/10/23 02:32) Ns Iv 500 Ml (Ns Iv 500 Ml) (03/10/23 02:45) Red Cells Leukocytes Reduced (03/10/23 02:32) Ondansetron Injection (Ondansetron Inj (03/10/23 02:46) Basic Metabolic Panel (03/10/23 03:00) Ondansetron Injection (Ondansetron Inj (03/10/23 03:15) Medications Given in ED Current Medications Medications Dose Ordered Sig/Rupal Route Start Time Stop Time Status Last Admin Dose Admin Ondansetron HCl 4 mg STK-MED ONCE .ROUTE 03/10/23 02:46 03/10/23 02:49 DC 03/10/23 02:46 8 MG Critical Care Note Critical Care Total Time (minutes) 60 Departure Communication (Admissions) Patient initially relatively stable blood pressure around 95 systolic. He rapidly decompensated when he had a large bowel movement and his pressure dropped into the 70s and in the 50s. We called for uncrossed match blood and started IV fluids on a pressure bag prior to arrival. The patient became diaphoretic and listless during this time. We got blood and rapidly transfuse 1 unit of blood after pressure making 1 L of IV fluids. His blood pressures rebounded well and he became more alert and his diaphoresis resolved. His color returned. He is on Xarelto started of some Kcentra for reversal. I spoke to Dr. Murguia who accepts the patient in admission. Request ICU care and serial CBCs. Also request hospitalist consult so I called Dr. Tejada and he agrees to consult. Bridging orders have been placed with CBC every 3 hours. We will go ahead and give him 1 more unit of uncrossed blood over the next hour. He does not have any continuous active hemorrhage but does have bloody bowel movements about every 15 to 20 minutes currently. Impression Primary Impression: GI bleed Qualified Codes: K62.5 - Hemorrhage of anus and rectum Additional Impression: Hemorrhagic shock Disposition: ADMITTED INPATIENT Condition: Improved Admissions Decision to Admit Reason: Admit from ER (General) Departure-Patient Inst. Referrals: DERIC CH MD (PCP/Family) Primary Care Physician ADDISON RICHARDS DO Mar 10, 2023 03:10
[2023-03-10 03:12] VITALS: BP 146/83
[2023-03-10 03:14] LABS: CREATININE SERUM 1.55 MG/DL (0.60-1.30)
[2023-03-10] MEDS ORDERED: ONDANSETRON INJECTION 4 MG/2 ML (SDV) IVP ONE (03:15)
[2023-03-10 03:27] VITALS: BP 130/79
--- NOTE | 2023-03-10 04:10 | Tele-ICU Consult ---
History of Present Illness History of Present Illness Date Seen by Provider: Mar 10, 2023 Time Seen by Provider: 04:00 History of Present Illness 83 yo M admitted with blood in stools, has a fib, on Xarelto, Had recent polypectomy 03/05, With Xarelto re started yesterday. In ED became very hypotensive, with SBP as low as 50's, Hb 13.7, plt count 279, Given one unit of PRBC, getting a second Given KCentra responded well after IVF and first unit of blood Still passing clots, direct response consultant called Other PMH DM, COPD, CAD, BPH, FABIAN, Allergies and Home Medications Allergies Coded Allergies: No Known Drug Allergies (Unverified , 01/12/11) Home Medications Acetaminophen 500 Mg Tablet, 1,000 MG PO Q8H PRN for PAIN-MILD (1-4), (Reported) Albuterol Sulfate 1 Puff Puff, 2 PUFF PO Q6H PRN for SHORTNESS OF BREATH, (Reported) Amlodipine Besylate 5 Mg Tablet, 10 MG PO DAILY Prescribed by: REBECCA CARRERA on 12/05/19 1015 Aspirin 81 Mg Tablet.dr, 81 MG PO DAILY, (Reported) Finasteride 5 Mg Tablet, 5 MG PO DAILY, (Reported) FILLED 08-06-2019 #90/90 DAY SUPPLY Fluticasone Propion/Salmeterol 1 Each Blst.w.dev, 1 PUFF PO BID PRN for SHORTNESS OF BREATH, (Reported) Insulin Glargine,Hum.rec.anlog 100 Unit/1 Ml Vial, 30 UNIT SQ DAILY, (Reported) Metoprolol Succinate 50 Mg Tab.er.24h, 50 MG PO DAILY, (Reported) Potassium Chloride 10 Meq Capsule.er, 10 MEQ PO DAILY, (Reported) Rivaroxaban 20 Mg Tablet, 20 MG PO 1700, (Reported) Sildenafil Citrate 20 Mg Tablet, 20 MG PO DAILY, (Reported) Umeclidinium Brm/Vilanterol Tr 62.5 Mcg-25 Mcg/Actuation Blst.w.dev, 1 EACH IH DAILY, (Reported) Valsartan 80 Mg Tablet, 320 MG PO DAILY Prescribed by: REBECCA CARRERA on 12/05/19 1015 Past Medical/Social/Family Hx Patient Social History Tobacco Use?: No Use of E-Cig and/or Vaping dev: No Substance use?: No Alcohol Use?: No Immunizations Up To Date First/Initial COVID19 Vaccinat: 2020 Second COVID19 Vaccination Aris: 2020 Tetanus Booster (TDap): Unknown Date of Pneumonia Vaccine: Apr 10, 2019 Current Status Communicates: Verbally Primary Language: Chadian Preferred Spoken Language: Chadian Is interpretation needed?: No Review of Systems Constitutional: see HPI EENTM: see HPI Respiratory: see HPI Cardiovascular: see HPI Gastrointestinal: see HPI Genitourinary: see HPI Musculoskeletal: see HPI Skin: see HPI Psychiatric/Neurological: See HPI Focused Exam Height, Weight, BMI Height: 5'8.00" Weight: 215lbs. 0.0oz. 97.115376gp; 30.00 BMI Method: Exam Exam Patient acknowledged, consented, and participated in this virtual visit which was conducted using real time audio/video Vital Signs Date Time Temp Pulse Resp B/P (MAP) Pulse Ox O2 Delivery O2 Flow Rate FiO2 03/10/23 03:27 36.1 67 16 130/79 99 Room Air 03/10/23 03:12 36.1 58 18 146/83 100 Room Air 03/10/23 03:05 64 18 132/93 99 Room Air 03/10/23 02:55 58 18 132/75 98 Room Air 03/10/23 02:50 67 16 124/83 97 Room Air 03/10/23 02:11 36.6 64 99/56 (70) 97 Room Air I & O 03/10/23 06:59 Intake Total 2245 ml Balance 2245 ml Height & Weight Height: 5'8.00" Weight: 215lbs. 0.0oz. 97.395765aw; 30.00 BMI Method: General Appearance: Mild Distress Respiratory: Lungs Clear Cardiovascular: Regular Rate, Rhythm Gastrointestinal: normal bowel sounds, non tender, soft Neurologic/Psychiatric: Alert Results Lab Laboratory Tests 03/10/23 02:24 Assessment/Plan Assessment/Plan GI bleed, getting 2nd U of RBC, IVF, surg environmental consultant to see check INR PT PTT, [place] Spoke to ED Critical Care: Critically Ill Patient Time spent with patient (mins): 27 ROSA PEARL MD Mar 10, 2023 04:10
[2023-03-10] MEDS ORDERED: ONDANSETRON INJECTION 4 MG/2 ML (SDV) IV PRN (04:45)
[2023-03-10] MEDS: NS IV 1000 ML 1,000 ML IV SCH ×2 (06:29→19:00)
[2023-03-10 07:33] LABS: BASOPHILS % (AUTO) 0 % (0-10); EOSINOPHILS % (AUTO) 0 % (0-10); HEMATOCRIT 42 % (40-54); LYMPHOCYTES # (AUTO) 1.5 10^3/uL (1.0-4.0); LYMPHOCYTES % (AUTO) 14 % (12-44); MEAN CORPUSCULAR HEMOGLOBIN 30 pg (25-34); MEAN CORPUSCULAR HGB CONC 34 g/dL (32-36); MEAN CORPUSCULAR VOLUME 90 fL (80-99); MEAN PLATELET VOLUME 10.6 fL (9.0-12.2); MONOCYTES # (AUTO) 0.6 10^3/uL (0.0-1.0); MONOCYTES % (AUTO) 6 % (0-12); NEUTROPHILS # (AUTO) 8.4 10^3/uL (1.8-7.8); NEUTROPHILS % (AUTO) 79 % (42-75); PLATELET COUNT 201 10^3/uL (130-400); WHITE BLOOD COUNT 10.5 10^3/uL (4.3-11.0)
[2023-03-10 07:45] LABS: ALBUMIN 3.5 GM/DL (3.2-4.5); POTASSIUM 3.4 MMOL/L (3.6-5.0)
[2023-03-10 07:47] LABS: CALCIUM 8.3 MG/DL (8.5-10.1)
[2023-03-10 07:48] LABS: TOTAL PROTEIN 5.6 GM/DL (6.4-8.2)
[2023-03-10 07:51] LABS: PHOSPHORUS 2.5 MG/DL (2.3-4.7)
[2023-03-10 07:52] LABS: CREATININE SERUM 1.23 MG/DL (0.60-1.30)
[2023-03-10 07:54] LABS: MAGNESIUM 1.9 MG/DL (1.6-2.4)
[2023-03-10 10:37] LABS: BASOPHILS % (AUTO) 0 % (0-10); EOSINOPHILS # (AUTO) 0.1 10^3/uL (0.0-0.3); EOSINOPHILS % (AUTO) 1 % (0-10); HEMATOCRIT 38 % (40-54); LYMPHOCYTES % (AUTO) 22 % (12-44); MEAN CORPUSCULAR HEMOGLOBIN 31 pg (25-34); MEAN CORPUSCULAR HGB CONC 34 g/dL (32-36); MEAN CORPUSCULAR VOLUME 89 fL (80-99); MEAN PLATELET VOLUME 10.5 fL (9.0-12.2); MONOCYTES # (AUTO) 0.8 10^3/uL (0.0-1.0); MONOCYTES % (AUTO) 9 % (0-12); NEUTROPHILS # (AUTO) 6.3 10^3/uL (1.8-7.8); NEUTROPHILS % (AUTO) 68 % (42-75); PLATELET COUNT 187 10^3/uL (130-400); WHITE BLOOD COUNT 9.2 10^3/uL (4.3-11.0)
--- NOTE | 2023-03-10 11:26 | History & Physical-Surgical ---
History of Present Illness History of Present Illness Reason for visit/HPI 83 year old male with recent colonoscopy and on anticoagulation. Had polypectomy and this morning early had bleeding per rectum. [place] sweaty. Was admitted and got 2 units of blood and PCC. Patient not had any bloody bm in the ICU. Denies n/v fever sweats chills shortness of breath or chest pain at this time. Family at bedside. Date of Admission Mar 10, 2023 at 03:43 Date Seen by a Provider: Mar 10, 2023 Time Seen by a Provider: 09:50 I consulted on this patient on 03/10/23 11:25 Attending Physician Allan Magdaleno MD Admitting Physician Admitting Physician: Andreea Murguia DO Attending Physician: Andreea Murguia DO Allergies and Home Medications Allergies Coded Allergies: No Known Drug Allergies (Unverified , 01/12/11) Patient Home Medication List Home Medication List Reviewed: Yes Acetaminophen (Tylenol Extra Strength) 500 Mg Tablet, 1,000 MG PO Q8H PRN for PAIN-MILD (1-4), (Reported) Entered as Reported by: PANCHO MEYERS on 12/03/19 1029 Last Action: Held Albuterol Sulfate (Ventolin Hfa) 1 Puff Puff, 2 PUFF PO Q6H PRN for SHORTNESS OF BREATH, (Reported) Entered as Reported by: PANCHO MEYERS on 12/03/19 1029 Last Action: Reviewed Amlodipine Besylate (Amlodipine Besylate) 5 Mg Tablet, 10 MG PO DAILY Prescribed by: REBECCA CARRERA on 12/05/19 1015 Last Action: Held Aspirin (Aspirin EC) 81 Mg Tablet.dr, 81 MG PO DAILY, (Reported) Entered as Reported by: JOSE MIGUEL GUTIERREZ on 05/15/16 0958 Last Action: Held Finasteride (Finasteride) 5 Mg Tablet, 5 MG PO DAILY, (Reported) Entered as Reported by: PANCHO MEYERS on 12/03/19 1029 Last Action: Reviewed Fluticasone Propion/Salmeterol (Fluticasone-Salmeterol 250-50) 1 Each Blst.w.dev, 1 PUFF PO BID PRN for SHORTNESS OF BREATH, (Reported) Entered as Reported by: PANCHO MEYERS on 12/03/19 1029 Last Action: Reviewed Insulin Glargine,Hum.rec.anlog (Lantus) 100 Unit/1 Ml Vial, 30 UNIT SQ DAILY, (Reported) Entered as Reported by: MIGUEL SARMIENTO on 03/10/19 0800 Last Action: Held Metoprolol Succinate (Metoprolol Succinate) 50 Mg Tab.er.24h, 50 MG PO DAILY, (Reported) Entered as Reported by: RONALDO MENDOZA on 02/21/231345 Last Action: Held Potassium Chloride (Potassium Chloride) 10 Meq Capsule.er, 10 MEQ PO DAILY, (Reported) Entered as Reported by: RONALDO MENDOZA on 02/21/231345 Last Action: Held Rivaroxaban (Xarelto Tablet) 20 Mg Tablet, 20 MG PO 1700, (Reported) Entered as Reported by: JOSE MIGUEL GUTIERREZ on 05/15/16 0958 Last Action: Held Sildenafil Citrate (Sildenafil) 20 Mg Tablet, 20 MG PO DAILY, (Reported) Entered as Reported by: RONALDO MENDOZA on 02/21/231345 Last Action: Held Umeclidinium Brm/Vilanterol Tr (Anoro Ellipta 62.5-25 Mcg INH) 62.5 Mcg-25 Mcg/Actuation Blst.w.dev, 1 EACH IH DAILY, (Reported) Entered as Reported by: RONALDO MENDOZA on 02/21/231345 Last Action: Held Valsartan (Diovan) 80 Mg Tablet, 320 MG PO DAILY Prescribed by: REBECCA CARRERA on 12/05/19 1015 Last Action: Held Past Nfhexol-Sgghvz-Xpicvu Hx Patient Social History Smoking Status: Former Smoker Former Smoker, Quit: May 15, 1995 Type Used: Cigarettes 2nd Hand Smoke Exposure: No Recent Hopitalizations: Yes (HERNIA SURGERY, CARDIAC SURGERY) Alcohol Use?: Yes Immunizations Up To Date PED Vaccines UTD: Yes Date of Pneumonia Vaccine: Apr 10, 2019 Date of Influenza Vaccine: Apr 25, 2016 Seasonal Allergies Seasonal Allergies: No Surgeries History of Surgeries: Yes (HERNIA/REMOVAL OF SKIN CA) Surgeries: CABG Respiratory History of Respiratory Disorde: Yes Respiratory Disorders: Sleep Apnea, COPD Cardiovascular History of Cardiac Disorders: Yes Cardiac Disorders: Atrial Fibrillation, Coronary Artery Disease, Hypertension Neurological History of Neurological Disord: No Reproductive System Sexually Transmitted Disease: No HIV/AIDS: No Genitourinary History of Genitourinary Disor: Yes Genitourinary Disorders: Benign Prostatic Hyperpl, Prostate Problems Gastrointestinal History of Gastrointestinal Di: No Gastrointestinal Disorders: Abdominal Hernia Musculoskeletal History of Musculoskeletal Dis: Yes Musculoskeletal Disorders: Arthritis Endocrine History of Endocrine Disorders: Yes Endocrine Disorders: Diabetes, Insulin dep HEENT History of HEENT Disorders: No Cancer History of Cancer: Yes Cancer: Skin Psychosocial History of Psychiatric Problem: No Integumentary History of Skin or Integumenta: No Blood Transfusions History of Blood Disorders: No Adverse Reaction to a Blood Tr: No Reviewed Nursing Assessment Reviewed/Agree w Nursing PMH: Yes Family Medical History Significant Family History: No Pertinent Family Hx Family Medial History: Fathr of internal bleeding, mother had breast cancer, sister had cancer and at 21 year old, brother of heart disease Review of Systems Constitutional: No chills; diaphoresis EENTM: No blurred vision, No double vision Respiratory: No cough, No dyspnea on exertion Cardiovascular: No chest pain, No palpitations Gastrointestinal: No no symptoms reported, No see HPI; melena Genitourinary: No decreased output Musculoskeletal: No back pain, No joint pain Skin: No change in color, No change in hair/nails Psychiatric/Neurological: Denies Anxiety, Denies Depressed, Denies Emotional Problems All Other Systems Reviewed Negative Unless Noted: Yes (Negative excepted noted.) Physical Exam Vital Signs Vital Signs - First Documented 03/10/23 03/10/23 02:11 02:50 Temp 36.6 Pulse 64 Resp 16 B/P (MAP) 99/56 (70) Pulse Ox 97 O2 Delivery Room Air Capillary Refill : Less Than 3 Seconds Height, Weight, BMI Height: 5'8.00" Weight: 215lbs. 0.0oz. 97.896334ky; 32.51 BMI Method: General Appearance: No Apparent Distress, WD/WN HEENT: PERRL/EOMI, Normal ENT Inspection Neck: Normal Inspection, Non Tender Respiratory: Chest Non Tender, No Accessory Muscle Use, No Respiratory Distress Cardiovascular: Regular Rate, Rhythm, No JVD Rectal: Deferred Genital/Rectal: Normal Rectal Exam, Normal Rectal Tone Back: Normal Inspection, No CVA Tenderness Extremity: Normal Inspection, Non Tender Neurologic/Psychiatric: Alert, Normal Mood/Affect Skin: Normal Color, Warm/Dry Lymphatic: No Adenopathy Data Review Labs Laboratory Tests 03/10/23 02:24: White Blood Count 9.7, Red Blood Count 4.56, Hemoglobin 13.7, Hematocrit 41, Mean Corpuscular Volume 91, Mean Corpuscular Hemoglobin 30, Mean Corpuscular Hemoglobin Concent 33, Red Cell Distribution Width 13.3, Platelet Count 279, Mean Platelet Volume 10.6, Immature Granulocyte % (Auto) 0, Neutrophils (%) (Auto) 61, Lymphocytes (%) (Auto) 29, Monocytes (%) (Auto) 8, Eosinophils (%) (Auto) 1, Basophils (%) (Auto) 1, Neutrophils # (Auto) 5.9, Lymphocytes # (Auto) 2.8, Monocytes # (Auto) 0.8, Eosinophils # (Auto) 0.1, Basophils # (Auto) 0.1, Immature Granulocyte # (Auto) 0.0, Sodium Level 139, Potassium Level 3.4L, Chloride Level 99, Carbon Dioxide Level 23, Anion Gap 17H, Blood Urea Nitrogen 22H, Creatinine 1.55H, Estimat Glomerular Filtration Rate 44, BUN/Creatinine Ratio 14, Glucose Level 226H, Calcium Level 9.1 03/10/23 07:26: White Blood Count 10.5, Red Blood Count 4.64, Hemoglobin 14.0, Hematocrit 42, Mean Corpuscular Volume 90, Mean Corpuscular Hemoglobin 30, Mean Corpuscular Hemoglobin Concent 34, Red Cell Distribution Width 13.5, Platelet Count 201, Mean Platelet Volume 10.6, Immature Granulocyte % (Auto) 0, Neutrophils (%) (Auto) 79H, Lymphocytes (%) (Auto) 14, Monocytes (%) (Auto) 6, Eosinophils (%) (Auto) 0, Basophils (%) (Auto) 0, Neutrophils # (Auto) 8.4H, Lymphocytes # (Auto) 1.5, Monocytes # (Auto) 0.6, Eosinophils # (Auto) 0.0, Basophils # (Auto) 0.0, Immature Granulocyte # (Auto) 0.0, Sodium Level 139, Potassium Level 3.4L, Chloride Level 104, Carbon Dioxide Level 23, Anion Gap 12, Blood Urea Nitrogen 20H, Creatinine 1.23, Estimat Glomerular Filtration Rate 59, BUN/Creatinine Ratio 16, Glucose Level 202H, Calcium Level 8.3L, Corrected Calcium 8.7, Phosphorus Level 2.5, Magnesium Level 1.9, Total Bilirubin 1.0, Aspartate Amino Transf (AST/SGOT) 16, Alanine Aminotransferase (ALT/SGPT) 12, Alkaline Phosphatase 53, Total Protein 5.6L, Albumin 3.5 03/10/23 10:30: White Blood Count 9.2, Red Blood Count 4.26L, Hemoglobin 13.0L, Hematocrit 38L, Mean Corpuscular Volume 89, Mean Corpuscular Hemoglobin 31, Mean Corpuscular Hemoglobin Concent 34, Red Cell Distribution Width 13.4, Platelet Count 187, Mean Platelet Volume 10.5, Immature Granulocyte % (Auto) 0, Neutrophils (%) (Auto) 68, Lymphocytes (%) (Auto) 22, Monocytes (%) (Auto) 9, Eosinophils (%) (Auto) 1, Basophils (%) (Auto) 0, Neutrophils # (Auto) 6.3, Lymphocytes # (Auto) 2.0, Monocytes # (Auto) 0.8, Eosinophils # (Auto) 0.1, Basophils # (Auto) 0.0, Immature Granulocyte # (Auto) 0.0 03/10/23 11:00: Glucometer 168H Assessment/Plan Assessment/Plan Admission Diagonsis Lower gi bleed s/p colonoscopy c polypectomy long-term anticoagulation Admission Status: Inpatient Order (span 2 midnights) Reason for Inpatient Admission: paitent needing montiotred for bleeding which will requrie 2 midnights. may need further transfusion of blood products. 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
--- NOTE | 2023-03-10 11:30 | Consultation - Hospitalist ---
HPI History of Present Illness: HPI/Chief Complaint Ronen Macdonald is an 83 year old male with PMH HTN, T2DM, HLD, CAD s/p CABG, BPH, COPD, former smoker, who was admitted with bright red blood per rectum. He had a colonoscopy on 03/05 with two polyps removed. He resumed his aspirin and Xarelto the next day. Yesterday he started having bloody stools. He came to the emergency room. After he arrived, he continued to have bloody stools. He became lightheaded and sweaty. He did not pass out. He denies chest pain and shortness of breath. Source: patient Exam Limitations: no limitations Date Seen 03/10/23 Attending Physician Allan Magdaleno MD PCP Admitting Physician: Porter Murguia DO Attending Physician: Porter Murguia DO Referring Physician Date of Admission Mar 10, 2023 at 03:43 Home Medications & Allergies Home Medications Reviewed patient Home Medication Reconciliation performed by pharmacy medication reconciliations loss control technician and/or nursing. Patients Allergies have been reviewed. Allergies Allergies Coded Allergies No Known Drug Allergies (Unverified01/12/11) Past Usadsef-Fpzina-Vaetrd Hx Patient Social History Tobacco Use?: No Smoking Status: Former Smoker Use of E-Cig and/or Vaping dev: No Substance use?: No Alcohol Use?: Yes Alcohol type: Beer Alcohol Frequency: Rarely Pt feels they are or have been: No Immunizations Up To Date Date of Influenza Vaccine: Apr 25, 2016 First/Initial COVID19 Vaccinat: 2020 Second COVID19 Vaccination Aris: 2020 Tetanus Booster (TDap): More Than 5 Years PED Vaccines UTD: Yes Date of Pneumonia Vaccine: Apr 10, 2019 Seasonal Allergies Seasonal Allergies: No Current Status Advance Directives: No Communicates: Verbally Primary Language: Irish Preferred Spoken Language: Irish Is interpretation needed?: No Implanted or Applied Medical D: None Past Medical History Surgeries: CABG Sleep Apnea, COPD Currently Using CPAP: No Currently Using BIPAP: No Atrial Fibrillation, Coronary Artery Disease, Hypertension Sexually Transmitted Disease: No HIV/AIDS: No Benign Prostatic Hyperpl, Prostate Problems Abdominal Hernia Arthritis Diabetes, Insulin dep Skin Did You Recieve Any Treatments: No Blood Disorders: No Adverse Reaction/Blood Tranf: No Family Medical History Fathr of internal bleeding, mother had breast cancer, sister had cancer and at 21 year old, brother of heart disease Review of Systems Constitutional: no symptoms reported Respiratory: no symptoms reported Cardiovascular: no symptoms reported Gastrointestinal: no symptoms reported Physical Exam Physical Exam Vital Signs Vital Signs - First Documented 03/10/23 03/10/23 02:11 02:50 Temp 36.6 Pulse 64 Resp 16 B/P (MAP) 99/56 (70) Pulse Ox 97 O2 Delivery Room Air Capillary Refill : Less Than 3 Seconds Height, Weight, BMI Height: 5'8.00" Weight: 215lbs. 0.0oz. 97.717360zc; 32.51 BMI Method: General Appearance: No Apparent Distress, Obese Respiratory: Lungs Clear, Normal Breath Sounds, No Respiratory Distress Cardiovascular: Regular Rate, Rhythm, No Edema, No Murmur Gastrointestinal: Normal Bowel Sounds, Non Tender, Soft Extremity: Normal Inspection, No Pedal Edema Neurologic/Psychiatric: Alert, Normal Mood/Affect Skin: Normal Color, Warm/Dry Results Results/Procedures Labs Laboratory Tests 03/10/23 02:24 03/10/23 07:26 03/10/23 10:30 Patient resulted labs reviewed. Assessment/Plan Assessment and Plan Assess & Plan/Chief Complaint Hemorrhagic shock Acute blood loss anemia Acute lower GI bleeding Post-polypectomy bleed Surgery primary s/p 2 units PRBC Hgb stable No further bleeding since admission NPO, advancing to clears AFib Chronic anticoagulation Bradycardia CAD Hold aspirin and Xarelto Hold Metoprolol due to bradycardia HTN Hold antihypertensives Currently normotensive, hypotensive on arrival Monitor T2DM Hold long acting insulin Currently on clears Sliding scale insulin BPH COPD Continue home meds Obesity Clinically significant, no acute management needs DVT prophylaxis: SCDs only due to GI bleed Critical Care Critically Ill Patient Diagnosis/Problems Diagnosis/Problems (1) Hemorrhagic shock Status: Acute (2) Rectal bleeding Status: Acute (3) Post-polypectomy bleeding Status: Acute (4) Chronic anticoagulation Status: Chronic (5) Paroxysmal A-fib Status: Chronic (6) CAD (coronary artery disease) Status: Chronic (7) HTN (hypertension) Status: Chronic (8) COPD (chronic obstructive pulmonary disease) Status: Chronic (9) BPH (benign prostatic hyperplasia) Status: Chronic (10) Obesity Status: Chronic GEMINI FARFAN MD Mar 10, 2023 11:30
--- NOTE | 2023-03-10 11:43 | Tele-ICU Progress Note ---
Subjective Date Seen by a Provider: Mar 10, 2023 Time Seen by a Provider: 11:43 Subjective/Events-last exam (Tele-ICU Physician , consultation as per request of PCP Service provided via interactive audio and video telecommunications E-CARE system to a patient admitted to ICU bed in [facility]. Available chart/ vitals / labs / Images reviewed H&P is from ER notes Patient's information available about PMH, Shx, Fhx allergy reviewed inEMR. ROS as per chart and RN report Now in ICU, hemodynamically stable Video assessment done using teleICU camera, rest of exam as per RN Discussed with RN. Hospital course: A/P LGIB , s/p colonoscopy with polypectomy x2 on 03/05 and had melemna x5 03/09 - assiciated with hypotension in ER - received Kcentra a, and pRBC in ER - hemodynamially stable now , Hb stable Shock- resolved - received 2 u PRBC n ER - IVF to conty - echo 09/2022 - ef wnl CEDRIC - with hypovolemia/low BP - improving , monitor UO Dm II ISS PAF - rate controlled -Xarelto on hold CAD - monitor Mild FABIAN per sleep studies on sleep study of 07/17/15 - NON COMP WITH cpap Mild restrictive lung disease Lines : periph , (Central Line Necessity Reviewed) [place]: void OG: Nutrition:clear Analgesia: Anxiety/ delirium VTE Prophylaxis: scd Stress Ulcer Prophylaxis: Plans in collaboration with bedside consultants and IM MDs. Discussed with RN to reach out if any questions or concerns A total of 10 minutes of critical care time was devoted to this patient today, required to treat and/or prevent further deterioration of critical care condition ( as above ) . I am remotely monitoring this patient from another state. I am unable to do the bedside exam, and history/physical and pertinent information is taken from other notes in the computer and bedside staff. . Sepsis Event Evaluation Height, Weight, BMI Height: 5'8.00" Weight: 215lbs. 0.0oz. 97.664997cd; 32.51 BMI Method: Exam Exam Patient acknowledged, consented, and participated in this virtual visit which was conducted using real time audio/video Vital Signs Date Time Temp Pulse Resp B/P (MAP) Pulse Ox O2 Delivery O2 Flow Rate FiO2 03/10/23 11:00 58 24 116/75 (93) 97 Room Air 03/10/23 10:00 58 13 122/76 (95) 96 Room Air 03/10/23 09:00 66 13 131/87 (106) 96 Room Air 03/10/23 08:10 97 Room Air 03/10/23 08:00 58 13 133/80 (105) 95 Room Air 03/10/23 08:00 36.2 Room Air 03/10/23 07:00 70 03/10/23 07:00 71 11 147/89 (108) 97 Room Air 03/10/23 06:00 72 18 152/81 (104) 98 Room Air 03/10/23 05:45 71 19 150/91 (110) 97 Room Air 03/10/23 05:30 71 12 152/97 (115) 96 Room Air 03/10/23 05:15 63 8 139/88 (105) 96 Room Air 03/10/23 05:05 96 Room Air 03/10/23 05:00 58 9 147/79 (101) 96 Room Air 03/10/23 04:45 69 17 134/87 (103) 99 Room Air 03/10/23 04:30 62 25 150/72 (98) 98 Room Air 03/10/23 04:21 70 03/10/23 04:15 60 159/93 (115) Room Air 03/10/23 04:15 36.4 Room Air 03/10/23 04:12 65 18 153/99 100 Room Air 03/10/23 03:27 36.1 67 16 130/79 99 Room Air 03/10/23 03:12 36.1 58 18 146/83 100 Room Air 03/10/23 03:05 64 18 132/93 99 Room Air 03/10/23 02:55 58 18 132/75 98 Room Air 03/10/23 02:50 67 16 124/83 97 Room Air 03/10/23 02:11 36.6 64 99/56 (70) 97 Room Air I & O 03/10/23 07:00 Intake Total 2245 ml Output Total 415 ml Balance 1830 ml Height & Weight Height: 5'8.00" Weight: 215lbs. 0.0oz. 97.330596tm; 32.51 BMI Method: General Appearance: No Apparent Distress, Obese Respiratory: Lungs Clear, Normal Breath Sounds, No Respiratory Distress Cardiovascular: Regular Rate, Rhythm, No Edema, No Murmur Capillary Refill: Less Than 3 Seconds Gastrointestinal: normal bowel sounds, non tender, soft Extremity: Normal Inspection, No Pedal Edema Neurologic/Psychiatric: Alert, Normal Mood/Affect Skin: Normal Color, Warm/Dry Results Lab Laboratory Tests 03/10/23 02:24 03/10/23 07:26 03/10/23 10:30 Assessment/Plan Assessment/Plan 1 SHWETA BOYCE MD Mar 10, 2023 11:43
[2023-03-10] MEDS: inSUlin ASPART 1 UNIT/0.01 ML (PER UNIT) SC SCH ×3 (12:05→20:33)
[2023-03-11 04:27] LABS: HEMATOCRIT 33 % (40-54); MEAN CORPUSCULAR HEMOGLOBIN 30 pg (25-34); MEAN CORPUSCULAR HGB CONC 33 g/dL (32-36); MEAN CORPUSCULAR VOLUME 90 fL (80-99); MEAN PLATELET VOLUME 10.7 fL (9.0-12.2); PLATELET COUNT 178 10^3/uL (130-400); WHITE BLOOD COUNT 6.5 10^3/uL (4.3-11.0)
[2023-03-11 05:00] LABS: BILIRUBIN,TOTAL 0.8 MG/DL (0.1-1.0); CALCIUM 7.7 MG/DL (8.5-10.1); CREATININE SERUM 1.16 MG/DL (0.60-1.30); MAGNESIUM 1.8 MG/DL (1.6-2.4); PHOSPHORUS 2.6 MG/DL (2.3-4.7); POTASSIUM 3.7 MMOL/L (3.6-5.0); TOTAL PROTEIN 5.1 GM/DL (6.4-8.2)
[2023-03-11] MEDS: inSUlin ASPART 1 UNIT/0.01 ML (PER UNIT) SC SCH ×4 (05:10→20:12)
[2023-03-11] MEDS ORDERED: NS IV 500 ML 500 ML IV PRN (05:15)
[2023-03-11] MEDS: POTASSIUM CL 10MEQ/50ML IVPB 50 ML IV SCH (05:21)
[2023-03-11] MEDS: MAGNESIUM 1 GM/100 ML IVPB 100 ML IV SCH ×5 (05:23→10:10)
[2023-03-11] MEDS: POTASSIUM CHLORIDE 20 MEQ TABLET PO SCH (05:24)
[2023-03-11] MEDS: NS IV 1000 ML 1,000 ML IV SCH (08:05)
--- NOTE | 2023-03-11 08:33 | Progress Note - Surgery ---
Subjective Date Seen by a Provider: Mar 11, 2023 Time Seen by a Provider: 08:32 Subjective/Events-last exam Had several bloody bm last night. Has slowed down now. No abdominal pain. Denies any new complaints. Denies n/v fever sweats chills shortness of breath or chest pain. Hgb at 11 Objective Exam Vital Signs Date Time Temp Pulse Resp B/P (MAP) Pulse Ox O2 Delivery O2 Flow Rate FiO2 03/11/23 07:41 57 03/11/23 06:00 62 11 128/78 (95) 95 Room Air 03/11/23 05:00 66 23 111/74 (86) 95 Room Air 03/11/23 04:11 36.6 03/11/23 04:00 60 19 130/82 (96) 95 Room Air 03/11/23 03:55 96 Room Air 03/11/23 03:00 64 25 131/83 (91) 99 Room Air 03/11/23 02:00 62 15 100/59 (76) 94 Room Air 03/11/23 01:00 71 03/11/23 01:00 71 03/11/23 01:00 60 12 126/80 (94) 96 Room Air 03/11/23 00:00 64 10 143/74 (92) 94 Room Air 03/10/23 23:47 37.0 Room Air 03/10/23 23:32 96 Room Air 03/10/23 23:00 60 25 138/83 (89) 97 Room Air 03/10/23 22:00 53 20 128/77 (88) 96 Room Air 03/10/23 21:00 61 25 124/85 (97) 98 Room Air 03/10/23 20:00 60 25 111/57 (82) 97 Room Air 03/10/23 19:32 96 Room Air 03/10/23 19:30 58 22 121/77 (92) 96 Room Air 03/10/23 19:00 62 03/10/23 18:00 65 25 136/77 (98) 98 Room Air 03/10/23 17:00 64 25 122/81 (97) 94 Room Air 03/10/23 16:00 99 Room Air 03/10/23 16:00 53 25 133/78 (87) 98 Room Air 03/10/23 15:52 36.7 Room Air 03/10/23 15:00 60 22 113/60 (77) 100 Room Air 03/10/23 14:00 64 9 113/67 (82) 97 Room Air 03/10/23 13:00 46 11 96/50 (64) 95 Room Air 03/10/23 12:31 59 03/10/23 12:06 36.2 Room Air 03/10/23 12:00 57 12 113/58 (67) 97 Room Air 03/10/23 12:00 99 Room Air 03/10/23 11:00 58 24 116/75 (93) 97 Room Air 03/10/23 10:00 58 13 122/76 (95) 96 Room Air 03/10/23 09:00 66 13 131/87 (106) 96 Room Air I & O 03/11/23 07:00 Intake Total 1380 ml Output Total 1150 ml Balance 230 ml Capillary Refill : Less Than 3 Seconds General Appearance: No Apparent Distress, WD/WN HEENT: PERRL/EOMI, Normal ENT Inspection Neck: Normal Inspection, Non Tender Respiratory: Chest Non Tender, No Accessory Muscle Use, No Respiratory Distress Cardiovascular: Regular Rate, Rhythm, No JVD Gastrointestinal: normal bowel sounds, non tender, soft Extremity: Normal Inspection, Non Tender Neurologic/Psychiatric: Alert, Oriented x3, Normal Mood/Affect Skin: Normal Color, Warm/Dry Lymphatic: No Adenopathy Results Lab Laboratory Tests 03/10/23 10:30: White Blood Count 9.2, Red Blood Count 4.26L, Hemoglobin 13.0L, Hematocrit 38L, Mean Corpuscular Volume 89, Mean Corpuscular Hemoglobin 31, Mean Corpuscular Hemoglobin Concent 34, Red Cell Distribution Width 13.4, Platelet Count 187, Mean Platelet Volume 10.5, Immature Granulocyte % (Auto) 0, Neutrophils (%) (Auto) 68, Lymphocytes (%) (Auto) 22, Monocytes (%) (Auto) 9, Eosinophils (%) (Auto) 1, Basophils (%) (Auto) 0, Neutrophils # (Auto) 6.3, Lymphocytes # (Auto) 2.0, Monocytes # (Auto) 0.8, Eosinophils # (Auto) 0.1, Basophils # (Auto) 0.0, Immature Granulocyte # (Auto) 0.0 03/10/23 11:00: Glucometer 168H 03/10/23 15:49: Glucometer 185H 03/10/23 20:29: Glucometer 181H 03/11/23 04:05: White Blood Count 6.5, Red Blood Count 3.65L, Hemoglobin 11.0L, Hematocrit 33L, Mean Corpuscular Volume 90, Mean Corpuscular Hemoglobin 30, Mean Corpuscular Hemoglobin Concent 33, Red Cell Distribution Width 13.6, Platelet Count 178, Mean Platelet Volume 10.7, Sodium Level 140, Potassium Level 3.7, Chloride Level 108H, Carbon Dioxide Level 24, Anion Gap 8, Blood Urea Nitrogen 16, Creatinine 1.16, Estimat Glomerular Filtration Rate 63, BUN/Creatinine Ratio 14, Glucose Level 128H, Calcium Level 7.7L, Corrected Calcium 8.5, Phosphorus Level 2.6, Magnesium Level 1.8, Total Bilirubin 0.8, Aspartate Amino Transf (AST/SGOT) 12, Alanine Aminotransferase (ALT/SGPT) 9, Alkaline Phosphatase 42, Total Protein 5.1L, Albumin 3.0L Microbiology 03/10/23 MRSA Screen - Final, Complete MRSA not isolated Assessment/Plan Assessment/Plan Assessment/Plan Lower gi bleed s/p colonoscopy c polypectomy senior living anticoagulation 2 units of blood given pcc follow hgb hold any anticoagulation on clears repeat labs in ANDREEA Sanon DO Mar 11, 2023 08:33
[2023-03-11] MEDS ORDERED: POTASSIUM CHLORIDE 20 MEQ TABLET PO ONE (09:00)
--- NOTE | 2023-03-11 10:01 | Tele-ICU Progress Note ---
Subjective Date Seen by a Provider: Mar 11, 2023 Time Seen by a Provider: 10:01 Subjective/Events-last exam (Tele-ICU Physician , consultation as per request of PCP Service provided via interactive audio and video telecommunications E-CARE system to a patient admitted to ICU bed in [facility]. Available chart/ vitals / labs / Images reviewed H&P is from ER notes Patient's information available about PMH, Shx, Fhx allergy reviewed inEMR. ROS as per chart and RN report Now in ICU, hemodynamically stable Video assessment done using teleICU camera, rest of exam as per RN Discussed with RN. Hospital course: A/P LGIB , s/p colonoscopy with polypectomy x2 on 03/05 and had melemna x5 03/09 - assiciated with hypotension in ER - received Kcentra a, and pRBC in ER - hemodynamially stable now , Hb stable Shock- resolved - received 2 u PRBC n ER - IVF to stop ? - echo 09/2022 - ef wnl CEDRIC - with hypovolemia/low BP - improving , monitor UO Dm II ISS PAF - rate controlled -Xarelto on hold CAD - monitor Mild FABIAN per sleep studies on sleep study of 07/17/15 - NON COMPL WITH cpap - not needs o2 at night Mild restrictive lung disease Lines : periph , (Central Line Necessity Reviewed) [place]: void OG: Nutrition:clear Analgesia: Anxiety/ delirium VTE Prophylaxis: scd Stress Ulcer Prophylaxis: pp Plans in collaboration with bedside consultants and IM MDs. Discussed with RN to reach out if any questions or concerns A total of 10 minutes of critical care time was devoted to this patient today, required to treat and/or prevent further deterioration of critical care condition ( as above ) . I am remotely monitoring this patient from another state. I am unable to do the bedside exam, and history/physical and pertinent information is taken from other notes in the computer and bedside staff. . Sepsis Event Evaluation Height, Weight, BMI Height: 5'8.00" Weight: 215lbs. 0.0oz. 97.709880om; 32.51 BMI Method: Exam Exam Patient acknowledged, consented, and participated in this virtual visit which was conducted using real time audio/video Vital Signs Date Time Temp Pulse Resp B/P (MAP) Pulse Ox O2 Delivery O2 Flow Rate FiO2 03/11/23 09:00 62 13 129/78 (95) 98 Room Air 03/11/23 08:00 97 Room Air 03/11/23 08:00 67 13 148/68 (94) 97 Room Air 03/11/23 07:41 57 03/11/23 07:00 59 13 138/83 (101) 96 Room Air 03/11/23 06:00 62 11 128/78 (95) 95 Room Air 03/11/23 05:00 66 23 111/74 (86) 95 Room Air 03/11/23 04:11 36.6 03/11/23 04:00 60 19 130/82 (96) 95 Room Air 03/11/23 03:55 96 Room Air 03/11/23 03:00 64 25 131/83 (91) 99 Room Air 03/11/23 02:00 62 15 100/59 (76) 94 Room Air 03/11/23 01:00 71 03/11/23 01:00 71 03/11/23 01:00 60 12 126/80 (94) 96 Room Air 03/11/23 00:00 64 10 143/74 (92) 94 Room Air 03/10/23 23:47 37.0 Room Air 03/10/23 23:32 96 Room Air 03/10/23 23:00 60 25 138/83 (89) 97 Room Air 03/10/23 22:00 53 20 128/77 (88) 96 Room Air 03/10/23 21:00 61 25 124/85 (97) 98 Room Air 03/10/23 20:00 60 25 111/57 (82) 97 Room Air 03/10/23 19:32 96 Room Air 03/10/23 19:30 58 22 121/77 (92) 96 Room Air 03/10/23 19:00 62 03/10/23 18:00 65 25 136/77 (98) 98 Room Air 03/10/23 17:00 64 25 122/81 (97) 94 Room Air 03/10/23 16:00 99 Room Air 03/10/23 16:00 53 25 133/78 (87) 98 Room Air 03/10/23 15:52 36.7 Room Air 03/10/23 15:00 60 22 113/60 (77) 100 Room Air 03/10/23 14:00 64 9 113/67 (82) 97 Room Air 03/10/23 13:00 46 11 96/50 (64) 95 Room Air 03/10/23 12:31 59 03/10/23 12:06 36.2 Room Air 03/10/23 12:00 57 12 113/58 (67) 97 Room Air 03/10/23 12:00 99 Room Air 03/10/23 11:00 58 24 116/75 (93) 97 Room Air I & O 03/11/23 07:00 Intake Total 1380 ml Output Total 1150 ml Balance 230 ml Height & Weight Height: 5'8.00" Weight: 215lbs. 0.0oz. 97.382305cp; 32.51 BMI Method: General Appearance: No Apparent Distress, WD/WN HEENT: PERRL/EOMI, Normal ENT Inspection Neck: Normal Inspection, Non Tender Respiratory: Chest Non Tender, No Accessory Muscle Use, No Respiratory Distress Cardiovascular: Regular Rate, Rhythm, No JVD Capillary Refill: Less Than 3 Seconds Gastrointestinal: normal bowel sounds, non tender, soft Extremity: Normal Inspection, Non Tender Neurologic/Psychiatric: Alert, Oriented x3, Normal Mood/Affect Skin: Normal Color, Warm/Dry Lymphatic: No Adenopathy Results Lab Laboratory Tests 03/10/23 02:24 03/10/23 07:26 03/10/23 10:30 03/11/23 04:05 Assessment/Plan Assessment/Plan 1 SHWETA BOYCE MD Mar 11, 2023 10:01
--- NOTE | 2023-03-11 10:48 | Progress Note - Hospitalist ---
Subjective HPI/CC On Admission Date Seen by Provider: Mar 11, 2023 Ronen Macdonald is an 83 year old male with PMH HTN, T2DM, HLD, CAD s/p CABG, BPH, COPD, former smoker, who was admitted with bright red blood per rectum. He had a colonoscopy on 03/05 with two polyps removed. He resumed his aspirin and Xarelto the next day. Yesterday he started having bloody stools. He came to the emergency room. After he arrived, he continued to have bloody stools. He became lightheaded and sweaty. He did not pass out. He denies chest pain and shortness of breath. Subjective/Events-last exam Pt reports doing better today. Objective Exam Vital Signs Vital Signs Date Time Temp Pulse Resp B/P (MAP) Pulse Ox O2 Delivery O2 Flow Rate FiO2 03/11/23 13:00 58 7 128/97 (107) 97 Room Air 03/11/23 04:11 36.6 Capillary Refill : Less Than 3 Seconds General Appearance: No Apparent Distress, Chronically ill Respiratory: Lungs Clear, No Respiratory Distress Cardiovascular: Regular Rate, Rhythm Gastrointestinal: Normal Bowel Sounds, Soft Extremity: Pedal Edema Neurologic/Psychiatric: Alert, Oriented x3 Results/Procedures Lab Laboratory Tests 03/11/23 04:05 Patient resulted labs reviewed. Assessment/Plan Assessment and Plan Assess & Plan/Chief Complaint Hemorrhagic shock Acute blood loss anemia Acute lower GI bleeding Post-polypectomy bleed Surgery primary s/p 2 units PRBC Hgb down to 11 No further bleeding since admission Tolerating clears AFib Chronic anticoagulation Bradycardia CAD Hold aspirin and Xarelto Hold Metoprolol due to bradycardia HTN Hold antihypertensives BP improved Monitor T2DM Hold long acting insulin Currently on clears Sliding scale insulin BPH COPD Continue home meds Obesity Clinically significant, no acute management needs DVT prophylaxis: SCDs only due to GI bleed Critical Care Critically Ill Patient AKILA NÚÑEZ MD Mar 11, 2023 10:48
[2023-03-11] MEDS ORDERED: AMLO-250 PO (13:16)
[2023-03-11] MEDS ORDERED: VALS320T15 PO (13:16)
[2023-03-11] MEDS ORDERED: INSU100I10 SC (13:16)
[2023-03-11] MEDS ORDERED: ATOR20TA66 PO (13:16)
[2023-03-12 04:28] LABS: HEMATOCRIT 34 % (40-54); HEMOGLOBIN 11.3 g/dL (13.3-17.7); MEAN CORPUSCULAR HEMOGLOBIN 30 pg (25-34); MEAN CORPUSCULAR HGB CONC 33 g/dL (32-36); MEAN CORPUSCULAR VOLUME 91 fL (80-99); MEAN PLATELET VOLUME 10.6 fL (9.0-12.2); PLATELET COUNT 187 10^3/uL (130-400); WHITE BLOOD COUNT 6.7 10^3/uL (4.3-11.0)
[2023-03-12 04:46] LABS: ALBUMIN 3.3 GM/DL (3.2-4.5); BILIRUBIN,TOTAL 0.8 MG/DL (0.1-1.0); CALCIUM 7.8 MG/DL (8.5-10.1); CREATININE SERUM 0.99 MG/DL (0.60-1.30); MAGNESIUM 2.3 MG/DL (1.6-2.4); PHOSPHORUS 2.4 MG/DL (2.3-4.7); POTASSIUM 3.6 MMOL/L (3.6-5.0); TOTAL PROTEIN 5.6 GM/DL (6.4-8.2)
[2023-03-12] MEDS: MAGNESIUM 1 GM/100 ML IVPB 100 ML IV SCH (05:36)
[2023-03-12] MEDS: POTASSIUM CL 10MEQ/50ML IVPB 50 ML IV SCH (05:36)
[2023-03-12] MEDS: POTASSIUM CHLORIDE 20 MEQ TABLET PO SCH (05:36)
[2023-03-12] MEDS: inSUlin ASPART 1 UNIT/0.01 ML (PER UNIT) SC SCH ×4 (05:37→20:17)
--- NOTE | 2023-03-12 06:56 | Progress Note - Surgery ---
[facility] 03/12/23 0656: Subjective Date Seen by a Provider: Mar 12, 2023 Time Seen by a Provider: 06:30 Subjective/Events-last exam Pt is felling the same as yesterday and has had no bloody bowel movements last night. His Hgb went up for 11 to 11.3 today. Denies any dizziness, N/V, or chest pain. Review of Systems General: No Chills, No Night Sweats HEENT: No Head Aches, No Visual Changes, No Eye Pain Pulmonary: No Dyspnea, No Cough Cardiovascular: No: Chest Pain, Palpitations, Orthopnea Gastrointestinal: No: Nausea, Vomiting, Abdominal Pain Genitourinary: No Dysuria, No Frequency Neurological: No: Weakness, Numbness Objective Exam Vital Signs Date Time Temp Pulse Resp B/P (MAP) Pulse Ox O2 Delivery O2 Flow Rate FiO2 03/12/23 06:00 79 11 149/84 (105) 97 Room Air 03/12/23 05:00 75 7 149/84 (105) 98 Room Air 03/12/23 04:05 87 20 155/88 (110) 94 Room Air 03/12/23 03:34 99 Room Air 03/12/23 03:31 36.2 03/12/23 03:00 72 17 139/94 (109) 95 Room Air 03/12/23 02:00 74 7 139/84 (102) 99 Room Air 03/12/23 01:00 73 10 152/97 (115) 98 Room Air 03/12/23 01:00 73 03/12/23 00:00 98 Room Air 03/12/23 00:00 77 7 150/93 (112) 96 Room Air 03/11/23 23:41 36.3 03/11/23 23:00 61 10 145/88 (107) 99 Room Air 03/11/23 22:00 74 12 132/81 (100) 96 Room Air 03/11/23 21:00 72 11 131/76 (92) 96 Room Air 03/11/23 20:30 36.3 03/11/23 20:00 97 Room Air 03/11/23 20:00 69 16 139/79 (98) 96 Room Air 03/11/23 19:00 70 03/11/23 19:00 67 11 126/73 (91) 97 Room Air 03/11/23 18:00 68 9 136/83 (100) 98 Room Air 03/11/23 16:20 98 Room Air 03/11/23 16:17 36.3 03/11/23 16:00 65 11 133/73 (93) 97 Room Air 03/11/23 15:00 60 11 121/78 (92) 98 Room Air 03/11/23 14:00 58 11 122/76 (91) 96 Room Air 03/11/23 13:00 58 7 128/97 (107) 97 Room Air 03/11/23 12:42 57 03/11/23 12:00 98 Room Air 03/11/23 12:00 56 11 128/76 (93) 98 Room Air 03/11/23 12:00 36.2 03/11/23 11:00 55 11 100/63 (75) 98 Room Air 03/11/23 10:00 66 24 138/83 (101) 98 Room Air 03/11/23 09:00 62 13 129/78 (95) 98 Room Air 03/11/23 08:00 97 Room Air 03/11/23 08:00 67 13 148/68 (94) 97 Room Air 03/11/23 08:00 36.4 03/11/23 07:41 57 03/11/23 07:00 59 13 138/83 (101) 96 Room Air I & O 03/12/23 07:00 Intake Total 2200 ml Output Total 2570 ml Balance -370 ml Capillary Refill : Less Than 3 Seconds General Appearance: No Apparent Distress, Chronically ill HEENT: PERRL/EOMI, Normal ENT Inspection Neck: Normal Inspection, Non Tender Respiratory: Lungs Clear, Normal Breath Sounds, No Respiratory Distress Cardiovascular: Regular Rate, Rhythm Gastrointestinal: normal bowel sounds, non tender, soft Extremity: Normal Capillary Refill, Non Tender, Pedal Edema Neurologic/Psychiatric: Alert, Oriented x3 Skin: Normal Color, Warm/Dry Lymphatic: No Adenopathy Results Lab Laboratory Tests 03/11/23 11:12: Glucometer 190H 03/11/23 12:55: Lab Scanned Report Transfusion Reaction Form 03/11/23 15:37: Glucometer 125H 03/11/23 20:08: Glucometer 196H 03/12/23 04:07: White Blood Count 6.7, Red Blood Count 3.76L, Hemoglobin 11.3L, Hematocrit 34L, Mean Corpuscular Volume 91, Mean Corpuscular Hemoglobin 30, Mean Corpuscular Hemoglobin Concent 33, Red Cell Distribution Width 13.8, Platelet Count 187, Mean Platelet Volume 10.6, Sodium Level 141, Potassium Level 3.6, Chloride Level 106, Carbon Dioxide Level 25, Anion Gap 10, Blood Urea Nitrogen 10, Creatinine 0.99, Estimat Glomerular Filtration Rate 76, BUN/Creatinine Ratio 10, Glucose Level 127H, Calcium Level 7.8L, Corrected Calcium 8.4L, Phosphorus Level 2.4, Magnesium Level 2.3, Total Bilirubin 0.8, Aspartate Amino Transf (AST/SGOT) 18, Alanine Aminotransferase (ALT/SGPT) 9, Alkaline Phosphatase 50, Total Protein 5.6L, Albumin 3.3 Microbiology 03/10/23 MRSA Screen - Final, Complete MRSA not isolated Assessment/Plan Assessment/Plan Assessment/Plan Assessment: Acute Lower GI bleed Acute anemia due to blood loss recent polypectomy Plan: Monitor Hgb move to med surg for observation ANDREEA MURGUIA DO 03/13/23 0834: Subjective Subjective/Events-last exam Doing well. No bloody bm. Hgb stable. Tolerating clears. Denies n/v fever sweats chills shortness of breath of chest pain. No abdominal pain. Objective Exam General Appearance: No Apparent Distress, Chronically ill HEENT: PERRL/EOMI, Normal ENT Inspection Neck: Normal Inspection, Non Tender Respiratory: Chest Non Tender, No Accessory Muscle Use, No Respiratory Distress Cardiovascular: Regular Rate, Rhythm, No JVD Gastrointestinal: non tender, soft Extremity: Normal Inspection, Non Tender Neurologic/Psychiatric: Alert, Oriented x3 Skin: Normal Color, Warm/Dry Lymphatic: No Adenopathy Assessment/Plan Assessment/Plan Assessment/Plan Acute Lower GI bleed Acute anemia due to blood loss s/p colonoscopy c polypectomy Monitor Hgb - stable advance diet transfer to 4th floor Supervisory-Addendum Brief Verification & Attestation Participated in pt care: history, MDM, physical Personally performed: exam, history, MDM, supervision of care Care discussed with: Medical Student Procedures: n/a Results interpretation: Verified all documentation Verification and Attestation of Medical Student E/M Service A medical student performed and documented this service in my presence. I reviewed and verified all information documented by the medical student and made modifications to such information, when appropriate. I personally performed the physical exam and medical decision making. Andreea Murguia, Mar 12, 2023,16:37 TAI Mar 12, 2023 06:56 ANDREEA MURGUIA DO Mar 13, 2023 08:34
[2023-03-12] MEDS ORDERED: POTASSIUM CHLORIDE 20 MEQ TABLET PO ONE (08:00)
--- NOTE | 2023-03-12 08:27 | Progress Note - Hospitalist ---
Subjective HPI/CC On Admission Date Seen by Provider: Mar 12, 2023 Ronen Macdonald is an 83 year old male with PMH HTN, T2DM, HLD, CAD s/p CABG, BPH, COPD, former smoker, who was admitted with bright red blood per rectum. He had a colonoscopy on 03/05 with two polyps removed. He resumed his aspirin and Xarelto the next day. Yesterday he started having bloody stools. He came to the emergency room. After he arrived, he continued to have bloody stools. He became lightheaded and sweaty. He did not pass out. He denies chest pain and shortness of breath. Subjective/Events-last exam Pt reports doing well today. Eating breakfast. No complaints. Hgb stable. Objective Exam Vital Signs Vital Signs Date Time Temp Pulse Resp B/P (MAP) Pulse Ox O2 Delivery O2 Flow Rate FiO2 03/12/23 08:00 79 11 127/87 (100) 98 Room Air 03/12/23 07:53 36.2 Capillary Refill : Less Than 3 Seconds General Appearance: No Apparent Distress Cardiovascular: No Murmur, Irregularly Irregular Neurologic/Psychiatric: Alert, Oriented x3 Results/Procedures Lab Laboratory Tests 03/12/23 04:07 Patient resulted labs reviewed. Assessment/Plan Assessment and Plan Assess & Plan/Chief Complaint Hemorrhagic shock Acute blood loss anemia Acute lower GI bleeding Post-polypectomy bleed Surgery primary s/p 2 units PRBC Hgb stable, 11.0 yesterday and 11.3 today Tolerating clears AFib Chronic anticoagulation Bradycardia- resolved CAD Hold aspirin and Xarelto Hold Metoprolol due to bradycardia HTN Hold antihypertensives as BP well controlled Monitor T2DM Hold long acting insulin- fasting BS 127 this AM Currently on clears Sliding scale insulin BPH COPD Continue home meds Obesity Clinically significant, no acute management needs DVT prophylaxis: SCDs only due to GI bleed Critical Care Critically Ill Patient AKILA NÚÑEZ MD Mar 12, 2023 08:26
--- NOTE | 2023-03-12 08:31 | Tele-ICU Progress Note ---
Subjective Date Seen by a Provider: Mar 12, 2023 Time Seen by a Provider: 10:09 Subjective/Events-last exam (Tele-ICU Physician , Progress Note ) Service provided via interactive audio and video telecommunications E-CARE s te to a patient admitted to ICU bed in [facility]. Patient is seen today due to persistent need of ICU care Available chart/ vitals / labs / Images reviewed Video assessment done using teleICU camera, rest of exam as per RN He is a 83-year-old male admitted with rectal bleed following a polypectomy initially had orthostatic changes and dizziness and received 2 units of packed red blood cells. For the last 24 hours she did not have any rectal bleeding. His hemoglobin is stable at 11.3 g. He is on a clear liquid diet. He is being followed by general surgery. Impression 1. Lower GI bleed secondary to polypectomy followed by restarting anticoagulant s due to his underlying atrial fibrillation. Currently stable without any active bleeding 2. Chronic atrial fibrillation. Recommendations 1. From critical care point of view he may be transferred to medical/surgical floor for observation. Coordination of care with bedside consultants and primary care physician I am remotely monitoring this patient from Tele icu station in [place]. I am unable to do the bedside exam, and history/physical and pertinent information is taken from other notes in the computer and bedside staff. Certain portions of this document may have been dictated utilizing voice recognition technology such as [employer]ipro[employer]. Inherent to this technology, typographical and grammatical errors may exist. As much as I am diligent to identify and correct to these mistakes, some errors may remain in the document. Critical care time devoted to this patient today is approximately is 15 minutes Sepsis Event Evaluation Height, Weight, BMI Height: 5'8.00" Weight: 215lbs. 0.0oz. [id number]; 33.49 BMI Method: Exam Exam Patient acknowledged, consented, and participated in this virtual visit which was conducted using real time audio/video Vital Signs Date Time Temp Pulse Resp B/P (MAP) Pulse Ox O2 Delivery O2 Flow Rate FiO2 03/12/23 08:00 79 11 127/87 (100) 98 Room Air 03/12/23 07:53 36.2 Room Air 03/12/23 07:03 75 03/12/23 07:00 76 12 153/101 (118) 98 Room Air 03/12/23 06:00 79 11 149/84 (105) 97 Room Air 03/12/23 05:00 75 7 149/84 (105) 98 Room Air 03/12/23 04:05 87 20 155/88 (110) 94 Room Air 03/12/23 03:34 99 Room Air 03/12/23 03:31 36.2 03/12/23 03:00 72 17 139/94 (109) 95 Room Air 03/12/23 02:00 74 7 139/84 (102) 99 Room Air 03/12/23 01:00 73 10 152/97 (115) 98 Room Air 03/12/23 01:00 73 03/12/23 00:00 98 Room Air 03/12/23 00:00 77 7 150/93 (112) 96 Room Air 03/11/23 23:41 36.3 03/11/23 23:00 61 10 145/88 (107) 99 Room Air 03/11/23 22:00 74 12 132/81 (100) 96 Room Air 03/11/23 21:00 72 11 131/76 (92) 96 Room Air 03/11/23 20:30 36.3 03/11/23 20:00 97 Room Air 03/11/23 20:00 69 16 139/79 (98) 96 Room Air 03/11/23 19:00 70 03/11/23 19:00 67 11 126/73 (91) 97 Room Air 03/11/23 18:00 68 9 136/83 (100) 98 Room Air 03/11/23 16:20 98 Room Air 03/11/23 16:17 36.3 03/11/23 16:00 65 11 133/73 (93) 97 Room Air 03/11/23 15:00 60 11 121/78 (92) 98 Room Air 03/11/23 14:00 58 11 122/76 (91) 96 Room Air 03/11/23 13:00 58 7 128/97 (107) 97 Room Air 03/11/23 12:42 57 03/11/23 12:00 98 Room Air 03/11/23 12:00 56 11 128/76 (93) 98 Room Air 03/11/23 12:00 36.2 03/11/23 11:00 55 11 100/63 (75) 98 Room Air 03/11/23 10:00 66 24 138/83 (101) 98 Room Air 03/11/23 09:00 62 13 129/78 (95) 98 Room Air I & O 03/12/23 07:00 Intake Total 2200 ml Output Total 2570 ml Balance -370 ml Height & Weight Height: 5'8.00" Weight: 215lbs. 0.0oz. 97.706400bo; 33.49 BMI Method: General Appearance: No Apparent Distress HEENT: PERRL/EOMI, Normal ENT Inspection Neck: Normal Inspection, Non Tender Respiratory: Lungs Clear, Normal Breath Sounds, No Respiratory Distress Cardiovascular: No Murmur, Irregularly Irregular Capillary Refill: Less Than 3 Seconds Gastrointestinal: normal bowel sounds, non tender, soft Extremity: Normal Capillary Refill, Non Tender, Pedal Edema Neurologic/Psychiatric: Alert, Oriented x3 Skin: Normal Color, Warm/Dry Lymphatic: No Adenopathy Results Lab Laboratory Tests 03/10/23 10:30 03/11/23 04:05 03/12/23 04:07 Assessment/Plan Assessment/Plan as above Critical Care: Critically Ill Patient Time spent with patient (mins): 15 ISAIAH ARTEAGA MD Mar 12, 2023 08:31
--- NOTE | 2023-03-12 09:01 | Physical Therapy Evaluation ---
PT Evaluation-General Medical Diagnosis Admission Date Mar 10, 2023 at 03:43 Medical Diagnosis: Hemmoragic shock/GI bleed Onset Date: Mar 10, 2023 Therapy Diagnosis Therapy Diagnosis: debility Height/Weight Height (Feet): 5 Height (Inches): 8.00 Weight (Pounds): 215 Weight (Ounces): 0.0 Precautions Precautions/Isolations: Fall Prevention, Standard Precautions Referral Physician: Mary Reason for Referral: Evaluation/Treatment Medical History Pertinent Medical History: Atrial Fib, CABG, CAD, COPD, DM, HTN Current History ER secondary to 5 bloody stools Reviewed History: Yes Social History Home: [facility] Current Living Status: Spouse Entry Into Home: Stairs With Railing PT Steps Into Home: 3 PT Steps Inside Home: 18 Prior Prior Level of Function SCALE: Activities may be completed with or without assistive devices. 1-Oobfmtzzws-bwqjdfa completes the activity by him/herself with no assistance from a helper. 5-Set-up or Clean-up Assistance-helper sets up or cleans up; patient completes activity. [place] assists only prior to or following the activity. 4-Supervision or Touching Assistance-helper provides verbal cues and/or touching/steadying and/or contact guard assistance as patient completes activity. Assistance may be provided throughout the activity or intermittently. 3-Partial/Moderate Assistance-helper does LESS THAN HALF the effort. [place] lifts, holds or supports trunk or limbs, but provides less than half the effort. 2-Substantial/Maximal Assistance-helper does MORE THAN HALF the effort. [place] lifts or holds trunk or limbs and provides more than half the effort. 0-Ootgmeioi-mowbca does ALL the effort. Patient does none of the effort to complete the activity. Or, the assistance of 2 or more helpers is required for the patient to complete the activity. If activity was not attempted, code reason: 7-Patient Refused. 9-Not Applicable-not attempted and the patient did not perform the activity before the current illness, exacerbation or injury. 10-Not Attempted due to Environmental Limitations-(lack of equipment, weather restraints, etc.). 88-Not Attempted due to Medical Conditions or Safety Concerns. Bed Mobility: 6 Transfers (B,C,W/C): 6 Gait: 6 Stairs: 6 Indoor Mobility (Ambulation): Independent Stairs: Independent Prior Devices Use: None PT Evaluation-Current Subjective Patient agrees to PT. Objective Patient Orientation: Normal For Age ROM/Strength ROM Lower Extremities bilateral LE WFL Strength Lower Extremities 4/5 grossly bilateral LE all planes Integumentary/Posture Bowel Incontinence: No Bladder Incontinence: No Posture WFL Neuromuscular (Tone, Coordination, Reflexes) grossly intact Sensory Vision: Wears Glasses Transfers Lying to Sitting/Side of Bed(Q: 6 Sit to Stand (QC): 5 Chair/Qgf-si-Bosrv Xfer(QC): 5 Gait Mode of Locomotion: Walk Anticipated Mode of Locomotion: Walk Walk 10 feet (QC): 5 Walk 50 ft with 2 Turns(QC): 5 Walk 150 ft (QC): 5 Distance: 450' Gait Assistive Device: FWW Comments/Gait Description safe and functional with no deviation Balance Sitting Static: Normal Sitting Dynamic: Normal Standing Static: Normal Standing Dynamic: Normal Assessment/Needs Patient is currently at [facility] with all gross motor skills safely and does not require skilled PT intervention at this time. Patient and spouse instructed to ambulate PRN in hallway. RN notified. Rehab Potential: Fair PT Plan Treatment/Plan Treatment Plan: Discontinue PT Treatment Duration: Mar 12, 2023 Frequency: 1 time per week Estimated Hrs Per Day: .25 hour per day Patient and/or Family Agrees t: Yes Time Time In: 825 Time Out: 851 DATE: Mar 12, 2023 Total Billed Treatment Time: 16 Total Billed Treatment [address] [facility] 16 min KIT SEXTON PT Mar 12, 2023 09:01
--- NOTE | 2023-03-12 16:16 | Occ Therapy Progress Note ---
Therapy Progress Note OT ORDER RECIEVED, VIA CHART REVIEW, DISCUSSION W/ IDT, DISCUSSION W/ PATIENT AND FAMILY AND OBSERVATION, Patient is currently at [facility] with all ADLS skills safely and does not require skilled OT intervention at this time. KELSEY THOMASON OT Mar 12, 2023 16:16
[2023-03-12 19:51] VITALS: BP 129/73
[2023-03-12 23:49] VITALS: BP 172/81
[2023-03-13 03:33] VITALS: BP 150/78
[2023-03-13] MEDS: inSUlin ASPART 1 UNIT/0.01 ML (PER UNIT) SC SCH (04:56)
[2023-03-13 05:39] LABS: HEMATOCRIT 38 % (40-54); HEMOGLOBIN 12.2 g/dL (13.3-17.7); MEAN CORPUSCULAR HEMOGLOBIN 30 pg (25-34); MEAN CORPUSCULAR HGB CONC 32 g/dL (32-36); MEAN CORPUSCULAR VOLUME 93 fL (80-99); MEAN PLATELET VOLUME 10.6 fL (9.0-12.2); PLATELET COUNT 226 10^3/uL (130-400); WHITE BLOOD COUNT 8.4 10^3/uL (4.3-11.0)
[2023-03-13 05:56] LABS: ALBUMIN 3.8 GM/DL (3.2-4.5); BILIRUBIN,TOTAL 0.8 MG/DL (0.1-1.0); CALCIUM 8.6 MG/DL (8.5-10.1); CREATININE SERUM 1.11 MG/DL (0.60-1.30); POTASSIUM 3.5 MMOL/L (3.6-5.0); TOTAL PROTEIN 6.3 GM/DL (6.4-8.2)
--- NOTE | 2023-03-13 07:05 | Progress Note - Surgery ---
SAUL,[facility] 03/13/23 0705: Subjective Date Seen by a Provider: Mar 13, 2023 Time Seen by a Provider: 07:00 Subjective/Events-last exam Pt is feeling well and is on a regular diet. Had a BM last night a few hours after a small dinner. Stool was slightly dark and tarry with scant blood (old). He denies any pain with BM. Hgb orly from 11.3 to 12.2 Review of Systems General: No Chills, No Night Sweats HEENT: No Head Aches, No Visual Changes Pulmonary: No Dyspnea, No Cough Cardiovascular: No: Chest Pain, Palpitations, Edema Gastrointestinal: No: Nausea, Vomiting, Abdominal Pain Genitourinary: No Dysuria, No Frequency Musculoskeletal: No: neck pain Objective Exam Vital Signs Date Time Temp Pulse Resp B/P (MAP) Pulse Ox O2 Delivery O2 Flow Rate FiO2 03/13/23 03:33 36.0 68 18 150/78 (102) 98 Room Air 03/13/23 01:00 80 03/12/23 23:49 36.8 85 18 172/81 (111) 97 Room Air 03/12/23 20:00 Room Air 03/12/23 19:51 36.7 82 18 129/73 (91) 96 Room Air 03/12/23 19:00 79 03/12/23 16:00 36.3 Room Air 03/12/23 16:00 72 16 158/100 (119) Room Air 03/12/23 15:00 72 9 173/87 (115) Room Air 03/12/23 14:00 75 8 147/93 (111) Room Air 03/12/23 13:00 89 15 114/73 (87) Room Air 03/12/23 12:06 78 03/12/23 12:05 36.2 Room Air 03/12/23 12:00 97 Room Air 03/12/23 12:00 78 13 150/94 (112) Room Air 03/12/23 11:00 69 7 133/87 (102) 98 Room Air 03/12/23 10:00 83 18 161/92 (115) 98 Room Air 03/12/23 09:00 87 18 150/117 (128) 98 Room Air 03/12/23 08:00 79 11 127/87 (100) 98 Room Air 03/12/23 08:00 99 Room Air 03/12/23 07:53 36.2 Room Air 03/12/23 07:03 75 03/12/23 07:00 76 12 153/101 (118) 98 Room Air I & O 03/13/23 07:00 Intake Total 1190 ml Output Total 2225 ml Balance -1035 ml Capillary Refill : Less Than 3 Seconds General Appearance: No Apparent Distress HEENT: PERRL/EOMI, Normal ENT Inspection Neck: Normal Inspection, Non Tender Respiratory: Lungs Clear, Normal Breath Sounds, No Respiratory Distress Cardiovascular: No Murmur, Irregularly Irregular Gastrointestinal: normal bowel sounds, non tender, soft Extremity: Normal Capillary Refill, Non Tender, Pedal Edema Neurologic/Psychiatric: Alert, Oriented x3 Skin: Normal Color, Warm/Dry Lymphatic: No Adenopathy Results Lab Laboratory Tests 03/12/23 11:10: Glucometer 141H 03/12/23 15:23: Lab Scanned Report Transfusion Reaction Form 03/12/23 16:01: Glucometer 133H 03/12/23 19:30: Glucometer 213H 03/13/23 04:56: Glucometer 127H 03/13/23 05:26: White Blood Count 8.4, Red Blood Count 4.08L, Hemoglobin 12.2L, Hematocrit 38L, Mean Corpuscular Volume 93, Mean Corpuscular Hemoglobin 30, Mean Corpuscular Hemoglobin Concent 32, Red Cell Distribution Width 13.5, Platelet Count 226, Mean Platelet Volume 10.6, Sodium Level 140, Potassium Level 3.5L, Chloride Level 103, Carbon Dioxide Level 27, Anion Gap 10, Blood Urea Nitrogen 13, Creatinine 1.11, Estimat Glomerular Filtration Rate 66, BUN/Creatinine Ratio 12, Glucose Level 136H, Calcium Level 8.6, Corrected Calcium 8.8, Total Bilirubin 0.8, Aspartate Amino Transf (AST/SGOT) 13, Alanine Aminotransferase (ALT/SGPT) 11, Alkaline Phosphatase 61, Total Protein 6.3L, Albumin 3.8 Microbiology 03/10/23 MRSA Screen - Final, Complete MRSA not isolated Assessment/Plan Assessment/Plan Assessment/Plan Assessment: Acute Lower GI bleed Acute anemia due to blood loss - improving recent polypectomy Plan: discharge on regular diet ANDREEA MURGUIA DO 03/13/23 0855: Subjective Subjective/Events-last exam Doing well. Hgb stable. Tolerating regular diet. Hgb up to 12.2. One dark stool last night. Then had a regular. No abdominal pain. Denies n/v fever sweats chills shortness of breath or chest pain. Wanting to go home. Objective Exam General Appearance: No Apparent Distress, WD/WN HEENT: PERRL/EOMI, Normal ENT Inspection Neck: Normal Inspection, Non Tender Respiratory: Chest Non Tender, No Accessory Muscle Use, No Respiratory Distress Cardiovascular: No JVD, Irregularly Irregular Gastrointestinal: non tender, soft Extremity: Normal Capillary Refill, Non Tender Neurologic/Psychiatric: Alert, Oriented x3 Skin: Normal Color, Warm/Dry Lymphatic: No Adenopathy Assessment/Plan Assessment/Plan Assessment/Plan Acute Lower GI bleed Acute anemia due to blood loss - improved s/p colonoscopy c polypectomy Hgb stable Toleratin regular diet No abdominal pain. will dc home Hold anticoagulation Supervisory-Addendum Brief Verification & Attestation Participated in pt care: history, MDM, physical Personally performed: exam, history, MDM, supervision of care Care discussed with: Medical Student Procedures: n/a Results interpretation: Verified all documentation Verification and Attestation of Medical Student E/M Service A medical student performed and documented this service in my presence. I reviewed and verified all information documented by the medical student and made modifications to such information, when appropriate. I personally performed the physical exam and medical decision making. Andreea Murguia, Mar 13, 2023,08:59 TAI Mar 13, 2023 07:05 ANDREEA MURGUIA DO Mar 13, 2023 08:55
[2023-03-13 07:39] VITALS: BP 144/84
--- NOTE | 2023-03-13 09:02 | Discharge Inst-Simple/Standard ---
Discharge Inst-Standard Patient Instructions/Follow Up Plan of Care/Instructions/FU: Shantal 1 week. Hold Xarelto 5 more days then resume. Activity as Tolerated: Yes Discharge Diet: Regular Diet Other Inst to Patient Follow up Appt: Make appointment for 1 week. Hold Xarelto 5 more days. Symptoms to Report: Appetite Changes, Extremity Discoloration, Numbness/Tingling, Swelling Increased, Bleeding Excessive, Eyesight Changes, Pain Increased, Urine Color Change, Constipation(Persistent), Fever over 101 degree F, Pain/Pressure in chest, Urinating Difficulty, Cough Up/Vomit Blood, Heart Beat Irreg/Pounding, Pain/Pressure in jaw, Vaginal Bleeding Increase, Cramps in feet or legs, Lightheadedness, Pain/Pressure in shoulder, Diarrhea(Persistent), Memory Changes Suddenly, Questions/Concerns, Weight gain consecutive days, Dizziness/Fainting, Nausea/Vomiting, Shortness of Breath, Weight gain over 2 pounds If questions or concerns contact your physician Or seek help at emergency department. ANDREEA MESSINA DO Mar 13, 2023 09:02
[2023-03-13 10:37] VITALS: BP 144/84
--- NOTE | 2023-03-14 05:43 | DISCHARGE SUMMARY ---
ADMITTING PHYSICIAN: Andreea Murguia DO CONSULTANTS: [ ] and Dr. Tejada. ADMITTING DIAGNOSES: Lower gastrointestinal bleed, status post colonoscopy with polypectomy, long-term anticoagulation. DISCHARGE DIAGNOSES: Lower gastrointestinal bleed, status post colonoscopy with polypectomy, long-term anticoagulation. HOSPITAL COURSE: The patient is an 83-year-old male who underwent a colonoscopy with polypectomy. He restarted his anticoagulation, started having bleeding per rectum. He had [ ] and was transfused packed red blood cells 2 units. His anticoagulation, Xarelto was held. The patient was monitored in the intensive care unit until his hemoglobin stabilized and which he is advanced to regular diet. On 03/12/2023, he was transferred to the regular floor on a regular diet and continued to be monitored, his hemoglobin improved and able to be discharged home on 03/13/2023. His anticoagulation can be held for 5 more days. Followup arranged. Please see the computer for the information. Job ID: [id number] DocumentID: [id number] Dictated Date: 03/13/2023 12:45:03 Director Of Business Applications Date: 03/14/2023 05:41:00 Dictated By: ANDREEA MURGUIA DO
== END 2023-03-13 10:40 | disposition home or self-care (01) | DRG 813 ==
LOC: EDUNIT# 02:06 → ER 02:08 → ICU 03:43 → 4TH 03-12 16:35
PROVIDERS: ADMIT Surgery; ATTEND Surgery
DX: D68.32 Hemorrhagic disorder due to extrinsic circulating anticoagulants (principal); R57.8 Other shock; K91.840 Postprocedural hemorrhage of a digestive system organ or structure following a digestive system procedure; K92.1 Melena; D62 Acute posthemorrhagic anemia; N17.9 Acute kidney failure, unspecified; T45.515A Adverse effect of anticoagulants, initial encounter; I95.89 Other hypotension; I48.0 Paroxysmal atrial fibrillation; E11.9 Type 2 diabetes mellitus without complications; J44.9 Chronic obstructive pulmonary disease, unspecified; I25.10 Atherosclerotic heart disease of native coronary artery without angina pectoris; G47.33 Obstructive sleep apnea (adult) (pediatric); I10 Essential (primary) hypertension; N40.0 Benign prostatic hyperplasia without lower urinary tract symptoms; M19.90 Unspecified osteoarthritis, unspecified site; R00.1 Bradycardia, unspecified; E66.9 Obesity, unspecified; Z68.32 Body mass index [BMI] 32.0-32.9, adult; Z87.891 Personal history of nicotine dependence; Z95.1 Presence of aortocoronary bypass graft; Z79.82 Long term (current) use of aspirin; Z79.4 Long term (current) use of insulin; Z79.899 Other long term (current) drug therapy; Z85.828 Personal history of other malignant neoplasm of skin
CPT/HCPCS: 36415; 36430; 80048; 80053; 82947; 83735; 84100; 85025; 85027; 86850; 86900; 86901; 86920; 87081